=== PATIENT | female | born 1950 | race Caucasian/White ===

== ENCOUNTER → 2022-05-30 11:00 | Inpatient (IN) | payer SELFPAY ==
[2021-08-02] MEDS: BUSPIRONE 10 MG TABLET 5 MG PO ×3 (07:27→21:12)
[2021-08-02] MEDS: ALPRAZolam 0.5 MG TABLET PO ×2 (07:27→15:03)
[2021-08-02] MEDS: TRAMADOL HCL 50 MG TABLET PO ×2 (07:27→21:10)
[2021-08-02] MEDS: ACETAMINOPHEN 500 MG TABLET 1000 MG PO ×3 (07:27→21:12)
[2021-08-02] MEDS: LEVOTHYROXINE SODIUM 150 MCG TABLET PO (07:27)
[2021-08-02] MEDS: SERTRALINE 100 MG TABLET 200 MG PO (07:28)
[2021-08-02] MEDS: VENLAFAXINE HCL 150 MG CAP.ER.24H PO (07:28)
--- NOTE | 2021-08-02 11:12 | PC.SPIRITC ---
Salesperson Yard Goods provided visit for support and connection.
[2021-08-02] MEDS: ACETAMINOPHEN 325 MG TABLET 650 MG PO (15:05)
[2021-08-02 22:31] VITALS: TEMP 36.6; O2SAT 96
[2021-08-03] MEDS: ALPRAZolam 0.5 MG TABLET PO ×2 (07:26→16:24)
[2021-08-03] MEDS: TRAMADOL HCL 50 MG TABLET PO (07:26)
[2021-08-03] MEDS: LEVOTHYROXINE SODIUM 150 MCG TABLET PO (07:26)
[2021-08-03] MEDS: BUSPIRONE 10 MG TABLET 5 MG PO ×3 (07:26→20:28)
[2021-08-03] MEDS: VENLAFAXINE HCL 150 MG CAP.ER.24H PO (07:27)
[2021-08-03] MEDS: SERTRALINE 100 MG TABLET 200 MG PO (07:27)
[2021-08-03] MEDS: ACETAMINOPHEN 500 MG TABLET 1000 MG PO ×3 (08:30→20:28)
[2021-08-03 21:27] VITALS: TEMP 36.1; O2SAT 97
[2021-08-04] MEDS: ALPRAZolam 0.5 MG TABLET PO ×3 (04:27→15:04)
[2021-08-04 04:30] VITALS: TEMP 36.4; O2SAT 94
[2021-08-04] MEDS: BUSPIRONE 10 MG TABLET 5 MG PO ×3 (07:21→19:05)
[2021-08-04] MEDS: TRAMADOL HCL 50 MG TABLET PO (07:21)
[2021-08-04] MEDS: ACETAMINOPHEN 500 MG TABLET 1000 MG PO ×3 (07:21→20:44)
[2021-08-04] MEDS: LEVOTHYROXINE SODIUM 150 MCG TABLET PO (07:21)
[2021-08-04] MEDS: SERTRALINE 100 MG TABLET 200 MG PO (07:22)
[2021-08-04] MEDS: VENLAFAXINE HCL 150 MG CAP.ER.24H PO (07:22)
[2021-08-04 11:10] VITALS: BP 159/77; RESP 18; TEMP 37.2; O2SAT 96
--- NOTE | 2021-08-04 13:08 | PC.PHA ---
Pharmacy Review ~ Patient takes tramadol prn and schedule (qdaily) for pain, use is down by half in July compared to June. Acetaminophen 1000 mg tid and q4h prn started end of July. Alprazolam scheduled bid and bid prn. Use for prn alprazolam was decreased by half in July compared to June. Low dose valproic acid was stopped.
[2021-08-04] MEDS: ACETAMINOPHEN 325 MG TABLET 650 MG PO (14:39)
[2021-08-04 21:01] VITALS: TEMP 36.6; O2SAT 97
[2021-08-05 00:31] VITALS: TEMP 36.6; O2SAT 94
[2021-08-05] MEDS: LEVOTHYROXINE SODIUM 150 MCG TABLET PO (07:54)
[2021-08-05] MEDS: VENLAFAXINE HCL 150 MG CAP.ER.24H PO (08:40)
[2021-08-05] MEDS: SERTRALINE 100 MG TABLET 200 MG PO (08:40)
[2021-08-05] MEDS: BUSPIRONE 10 MG TABLET 5 MG PO ×3 (08:40→20:17)
[2021-08-05] MEDS: TRAMADOL HCL 50 MG TABLET PO ×2 (08:40→20:15)
[2021-08-05] MEDS: ALPRAZolam 0.5 MG TABLET PO ×2 (08:40→15:35)
[2021-08-05] MEDS: ACETAMINOPHEN 500 MG TABLET 1000 MG PO ×3 (08:40→20:17)
[2021-08-05 17:09] VITALS: TEMP 36.9; O2SAT 96
[2021-08-06 00:44] VITALS: TEMP 35.5; O2SAT 95
[2021-08-06] MEDS: LEVOTHYROXINE SODIUM 150 MCG TABLET PO (07:59)
[2021-08-06] MEDS: ACETAMINOPHEN 500 MG TABLET 1000 MG PO ×3 (08:00→20:02)
[2021-08-06] MEDS: ALPRAZolam 0.5 MG TABLET PO ×2 (08:00→16:13)
[2021-08-06] MEDS: VENLAFAXINE HCL 150 MG CAP.ER.24H PO (08:01)
[2021-08-06] MEDS: TRAMADOL HCL 50 MG TABLET PO ×2 (08:01→20:04)
[2021-08-06] MEDS: BUSPIRONE 10 MG TABLET 5 MG PO ×3 (08:01→20:02)
[2021-08-06] MEDS: SERTRALINE 100 MG TABLET 200 MG PO (08:01)
[2021-08-06 21:50] VITALS: TEMP 36.8; O2SAT 100
[2021-08-07] MEDS: SERTRALINE 100 MG TABLET 200 MG PO (07:42)
[2021-08-07] MEDS: ACETAMINOPHEN 500 MG TABLET 1000 MG PO ×3 (07:42→19:57)
[2021-08-07] MEDS: ALPRAZolam 0.5 MG TABLET PO ×2 (07:42→15:47)
[2021-08-07] MEDS: TRAMADOL HCL 50 MG TABLET PO (07:42)
[2021-08-07] MEDS: VENLAFAXINE HCL 150 MG CAP.ER.24H PO (07:42)
[2021-08-07] MEDS: LEVOTHYROXINE SODIUM 150 MCG TABLET PO (07:42)
[2021-08-07] MEDS: BUSPIRONE 10 MG TABLET 5 MG PO ×3 (07:42→19:57)
[2021-08-07 17:02] VITALS: TEMP 36.6; O2SAT 96
[2021-08-08] MEDS: ACETAMINOPHEN 500 MG TABLET 1000 MG PO ×3 (07:11→20:11)
[2021-08-08] MEDS: LEVOTHYROXINE SODIUM 150 MCG TABLET PO (07:11)
[2021-08-08] MEDS: VENLAFAXINE HCL 150 MG CAP.ER.24H PO (07:12)
[2021-08-08] MEDS: TRAMADOL HCL 50 MG TABLET PO ×2 (07:12→14:28)
[2021-08-08] MEDS: BUSPIRONE 10 MG TABLET 5 MG PO ×3 (07:12→20:11)
[2021-08-08] MEDS: SERTRALINE 100 MG TABLET 200 MG PO (07:12)
[2021-08-08] MEDS: ALPRAZolam 0.5 MG TABLET PO ×2 (07:12→15:16)
[2021-08-08 16:48] VITALS: TEMP 36.8; O2SAT 97
[2021-08-09] MEDS: BUSPIRONE 10 MG TABLET 5 MG PO ×3 (07:16→20:26)
[2021-08-09] MEDS: ACETAMINOPHEN 500 MG TABLET 1000 MG PO ×3 (07:16→20:26)
[2021-08-09] MEDS: VENLAFAXINE HCL 150 MG CAP.ER.24H PO (07:16)
[2021-08-09] MEDS: LEVOTHYROXINE SODIUM 150 MCG TABLET PO (07:16)
[2021-08-09] MEDS: TRAMADOL HCL 50 MG TABLET PO ×3 (07:17→18:19)
[2021-08-09] MEDS: SERTRALINE 100 MG TABLET 200 MG PO (07:18)
[2021-08-09] MEDS: ALPRAZolam 0.5 MG TABLET PO ×3 (07:18→16:44)
[2021-08-09 21:28] VITALS: TEMP 37.2; O2SAT 96
[2021-08-10] MEDS: ACETAMINOPHEN 500 MG TABLET 1000 MG PO ×3 (07:14→19:48)
[2021-08-10] MEDS: BUSPIRONE 10 MG TABLET 5 MG PO ×3 (07:14→19:49)
[2021-08-10] MEDS: LEVOTHYROXINE SODIUM 150 MCG TABLET PO (07:14)
[2021-08-10] MEDS: ALPRAZolam 0.5 MG TABLET PO ×2 (07:14→15:17)
[2021-08-10] MEDS: VENLAFAXINE HCL 150 MG CAP.ER.24H PO (07:15)
[2021-08-10] MEDS: SERTRALINE 100 MG TABLET 200 MG PO (07:15)
[2021-08-10] MEDS: TRAMADOL HCL 50 MG TABLET PO ×2 (07:16→15:18)
[2021-08-10 16:00] VITALS: TEMP 36.5; O2SAT 98
--- NOTE | 2021-08-11 02:57 | PC.NURSE ---
Week #1, Care Plan problems -19 and temporary care plan reviewed, no changes made, no additions. Vital signs were reviewed no changes made, nothing new added. Resident receives scheduled Tylenol 1000mg TID. receives Aspercreme with Lidocaine 4% to knees BID. Often has c/c's of pain, back pain, knee pain. Receives prn dose of Ultram 50mg often at HS. Is helpful in relieving pain.
[2021-08-11] MEDS: BUSPIRONE 10 MG TABLET 5 MG PO ×3 (07:23→20:17)
[2021-08-11] MEDS: ALPRAZolam 0.5 MG TABLET PO ×2 (07:23→16:34)
[2021-08-11] MEDS: VENLAFAXINE HCL 150 MG CAP.ER.24H PO (07:23)
[2021-08-11] MEDS: ACETAMINOPHEN 500 MG TABLET 1000 MG PO ×3 (07:23→20:17)
[2021-08-11] MEDS: LEVOTHYROXINE SODIUM 150 MCG TABLET PO (07:23)
[2021-08-11] MEDS: SERTRALINE 100 MG TABLET 200 MG PO (07:24)
--- NOTE | 2021-08-11 14:59 | PC.NURSE ---
Week 1: Care plan problems 1-19 reviewed. Temporary care plan reviewed. No changes made. Resident is encouraged to participate in hygiene, toileting, grooming and dressing. Has required more staff assistance lately. Staff assist as needed and ensure resident has appropriate care. Staff set up for oral cares. Continues on regular diet. No changes in eating habits. Pain summary: Resident has chronic back and knee pain. Continues on Tylenol 1,000mg TID and Ultram 50mg Q6H PRN.
[2021-08-11 21:40] VITALS: BP 154/92; PULSE 89; RESP 18; TEMP 36.3; O2SAT 96
[2021-08-11] MEDS: TRAMADOL HCL 50 MG TABLET PO (23:50)
[2021-08-12] MEDS: LEVOTHYROXINE SODIUM 150 MCG TABLET PO (07:46)
[2021-08-12] MEDS: TRAMADOL HCL 50 MG TABLET PO (08:09)
[2021-08-12] MEDS: ALPRAZolam 0.5 MG TABLET PO ×2 (08:09→16:06)
[2021-08-12] MEDS: ACETAMINOPHEN 500 MG TABLET 1000 MG PO ×3 (08:13→20:14)
[2021-08-12] MEDS: BUSPIRONE 10 MG TABLET 5 MG PO ×3 (08:13→20:14)
[2021-08-12] MEDS: SERTRALINE 100 MG TABLET 200 MG PO (08:13)
[2021-08-12] MEDS: VENLAFAXINE HCL 150 MG CAP.ER.24H PO (08:13)
--- NOTE | 2021-08-12 10:22 | PC.NURSE ---
Podiatry: Resident was seen by In house Remedial Masseur on 08/11/21.
--- NOTE | 2021-08-12 10:29 | PC.NURSE ---
Podiatry: Resident seen by In House Embedded Processor on 08/11/21.
[2021-08-12 21:11] VITALS: TEMP 36.6; O2SAT 96
[2021-08-13] MEDS: LEVOTHYROXINE SODIUM 150 MCG TABLET PO (06:47)
[2021-08-13] MEDS: VENLAFAXINE HCL 150 MG CAP.ER.24H PO (07:20)
[2021-08-13] MEDS: BUSPIRONE 10 MG TABLET 5 MG PO ×3 (07:20→19:29)
[2021-08-13] MEDS: ACETAMINOPHEN 500 MG TABLET 1000 MG PO ×2 (07:20→12:09)
[2021-08-13] MEDS: SERTRALINE 100 MG TABLET 200 MG PO (07:20)
[2021-08-13] MEDS: ALPRAZolam 0.5 MG TABLET PO ×2 (07:20→15:03)
[2021-08-13] MEDS: ACETAMINOPHEN 325 MG TABLET 650 MG PO (15:03)
[2021-08-13 15:35] VITALS: TEMP 36.8
[2021-08-13 16:00] VITALS: TEMP 36.8; O2SAT 96
[2021-08-14] MEDS: LEVOTHYROXINE SODIUM 150 MCG TABLET PO (07:49)
[2021-08-14] MEDS: ALPRAZolam 0.5 MG TABLET PO ×2 (07:56→16:11)
[2021-08-14] MEDS: SERTRALINE 100 MG TABLET 200 MG PO (07:58)
[2021-08-14] MEDS: BUSPIRONE 10 MG TABLET 5 MG PO ×3 (07:58→19:36)
[2021-08-14] MEDS: VENLAFAXINE HCL 150 MG CAP.ER.24H PO (07:58)
[2021-08-14] MEDS: ACETAMINOPHEN 500 MG TABLET 1000 MG PO ×3 (07:58→19:36)
--- NOTE | 2021-08-14 14:17 | NUTR.NU ---
Diarrhea: Resident had one loose stools after breakfast, nothing more reported as at now (end of this shift). Fluids encouraged and offered to prevent dehydration.
[2021-08-14 17:22] VITALS: TEMP 37.1; O2SAT 95
[2021-08-15] MEDS: LEVOTHYROXINE SODIUM 150 MCG TABLET PO (06:56)
[2021-08-15] MEDS: VENLAFAXINE HCL 150 MG CAP.ER.24H PO (07:01)
[2021-08-15] MEDS: BUSPIRONE 10 MG TABLET 5 MG PO ×3 (07:01→19:42)
[2021-08-15] MEDS: ALPRAZolam 0.5 MG TABLET PO ×2 (07:01→15:51)
[2021-08-15] MEDS: ACETAMINOPHEN 500 MG TABLET 1000 MG PO ×3 (07:01→19:42)
[2021-08-15] MEDS: SERTRALINE 100 MG TABLET 200 MG PO (07:02)
[2021-08-15 16:00] VITALS: TEMP 36.8; O2SAT 97
[2021-08-15] MEDS: TRAMADOL HCL 50 MG TABLET PO (19:42)
[2021-08-16] MEDS: BUSPIRONE 10 MG TABLET 5 MG PO ×3 (07:57→20:06)
[2021-08-16] MEDS: LEVOTHYROXINE SODIUM 150 MCG TABLET PO (07:57)
[2021-08-16] MEDS: ACETAMINOPHEN 500 MG TABLET 1000 MG PO ×3 (07:57→20:06)
[2021-08-16] MEDS: VENLAFAXINE HCL 150 MG CAP.ER.24H PO (07:58)
[2021-08-16] MEDS: SERTRALINE 100 MG TABLET 200 MG PO (07:58)
[2021-08-16] MEDS: ALPRAZolam 0.5 MG TABLET PO ×2 (07:59→15:22)
[2021-08-16 11:16] VITALS: TEMP 36.8; O2SAT 94
[2021-08-16 21:06] VITALS: TEMP 36.7; O2SAT 96
[2021-08-16 23:00] VITALS: TEMP 36; O2SAT 93
[2021-08-17] MEDS: ACETAMINOPHEN 500 MG TABLET 1000 MG PO ×3 (07:13→19:41)
[2021-08-17] MEDS: LEVOTHYROXINE SODIUM 150 MCG TABLET PO (07:13)
[2021-08-17] MEDS: SERTRALINE 100 MG TABLET 200 MG PO (07:15)
[2021-08-17] MEDS: VENLAFAXINE HCL 150 MG CAP.ER.24H PO (07:15)
[2021-08-17] MEDS: BUSPIRONE 10 MG TABLET 5 MG PO ×3 (07:15→19:41)
[2021-08-17] MEDS: ALPRAZolam 0.5 MG TABLET PO ×4 (07:15→16:14)
[2021-08-17 10:32] VITALS: TEMP 36.8; O2SAT 97
--- NOTE | 2021-08-17 16:09 | PC.SPIRITC ---
Rerecording Mixer provided visit for support and connection.
[2021-08-17 21:27] VITALS: TEMP 36.4; O2SAT 96
[2021-08-17 23:00] VITALS: TEMP 36.4; O2SAT 94
--- NOTE | 2021-08-18 02:25 | PC.NURSE ---
Week #2---care plan problems #20-29 reviewed. No changes made. Nothing added to temporary care plan. Continues to be independent with bed mobility, transfers, and ambulation. Uses top siderails and a walker for assist. Falls---no falls this past month. Remains a high fall risk according to assessment done on 05/30/21.
[2021-08-18 07:00] VITALS: TEMP 36.5; O2SAT 97
--- NOTE | 2021-08-18 07:23 | PC.NURSE ---
Week #2: Care plan problems - and temporary care plan reviewed. No changes made. Nothing added to temporary care plan. Resident is independent with transfers, ambulation, bed mobility and repositioning. Ambulates with a 4 wheeled walker. Fall: No falls this past month. Remains a high fall risk according to assessment done on 05/30/21.
[2021-08-18] MEDS: ACETAMINOPHEN 500 MG TABLET 1000 MG PO ×3 (07:36→19:32)
[2021-08-18] MEDS: ALPRAZolam 0.5 MG TABLET PO ×2 (07:36→15:20)
[2021-08-18] MEDS: VENLAFAXINE HCL 150 MG CAP.ER.24H PO (07:36)
[2021-08-18] MEDS: SERTRALINE 100 MG TABLET 200 MG PO (07:36)
[2021-08-18] MEDS: BUSPIRONE 10 MG TABLET 5 MG PO ×3 (07:36→19:32)
[2021-08-18] MEDS: LEVOTHYROXINE SODIUM 150 MCG TABLET PO (07:36)
[2021-08-18 16:44] VITALS: TEMP 36.6; O2SAT 98
[2021-08-18 21:23] VITALS: BP 148/94; PULSE 92; RESP 18; TEMP 36.6; O2SAT 98
[2021-08-18 22:22] LABS: SARS PCR* Negative SARS-CoV-2 (Negative)
[2021-08-18 23:00] VITALS: TEMP 36.6; O2SAT 93
[2021-08-19] MEDS: ALPRAZolam 0.5 MG TABLET PO ×3 (07:38→16:56)
[2021-08-19] MEDS: LEVOTHYROXINE SODIUM 150 MCG TABLET PO (07:39)
[2021-08-19] MEDS: VENLAFAXINE HCL 150 MG CAP.ER.24H PO (07:40)
[2021-08-19] MEDS: BUSPIRONE 10 MG TABLET 5 MG PO ×3 (07:40→20:00)
[2021-08-19] MEDS: ACETAMINOPHEN 500 MG TABLET 1000 MG PO ×3 (07:40→20:00)
[2021-08-19] MEDS: SERTRALINE 100 MG TABLET 200 MG PO (07:40)
[2021-08-19 10:27] VITALS: BMI 33.2
[2021-08-19 17:16] VITALS: TEMP 36.8; O2SAT 98
[2021-08-19 23:00] VITALS: TEMP 36.1; O2SAT 93
[2021-08-20] MEDS: LEVOTHYROXINE SODIUM 150 MCG TABLET PO (06:58)
[2021-08-20 07:00] VITALS: TEMP 36.7; O2SAT 96
[2021-08-20] MEDS: ALPRAZolam 0.5 MG TABLET PO ×2 (07:57→15:43)
[2021-08-20] MEDS: BUSPIRONE 10 MG TABLET 5 MG PO ×3 (07:58→19:25)
[2021-08-20] MEDS: SERTRALINE 100 MG TABLET 200 MG PO (07:59)
[2021-08-20] MEDS: ACETAMINOPHEN 500 MG TABLET 1000 MG PO ×3 (07:59→15:44)
[2021-08-20] MEDS: VENLAFAXINE HCL 150 MG CAP.ER.24H PO (07:59)
[2021-08-20] MEDS: TRAMADOL HCL 50 MG TABLET PO ×2 (11:22→19:23)
--- NOTE | 2021-08-20 11:30 | PC.NURSE ---
Resident in room # 242 was observed lying on the floor of her bedroom next to her bed approximately 11:00 AM. According to her, her right knee was hurting so she lowered her self to the floor for fear of her leg giving up. Incident was unwitnessed. Resident was wearing appropriate foot wear, bed was locked, and floor was dry. Primary contact, Noé Driscoll (triage), and ALARM SECURITY OR SURVEILLANCE MONITOR notified and updated. Resident assessed - no injuries, signs of fractures, bruises, noted. Resident denies hitting her head. Vital signs obtained, they are within resident's normal ranges. Resident tolerated ROM - no concerns at this time. Neuro completed - no concerns. Frequent checks is the intervention noted in care plan. will continue to monitor.
--- NOTE | 2021-08-20 12:32 | LTC.FALL ---
[facility] Fall Note: o Fall Date:08/06 o Fall Time:11:00 AM o What happened? Resident was on the floor. Unknown what happened. o Who found the resident and who responded? JOHN found her, and floor nurse responded. o What was the resident doing? Unknown. o How the resident was found (knees, left side, arm under them), any hazards (cords, objects, nonskid slippers) brakes on? Proper equipment? Was lying on her right side on the floor next to bed. No concerns at this time. o Did you assess for head trauma, spinal injuries, skeletal injuries, neurological changes and status, and head and neck pain? What did you find? Normal. o Did you assess ROM in shoulders, elbows, hips, knees, any other affected areas, unless there is suspected spinal injury. Yes. o Did you Assess for pain or discomfort? Yes. o What are the injuries and how are they being treated? o How was the resident transferred from the floor? With Jarrell and 3 assist. o Did you call the MD or put a note in the INSIDE SALES ASSOCIATE book? Yes. o Enter vital signs. o Did you notify family? Yes. o What was the root cause of the fall? Why did it happen? According to resident, her right knee was hurting, so she decided to lower herself to the floor so that her leg does not give up. o Create an IMMEDIATE INTERVENTION to ensure that this won't immediately happen again. (Put in temporary care plan too) o Complete Safety report and huddle (now one form) o If resident is seen in ED or fractured something, note that you started a [facility] Report process. Instructions are at the East nurse's desk in a red binder labeled [facility] report. N/A
[2021-08-20 12:44] VITALS: BP 160/80; PULSE 77; RESP 20; TEMP 36.6; O2SAT 98
--- NOTE | 2021-08-20 12:50 | PC.NURSE ---
Resident in room # 242 was observed lying on the floor of her bedroom next to her bed approximately 11:00 AM. According to her, her right knee was hurting so she lowered her self to the floor for fear of her leg giving up. Incident was unwitnessed. Resident was wearing appropriate foot wear, bed was locked, and floor was dry. Primary contact, Noé Driscoll (triage), and VETERINARY PHARMACOLOGIST notified and updated. Resident assessed - no injuries, signs of fractures, bruises, noted. Resident denies hitting her head. Vital signs obtained, they are within resident's normal ranges. Resident tolerated ROM - no concerns at this time. Neuro completed - no concerns. Frequent checks is the intervention noted in care plan. will continue to monitor.
[2021-08-20 13:46] VITALS: BP 149/87; PULSE 78; RESP 18; TEMP 36.6; O2SAT 98
--- NOTE | 2021-08-20 13:50 | PC.NURSE ---
Fall Follow-up: Neuro assessment completed and vital signs obtained - no new concerns at this time.
[2021-08-20 17:14] VITALS: BP 169/94; PULSE 76; RESP 18; TEMP 36.4; O2SAT 97
--- NOTE | 2021-08-20 17:15 | PC.NURSE ---
Fall F/U: Resident sitting up in recliner. Was worried about power outage, as hospital power went out for 10 seconds. VSS and neuro WNL, although resident reported a new headache. Resident denies hitting head during fall. Scheduled Tylenol given early with relief. Denies pain in R knee at this time.
--- NOTE | 2021-08-20 18:06 | PC.NURSE ---
Behavior: Resident was walking with staff down hallway to dining room. Stated she felt like she was going to fall then proceeded to bend knees and stand up several times. Resident appeared stable, but staff assisted resident into wheelchair and propelled to table.
[2021-08-20 21:01] VITALS: BP 169/80; PULSE 75; RESP 16; TEMP 36.3; O2SAT 96
--- NOTE | 2021-08-20 21:02 | PC.NURSE ---
Fall F/U: Resident resting in bed, watching TV. VSS, neuro WNL. Resident ambulated to bathroom with standby assist, gaitbelt and walker. Gait was steady. C/o pain in R knee, PRN Ultram given with moderate relief. Warm blanket applied with relief.
[2021-08-21] VITALS (10 sets, daily range): BP systolic 142–163; BP diastolic 73–96; PULSE 75–80; RESP 16–18; TEMP 36.1–36.9; O2SAT 94–98
--- NOTE | 2021-08-21 01:15 | PC.NURSE ---
Fall F/U: Resident up to BR with walker, gait belt and standby assist. Used call light for staff assist. Denies pain at this time. VSS and neuro at baseline. Resident repeatedly asked can I walk by myself tomorrow. RN stated resident is OK to walk independently, but encouraged to call for help when R knee is having pain or feels weak. Resident verbalized understanding.
--- NOTE | 2021-08-21 05:00 | PC.NURSE ---
Fall Follow-up: Neuro assessment completed and vital signs obtained - finding are within baseline values. Denies pain at this time.
[2021-08-21] MEDS: ALPRAZolam 0.5 MG TABLET PO ×2 (07:31→15:14)
[2021-08-21] MEDS: BUSPIRONE 10 MG TABLET 5 MG PO ×3 (07:33→19:55)
[2021-08-21] MEDS: ACETAMINOPHEN 500 MG TABLET 1000 MG PO ×3 (07:33→19:55)
[2021-08-21] MEDS: VENLAFAXINE HCL 150 MG CAP.ER.24H PO (07:33)
[2021-08-21] MEDS: SERTRALINE 100 MG TABLET 200 MG PO (07:33)
[2021-08-21] MEDS: LEVOTHYROXINE SODIUM 150 MCG TABLET PO (07:33)
--- NOTE | 2021-08-21 09:00 | PC.NURSE ---
Fall Follow-up: Neuro assessment completed and vital signs obtained - no new concerns at this time. Resident was able to ambulate in her bedroom, and also brought herself to the dinning room for breakfast without complains of pain. In a pleasant mood at this time.
--- NOTE | 2021-08-21 13:35 | PC.NURSE ---
Fall Follow-up: Neuro assessment completed and vital signs obtained. Findings are within baseline values. C/O 04/14 headache - rest encouraged and scheduled Acetaminophen given. Intervention were effective.
--- NOTE | 2021-08-21 17:23 | PC.NURSE ---
Fall F/U: Resident ambulated to evening meal without incident. Gait steady. VSS, Neuro WNL, SANGEETHA. Resident inquiring how many Xanax she can have a day, I'm having a hard day and think I need more. Gave scheduled xanax, which was effective.
--- NOTE | 2021-08-21 21:09 | PC.NURSE ---
Fall F/U: Gait steady this shift, VSS, Neuros WNL, SANGEETHA
--- NOTE | 2021-08-22 00:34 | PC.NURSE ---
Fall f/u for 0---Awakens easily for VS and neuro checks. No c/o's pain at this time. Hand grasps equal. SANGEETHA.
[2021-08-22 03:00] VITALS: BP 166/91; PULSE 85; RESP 18; TEMP 36.8; O2SAT 96
--- NOTE | 2021-08-22 03:32 | PC.NURSE ---
Fall f/u for 299---Awakens easily. VS and neuro checks done and remain stable. Up to the BR. Had her usual c/o's about her right knee. No episodes of knee buckling. Also expressed it was so scary in regards to her fall. Was incont. of urine and voided on the toilet. Pullup and fem pad changed.
[2021-08-22] MEDS: LEVOTHYROXINE SODIUM 150 MCG TABLET PO (07:15)
[2021-08-22] MEDS: ACETAMINOPHEN 500 MG TABLET 1000 MG PO ×3 (07:17→19:43)
[2021-08-22] MEDS: BUSPIRONE 10 MG TABLET 5 MG PO ×3 (07:18→19:43)
[2021-08-22] MEDS: VENLAFAXINE HCL 150 MG CAP.ER.24H PO (07:18)
[2021-08-22] MEDS: SERTRALINE 100 MG TABLET 200 MG PO (07:19)
[2021-08-22] MEDS: ALPRAZolam 0.5 MG TABLET PO ×2 (07:20→15:55)
[2021-08-22 12:10] VITALS: TEMP 36.9; O2SAT 96
[2021-08-22 14:00] VITALS: BP 151/80; PULSE 82; RESP 12; TEMP 36.9; O2SAT 96
--- NOTE | 2021-08-22 14:01 | PC.NURSE ---
Neuro check - PERRLA, A&Ox4, No visual field cuts observed. Strength equal bilaterally.
--- NOTE | 2021-08-22 14:01 | PC.NURSE ---
Skin - redness noticed beneath R breast and L breast. Requested order for Nystatin from INTERNATIONAL TRADE SPECIALIST
[2021-08-22 15:00] VITALS: TEMP 36.9; O2SAT 96
[2021-08-22 16:35] LABS: SARS PCR* Negative SARS-CoV-2 (Negative)
[2021-08-22 18:00] VITALS: BP 150/80; PULSE 80; RESP 16; TEMP 36.9; O2SAT 96
--- NOTE | 2021-08-22 21:43 | PC.NURSE ---
Fall Follow-up: Neuro assessment completed and vital signs obtained. Findings are within baseline values. No new concerns at this time.
[2021-08-22 23:00] VITALS: TEMP 36.6; O2SAT 95
[2021-08-23] MEDS: LEVOTHYROXINE SODIUM 150 MCG TABLET PO (07:44)
[2021-08-23] MEDS: VENLAFAXINE HCL 150 MG CAP.ER.24H PO (07:44)
[2021-08-23] MEDS: ACETAMINOPHEN 500 MG TABLET 1000 MG PO ×3 (07:44→20:10)
[2021-08-23] MEDS: BUSPIRONE 10 MG TABLET 5 MG PO ×3 (07:44→20:11)
[2021-08-23] MEDS: SERTRALINE 100 MG TABLET 200 MG PO (07:45)
[2021-08-23] MEDS: ALPRAZolam 0.5 MG TABLET PO ×2 (07:46→15:48)
--- NOTE | 2021-08-23 10:01 | REH.OT ---
Hot Liquid Assessment: Due to cognitive deficits, resident may drink hot liquids only at a table.
--- NOTE | 2021-08-23 11:22 | PC.NURSE ---
Skin/Order: Redness under both breasts noted by HOME SUPERVISORUrban. Order: Nystatin powder BID, apply small amount to affected area.
[2021-08-23 13:30] VITALS: TEMP 36.4; O2SAT 98
[2021-08-23] MEDS: NYSTATIN POWDER 1 APPLIC TOPICAL (15:48)
[2021-08-23 17:15] VITALS: TEMP 36.4; O2SAT 98
[2021-08-23 23:00] VITALS: TEMP 36.1; O2SAT 93
[2021-08-24] MEDS: VENLAFAXINE HCL 150 MG CAP.ER.24H PO (07:27)
[2021-08-24] MEDS: BUSPIRONE 10 MG TABLET 5 MG PO ×3 (07:27→19:34)
[2021-08-24] MEDS: LEVOTHYROXINE SODIUM 150 MCG TABLET PO (07:27)
[2021-08-24] MEDS: NYSTATIN POWDER 1 APPLIC TOPICAL ×2 (07:27→19:41)
[2021-08-24] MEDS: ACETAMINOPHEN 500 MG TABLET 1000 MG PO ×3 (07:27→19:34)
[2021-08-24] MEDS: ALPRAZolam 0.5 MG TABLET PO ×2 (07:27→15:52)
[2021-08-24] MEDS: SERTRALINE 100 MG TABLET 200 MG PO (07:27)
[2021-08-24 10:42] VITALS: TEMP 37.2; O2SAT 94
--- NOTE | 2021-08-24 13:57 | PC.PHA ---
Pharmacy Note ~ Patient continues on same med. regimen, with scheduled acetaminophen 1000 mg tid and prn tramadol and acetaminophen. As needed tramadol needed 13 times since 08/02/21 and 2 doses of acetaminophen since 08/02/2021. Alprazolam scheduled and prn continues, with 5 prn doses since 08/04/21. Venlafaxine 150 mg daily is fairly low dose but patient maintaining, therefore no recommended med. adjustments this review.
[2021-08-24] MEDS: TRAMADOL HCL 50 MG TABLET PO (15:53)
[2021-08-24 21:35] VITALS: TEMP 36.4; O2SAT 95
[2021-08-24 23:00] VITALS: TEMP 36; O2SAT 95
--- NOTE | 2021-08-25 04:09 | PC.NURSE ---
Weekly #3 temporary care Plan reviewed. Addition to plan of care, increased redness under breasts, new order to apply nystatin powder BID. Plan of Care reviewed problems 30-39. no additions or changes made. resident has frequent incontinence due to urgency wears incontinent brief and staff assist. Vital signs reviewed and within normal range.
[2021-08-25 07:00] VITALS: TEMP 36.8; O2SAT 97
[2021-08-25] MEDS: LEVOTHYROXINE SODIUM 150 MCG TABLET PO (07:39)
--- NOTE | 2021-08-25 07:42 | PC.NURSE ---
Week #3: Care plan problems 30-39 and temporary care plan reviewed. No changes made. Nothing added to temporary care plan. Is typically incontinent of urine, occasional bowel incontinence. She is independent with toileting. Transfers and ambulates with a walker. Pads, rashad cares, clothing managed by self. Will ask for assist as needed. Skin: No issues at this time. Skin is checked routinely with baths & prn.
[2021-08-25] MEDS: ACETAMINOPHEN 500 MG TABLET 1000 MG PO ×3 (08:03→20:34)
[2021-08-25] MEDS: BUSPIRONE 10 MG TABLET 5 MG PO ×3 (08:04→20:35)
[2021-08-25] MEDS: ALPRAZolam 0.5 MG TABLET PO ×2 (08:04→16:35)
[2021-08-25] MEDS: NYSTATIN POWDER 1 APPLIC TOPICAL ×2 (08:04→20:35)
[2021-08-25] MEDS: VENLAFAXINE HCL 150 MG CAP.ER.24H PO (08:04)
[2021-08-25] MEDS: SERTRALINE 100 MG TABLET 200 MG PO (08:05)
[2021-08-25] MEDS: TRAMADOL HCL 50 MG TABLET PO (11:54)
[2021-08-25 21:25] VITALS: BP 148/90; PULSE 86; RESP 18; TEMP 36.3; O2SAT 94
[2021-08-25 23:00] VITALS: TEMP 35.5; O2SAT 93
--- NOTE | 2021-08-25 23:45 | PC.NURSE ---
FALL RISK: Assessment complete. Is a high fall risk.
[2021-08-26 07:00] VITALS: TEMP 36.7; O2SAT 97
[2021-08-26] MEDS: ALPRAZolam 0.5 MG TABLET PO ×2 (07:50→16:33)
[2021-08-26] MEDS: ACETAMINOPHEN 500 MG TABLET 1000 MG PO ×3 (07:50→19:44)
[2021-08-26] MEDS: NYSTATIN POWDER 1 APPLIC TOPICAL ×2 (07:50→19:44)
[2021-08-26] MEDS: BUSPIRONE 10 MG TABLET 5 MG PO ×3 (07:50→19:44)
[2021-08-26] MEDS: LEVOTHYROXINE SODIUM 150 MCG TABLET PO (07:50)
[2021-08-26] MEDS: SERTRALINE 100 MG TABLET 200 MG PO (07:51)
[2021-08-26] MEDS: VENLAFAXINE HCL 150 MG CAP.ER.24H PO (07:51)
--- NOTE | 2021-08-26 17:13 | PC.SOCIAL ---
Care conference: Care conference held on 08/23/21 with all members of the care team and resident present in person, cousin participated by phone. Resident is pleased with care at this facility and plans to remain form tamping machine operator. Resident's questions about knee pain were answered by nursing. Resident has very supportive cousin who keeps in frequent contact with her. Cousin expressed pleasure that resident was participating and engaged in care conference discussion. Residents' mood as assessed by PHQ-9 remains stable. Resident is aware of option to request additional medication for anxiety when needed. quality worker to continue to monitor mood and behavior.
[2021-08-26 18:37] VITALS: TEMP 36.8; O2SAT 96
[2021-08-26 23:00] VITALS: TEMP 36.2; O2SAT 95
[2021-08-27 07:00] VITALS: TEMP 36.8; O2SAT 97
[2021-08-27] MEDS: ALPRAZolam 0.5 MG TABLET PO ×3 (07:53→18:54)
[2021-08-27] MEDS: LEVOTHYROXINE SODIUM 150 MCG TABLET PO (07:53)
[2021-08-27] MEDS: VENLAFAXINE HCL 150 MG CAP.ER.24H PO (07:55)
[2021-08-27] MEDS: BUSPIRONE 10 MG TABLET 5 MG PO ×3 (07:55→18:54)
[2021-08-27] MEDS: SERTRALINE 100 MG TABLET 200 MG PO (07:55)
[2021-08-27] MEDS: ACETAMINOPHEN 500 MG TABLET 1000 MG PO ×3 (07:55→18:53)
[2021-08-27] MEDS: NYSTATIN POWDER 1 APPLIC TOPICAL ×2 (07:55→18:54)
[2021-08-27 16:43] VITALS: TEMP 36.7; O2SAT 96
[2021-08-27] MEDS: TRAMADOL HCL 50 MG TABLET PO (20:27)
[2021-08-27 23:00] VITALS: TEMP 36.3; O2SAT 94
[2021-08-28 07:00] VITALS: TEMP 36.8; O2SAT 97
[2021-08-28] MEDS: LEVOTHYROXINE SODIUM 150 MCG TABLET PO (07:13)
[2021-08-28] MEDS: ALPRAZolam 0.5 MG TABLET PO ×2 (07:13→15:59)
[2021-08-28] MEDS: ACETAMINOPHEN 500 MG TABLET 1000 MG PO ×3 (07:15→19:58)
[2021-08-28] MEDS: SERTRALINE 100 MG TABLET 200 MG PO (07:15)
[2021-08-28] MEDS: BUSPIRONE 10 MG TABLET 5 MG PO ×3 (07:15→19:58)
[2021-08-28] MEDS: VENLAFAXINE HCL 150 MG CAP.ER.24H PO (07:15)
[2021-08-28] MEDS: NYSTATIN POWDER 1 APPLIC TOPICAL (07:15)
[2021-08-28] MEDS: TRAMADOL HCL 50 MG TABLET PO (20:37)
[2021-08-28 21:41] VITALS: TEMP 36.8; O2SAT 97
[2021-08-29 05:26] VITALS: TEMP 36.4; O2SAT 94
[2021-08-29] MEDS: LEVOTHYROXINE SODIUM 150 MCG TABLET PO (08:00)
[2021-08-29] MEDS: BUSPIRONE 10 MG TABLET 5 MG PO ×3 (08:00→19:47)
[2021-08-29] MEDS: ACETAMINOPHEN 500 MG TABLET 1000 MG PO ×3 (08:00→19:47)
[2021-08-29] MEDS: VENLAFAXINE HCL 150 MG CAP.ER.24H PO (08:01)
[2021-08-29] MEDS: SERTRALINE 100 MG TABLET 200 MG PO (08:01)
[2021-08-29] MEDS: NYSTATIN POWDER 1 APPLIC TOPICAL ×2 (08:01→19:47)
[2021-08-29] MEDS: ALPRAZolam 0.5 MG TABLET PO ×2 (08:02→15:48)
[2021-08-29 10:43] VITALS: TEMP 37; O2SAT 97
[2021-08-29 15:00] VITALS: TEMP 36.6; O2SAT 96
[2021-08-29 19:33] LABS: SARS PCR* Negative SARS-CoV-2 (Negative)
[2021-08-29 23:00] VITALS: TEMP 37; O2SAT 94
[2021-08-30] MEDS: VENLAFAXINE HCL 150 MG CAP.ER.24H PO (07:09)
[2021-08-30] MEDS: SERTRALINE 100 MG TABLET 200 MG PO (07:09)
[2021-08-30] MEDS: BUSPIRONE 10 MG TABLET 5 MG PO ×3 (07:09→19:54)
[2021-08-30] MEDS: ACETAMINOPHEN 500 MG TABLET 1000 MG PO ×3 (07:09→19:54)
[2021-08-30] MEDS: ALPRAZolam 0.5 MG TABLET PO ×3 (07:09→21:36)
[2021-08-30] MEDS: NYSTATIN POWDER 1 APPLIC TOPICAL ×2 (07:09→19:55)
[2021-08-30] MEDS: LEVOTHYROXINE SODIUM 150 MCG TABLET PO (07:09)
[2021-08-30 10:29] VITALS: TEMP 37.1; O2SAT 95
[2021-08-30 15:00] VITALS: TEMP 36.8; O2SAT 97
[2021-08-30] MEDS: TRAMADOL HCL 50 MG TABLET PO (18:48)
[2021-08-30 23:00] VITALS: TEMP 36.7; O2SAT 94
[2021-08-31] MEDS: BUSPIRONE 10 MG TABLET 5 MG PO ×3 (07:56→19:00)
[2021-08-31] MEDS: LEVOTHYROXINE SODIUM 150 MCG TABLET PO (07:56)
[2021-08-31] MEDS: ACETAMINOPHEN 500 MG TABLET 1000 MG PO ×3 (07:56→19:00)
[2021-08-31] MEDS: NYSTATIN POWDER 1 APPLIC TOPICAL ×2 (07:56→20:13)
[2021-08-31] MEDS: VENLAFAXINE HCL 150 MG CAP.ER.24H PO (07:57)
[2021-08-31] MEDS: SERTRALINE 100 MG TABLET 200 MG PO (07:57)
[2021-08-31] MEDS: ALPRAZolam 0.5 MG TABLET PO ×2 (07:58→16:22)
[2021-08-31 11:23] VITALS: TEMP 36.9; O2SAT 93
[2021-08-31] MEDS: TRAMADOL HCL 50 MG TABLET PO ×2 (11:30→19:00)
--- NOTE | 2021-08-31 12:32 | PC.NURSE ---
Pain - Pt complained of intense pain in lower back. Says I want a shot in my back. Left a note for the ACQUISITION MARKETING MANAGER.
--- NOTE | 2021-08-31 21:37 | PC.NURSE ---
Pain: Resident complained of back pain of 8. Was given warm towels and Ultram at 1900.
[2021-09-01] MEDS: TRAMADOL HCL 50 MG TABLET PO ×3 (03:30→21:21)
--- NOTE | 2021-09-01 03:59 | PC.NURSE ---
Week #4---care plan problems #40+ reviewed. No changes made. Nothing added to temporary care plan. Uses call light for needs. No changes noted in hearing, vision, or orientation. No behavior problems at [facility]. Sleeps well. Continues on the following psychotropic meds: Alprazolam 0.5 mg bid and bid prn, Buspar 5 mg tid, Venlafaxine 150 mg qd, and Zoloft 200 mg qd. No adverse effects noted.
[2021-09-01] MEDS: ALPRAZolam 0.5 MG TABLET PO ×3 (07:41→20:02)
[2021-09-01] MEDS: LEVOTHYROXINE SODIUM 150 MCG TABLET PO (07:41)
[2021-09-01] MEDS: BUSPIRONE 10 MG TABLET 5 MG PO ×3 (07:45→20:01)
[2021-09-01] MEDS: NYSTATIN POWDER 1 APPLIC TOPICAL ×2 (07:45→20:36)
[2021-09-01] MEDS: SERTRALINE 100 MG TABLET 200 MG PO (07:45)
[2021-09-01] MEDS: ACETAMINOPHEN 500 MG TABLET 1000 MG PO ×3 (07:45→20:01)
[2021-09-01] MEDS: VENLAFAXINE HCL 150 MG CAP.ER.24H PO (07:45)
--- NOTE | 2021-09-01 10:49 | PC.NURSE ---
Week #4: Care plan problems 40-119 and temporary care plan reviewed. No changes made. Nothing added to temporary care plan. No changes noted in communication, hearing, vision, & orientation. She does communicate needs and use the call light. Hearing & vision are fine. 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 Continues to complain of on/off knee & back pain. Does not self administer medications. Behavior/Mood: Has episodes of acting as if she is going to fall especially if there's a new staff for attention. Continues on Alprazolam 0.5mg BID & BID PRN, Buspar 5mg TID, Effexor 150mg daily, & Zoloft 200mg daily with no adverse effects noted. Has no change in medications.
--- NOTE | 2021-09-01 12:06 | PC.NURSE ---
Recert Visit: Resident seen by FRAME GATE MORTISER OPERATORUrban. Orders reviewed and renewed of 75 days with no changes.
[2021-09-01 21:38] VITALS: BP 146/90; PULSE 80; RESP 16; TEMP 36.7; O2SAT 95
--- NOTE | 2021-09-01 21:59 | PC.NURSE ---
Status: Resident c/o feeling unwell this shift. Was witnessed pacing the halls starting at 1430 until 151. Had urinary incontinence episode during afternoon activity and was exhibiting anxious behaviors after this. Resident was noted as absent for evening meal, staff was able to awaken her and she came down 30 min late at 1800 and stayed in dining room until 1914, exhibiting confusion about why someone took her tray, saying, I wasnt done! . Snack offered and resident returned to bedroom. Sleep through evening activity and expressed confusion and displeasure at missing activity. Xanax requested and given with no effect at 2001, tramadol given for headache at 2120. Resident remained at desk stating I'm not doing well, I'm not doing well repeatedly for 5 min until returning to her room.
[2021-09-02] MEDS: LEVOTHYROXINE SODIUM 150 MCG TABLET PO (07:59)
[2021-09-02] MEDS: ALPRAZolam 0.5 MG TABLET PO ×2 (08:56→16:12)
[2021-09-02] MEDS: ACETAMINOPHEN 500 MG TABLET 1000 MG PO ×3 (08:56→20:16)
[2021-09-02] MEDS: SERTRALINE 100 MG TABLET 200 MG PO (08:57)
[2021-09-02] MEDS: VENLAFAXINE HCL 150 MG CAP.ER.24H PO (08:57)
[2021-09-02] MEDS: BUSPIRONE 10 MG TABLET 5 MG PO ×3 (08:57→20:16)
[2021-09-02] MEDS: NYSTATIN POWDER 1 APPLIC TOPICAL ×2 (08:57→20:16)
[2021-09-02 21:58] VITALS: TEMP 36.7; O2SAT 99
[2021-09-03] MEDS: LEVOTHYROXINE SODIUM 150 MCG TABLET PO (07:52)
[2021-09-03] MEDS: NYSTATIN POWDER 1 APPLIC TOPICAL ×2 (07:52→20:15)
[2021-09-03] MEDS: BUSPIRONE 10 MG TABLET 5 MG PO ×3 (07:52→20:15)
[2021-09-03] MEDS: ACETAMINOPHEN 500 MG TABLET 1000 MG PO ×3 (07:52→20:15)
[2021-09-03] MEDS: VENLAFAXINE HCL 150 MG CAP.ER.24H PO (07:52)
[2021-09-03] MEDS: SERTRALINE 100 MG TABLET 200 MG PO (07:53)
[2021-09-03] MEDS: ALPRAZolam 0.5 MG TABLET PO ×4 (07:54→21:28)
[2021-09-03 21:32] VITALS: TEMP 36.6; O2SAT 95
[2021-09-04] MEDS: ALPRAZolam 0.5 MG TABLET PO ×4 (02:24→20:17)
[2021-09-04] MEDS: LEVOTHYROXINE SODIUM 150 MCG TABLET PO (06:47)
[2021-09-04] MEDS: BUSPIRONE 10 MG TABLET 5 MG PO ×3 (08:27→19:41)
[2021-09-04] MEDS: ACETAMINOPHEN 500 MG TABLET 1000 MG PO ×3 (08:27→17:03)
[2021-09-04] MEDS: VENLAFAXINE HCL 150 MG CAP.ER.24H PO (08:27)
[2021-09-04] MEDS: SERTRALINE 100 MG TABLET 200 MG PO (08:27)
[2021-09-04] MEDS: NYSTATIN POWDER 1 APPLIC TOPICAL ×2 (08:30→19:51)
[2021-09-04 18:34] VITALS: TEMP 36.6; O2SAT 95
[2021-09-04] MEDS: TRAMADOL HCL 50 MG TABLET PO (18:41)
--- NOTE | 2021-09-04 21:47 | PC.NURSE ---
Behavior: Resident exhibited attention seeking behavior throughout shift. Resident asked to walk outside, RN insisted staff accompany resident on walk, d/t increased c/o of pain and weakness in R knee. When staff assisted resident outside, she became weak and sat down in walker. Staff assisted resident back to dining room, where resident stood to transfer into chair. Then resident refused staff assistance and ambulated back to room. Later resident ambulated by self with walker to nurses station, then proceeded to sit down on walker and stated she couldn't stand up. Staff attempted to assist resident up with gaitbelt, but resident would not support own weight. EZ stand was used to assist resident up into wheelchair, and was propelled by staff to dining room. Walker was placed in residents room. Resident then began asking about walker and insisted she was fine to walk by herself. Refused to eat dinner and propelled self in WC across dinning room stating she was going to get her walker by herself. RN stated she would assist resident after dinner and assess if she was safe to use walker. RN placed gaitbelt on resident and staff followed with WC. Resident was able to stand unassisted and walk with walker. Resident was encouraged to call for help before ambulating, since she was reporting increased weakness and she agreed. Resident continued to ambulate by self, staff monitored for safety with hourly checks and provided standby assistance when resident was ambulating.
[2021-09-05] MEDS: TRAMADOL HCL 50 MG TABLET PO ×2 (02:55→11:58)
[2021-09-05] MEDS: ACETAMINOPHEN 500 MG TABLET 1000 MG PO ×3 (08:54→19:05)
[2021-09-05] MEDS: LEVOTHYROXINE SODIUM 150 MCG TABLET PO (08:54)
[2021-09-05] MEDS: VENLAFAXINE HCL 150 MG CAP.ER.24H PO (08:55)
[2021-09-05] MEDS: BUSPIRONE 10 MG TABLET 5 MG PO ×3 (08:55→19:05)
[2021-09-05] MEDS: SERTRALINE 100 MG TABLET 200 MG PO (08:55)
[2021-09-05] MEDS: NYSTATIN POWDER 1 APPLIC TOPICAL ×2 (08:55→19:05)
[2021-09-05] MEDS: ALPRAZolam 0.5 MG TABLET PO ×4 (08:59→20:15)
[2021-09-05 10:01] VITALS: BP 170/111; PULSE 100; RESP 18; TEMP 36.9; O2SAT 94
--- NOTE | 2021-09-05 10:06 | LTC.FALL ---
[facility] [place] Fall Note: o Fall Date:09-05-21 o Fall Time:0650 o What happened?resident reaching for her clothes in closet. o Who found the resident and who responded?JOHN and keno writer. o What was the resident doing? as above o How the resident was found (knees, left side, arm under them), any hazards (cords, objects, nonskid slippers) brakes on? Proper equipment? sitting on her bottom next to her bed. o Did you assess for head trauma, spinal injuries, skeletal injuries, neurological changes and status, and head and neck pain? What did you find? yes none noted o Did you assess ROM in shoulders, elbows, hips, knees, any other affected areas, unless there is suspected spinal injury. yes. Normal ROM o Did you Assess for pain or discomfort?yes no complaints o What are the injuries and how are they being treated?no injuries o How was the resident transferred from the floor?Remove by staff using gait belt o Did you call the MD or put a note in the AIRCRAFT REFUELER book?will put in AIRCRAFT REFUELER book/ o Enter vital signs. yes. T-98.5, P-100, R-18, B/P-170/100 )2 sat 94% RA o Did you notify family? yes o What was the root cause of the fall? Why did it happen?residents poor balance o Create an IMMEDIATE INTERVENTION to ensure that this won't immediately happen again. (Put in temporary care plan too)Continue hourly check and remind resident to call for help. o Complete Safety report and huddle (now one form) o If resident is seen in ED or fractured something, note that you started a [facility] Report process. Instructions are at the East nurse's desk in a red binder labeled [facility] report.
--- NOTE | 2021-09-05 10:23 | PC.NURSE ---
UPDATE: Spoke to residents cousin, Mini. Discussed that Kelli has been increasingly anxious over the past couple of weeks. Discussed potential for change in medication-MANAGER OFFICE will be here tomorrow. She notes that Kelli mentioned the last they spoke over the weekend that she wants to move to the East hallway because the residents get more care and attention. I clarified that I had spoke to Kelli about this when she came to my office door regarding this on Sunday, and that this is not the case and that all residents are cared for equally, dependent on their level of care needs--Mini understands. She also noted that Kelli wants a best friend but hasn't been able to find one here. We discussed that has meaningful social interaction at meals and activities. I also informed Mini that Kelli was found sitting on the floor in front of her closet this morning but that she is OK and does not have any injuries. She hopes she can come visit her soon.
[2021-09-05 12:24] VITALS: BP 139/86; PULSE 86; RESP 18; TEMP 36.4; O2SAT 92
[2021-09-05 16:00] VITALS: TEMP 36.8; O2SAT 98
--- NOTE | 2021-09-05 16:00 | PC.NURSE ---
Fall Follow-up: Neuro assessment completed and vital signs obtained. Findings are within resident's baseline. No new concerns at this time.
--- NOTE | 2021-09-05 16:00 | PC.NURSE ---
Fall Follow-up: Neuro assessment completed and vital signs obtained. Findings are within resident's baseline. No new concerns at this time.
[2021-09-05 16:14] VITALS: BP 140/81; PULSE 77; RESP 18; TEMP 36.8; O2SAT 98
--- NOTE | 2021-09-05 16:20 | PC.NURSE ---
Resident had increased anxiety and paranoia today. Was continually seeking out DIRECTOR OF ANCILLARY SERVICES and staff to talk to her about using a gait belt when walking in hallway, wanting an increase in medications, wanting an injection in her back, wanting and then not wanting to go to the dining room for meals. Resident begins to lower self to floor or cry when staff is talking with her. Have updated OUTBOUND SALES PROFESSIONAL on board to review medications and interventions that can be placed for residents progressive decline in mobility and cognition.
[2021-09-05 20:14] VITALS: BP 139/81; PULSE 77; RESP 18; TEMP 36.8; O2SAT 98
--- NOTE | 2021-09-05 21:55 | PC.NURSE ---
Fall Follow-up: Neuro assessment completed and vital signs obtained. Findings are within baseline. No new concerns at this time.
[2021-09-05 22:50] VITALS: BP 151/82; PULSE 81; RESP 16; TEMP 36.4; O2SAT 94
[2021-09-06] VITALS (8 sets, daily range): BP systolic 145–179; BP diastolic 71–98; PULSE 66–88; RESP 16–18; TEMP 36.3–37.2; O2SAT 93–100
--- NOTE | 2021-09-06 03:43 | PC.NURSE ---
Fall f/u for 2249---Res. lying in bed asleep. Awakens easily but seems very fatigued. Hands grasps weak but equal. SANGEETHA. Denied need to use the BR now. Reminded her to use the call light for toileting.
--- NOTE | 2021-09-06 03:45 | PC.NURSE ---
Fall f/u for 249---Res. was found in the BR trying to change her wet pants. The bed was also very wet with urine. Had ambulated to the BR per self. Assisted to get her pajamas changed. Ambulated back to bed with TB, walker, and assist of 1 without difficulty. VS and neuro checks remain stable. No c/o's pain.
[2021-09-06] MEDS: LEVOTHYROXINE SODIUM 150 MCG TABLET PO (06:54)
[2021-09-06] MEDS: ACETAMINOPHEN 500 MG TABLET 1000 MG PO ×3 (08:13→19:59)
[2021-09-06] MEDS: NYSTATIN POWDER 1 APPLIC TOPICAL ×2 (08:13→19:59)
[2021-09-06] MEDS: VENLAFAXINE HCL 150 MG CAP.ER.24H PO (08:13)
[2021-09-06] MEDS: SERTRALINE 100 MG TABLET 200 MG PO (08:13)
[2021-09-06] MEDS: BUSPIRONE 10 MG TABLET 5 MG PO ×3 (08:13→19:59)
[2021-09-06] MEDS: ALPRAZolam 0.5 MG TABLET PO ×3 (08:15→23:32)
[2021-09-06 10:36] LABS: Basophils Absolute Auto 0.04 K/uL (0.00-0.30); Basophils Percent Auto 0.6 % (0.0-3.0); Eosinophils Absolute Auto 0.43 K/uL (0.00-0.50); Eosinophils Percent Auto 6.9 % (0.0-7.0); Hematocrit 42.4 % (33.0-51.0); Hemoglobin* 13.4 gm/dL (12.0-16.0); Lymphocytes Percent Auto 18.9 % (20-44); Mean Corpuscular HGB Conc 32 gm/dL (32-36); Mean Corpuscular Hemoglobin 30 pg (26-34); Mean Corpuscular Volume 96 fL (80-100); Neutrophils Absolute Auto 4.28 K/uL (1.7-7.0); Neutrophils Percent Auto 68.6 % (42.0-72.0); Platelet Count* 207 K/uL (140-440); RDW Coefficient of Variation % 13.4 % (11.5-15.5); Red Blood Count 4.41 m/uL (4.00-5.20); White Blood Count* 6.24 K/uL (4.50-11.00)
[2021-09-06 10:43] LABS: Slide Review Reflex No
[2021-09-06 10:47] LABS: Chloride* 108 mmol/L (96-114)
[2021-09-06 10:48] LABS: Potassium* 3.6 mmol/L (3.6-5.1); Sodium* 141 mmol/L (135-149)
[2021-09-06 10:50] LABS: Creatinine* 0.7 mg/dL (0.5-1.5); Est. Creatinine Clearance* 40.81; Estimated Glomerular Filt Rate 92 ml/min
[2021-09-06 10:51] LABS: Blood Urea Nitrogen* 12 mg/dL (7-30); Calcium* 8.6 mg/dL (8.4-10.6); Carbon Dioxide* 25 mmol/L (20-32); Glucose* 124 mg/dL (60-115)
[2021-09-06] MEDS: TRAMADOL HCL 50 MG TABLET PO ×2 (11:34→19:00)
[2021-09-06 12:07] LABS: Thyroid Stimulating Hormone* 0.684 uIU/mL (0.270-4.20)
--- NOTE | 2021-09-06 13:37 | PC.NURSE ---
Lab: TSH, CBC, BMP results reviewed by Urban SURESH. No new order.
--- NOTE | 2021-09-06 15:30 | PC.NURSE ---
Fall F/U: Resident up in recliner. Did not recall fall yesterday. BP elevated 179/98. Neuro at baseline. States her back is sore. Offered heated blanket, PRN Ultram was given on previous shift at 1130 with some relief. Resident ambulated hallway at beginning of shift without incident.
--- NOTE | 2021-09-06 20:00 | PC.NURSE ---
Addendum entered by China Jorge RN 09/06/21 21:45: Fall F/U: Resident ambulating in room. States she was looking for a DVD and couldn't find it. Neuro at baseline. BP continues to be elevated: 164/95. Continues to have c/o pain in back, PRN Ultram given at 1900. Warm blankets offered as well. Original Note: Fall F/U: Resident
--- NOTE | 2021-09-07 00:14 | PC.NURSE ---
Fall f/u for 2249---Res. was sitting up on the edge of the bed. Stated, I had an accident. Assisted to the BR with TB and walker. Walked very slowly. Repeatedly commenting about how nervous she was because of the firefly in her room earlier. Stated, I'm so nervous. I have to leave my door open tonight. I need a Xanax. Voided on the toilet. Pullup and fem pad changed. Ambulated back to bed--very slowly. Once back to bed was given a warm blanket for her back and she started eating a bag of potato chips. Continued to request a Xanax. Xanax 0.5 mg given at 2331. Then stated, it's back. Referring to the firefly. Pointing towards the door. Wondering if she is referring to the sensor light on the soap dispenser. Both dispensers covered with a towel. Res. wanted to keep the light on over the sink and is watching TV and eating her chips.
[2021-09-07 02:50] VITALS: BP 135/80; PULSE 80; RESP 16; TEMP 36.6; O2SAT 93
--- NOTE | 2021-09-07 02:58 | PC.NURSE ---
Fall f/u for 249---VS and neuro's stable. Has been sleeping. No further c/o's fireflies in room.
[2021-09-07] MEDS: NYSTATIN POWDER 1 APPLIC TOPICAL (07:55)
[2021-09-07] MEDS: LEVOTHYROXINE SODIUM 150 MCG TABLET PO (07:55)
[2021-09-07] MEDS: SERTRALINE 100 MG TABLET 200 MG PO (07:55)
[2021-09-07] MEDS: VENLAFAXINE HCL 150 MG CAP.ER.24H PO (07:55)
[2021-09-07] MEDS: ACETAMINOPHEN 500 MG TABLET 1000 MG PO ×3 (07:55→20:04)
[2021-09-07] MEDS: BUSPIRONE 10 MG TABLET 5 MG PO ×3 (07:55→20:03)
[2021-09-07] MEDS: ALPRAZolam 0.5 MG TABLET PO ×2 (07:57→15:10)
[2021-09-07] MEDS: TRAMADOL HCL 50 MG TABLET PO (09:24)
[2021-09-07 10:38] VITALS: BP 168/115; PULSE 72; RESP 24; TEMP 37; O2SAT 95
[2021-09-07 10:39] VITALS: TEMP 37; O2SAT 95
--- NOTE | 2021-09-07 14:03 | PC.SPIRITC ---
Embroidery Specialist provided visit for support, connection, comfort, and redirection.
[2021-09-07 21:22] VITALS: TEMP 36.6; O2SAT 93
[2021-09-08] MEDS: TRAMADOL HCL 50 MG TABLET PO (01:45)
--- NOTE | 2021-09-08 02:58 | PC.NURSE ---
Weekly #1 Care plan reviewed problems 1-19, no changes made no additions. Temporary Care Plan reviewed, no changes made, no additions.VS reviewed and are stable and within normal limits. Pain, res has had increase request for pain meds in past week. C/O's of backpain. Staff treat with PRN Ultram 50 mg which is somewhat effective. Has had increase in anxiety and occasionally requests Xanax. staff respond to frequent requests for help and try to reassure , redirect and offer diversional activity to reduce anxiety. Resident rcieves Aspercreme w/ Lidocaine to knees BID. Also receives scheduled Tylenol 1000mg TID. Resident will occasionally require assist with dressing on noc shift, staff assist with clear simple one step directions. Does not eat on noc shift.
[2021-09-08] MEDS: ALPRAZolam 0.5 MG TABLET PO ×4 (04:11→23:38)
--- NOTE | 2021-09-08 04:19 | PC.NURSE ---
Status Resident has had increased restlessness this noc shift. C/o'd of back pain, Ultram given per prn order with some relief. Resident has been up to bathroom x3. At 0400 resident on toilet scratching right lower leg excessively. Small amount of blood from a small area she opened. Small pinpoint areas from scratching. Lotion applied and a band aid was applied. Encouraged her to stop scratching. Zanax prn given at 0411. Res is quiet at this time.
[2021-09-08] MEDS: SERTRALINE 100 MG TABLET 200 MG PO (07:21)
[2021-09-08] MEDS: VENLAFAXINE HCL 150 MG CAP.ER.24H PO (07:21)
[2021-09-08] MEDS: NYSTATIN POWDER 1 APPLIC TOPICAL (07:21)
[2021-09-08] MEDS: ACETAMINOPHEN 500 MG TABLET 1000 MG PO ×3 (07:21→20:18)
[2021-09-08] MEDS: BUSPIRONE 10 MG TABLET 5 MG PO ×3 (07:21→20:17)
[2021-09-08] MEDS: LEVOTHYROXINE SODIUM 150 MCG TABLET PO (07:21)
--- NOTE | 2021-09-08 08:57 | PC.SPIRITC ---
provided visit for support.
[2021-09-08 10:12] VITALS: BP 158/89; PULSE 77; RESP 18; TEMP 36.9; O2SAT 97
--- NOTE | 2021-09-08 14:08 | PC.NURSE ---
Status/Order: Urban SURESH here, updated of changes in mood/behavior. Order:UA/UC.
[2021-09-08 15:55] VITALS: BP 159/75; PULSE 79; RESP 16; TEMP 36.6; O2SAT 96
[2021-09-08 16:27] LABS: Appearance Urine Clear (Clear); Bilirubin Urine Negative (Negative); Blood Urine Negative (Negative); Color Urine Yellow (Yellow); Glucose Urine Negative (Negative); Ketones Urine Negative (Negative); Leukocyte Esterase Urine Negative (Negative); Nitrite Urine Negative (Negative); Protein Urine Negative (Negative); Specific Gravity Urine 1.025 (1.000-1.030); Urobilinogen Urine 0.2 (0.2-1.0); pH Urine 5.5 (5.0-8.5)
[2021-09-08 16:54] LABS: RBC Urine 0-2 (0-2); Squamous Epithelial Cell Urine Few (None-Few); WBC Urine 0-2 (0-5)
[2021-09-08 21:34] VITALS: TEMP 36.6; O2SAT 96
[2021-09-09] MEDS: TRAMADOL HCL 50 MG TABLET PO ×2 (01:15→10:44)
--- NOTE | 2021-09-09 05:24 | PC.NURSE ---
Status---Was very anxious at the beginning of this shift. Was up to the BR. Had been incont. in her pullup. Was upset because someone came in and turned her TV off. Was upset because she saw a big, black bug in her room. Assisted to get changed and restarted her movie for her. Xanax given at 2338 per her request. Continued to call several times throughout the noc. Did receive Ultram at 0115 for c/o back pain and a headache. Continues to move very slowly when ambulating. Slept for brief periods only.
[2021-09-09] MEDS: LEVOTHYROXINE SODIUM 150 MCG TABLET PO (07:42)
[2021-09-09] MEDS: VENLAFAXINE HCL 150 MG CAP.ER.24H PO (08:08)
[2021-09-09] MEDS: ALPRAZolam 0.5 MG TABLET PO ×2 (08:08→15:36)
[2021-09-09] MEDS: ACETAMINOPHEN 500 MG TABLET 1000 MG PO ×3 (08:08→19:47)
[2021-09-09] MEDS: BUSPIRONE 10 MG TABLET 5 MG PO ×3 (08:08→19:47)
[2021-09-09] MEDS: NYSTATIN POWDER 1 APPLIC TOPICAL ×2 (08:08→19:47)
[2021-09-09] MEDS: SERTRALINE 100 MG TABLET 200 MG PO (08:08)
[2021-09-09 21:23] VITALS: TEMP 36.7; O2SAT 96
--- NOTE | 2021-09-09 21:49 | PC.NURSE ---
Behaviors: Resident exhibited behaviors entire shift; seeking out specific staff, frequent requests for pain and anxiety medication, ruminating, wandering, attempting to lower self to floor. JOHN staff report increased difficulty following directions and increased need for assistance with cares.
[2021-09-10] MEDS: ALPRAZolam 0.5 MG TABLET PO ×4 (02:13→15:36)
[2021-09-10] MEDS: LEVOTHYROXINE SODIUM 150 MCG TABLET PO (07:49)
[2021-09-10] MEDS: ACETAMINOPHEN 500 MG TABLET 1000 MG PO ×3 (08:13→19:44)
[2021-09-10] MEDS: BUSPIRONE 10 MG TABLET 5 MG PO ×3 (08:13→19:44)
[2021-09-10] MEDS: NYSTATIN POWDER 1 APPLIC TOPICAL ×2 (08:13→19:44)
[2021-09-10] MEDS: VENLAFAXINE HCL 150 MG CAP.ER.24H PO (08:13)
[2021-09-10] MEDS: SERTRALINE 100 MG TABLET 200 MG PO (08:13)
[2021-09-10 17:02] VITALS: TEMP 36.6; O2SAT 96
[2021-09-10] MEDS: TRAMADOL HCL 50 MG TABLET PO (18:30)
[2021-09-10 18:51] VITALS: BP 149/81; PULSE 86; RESP 16; TEMP 36.6; O2SAT 94
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
[2021-09-10 21:22] VITALS: BP 142/79; PULSE 92; RESP 16; TEMP 36.7; O2SAT 95
--- NOTE | 2021-09-10 21:35 | PC.NURSE ---
Fall F/U: VSS, SANGEETHA, ROM WNL. Continue to c/o pain to b/l knees, lowback, QUEEN; all existing pre-fall.
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
[2021-09-11] VITALS (7 sets, daily range): BP systolic 148–190; BP diastolic 32–92; PULSE 74–86; RESP 16–18; TEMP 36.2–37; O2SAT 93–100
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
--- NOTE | 2021-09-11 05:28 | PC.NURSE ---
Fall f/u for 514---Awakens easily for VS and neuro checks. Both remain stable. BP was a little high at 190/92 but she had to be awakened. No c/o's pain during the noc. Does still state that she hates the w/c and hopes she can use her walker tomorrow.
[2021-09-11] MEDS: LEVOTHYROXINE SODIUM 150 MCG TABLET PO (07:55)
[2021-09-11] MEDS: NYSTATIN POWDER 1 APPLIC TOPICAL ×2 (08:10→19:13)
[2021-09-11] MEDS: ACETAMINOPHEN 500 MG TABLET 1000 MG PO ×3 (08:10→19:13)
[2021-09-11] MEDS: BUSPIRONE 10 MG TABLET 5 MG PO ×3 (08:10→19:13)
[2021-09-11] MEDS: VENLAFAXINE HCL 150 MG CAP.ER.24H PO (08:10)
[2021-09-11] MEDS: SERTRALINE 100 MG TABLET 200 MG PO (08:10)
[2021-09-11] MEDS: ALPRAZolam 0.5 MG TABLET PO ×2 (08:10→15:05)
--- NOTE | 2021-09-11 08:45 | PC.NURSE ---
Fall Follow-up: Neuro assessment completed and vital signs obtained. PERRLA intact, able to move legs and arms. Denies blurry vision. Peripheral mar full bilaterally. No new concerns as related to fall incident noted at this time.
[2021-09-11] MEDS: TRAMADOL HCL 50 MG TABLET PO (16:23)
--- NOTE | 2021-09-11 17:19 | PC.NURSE ---
Fall F/U: VSS and Neuros WNL. ROM intact, SANGEETHA, denies pain r/t fall. Walker was given back to resident this AM shift, remains in the temporary care plan as removed. TOY MAKER aware. Disc with resident, that per TOY MAKER, if there is a subsequent fall the walker will be removed again r/t safety concerns.
--- NOTE | 2021-09-11 21:08 | PC.NURSE ---
Behaviors: Resident spent this shift relying heavily on her call light, avg Q5Min. Questions were repetitive, resident would ask staff a question and as soon as they would leave the room she would use her call light to ask the same question. Questions were r/t to her fall yesterday, walker, general health concerns, anxiety, medication. Temporary care plan was updated to reflect non use of walker prior to 09/12 but walker was used during AM shift. Per ADULT DAYCARE COORDINATOR, okay to use PM shift as long as safety was not in question and up to nurse discretion. Resident ambulated to evening meal without incident. At evening meal, asked documentation writer if she could stand on a chair in her room to get something from the top of her closet. Firm boundaries set and informed resident if she needed something out of reach, staff would obtain for her. She flagged down documentation writer two more times to ask same question before stating, I'm going to stand on my chair, I wanted to let you know. JOHN staff informed, Q5min checks implemented post meal and chairs removed from resident room and into the hallway for safety. Chairs returned to room once resident was in bed and documentation writer situation explained to her. Oh, I think I might still do that tomorrow. followed by I will never stand on the chair, I don't want to fall. Unable to redirect to a place of confident understanding. Resident safely in bed at time of note, w/c in hallway, walker by bed; ok per ADULT DAYCARE COORDINATOR.
--- NOTE | 2021-09-11 21:17 | PC.NURSE ---
Fall F/U: Denies pain r/t fall, existing chronic pain excluded. VSS, ROM WNL, SANGEETHA.
[2021-09-12] VITALS (8 sets, daily range): BP systolic 94–154; BP diastolic 60–86; PULSE 77–89; RESP 16–22; TEMP 36.5–37; O2SAT 93–96
[2021-09-12] MEDS: TRAMADOL HCL 50 MG TABLET PO ×2 (00:03→13:58)
[2021-09-12] MEDS: LEVOTHYROXINE SODIUM 150 MCG TABLET PO (08:00)
[2021-09-12] MEDS: ACETAMINOPHEN 500 MG TABLET 1000 MG PO ×3 (08:11→19:12)
[2021-09-12] MEDS: BUSPIRONE 10 MG TABLET 5 MG PO ×3 (08:12→19:12)
[2021-09-12] MEDS: SERTRALINE 100 MG TABLET 200 MG PO (08:12)
[2021-09-12] MEDS: NYSTATIN POWDER 1 APPLIC TOPICAL ×2 (08:12→19:12)
[2021-09-12] MEDS: VENLAFAXINE HCL 150 MG CAP.ER.24H PO (08:12)
[2021-09-12] MEDS: ALPRAZolam 0.5 MG TABLET PO ×2 (08:13→16:00)
--- NOTE | 2021-09-12 10:23 | PC.NURSE ---
Addendum entered by Jazmyne Brown RN 09/12/21 10:27: Edema +2 noted on L ankle and top of L foot. No edema noted in R ankle/foot. Original Note: Neuro check 10:00 - Pupils PERRLA. Hand molecular biology professor strength equal bilaterally. Ox4. Behavior at baseline.
--- NOTE | 2021-09-12 10:25 | PC.NURSE ---
Skin check - Skin is intact, dry, normal for color. No areas of redness. Coccyx is free of redness. Under breasts bilaterally is free of redness. No cuts/scrapes noted.
--- NOTE | 2021-09-12 13:44 | PC.NURSE ---
Neuro Assessment - Pupils PERRLA. Ox4. Hand security strategist strength equal bilaterally. ROM at baseline.
--- NOTE | 2021-09-12 14:48 | PC.NURSE ---
UPDATE: The IDT has discussed current situation with resident regarding multiple falls and behaviors. The IDT does not feel that resident would benefit from a PT evaluation at this time as her falls have been related to her behaviors/attention seeking. Will re-evaluate in the future if necessary.
[2021-09-13] MEDS: TRAMADOL HCL 50 MG TABLET PO ×2 (00:20→21:51)
--- NOTE | 2021-09-13 05:15 | PC.NURSE ---
Status---has been up to the BR with walker and assist during the noc. Continues to be incont. but also void on the toilet. Did c/o back pain x 1. Relief with Ultram 50 mg at 0020. Did c/o the light on the bed alarm bothering her. The box was tucked under the mattress. No further c/o's.
[2021-09-13] MEDS: ACETAMINOPHEN 500 MG TABLET 1000 MG PO ×3 (07:28→19:55)
[2021-09-13] MEDS: BUSPIRONE 10 MG TABLET 5 MG PO ×3 (07:28→17:20)
[2021-09-13] MEDS: ALPRAZolam 0.5 MG TABLET PO ×3 (07:28→17:20)
[2021-09-13] MEDS: LEVOTHYROXINE SODIUM 150 MCG TABLET PO (07:28)
[2021-09-13] MEDS: SERTRALINE 100 MG TABLET 200 MG PO (07:29)
[2021-09-13] MEDS: VENLAFAXINE HCL 150 MG CAP.ER.24H PO (07:29)
[2021-09-13 10:44] VITALS: TEMP 37.2; O2SAT 95
--- NOTE | 2021-09-13 11:07 | PC.NURSE ---
Order: Urban SURESH here. Nystatin Powder changed to BID PRN, Buspar 10mg daily @ 08 & 5mg @ 12 & 18, Xanax 0.5mg TID @ 08,12,18OO.
[2021-09-13 21:59] VITALS: TEMP 36.8; O2SAT 98
[2021-09-13 23:00] VITALS: TEMP 36.5; O2SAT 92
[2021-09-14] MEDS: ACETAMINOPHEN 500 MG TABLET 1000 MG PO ×3 (07:52→18:32)
[2021-09-14] MEDS: LEVOTHYROXINE SODIUM 150 MCG TABLET PO (07:52)
[2021-09-14] MEDS: SERTRALINE 100 MG TABLET 200 MG PO (07:53)
[2021-09-14] MEDS: BUSPIRONE 10 MG TABLET PO (07:53)
[2021-09-14] MEDS: VENLAFAXINE HCL 150 MG CAP.ER.24H PO (07:53)
[2021-09-14] MEDS: ALPRAZolam 0.5 MG TABLET PO ×4 (07:54→19:56)
[2021-09-14 09:59] VITALS: TEMP 36.4; O2SAT 98
[2021-09-14 10:52] LABS: Chloride* 106 mmol/L (96-114); Sodium* 142 mmol/L (135-149)
[2021-09-14 10:55] LABS: Blood Urea Nitrogen* 15 mg/dL (7-30); Carbon Dioxide* 24 mmol/L (20-32); Creatinine* 0.7 mg/dL (0.5-1.5); Est. Creatinine Clearance* 40.81; Estimated Glomerular Filt Rate 92 ml/min
[2021-09-14 10:56] LABS: Calcium* 8.6 mg/dL (8.4-10.6); Glucose* 141 mg/dL (60-115)
[2021-09-14] MEDS: BUSPIRONE 10 MG TABLET 5 MG PO ×2 (11:17→17:15)
[2021-09-14 12:06] LABS: SARS PCR* Negative SARS-CoV-2 (Negative)
[2021-09-14] MEDS: TRAMADOL HCL 50 MG TABLET PO ×2 (15:36→23:32)
[2021-09-14 21:24] VITALS: TEMP 36.1; O2SAT 96
--- NOTE | 2021-09-14 21:47 | PC.NURSE ---
Status: Resident having behaviors asking various staff if she could have a male counselor and, was on the call light for the majority of the shift. Resident also continuously asked for medications for back pain got an Ultram at 1536 for anxiety got Xanax at 1956 and for a headache gave scheduled Tylenol early.
[2021-09-14 23:00] VITALS: TEMP 37.6; O2SAT 95
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
--- NOTE | 2021-09-15 03:52 | PC.NURSE ---
Status/temp---When Covid VS checked at 2300 temp was 99.7. Was having no other symptoms. When up to the BR at 0330 temp was rechecked and was 98.8.
[2021-09-15] MEDS: LEVOTHYROXINE SODIUM 150 MCG TABLET PO (07:15)
[2021-09-15] MEDS: ACETAMINOPHEN 500 MG TABLET 1000 MG PO ×3 (07:15→20:10)
[2021-09-15] MEDS: SERTRALINE 100 MG TABLET 200 MG PO (07:16)
[2021-09-15] MEDS: BUSPIRONE 10 MG TABLET PO (07:16)
[2021-09-15] MEDS: VENLAFAXINE HCL 150 MG CAP.ER.24H PO (07:16)
[2021-09-15] MEDS: ALPRAZolam 0.5 MG TABLET PO ×5 (09:05→21:18)
[2021-09-15 11:00] VITALS: BP 130/70; PULSE 79; RESP 18; TEMP 37.2; O2SAT 93
[2021-09-15] MEDS: BUSPIRONE 10 MG TABLET 5 MG PO ×2 (11:59→17:08)
--- NOTE | 2021-09-15 14:35 | PC.NURSE ---
Status: Has increase repetitive verbalizations: I want a male counsellor then will come and tell no I don't want, I just want to talk to the personnel counselor.
[2021-09-15 17:21] VITALS: TEMP 37.4; O2SAT 96
[2021-09-15 18:28] LABS: PCR FLU A Negative PCR FLU A (Negative); PCR FLU B Negative PCR FLU B (Negative)
[2021-09-15 18:37] LABS: SARS PCR* Negative SARS-CoV-2 (Negative)
[2021-09-15 23:00] VITALS: TEMP 36.6; O2SAT 93
[2021-09-16] MEDS: TRAMADOL HCL 50 MG TABLET PO ×2 (03:08→19:27)
[2021-09-16] MEDS: BUSPIRONE 10 MG TABLET PO (07:17)
[2021-09-16] MEDS: ALPRAZolam 0.5 MG TABLET PO ×3 (07:17→17:07)
[2021-09-16] MEDS: LEVOTHYROXINE SODIUM 150 MCG TABLET PO (07:17)
[2021-09-16] MEDS: ACETAMINOPHEN 500 MG TABLET 1000 MG PO ×3 (07:17→19:26)
[2021-09-16] MEDS: SERTRALINE 100 MG TABLET 200 MG PO (07:18)
[2021-09-16] MEDS: VENLAFAXINE HCL 150 MG CAP.ER.24H PO (07:18)
[2021-09-16 10:29] VITALS: TEMP 37.2; O2SAT 95
[2021-09-16] MEDS: BUSPIRONE 10 MG TABLET 5 MG PO ×2 (11:40→17:08)
[2021-09-16 21:38] VITALS: TEMP 36.8; O2SAT 94
--- NOTE | 2021-09-16 21:49 | PC.NURSE ---
Behavior: Resident used call light frequently, Asked repetitive questions: knee/back injection, asking for medication she took minutes ago, wanting/not wanting to speak with counselor. Staff provided reassurance and tried to redirect residents attention. TV/Speaking with cousin on phone seemed to help temporarily.
[2021-09-17 00:54] VITALS: TEMP 36.9; O2SAT 95
[2021-09-17] MEDS: TRAMADOL HCL 50 MG TABLET PO (04:30)
[2021-09-17] MEDS: BUSPIRONE 10 MG TABLET PO (07:44)
[2021-09-17] MEDS: LEVOTHYROXINE SODIUM 150 MCG TABLET PO (07:44)
[2021-09-17] MEDS: ACETAMINOPHEN 500 MG TABLET 1000 MG PO ×3 (07:44→19:40)
[2021-09-17] MEDS: SERTRALINE 100 MG TABLET 200 MG PO (07:44)
[2021-09-17] MEDS: VENLAFAXINE HCL 150 MG CAP.ER.24H PO (07:44)
[2021-09-17] MEDS: ALPRAZolam 0.5 MG TABLET PO ×4 (07:46→19:41)
[2021-09-17 10:50] VITALS: TEMP 36.6; O2SAT 97
[2021-09-17] MEDS: BUSPIRONE 10 MG TABLET 5 MG PO ×2 (12:03→17:17)
[2021-09-17 18:38] VITALS: TEMP 36.6; O2SAT 94
--- NOTE | 2021-09-17 21:03 | PC.NURSE ---
Behavior: Resident had repetitive verbalizations. Asked frequently for medication, about wanting a counselor etc. Was about to redirect in most instances with snacks, TV, warm blankets. PRN xanax given per residents request at 1948 with some relief.
[2021-09-17 23:00] VITALS: TEMP 36.6; O2SAT 94
[2021-09-18] MEDS: ACETAMINOPHEN 500 MG TABLET 1000 MG PO ×3 (08:02→19:37)
[2021-09-18] MEDS: LEVOTHYROXINE SODIUM 150 MCG TABLET PO (08:02)
[2021-09-18] MEDS: BUSPIRONE 10 MG TABLET PO (08:03)
[2021-09-18] MEDS: VENLAFAXINE HCL 150 MG CAP.ER.24H PO (08:03)
[2021-09-18] MEDS: SERTRALINE 100 MG TABLET 200 MG PO (08:03)
[2021-09-18] MEDS: ALPRAZolam 0.5 MG TABLET PO ×4 (08:05→23:56)
[2021-09-18 09:56] VITALS: TEMP 36.6; O2SAT 95
[2021-09-18] MEDS: BUSPIRONE 10 MG TABLET 5 MG PO ×2 (12:20→17:14)
[2021-09-18 21:30] VITALS: TEMP 37.1; O2SAT 95
[2021-09-18] MEDS: TRAMADOL HCL 50 MG TABLET PO (22:28)
[2021-09-18 23:00] VITALS: TEMP 37; O2SAT 93
[2021-09-19] MEDS: LEVOTHYROXINE SODIUM 150 MCG TABLET PO (07:18)
[2021-09-19] MEDS: ACETAMINOPHEN 500 MG TABLET 1000 MG PO ×3 (07:19→19:08)
[2021-09-19] MEDS: ALPRAZolam 0.5 MG TABLET PO ×4 (07:19→22:33)
[2021-09-19] MEDS: BUSPIRONE 10 MG TABLET PO (07:19)
[2021-09-19] MEDS: SERTRALINE 100 MG TABLET 200 MG PO (07:19)
[2021-09-19] MEDS: VENLAFAXINE HCL 150 MG CAP.ER.24H PO (07:19)
[2021-09-19 10:31] VITALS: TEMP 37.2; O2SAT 92; BMI 30.9
--- NOTE | 2021-09-19 10:58 | PC.NURSE ---
COVID TESTING: Resident provided verbal consent for outbreak COVID testing. Resident is currently asymptomatic. Resident/family will be notified only if resident is positive.
[2021-09-19] MEDS: BUSPIRONE 10 MG TABLET 5 MG PO ×2 (11:28→16:30)
[2021-09-19 13:09] LABS: SARS PCR* Negative SARS-CoV-2 (Negative)
[2021-09-19] MEDS: TRAMADOL HCL 50 MG TABLET PO (21:18)
[2021-09-19 21:30] VITALS: TEMP 36.8; O2SAT 92
[2021-09-19 23:00] VITALS: TEMP 36.9; O2SAT 92
[2021-09-20] MEDS: ACETAMINOPHEN 500 MG TABLET 1000 MG PO ×3 (07:19→19:33)
[2021-09-20] MEDS: LEVOTHYROXINE SODIUM 150 MCG TABLET PO (07:19)
[2021-09-20] MEDS: ALPRAZolam 0.5 MG TABLET PO ×3 (07:20→17:29)
[2021-09-20] MEDS: VENLAFAXINE HCL 150 MG CAP.ER.24H PO (07:20)
[2021-09-20] MEDS: SERTRALINE 100 MG TABLET 200 MG PO (07:20)
[2021-09-20] MEDS: BUSPIRONE 10 MG TABLET PO (07:20)
[2021-09-20 11:17] VITALS: TEMP 36.8; O2SAT 96
[2021-09-20] MEDS: BUSPIRONE 10 MG TABLET 5 MG PO ×2 (11:30→17:31)
[2021-09-20] MEDS: TRAMADOL HCL 50 MG TABLET PO (19:32)
[2021-09-20 21:24] VITALS: TEMP 36.1; O2SAT 98
--- NOTE | 2021-09-20 21:38 | PC.NURSE ---
Behavior: Resident requested frequent help from staff. Used call light every 10-15minutes. Had frequent incontinent episodes, and required staff assistance to manage pad and change clothing. Also asked frequently for medication that was taken within the hour. Staff tried to redirect residents attention, offered warm blankets, and put on favorite movie. Multiple episodes of attention seeking behavior: would bend knees and state that she is falling when in dining room, refused use of wheelchair. Also walked out of room with pants soaked in urine.
--- NOTE | 2021-09-20 22:22 | PC.NURSE ---
OK to discontinue bed alarm use HS per CONCRETE STONE FINISHING SUPERVISOR. Resident has been using call light appropriately for help.
[2021-09-20 23:00] VITALS: TEMP 36.6; O2SAT 92
[2021-09-21] MEDS: TRAMADOL HCL 50 MG TABLET PO (01:48)
[2021-09-21] MEDS: ALPRAZolam 0.5 MG TABLET PO ×5 (03:54→23:34)
[2021-09-21] MEDS: LEVOTHYROXINE SODIUM 150 MCG TABLET PO (07:09)
[2021-09-21] MEDS: VENLAFAXINE HCL 150 MG CAP.ER.24H PO (07:10)
[2021-09-21] MEDS: ACETAMINOPHEN 500 MG TABLET 1000 MG PO ×3 (07:10→19:31)
[2021-09-21] MEDS: SERTRALINE 100 MG TABLET 200 MG PO (07:10)
[2021-09-21] MEDS: BUSPIRONE 10 MG TABLET PO (07:10)
[2021-09-21 10:49] VITALS: TEMP 36.6; O2SAT 94
--- NOTE | 2021-09-21 10:49 | PC.NURSE ---
Behavior: Resident approached different staff with same repetitive comments ' when i am going to see the male counselor, I am scared I see faces in my room and feet walking under the sink, and people talking. She has been reassured and ghost writer spent 1:1
[2021-09-21] MEDS: BUSPIRONE 10 MG TABLET 5 MG PO ×2 (12:04→17:13)
[2021-09-21 21:43] VITALS: TEMP 37.1; O2SAT 94
[2021-09-21 23:00] VITALS: TEMP 36.4; O2SAT 95
[2021-09-22] MEDS: VENLAFAXINE HCL 150 MG CAP.ER.24H PO (07:49)
[2021-09-22] MEDS: BUSPIRONE 10 MG TABLET PO (07:49)
[2021-09-22] MEDS: LEVOTHYROXINE SODIUM 150 MCG TABLET PO (07:49)
[2021-09-22] MEDS: SERTRALINE 100 MG TABLET 200 MG PO (07:49)
[2021-09-22] MEDS: ALPRAZolam 0.5 MG TABLET PO ×3 (07:49→17:01)
[2021-09-22] MEDS: ACETAMINOPHEN 500 MG TABLET 1000 MG PO ×3 (07:49→17:25)
[2021-09-22 10:05] VITALS: TEMP 37.2; O2SAT 96
[2021-09-22] MEDS: BUSPIRONE 10 MG TABLET 5 MG PO ×2 (11:38→17:03)
--- NOTE | 2021-09-22 14:09 | PC.NURSE ---
Status: Resident has been pulling her call light, wants the bed alarm back (wants to listen to it).
--- NOTE | 2021-09-22 14:40 | PC.NURSE ---
Week #: Care plan problems 30-39 reviewed. No changes to care plan. Temporary care plan updated regarding recurrent falls. Hourly checks and bed alarm initiated. Resident is mostly incontinent of bladder. Continent of bowels. Staff assist with toileting, pericares and pad management as needed. Resident has required more help recently. Skin: Resident had redness under R breast. PRN Nystatin applied until resolved.
[2021-09-22 17:20] VITALS: BP 135/83; PULSE 67; RESP 16; TEMP 36.7; O2SAT 95; O2SAT 98
[2021-09-22] MEDS: TRAMADOL HCL 50 MG TABLET PO (19:07)
--- NOTE | 2021-09-22 21:42 | PC.NURSE ---
Behavior: Resident requested frequent help from staff. Had repetitive verbalizations asking for counselor and frequent incontinent episodes, requiring staff assistance to manage pad and change clothing. Staff tried to redirect residents attention, offered warm blankets, and TV/movie. Multiple episodes of attention seeking behavior: would bend knees and state that she is falling when in dining room, when given wheelchair resident insisted she was fine to use walker and asked repetitively for it.
[2021-09-22 23:00] VITALS: TEMP 36.9; O2SAT 92
[2021-09-23] MEDS: ALPRAZolam 0.5 MG TABLET PO ×4 (00:34→17:00)
[2021-09-23] MEDS: TRAMADOL HCL 50 MG TABLET PO ×2 (03:55→21:13)
[2021-09-23] MEDS: BUSPIRONE 10 MG TABLET PO (07:20)
[2021-09-23] MEDS: VENLAFAXINE HCL 150 MG CAP.ER.24H PO (07:20)
[2021-09-23] MEDS: SERTRALINE 100 MG TABLET 200 MG PO (07:20)
[2021-09-23] MEDS: ACETAMINOPHEN 500 MG TABLET 1000 MG PO ×3 (07:20→19:21)
[2021-09-23] MEDS: LEVOTHYROXINE SODIUM 150 MCG TABLET PO (07:20)
[2021-09-23 10:26] VITALS: TEMP 36.9; O2SAT 95
[2021-09-23] MEDS: BUSPIRONE 10 MG TABLET 5 MG PO ×2 (11:13→17:00)
[2021-09-23 21:42] VITALS: TEMP 37.2; O2SAT 95
--- NOTE | 2021-09-23 21:46 | PC.NURSE ---
Behavior: Resident was at nurses desk from [id number] pacing, bending at the knees saying she was going to fall and when redirected walked with no issue. Seeking out specific staff and reporting 10+ times to science writer that she no longer wants to see a counselor. Resident used call light appropriately but with increasing frequency through shift with repetitive requests and statements.
[2021-09-23 23:00] VITALS: TEMP 36.7; O2SAT 91
[2021-09-24 07:00] VITALS: TEMP 36.7; O2SAT 96
[2021-09-24] MEDS: LEVOTHYROXINE SODIUM 150 MCG TABLET PO (07:33)
[2021-09-24] MEDS: BUSPIRONE 10 MG TABLET PO (08:19)
[2021-09-24] MEDS: VENLAFAXINE HCL 150 MG CAP.ER.24H PO (08:19)
[2021-09-24] MEDS: SERTRALINE 100 MG TABLET 200 MG PO (08:19)
[2021-09-24] MEDS: ALPRAZolam 0.5 MG TABLET PO ×3 (08:19→17:33)
[2021-09-24] MEDS: ACETAMINOPHEN 500 MG TABLET 1000 MG PO ×3 (08:19→18:57)
[2021-09-24] MEDS: BUSPIRONE 10 MG TABLET 5 MG PO ×2 (11:49→17:33)
[2021-09-24 21:37] VITALS: TEMP 36.9; O2SAT 96
[2021-09-24 23:00] VITALS: TEMP 36.6; O2SAT 94
[2021-09-24] MEDS: TRAMADOL HCL 50 MG TABLET PO (23:47)
[2021-09-25] MEDS: TRAMADOL HCL 50 MG TABLET PO (05:54)
[2021-09-25] MEDS: ACETAMINOPHEN 500 MG TABLET 1000 MG PO ×3 (07:39→19:54)
[2021-09-25] MEDS: BUSPIRONE 10 MG TABLET PO (07:39)
[2021-09-25] MEDS: LEVOTHYROXINE SODIUM 150 MCG TABLET PO (07:39)
[2021-09-25] MEDS: SERTRALINE 100 MG TABLET 200 MG PO (07:39)
[2021-09-25] MEDS: ALPRAZolam 0.5 MG TABLET PO ×3 (07:39→17:08)
[2021-09-25] MEDS: VENLAFAXINE HCL 150 MG CAP.ER.24H PO (07:39)
[2021-09-25 11:05] VITALS: TEMP 36.8; O2SAT 95
[2021-09-25] MEDS: BUSPIRONE 10 MG TABLET 5 MG PO ×2 (11:32→17:08)
[2021-09-25 17:10] VITALS: TEMP 36.6; O2SAT 95
[2021-09-25 23:00] VITALS: TEMP 36.1; O2SAT 95
[2021-09-26] MEDS: ALPRAZolam 0.5 MG TABLET PO ×4 (03:35→17:22)
[2021-09-26] MEDS: ACETAMINOPHEN 500 MG TABLET 1000 MG PO ×3 (07:49→19:59)
[2021-09-26] MEDS: LEVOTHYROXINE SODIUM 150 MCG TABLET PO (07:49)
[2021-09-26] MEDS: SERTRALINE 100 MG TABLET 200 MG PO (07:50)
[2021-09-26] MEDS: BUSPIRONE 10 MG TABLET PO (07:50)
[2021-09-26] MEDS: VENLAFAXINE HCL 150 MG CAP.ER.24H PO (07:50)
[2021-09-26] MEDS: BUSPIRONE 10 MG TABLET 5 MG PO ×2 (11:09→17:22)
[2021-09-26 12:47] VITALS: TEMP 36.4; O2SAT 96; BMI 33.3
[2021-09-26 13:14] LABS: SARS PCR* Negative SARS-CoV-2 (Negative)
[2021-09-26 15:00] VITALS: TEMP 37; O2SAT 96
[2021-09-26 23:00] VITALS: TEMP 36.8; O2SAT 94
[2021-09-26] MEDS: TRAMADOL HCL 50 MG TABLET PO (23:40)
[2021-09-27 07:00] VITALS: TEMP 36.7; O2SAT 91
[2021-09-27] MEDS: SERTRALINE 100 MG TABLET 200 MG PO (07:54)
[2021-09-27] MEDS: BUSPIRONE 10 MG TABLET PO (07:54)
[2021-09-27] MEDS: VENLAFAXINE HCL 150 MG CAP.ER.24H PO (07:54)
[2021-09-27] MEDS: LEVOTHYROXINE SODIUM 150 MCG TABLET PO (07:54)
[2021-09-27] MEDS: ACETAMINOPHEN 500 MG TABLET 1000 MG PO ×3 (07:54→19:18)
[2021-09-27] MEDS: ALPRAZolam 0.5 MG TABLET PO ×3 (07:56→16:25)
[2021-09-27] MEDS: BUSPIRONE 10 MG TABLET 5 MG PO ×2 (11:40→16:26)
[2021-09-27 17:28] VITALS: TEMP 36.4; O2SAT 94
[2021-09-27] MEDS: TRAMADOL HCL 50 MG TABLET PO (18:47)
--- NOTE | 2021-09-27 21:30 | PC.NURSE ---
Behavior: Resident had repetitive verbalizations and frequent requests of staff. Repetitively asked about counselor and reported new health concerns. Reported feeling unwell, when RN assessed resident stated she felt feverish. Temp: 97.5 Pulse Ox: 94%. Room temperature turned down and encouraged resident to drink water. Later resident did not recall stating she felt ill and instead stated she was anxious, scheduled Xanax and favorite movie was turned on. Asked staff shortly after to go to ED, staff reassured resident and reminded to give medication time to work. Walked up to Nurses station and c/o R knee pain. Encouraged resident to sit in recliner and elevate legs. Warm blanket offered and PRN Ultram given. Asked 3x after Ultram administration for pain medication. Resident reminded she recently took pain med and it takes time to work. Called immediately after staff left room and reported a new Headache. Again resident was reminded she just took scheduled Tylenol. Encouraged her to drink water vs coke.
[2021-09-27 23:00] VITALS: TEMP 36.2; O2SAT 91
[2021-09-28] MEDS: ALPRAZolam 0.5 MG TABLET PO ×4 (07:34→22:21)
[2021-09-28] MEDS: VENLAFAXINE HCL 150 MG CAP.ER.24H PO (07:34)
[2021-09-28] MEDS: LEVOTHYROXINE SODIUM 150 MCG TABLET PO (07:34)
[2021-09-28] MEDS: ACETAMINOPHEN 500 MG TABLET 1000 MG PO ×3 (07:34→19:40)
[2021-09-28] MEDS: BUSPIRONE 10 MG TABLET PO (07:34)
[2021-09-28] MEDS: SERTRALINE 100 MG TABLET 200 MG PO (07:35)
[2021-09-28 10:56] VITALS: TEMP 36.6; O2SAT 96
[2021-09-28] MEDS: BUSPIRONE 10 MG TABLET 5 MG PO ×2 (12:26→17:07)
--- NOTE | 2021-09-28 15:41 | PC.SOCIAL ---
Supportive visit with resident today. Resident has been requesting to see a counselor for her tearfulness and sadness. Staff have noticed increase attention seeking for minor ailments or things, and some hallucinations. Met with resident today to let her know the therapist would be here on Sunday to see resident. Resident expressed relief and started talking about someone touching her back when she was sleeping, moving her walker and seeing bugs in her room(not there). Reassurance given.
--- NOTE | 2021-09-28 16:28 | PC.SPIRITC ---
Sugar Cane Planting Equipment Operator provided visit for support and connection.
--- NOTE | 2021-09-28 16:29 | PC.SPIRITC ---
Hand Leather Trimmer provided visit for support and connection.
[2021-09-28] MEDS: TRAMADOL HCL 50 MG TABLET PO (16:56)
[2021-09-28 21:10] VITALS: TEMP 36.6; O2SAT 95
[2021-09-28 23:00] VITALS: TEMP 36.3; O2SAT 94
--- NOTE | 2021-09-29 04:03 | PC.NURSE ---
Week #4---care plan problems #40+ reviewed. No changes made. Nothing added to temporary care plan. Uses call light for needs. No changes noted in hearing, vision, or orientation. Has had an escalation of behaviors at [facility] including seeing bugs, asking continually about seeing a male counselor, asking when she can get a shot for her back, asking for whatever meds she can have. Will lie in bed and call to staff to tell us she's wet the bed. Staff assist her to the BR and change her pants. Has received prn Xanax and prn Ultram several times at [facility] this past month. Continues to receive Xanax 0.5 mg tid, Buspar 10 mg qd and 5 mg bid, Venlafaxine 150 mg qd, and Zoloft 200 mg qd. Also has order for Xanax 0.5 mg bid prn. No adverse effects noted from psychotropic meds.
[2021-09-29] MEDS: VENLAFAXINE HCL 150 MG CAP.ER.24H PO (07:26)
[2021-09-29] MEDS: ALPRAZolam 0.5 MG TABLET PO ×4 (07:26→18:27)
[2021-09-29] MEDS: SERTRALINE 100 MG TABLET 200 MG PO (07:26)
[2021-09-29] MEDS: LEVOTHYROXINE SODIUM 150 MCG TABLET PO (07:26)
[2021-09-29] MEDS: BUSPIRONE 10 MG TABLET PO (07:26)
[2021-09-29] MEDS: ACETAMINOPHEN 500 MG TABLET 1000 MG PO ×3 (07:26→19:03)
[2021-09-29 10:10] VITALS: TEMP 36.6; O2SAT 95
[2021-09-29 10:11] VITALS: PULSE 76; RESP 18; TEMP 36.6; O2SAT 95
[2021-09-29] MEDS: BUSPIRONE 10 MG TABLET 5 MG PO ×2 (11:19→17:15)
[2021-09-29 21:48] VITALS: TEMP 36.6; O2SAT 95
[2021-09-29 23:00] VITALS: TEMP 36.4; O2SAT 95
[2021-09-30] MEDS: TRAMADOL HCL 50 MG TABLET PO ×2 (01:26→21:23)
[2021-09-30 07:00] VITALS: TEMP 36.8; O2SAT 96
[2021-09-30] MEDS: LEVOTHYROXINE SODIUM 150 MCG TABLET PO (07:53)
[2021-09-30] MEDS: VENLAFAXINE HCL 150 MG CAP.ER.24H PO (08:07)
[2021-09-30] MEDS: ALPRAZolam 0.5 MG TABLET PO ×4 (08:07→22:55)
[2021-09-30] MEDS: BUSPIRONE 10 MG TABLET PO (08:07)
[2021-09-30] MEDS: ACETAMINOPHEN 500 MG TABLET 1000 MG PO ×3 (08:07→19:35)
[2021-09-30] MEDS: SERTRALINE 100 MG TABLET 200 MG PO (08:07)
[2021-09-30] MEDS: BUSPIRONE 10 MG TABLET 5 MG PO ×2 (12:05→17:05)
[2021-09-30 20:54] VITALS: TEMP 36.8; O2SAT 97
[2021-09-30 23:00] VITALS: TEMP 36.7; O2SAT 95
[2021-10-01 07:00] VITALS: TEMP 36.5; O2SAT 95
[2021-10-01] MEDS: LEVOTHYROXINE SODIUM 150 MCG TABLET PO (07:51)
[2021-10-01] MEDS: SERTRALINE 100 MG TABLET 200 MG PO (07:52)
[2021-10-01] MEDS: BUSPIRONE 10 MG TABLET PO (07:52)
[2021-10-01] MEDS: VENLAFAXINE HCL 150 MG CAP.ER.24H PO (07:52)
[2021-10-01] MEDS: ACETAMINOPHEN 500 MG TABLET 1000 MG PO ×3 (07:52→19:35)
[2021-10-01] MEDS: ALPRAZolam 0.5 MG TABLET PO ×3 (07:54→17:06)
[2021-10-01] MEDS: BUSPIRONE 10 MG TABLET 5 MG PO ×2 (11:59→17:06)
[2021-10-01] MEDS: TRAMADOL HCL 50 MG TABLET PO (16:44)
[2021-10-01 17:03] VITALS: TEMP 36.6; O2SAT 96
[2021-10-02 00:21] VITALS: TEMP 36.4; O2SAT 93
[2021-10-02] MEDS: TRAMADOL HCL 50 MG TABLET PO ×2 (02:03→19:46)
[2021-10-02] MEDS: ALPRAZolam 0.5 MG TABLET PO ×4 (05:05→17:13)
[2021-10-02 07:00] VITALS: TEMP 36.6; O2SAT 94
[2021-10-02] MEDS: LEVOTHYROXINE SODIUM 150 MCG TABLET PO (08:13)
[2021-10-02] MEDS: ACETAMINOPHEN 500 MG TABLET 1000 MG PO ×3 (08:13→19:45)
[2021-10-02] MEDS: SERTRALINE 100 MG TABLET 200 MG PO (08:14)
[2021-10-02] MEDS: BUSPIRONE 10 MG TABLET PO (08:14)
[2021-10-02] MEDS: VENLAFAXINE HCL 150 MG CAP.ER.24H PO (08:14)
[2021-10-02] MEDS: BUSPIRONE 10 MG TABLET 5 MG PO ×2 (11:39→17:13)
[2021-10-02 17:19] VITALS: TEMP 36.5; O2SAT 95
[2021-10-02 23:00] VITALS: TEMP 36.3; O2SAT 91
[2021-10-03 07:00] VITALS: TEMP 36.4; O2SAT 98; BMI 37.8
[2021-10-03] MEDS: LEVOTHYROXINE SODIUM 150 MCG TABLET PO (07:06)
[2021-10-03] MEDS: SERTRALINE 100 MG TABLET 200 MG PO (07:07)
[2021-10-03] MEDS: VENLAFAXINE HCL 150 MG CAP.ER.24H PO (07:07)
[2021-10-03] MEDS: ACETAMINOPHEN 500 MG TABLET 1000 MG PO ×3 (07:07→19:52)
[2021-10-03] MEDS: BUSPIRONE 10 MG TABLET PO (07:07)
[2021-10-03] MEDS: ALPRAZolam 0.5 MG TABLET PO ×3 (07:10→17:28)
--- NOTE | 2021-10-03 11:25 | PC.NURSE ---
COVID OUTBREAK TESTING: Resident provided verbal consent for outbreak COVID testing. Resident is currently asymptomatic. Resident/family will be notified only if resident is positive.
[2021-10-03] MEDS: BUSPIRONE 10 MG TABLET 5 MG PO ×2 (11:42→17:28)
[2021-10-03 12:16] LABS: SARS PCR* Negative SARS-CoV-2 (Negative)
[2021-10-03 15:00] VITALS: TEMP 36.4; O2SAT 98
[2021-10-03] MEDS: TRAMADOL HCL 50 MG TABLET PO (19:51)
[2021-10-03 23:00] VITALS: TEMP 36.4; O2SAT 95
[2021-10-04] MEDS: TRAMADOL HCL 50 MG TABLET PO ×2 (02:37→16:22)
[2021-10-04] MEDS: SERTRALINE 100 MG TABLET 200 MG PO (07:26)
[2021-10-04] MEDS: ACETAMINOPHEN 500 MG TABLET 1000 MG PO ×3 (07:26→20:02)
[2021-10-04] MEDS: VENLAFAXINE HCL 150 MG CAP.ER.24H PO (07:26)
[2021-10-04] MEDS: BUSPIRONE 10 MG TABLET PO (07:26)
[2021-10-04] MEDS: LEVOTHYROXINE SODIUM 150 MCG TABLET PO (07:26)
[2021-10-04] MEDS: ALPRAZolam 0.5 MG TABLET PO ×4 (07:26→21:28)
[2021-10-04 10:21] VITALS: TEMP 36.6; O2SAT 94
[2021-10-04] MEDS: BUSPIRONE 10 MG TABLET 5 MG PO ×2 (11:58→18:28)
[2021-10-04 21:24] VITALS: TEMP 37.2; O2SAT 93
--- NOTE | 2021-10-04 22:01 | PC.NURSE ---
Behavior: Resident had repetitive verbalizations, asking for PRN medication and worried about an infection since she had an incontinent episode. Staff tried to redirect residents attention, offered warm blankets, and TV/movie. Effective for short periods of time but resident would again put construction trades teacher light with same questions/requests for medication. PRN ultram and Xanax given with minimal effect.
[2021-10-04 23:00] VITALS: TEMP 36; O2SAT 93
[2021-10-05] MEDS: LEVOTHYROXINE SODIUM 150 MCG TABLET PO (07:35)
[2021-10-05] MEDS: ACETAMINOPHEN 500 MG TABLET 1000 MG PO ×3 (07:36→14:41)
[2021-10-05] MEDS: BUSPIRONE 10 MG TABLET PO (07:36)
[2021-10-05] MEDS: SERTRALINE 100 MG TABLET 200 MG PO (07:36)
[2021-10-05] MEDS: VENLAFAXINE HCL 150 MG CAP.ER.24H PO (07:36)
[2021-10-05] MEDS: ALPRAZolam 0.5 MG TABLET PO ×3 (07:37→17:22)
[2021-10-05 09:19] VITALS: TEMP 36.6; O2SAT 98
[2021-10-05] MEDS: BUSPIRONE 10 MG TABLET 5 MG PO ×2 (11:42→17:22)
[2021-10-05] MEDS: TRAMADOL HCL 50 MG TABLET PO (19:51)
[2021-10-05 21:40] VITALS: TEMP 36.3; O2SAT 95
[2021-10-05 23:00] VITALS: TEMP 36.6; O2SAT 95
[2021-10-06] MEDS: TRAMADOL HCL 50 MG TABLET PO (03:31)
[2021-10-06] MEDS: ALPRAZolam 0.5 MG TABLET PO ×4 (07:40→19:55)
[2021-10-06] MEDS: LEVOTHYROXINE SODIUM 150 MCG TABLET PO (07:40)
[2021-10-06] MEDS: SERTRALINE 100 MG TABLET 200 MG PO (07:40)
[2021-10-06] MEDS: BUSPIRONE 10 MG TABLET PO (07:40)
[2021-10-06] MEDS: ACETAMINOPHEN 500 MG TABLET 1000 MG PO ×3 (07:40→19:33)
[2021-10-06] MEDS: VENLAFAXINE HCL 150 MG CAP.ER.24H PO (07:40)
[2021-10-06 11:03] VITALS: TEMP 36.6; O2SAT 96
[2021-10-06] MEDS: BUSPIRONE 10 MG TABLET 5 MG PO ×2 (11:32→17:14)
--- NOTE | 2021-10-06 13:53 | PC.NURSE ---
Behavior: Following this marketing writer repeatedly making a statement 'I don't want the counsellor, spiders in my room (room checked no spider seen), I don't want the belt at night. Assured resident these are all noted.
[2021-10-06 22:07] VITALS: BP 170/84; PULSE 76; RESP 76; TEMP 36.6; O2SAT 97
[2021-10-06 23:00] VITALS: TEMP 36.8; O2SAT 100
[2021-10-07 07:00] VITALS: TEMP 36.8; O2SAT 97
[2021-10-07] MEDS: ALPRAZolam 0.5 MG TABLET PO ×3 (07:44→17:13)
[2021-10-07] MEDS: SERTRALINE 100 MG TABLET 200 MG PO (07:46)
[2021-10-07] MEDS: BUSPIRONE 10 MG TABLET PO (07:46)
[2021-10-07] MEDS: VENLAFAXINE HCL 150 MG CAP.ER.24H PO (07:46)
[2021-10-07] MEDS: LEVOTHYROXINE SODIUM 150 MCG TABLET PO (07:46)
[2021-10-07] MEDS: ACETAMINOPHEN 500 MG TABLET 1000 MG PO ×3 (07:46→19:17)
[2021-10-07] MEDS: BUSPIRONE 10 MG TABLET 5 MG PO ×2 (12:25→17:14)
[2021-10-07] MEDS: TRAMADOL HCL 50 MG TABLET PO ×2 (17:14→23:21)
[2021-10-07 18:40] VITALS: TEMP 36.8; O2SAT 97
--- NOTE | 2021-10-07 21:55 | PC.NURSE ---
Behaviors: resident called and asked for specific staff, repeatedly asking for pain medication immediately after admin and constant approach of staff for cortisone shot and wanting to speak to provider. Resident attempted to fall when bid writer was aiding her to bed. Motor Polarizer firmly redirected. Resident then called staff repeatedly to ask if bid writer was mad at her. Staff unable to redirect, behaviors did not improve.
[2021-10-08] MEDS: ALPRAZolam 0.5 MG TABLET PO ×4 (05:12→17:12)
[2021-10-08] MEDS: BUSPIRONE 10 MG TABLET PO (07:19)
[2021-10-08] MEDS: LEVOTHYROXINE SODIUM 150 MCG TABLET PO (07:19)
[2021-10-08] MEDS: VENLAFAXINE HCL 150 MG CAP.ER.24H PO (07:19)
[2021-10-08] MEDS: SERTRALINE 100 MG TABLET 200 MG PO (07:19)
[2021-10-08] MEDS: ACETAMINOPHEN 500 MG TABLET 1000 MG PO ×3 (07:19→19:06)
[2021-10-08 10:45] LABS: SARS PCR* Negative SARS-CoV-2 (Negative)
[2021-10-08] MEDS: BUSPIRONE 10 MG TABLET 5 MG PO ×2 (11:46→17:12)
--- NOTE | 2021-10-08 12:30 | NUTR.NU ---
Health Status: Resident C/O headache, sore throat, cough, nausea, and body-warmth this morning. Vital signs obtained were WNR. Oral swab specimen was sent to lab for COVID-19 PCR test. Test result came back negative. Resident reported feeling better during follow-up assessment. Will continue to monitor.
--- NOTE | 2021-10-08 12:51 | PC.NURSE ---
Health Status: Earlier this morning, resident C/O headaches, sore throat, coughing, nausea, and body warmth. Vital signs obtained were WNR. Oral swab specimen was sent to lab for COVID-19 PCR test. Result came back negative. Upon a health follow-up assessment, resident revealed feeling better. Will continue to monitor.
[2021-10-08] MEDS: TRAMADOL HCL 50 MG TABLET PO (18:38)
[2021-10-08 20:43] VITALS: TEMP 36.9; O2SAT 97
--- NOTE | 2021-10-08 20:49 | PC.NURSE ---
Behaviors: Resident had excessive behaviors this shift. Call light ~20+ times this shift. Almost all interactions with staff were asking for a pain pill or xanax r/t LB back px and anxiety. Internal Audit Director continually intervened and redirected, reminding her she had just received appropriate meds, resident repeatedly reported, oh, I forgot. Within seconds of staff leaving room, she would call again for same request. Often, press writer would enter room to assess for need for Rx intervention, only to find resident fast asleep in recliner. Resident concerned she is making staff mad as staff is firm with redirection. Resident scratched open pinpoint spot on inner right wrist stating, she was going to scratch until she wasn't anxious anymore, SATISH. Asked when she can get cortisone shot in back, if Xanax and tramadol Rx can be increased.
[2021-10-09] MEDS: TRAMADOL HCL 50 MG TABLET PO ×3 (04:22→23:47)
[2021-10-09] MEDS: BUSPIRONE 10 MG TABLET PO (07:12)
[2021-10-09] MEDS: ACETAMINOPHEN 500 MG TABLET 1000 MG PO ×3 (07:12→19:00)
[2021-10-09] MEDS: LEVOTHYROXINE SODIUM 150 MCG TABLET PO (07:12)
[2021-10-09] MEDS: ALPRAZolam 0.5 MG TABLET PO ×3 (07:12→17:20)
[2021-10-09] MEDS: VENLAFAXINE HCL 150 MG CAP.ER.24H PO (07:13)
[2021-10-09] MEDS: SERTRALINE 100 MG TABLET 200 MG PO (07:13)
[2021-10-09] MEDS: BUSPIRONE 10 MG TABLET 5 MG PO ×2 (11:49→17:21)
[2021-10-09 20:43] VITALS: TEMP 36.6; O2SAT 97
[2021-10-10] MEDS: LEVOTHYROXINE SODIUM 150 MCG TABLET PO (06:47)
[2021-10-10] MEDS: ALPRAZolam 0.5 MG TABLET PO ×3 (07:53→17:00)
[2021-10-10] MEDS: SERTRALINE 100 MG TABLET 200 MG PO (07:53)
[2021-10-10] MEDS: BUSPIRONE 10 MG TABLET PO (07:53)
[2021-10-10] MEDS: VENLAFAXINE HCL 150 MG CAP.ER.24H PO (07:53)
[2021-10-10] MEDS: ACETAMINOPHEN 500 MG TABLET 1000 MG PO ×3 (07:53→19:51)
[2021-10-10] MEDS: BUSPIRONE 10 MG TABLET 5 MG PO ×2 (11:41→17:00)
[2021-10-10 13:37] VITALS: BMI 37.6
[2021-10-10 17:13] VITALS: TEMP 36.7; O2SAT 94
[2021-10-10] MEDS: TRAMADOL HCL 50 MG TABLET PO (23:14)
[2021-10-11] MEDS: BUSPIRONE 10 MG TABLET PO (07:35)
[2021-10-11] MEDS: LEVOTHYROXINE SODIUM 150 MCG TABLET PO (07:35)
[2021-10-11] MEDS: VENLAFAXINE HCL 150 MG CAP.ER.24H PO (07:35)
[2021-10-11] MEDS: ACETAMINOPHEN 500 MG TABLET 1000 MG PO ×3 (07:35→19:30)
[2021-10-11] MEDS: SERTRALINE 100 MG TABLET 200 MG PO (07:35)
[2021-10-11] MEDS: ALPRAZolam 0.5 MG TABLET PO ×3 (07:38→18:31)
[2021-10-11] MEDS: BUSPIRONE 10 MG TABLET 5 MG PO ×2 (11:03→18:31)
[2021-10-11 16:00] VITALS: TEMP 36.9; O2SAT 97
[2021-10-11] MEDS: TRAMADOL HCL 50 MG TABLET PO (23:38)
[2021-10-12] MEDS: TRAMADOL HCL 50 MG TABLET PO ×2 (05:44→21:33)
[2021-10-12] MEDS: LEVOTHYROXINE SODIUM 150 MCG TABLET PO (07:48)
[2021-10-12] MEDS: BUSPIRONE 10 MG TABLET PO (07:49)
[2021-10-12] MEDS: VENLAFAXINE HCL 150 MG CAP.ER.24H PO (07:49)
[2021-10-12] MEDS: SERTRALINE 100 MG TABLET 200 MG PO (07:49)
[2021-10-12] MEDS: ACETAMINOPHEN 500 MG TABLET 1000 MG PO ×3 (07:49→19:52)
[2021-10-12] MEDS: ALPRAZolam 0.5 MG TABLET PO ×3 (07:50→17:15)
[2021-10-12] MEDS: BUSPIRONE 10 MG TABLET 5 MG PO ×2 (11:27→17:15)
--- NOTE | 2021-10-12 14:57 | PC.SOCIAL ---
Met with resident in resident's room. Resident is in need of new bras. Called resident's cousin, Mini, and left a voicemail to call this worker back.
[2021-10-12 16:00] VITALS: TEMP 36.7; O2SAT 96
--- NOTE | 2021-10-12 16:08 | PC.SOCIAL ---
Received a phone call from Resident's cousin, Mini ([phone]). Mini will order about 5 new bras and bring them in for resident. Informed Mini that there were no sizes on the bras but her shirt size is XL. Mini will see what she can find that is easier for resident to get on and off.
--- NOTE | 2021-10-13 03:14 | PC.NURSE ---
Week #1---care plan problems #1-19 reviewed. No changes made. Nothing added to temporary care plan. Will request Sprite, Coke, and/or potato chips occ. at [facility]. Water offered but she says she doesn't like it. Pain---c/o's pain at [facility] this past month: 1 right knee, 13 back, 1 chronic, and 1 headache. Relief with warm towels and prn Ultram. Continues to receive Tylenol 1000 mg tid and Aspercreme to her knees BID. Ultram 50 mg available q6h prn.
--- NOTE | 2021-10-13 07:07 | PC.NURSE ---
Week #1: Care plan problems 1-19 and temporary care plan reviewed. No changes made. Nothing added to temporary care plan. She is usually independent with dressing, grooming, feeding. Staff to check & assist as needed. Set up for oral cares. One assist with bathing. Is on regular diet, small portions per her request. No problems with chewing or swallowing reported. Pain: Has chronic pain.This past month has received Ultram occasionally for back and knees with relief along with warm towels. Pain is managed with Tylenol 1000mg TID, Aspercreme to Knees BID. Also has an order for Ultram 50mg Q6H PRN. She is able to make her needs for pain known.
[2021-10-13] MEDS: ALPRAZolam 0.5 MG TABLET PO ×3 (07:49→16:48)
[2021-10-13] MEDS: ACETAMINOPHEN 500 MG TABLET 1000 MG PO ×3 (07:49→19:27)
[2021-10-13] MEDS: BUSPIRONE 10 MG TABLET PO (07:49)
[2021-10-13] MEDS: LEVOTHYROXINE SODIUM 150 MCG TABLET PO (07:49)
[2021-10-13] MEDS: SERTRALINE 100 MG TABLET 200 MG PO (07:49)
[2021-10-13] MEDS: VENLAFAXINE HCL 150 MG CAP.ER.24H PO (07:49)
--- NOTE | 2021-10-13 09:59 | PC.SPIRITC ---
Culinary Instructor provided visit for support and connection.
[2021-10-13] MEDS: BUSPIRONE 10 MG TABLET 5 MG PO ×2 (12:11→16:48)
[2021-10-13 17:02] VITALS: TEMP 36.4; O2SAT 96
[2021-10-13] MEDS: TRAMADOL HCL 50 MG TABLET PO (17:46)
[2021-10-14] MEDS: LEVOTHYROXINE SODIUM 150 MCG TABLET PO (07:42)
[2021-10-14] MEDS: BUSPIRONE 10 MG TABLET PO (07:42)
[2021-10-14] MEDS: ALPRAZolam 0.5 MG TABLET PO ×3 (07:42→19:17)
[2021-10-14] MEDS: VENLAFAXINE HCL 150 MG CAP.ER.24H PO (07:42)
[2021-10-14] MEDS: ACETAMINOPHEN 500 MG TABLET 1000 MG PO ×3 (07:42→19:18)
[2021-10-14] MEDS: SERTRALINE 100 MG TABLET 200 MG PO (07:42)
[2021-10-14] MEDS: BUSPIRONE 10 MG TABLET 5 MG PO ×2 (11:53→19:17)
[2021-10-14] MEDS: TRAMADOL HCL 50 MG TABLET PO (19:17)
[2021-10-14 21:12] VITALS: TEMP 36.8; O2SAT 97
[2021-10-15] MEDS: TRAMADOL HCL 50 MG TABLET PO (02:18)
[2021-10-15] MEDS: LEVOTHYROXINE SODIUM 150 MCG TABLET PO (07:41)
[2021-10-15] MEDS: ALPRAZolam 0.5 MG TABLET PO ×3 (07:41→17:01)
[2021-10-15] MEDS: BUSPIRONE 10 MG TABLET PO (07:41)
[2021-10-15] MEDS: VENLAFAXINE HCL 150 MG CAP.ER.24H PO (07:41)
[2021-10-15] MEDS: ACETAMINOPHEN 500 MG TABLET 1000 MG PO ×3 (07:41→19:50)
[2021-10-15] MEDS: SERTRALINE 100 MG TABLET 200 MG PO (07:41)
[2021-10-15] MEDS: BUSPIRONE 10 MG TABLET 5 MG PO ×2 (11:17→17:02)
[2021-10-15 21:17] VITALS: TEMP 36.9; O2SAT 96
[2021-10-16] MEDS: LEVOTHYROXINE SODIUM 150 MCG TABLET PO (06:50)
[2021-10-16] MEDS: BUSPIRONE 10 MG TABLET PO (08:02)
[2021-10-16] MEDS: SERTRALINE 100 MG TABLET 200 MG PO (08:02)
[2021-10-16] MEDS: ACETAMINOPHEN 500 MG TABLET 1000 MG PO ×3 (08:02→19:49)
[2021-10-16] MEDS: ALPRAZolam 0.5 MG TABLET PO ×3 (08:02→17:05)
[2021-10-16] MEDS: VENLAFAXINE HCL 150 MG CAP.ER.24H PO (08:02)
[2021-10-16] MEDS: BUSPIRONE 10 MG TABLET 5 MG PO ×2 (11:04→17:05)
[2021-10-16 20:50] VITALS: TEMP 36.3; O2SAT 97
[2021-10-16] MEDS: TRAMADOL HCL 50 MG TABLET PO (23:36)
[2021-10-17] MEDS: VENLAFAXINE HCL 150 MG CAP.ER.24H PO (07:45)
[2021-10-17] MEDS: ACETAMINOPHEN 500 MG TABLET 1000 MG PO ×3 (07:45→19:03)
[2021-10-17] MEDS: SERTRALINE 100 MG TABLET 200 MG PO (07:45)
[2021-10-17] MEDS: BUSPIRONE 10 MG TABLET PO (07:45)
[2021-10-17] MEDS: LEVOTHYROXINE SODIUM 150 MCG TABLET PO (07:45)
[2021-10-17] MEDS: ALPRAZolam 0.5 MG TABLET PO ×3 (07:47→17:57)
--- NOTE | 2021-10-17 10:53 | PC.NURSE ---
Skin Check - No areas of redness noted. No scratches or inflammation. Edema BLE feet and ankles +1. Pt reminded to keep legs elevated when seated.
[2021-10-17] MEDS: BUSPIRONE 10 MG TABLET 5 MG PO ×2 (12:09→17:57)
[2021-10-17 16:00] VITALS: TEMP 36.8; O2SAT 95
[2021-10-18] MEDS: TRAMADOL HCL 50 MG TABLET PO (01:04)
[2021-10-18] MEDS: LEVOTHYROXINE SODIUM 150 MCG TABLET PO (07:43)
[2021-10-18] MEDS: ALPRAZolam 0.5 MG TABLET PO ×4 (07:43→22:22)
[2021-10-18] MEDS: ACETAMINOPHEN 500 MG TABLET 1000 MG PO ×3 (07:43→19:10)
[2021-10-18] MEDS: BUSPIRONE 10 MG TABLET PO (07:44)
[2021-10-18] MEDS: SERTRALINE 100 MG TABLET 200 MG PO (07:44)
[2021-10-18] MEDS: VENLAFAXINE HCL 150 MG CAP.ER.24H PO (07:44)
--- NOTE | 2021-10-18 10:49 | PC.SPIRITC ---
Vehicle Painter provided visit for support and connection.
[2021-10-18] MEDS: BUSPIRONE 10 MG TABLET 5 MG PO ×2 (12:03→17:19)
[2021-10-18 21:34] VITALS: TEMP 36.5; O2SAT 96
[2021-10-19] MEDS: TRAMADOL HCL 50 MG TABLET PO (05:19)
--- NOTE | 2021-10-19 05:31 | PC.NURSE ---
Status/right great toe---At 2230 res. was on the toilet. Was c/o her right great toe. The nail was split down the middle approx .5 cm. The middle portion of the nail was sticking straight up. The middle portion of the nail was trimmed flush and a Bandaid was applied over her toe. Gripper socks put on.
[2021-10-19] MEDS: VENLAFAXINE HCL 150 MG CAP.ER.24H PO (07:53)
[2021-10-19] MEDS: BUSPIRONE 10 MG TABLET PO (07:53)
[2021-10-19] MEDS: LEVOTHYROXINE SODIUM 150 MCG TABLET PO (07:53)
[2021-10-19] MEDS: ACETAMINOPHEN 500 MG TABLET 1000 MG PO ×3 (07:53→19:21)
[2021-10-19] MEDS: SERTRALINE 100 MG TABLET 200 MG PO (07:53)
[2021-10-19] MEDS: ALPRAZolam 0.5 MG TABLET PO ×3 (07:54→17:35)
[2021-10-19] MEDS: BUSPIRONE 10 MG TABLET 5 MG PO ×2 (12:10→17:35)
[2021-10-19 16:00] VITALS: TEMP 36.8; O2SAT 96
--- NOTE | 2021-10-19 16:25 | PC.SOCIAL ---
Supportive visit to resident due to increased anxiety. Resident stated she has difficulty sleeping at night and requests her anxiety medication to be increased. Resident will discuss with her nurse today about medication being increased. Discussed options with resident on ways to relax before bedtime. Also passed information along to Lakia URENA. Resident continues to look for her Wizard of Oz DVD that she has been missing. Resident informed that she no longer wants to see her therapist, Kika.
[2021-10-20] MEDS: TRAMADOL HCL 50 MG TABLET PO (03:39)
[2021-10-20] MEDS: LEVOTHYROXINE SODIUM 150 MCG TABLET PO (07:28)
[2021-10-20] MEDS: SERTRALINE 100 MG TABLET 200 MG PO (07:28)
[2021-10-20] MEDS: ACETAMINOPHEN 500 MG TABLET 1000 MG PO ×3 (07:28→20:12)
[2021-10-20] MEDS: ALPRAZolam 0.5 MG TABLET PO ×3 (07:28→17:26)
[2021-10-20] MEDS: BUSPIRONE 10 MG TABLET PO (07:28)
[2021-10-20] MEDS: VENLAFAXINE HCL 150 MG CAP.ER.24H PO (07:28)
--- NOTE | 2021-10-20 09:57 | PC.NURSE ---
Week #2: Care plan problems - and temporary care plan reviewed. No changes made. Nothing added to temporary care plan. Resident is independent with transfers, ambulation,& bed repositioning. Ambulates with a walker. Top side rail up to aid for positioning. No alarms. Fall: No falls this past month. Is a high fall risk according to assessment done on 05/30/21.
[2021-10-20 11:17] VITALS: BP 145/91; PULSE 82; RESP 16; TEMP 36.5; O2SAT 95
[2021-10-20 11:19] VITALS: TEMP 36.5; O2SAT 95
[2021-10-20] MEDS: BUSPIRONE 10 MG TABLET 5 MG PO ×2 (11:50→17:33)
[2021-10-20 18:35] VITALS: TEMP 36.8; O2SAT 93
[2021-10-21] MEDS: LEVOTHYROXINE SODIUM 150 MCG TABLET PO (07:29)
[2021-10-21] MEDS: ACETAMINOPHEN 500 MG TABLET 1000 MG PO ×3 (08:06→20:00)
[2021-10-21] MEDS: ALPRAZolam 0.5 MG TABLET PO ×3 (08:06→17:19)
[2021-10-21] MEDS: VENLAFAXINE HCL 150 MG CAP.ER.24H PO (08:09)
[2021-10-21] MEDS: BUSPIRONE 10 MG TABLET PO (08:09)
[2021-10-21] MEDS: SERTRALINE 100 MG TABLET 200 MG PO (08:09)
[2021-10-21] MEDS: BUSPIRONE 10 MG TABLET 5 MG PO ×2 (11:36→17:27)
--- NOTE | 2021-10-21 16:35 | PC.SOCIAL ---
Phone call to resident's counsin, Mini Alexander. Discussed concerns of resident having open food in her cupboards and other items that may need to be cleaned. Informed Mini that Resident has not been receptive to staff trying to help her go through her room and clean. Mini will come in on Tuesday October 26, 2021 at 10:00 am and try to help Mini clean her room. Discussed with Mini that resident was missing a movie, Wizard of Oz. Miin states that resident has told her about this and she was hoping to help her find the movie next week. Mini will look when she comes to clean and if she does not find the movie she will buy a new movie.
--- NOTE | 2021-10-21 17:28 | PC.NURSE ---
Bilingual Speech Language Pathologist discovered that 5mg of Buspar had been administered for AM dose in place of scheduled AM dose of 10mg. Cards were mislabeled with time stickers. Bilingual Speech Language Pathologist informed AYANNA FREDERICK who instructed commercial loan underwriter to administer missed AM dose of 10mg instead of scheduled 5mg. MAR would not allow for 10mg to be clicked out as it exceeded the scheduled dose. Note made to indicate that 10mg Buspar administered at 1727 instead of scheduled 5mg to make up for missed dose this AM. Ok per AYANNA FREDERICK.
[2021-10-21 21:46] VITALS: TEMP 36.7; O2SAT 95
[2021-10-21] MEDS: TRAMADOL HCL 50 MG TABLET PO (23:09)
[2021-10-22] MEDS: LEVOTHYROXINE SODIUM 150 MCG TABLET PO (07:30)
[2021-10-22] MEDS: ALPRAZolam 0.5 MG TABLET PO ×3 (08:11→17:13)
[2021-10-22] MEDS: BUSPIRONE 10 MG TABLET PO (08:13)
[2021-10-22] MEDS: ACETAMINOPHEN 500 MG TABLET 1000 MG PO ×3 (08:13→19:13)
[2021-10-22] MEDS: SERTRALINE 100 MG TABLET 200 MG PO (08:14)
[2021-10-22] MEDS: VENLAFAXINE HCL 150 MG CAP.ER.24H PO (08:14)
[2021-10-22] MEDS: BUSPIRONE 10 MG TABLET 5 MG PO ×2 (11:50→17:13)
[2021-10-22] MEDS: TRAMADOL HCL 50 MG TABLET PO ×2 (14:58→22:30)
[2021-10-22 20:23] VITALS: TEMP 36.1; O2SAT 95
[2021-10-23] MEDS: ALPRAZolam 0.5 MG TABLET PO ×4 (02:54→17:23)
[2021-10-23] MEDS: SERTRALINE 100 MG TABLET 200 MG PO (07:47)
[2021-10-23] MEDS: ACETAMINOPHEN 500 MG TABLET 1000 MG PO ×3 (07:47→19:26)
[2021-10-23] MEDS: BUSPIRONE 10 MG TABLET PO (07:47)
[2021-10-23] MEDS: VENLAFAXINE HCL 150 MG CAP.ER.24H PO (07:47)
[2021-10-23] MEDS: LEVOTHYROXINE SODIUM 150 MCG TABLET PO (07:47)
[2021-10-23] MEDS: BUSPIRONE 10 MG TABLET 5 MG PO ×2 (11:48→17:23)
[2021-10-23 20:53] VITALS: TEMP 36.6; O2SAT 96
[2021-10-23] MEDS: TRAMADOL HCL 50 MG TABLET PO (21:53)
[2021-10-24 07:00] VITALS: BMI 33.5
[2021-10-24] MEDS: LEVOTHYROXINE SODIUM 150 MCG TABLET PO (07:03)
[2021-10-24] MEDS: VENLAFAXINE HCL 150 MG CAP.ER.24H PO (07:04)
[2021-10-24] MEDS: SERTRALINE 100 MG TABLET 200 MG PO (07:04)
[2021-10-24] MEDS: ACETAMINOPHEN 500 MG TABLET 1000 MG PO ×3 (07:04→20:02)
[2021-10-24] MEDS: BUSPIRONE 10 MG TABLET PO (07:04)
[2021-10-24] MEDS: ALPRAZolam 0.5 MG TABLET PO ×3 (07:05→17:36)
--- NOTE | 2021-10-24 11:11 | PC.NURSE ---
Bath Assessment - Skin clean, dry, intact, warm, appropriate color. No areas of redness. Slight edema BLE feet/ankles - baseline. No evidence of pt scratching.
[2021-10-24] MEDS: BUSPIRONE 10 MG TABLET 5 MG PO ×2 (11:57→17:36)
[2021-10-24 16:00] VITALS: TEMP 36.9; O2SAT 95
[2021-10-24] MEDS: TRAMADOL HCL 50 MG TABLET PO (23:31)
[2021-10-25] MEDS: LEVOTHYROXINE SODIUM 150 MCG TABLET PO (07:55)
[2021-10-25] MEDS: ACETAMINOPHEN 500 MG TABLET 1000 MG PO ×3 (07:55→20:10)
[2021-10-25] MEDS: VENLAFAXINE HCL 150 MG CAP.ER.24H PO (07:55)
[2021-10-25] MEDS: SERTRALINE 100 MG TABLET 200 MG PO (07:55)
[2021-10-25] MEDS: BUSPIRONE 10 MG TABLET PO (07:55)
[2021-10-25] MEDS: ALPRAZolam 0.5 MG TABLET PO ×3 (07:56→17:06)
[2021-10-25] MEDS: BUSPIRONE 10 MG TABLET 5 MG PO ×2 (11:29→17:07)
[2021-10-25 17:29] VITALS: TEMP 36.6; O2SAT 96
[2021-10-26 01:46] VITALS: TEMP 36.6; O2SAT 94
[2021-10-26 07:00] VITALS: TEMP 36.8; O2SAT 97
[2021-10-26] MEDS: VENLAFAXINE HCL 150 MG CAP.ER.24H PO (07:53)
[2021-10-26] MEDS: SERTRALINE 100 MG TABLET 200 MG PO (07:53)
[2021-10-26] MEDS: BUSPIRONE 10 MG TABLET PO (07:53)
[2021-10-26] MEDS: ACETAMINOPHEN 500 MG TABLET 1000 MG PO ×3 (07:53→19:21)
[2021-10-26] MEDS: LEVOTHYROXINE SODIUM 150 MCG TABLET PO (07:53)
[2021-10-26] MEDS: ALPRAZolam 0.5 MG TABLET PO ×4 (07:53→17:12)
--- NOTE | 2021-10-26 11:15 | PC.PHA ---
Pharmacy Review ~ Patient had TSH lab in September and was within normal limits thus levothyroxine dose continuation appropriate. Alprazolam scheduled and prn order continue for chronic anxiety. As need alprazolam order has been needed majority of days in September and thus far in October slightly less need. Buspirone tid started in September for anxious behaviors. No concerns with continuation of patient's current medication regimen this reveiw.
[2021-10-26] MEDS: BUSPIRONE 10 MG TABLET 5 MG PO ×2 (11:42→17:12)
[2021-10-26 15:00] VITALS: TEMP 36.8; O2SAT 96
[2021-10-26] MEDS: TRAMADOL HCL 50 MG TABLET PO (19:21)
[2021-10-26] MEDS: MAG HYDROX/ALUMINUM HYD/SIMETH 30 ML ORAL.SUSP PO (19:31)
--- NOTE | 2021-10-26 22:33 | PC.NURSE ---
Health status: Resident C/O pain to mid-chest area. Vitals signs normal, no SOB, perspiration, or dizziness. Antacid Liquid 15 mL given and rest encouraged. Intervention was very effective. Will continue to monitor.
[2021-10-27 03:22] VITALS: TEMP 36.6; O2SAT 94
--- NOTE | 2021-10-27 03:37 | PC.NURSE ---
Week #3: Skin summary: Has no new skin concerns at this time. Temporary care plan reviewed, no change. Care plan 30-39 reviewed, no change. Bathroom: Resident has a Lagunas catheter and is typically continent of BM. Will use call light to go to the bathroom. Is one assist with wheel chair, to and from bathroom.
--- NOTE | 2021-10-27 03:43 | PC.NURSE ---
Week #3: Skin summary: Resident has some scratching episodes that cause tears, currently has one on her right calf. Temporary care plan reviewed, no change. Care plan 30-39 reviewed, no change. Bathroom: Resident has incontinence of bowel and bladder, can use the bathroom independently, will call for assistance if needed.
--- NOTE | 2021-10-27 06:52 | PC.NURSE ---
Week #3: Care plan problems 30-39 and temporary care plan reviewed. No changes made. Nothing added to temporary care plan. Has frequent bladder incontinence, and occasional bowel incontinence. Is independent with transfers to the toilet & toileting. Does manage own pads, rashad cares, and clothing adjustment. Will call for assist as needed. Skin: Scratches on (R) calf, lotion applied. Skin is routinely checked on bath day.
[2021-10-27] MEDS: ACETAMINOPHEN 500 MG TABLET 1000 MG PO ×3 (07:57→20:10)
[2021-10-27] MEDS: LEVOTHYROXINE SODIUM 150 MCG TABLET PO (07:57)
[2021-10-27] MEDS: VENLAFAXINE HCL 150 MG CAP.ER.24H PO (07:58)
[2021-10-27] MEDS: SERTRALINE 100 MG TABLET 200 MG PO (07:58)
[2021-10-27] MEDS: ALPRAZolam 0.5 MG TABLET PO ×4 (07:58→21:46)
[2021-10-27] MEDS: BUSPIRONE 10 MG TABLET PO (07:58)
--- NOTE | 2021-10-27 10:15 | PC.SPIRITC ---
Kelli requested visit. I provided time for support and connection.
[2021-10-27 10:36] VITALS: TEMP 36.8; O2SAT 95
[2021-10-27 10:38] VITALS: BP 131/80; PULSE 94; RESP 20; TEMP 36.8; O2SAT 95
[2021-10-27] MEDS: BUSPIRONE 10 MG TABLET 5 MG PO ×2 (11:11→17:43)
[2021-10-27 12:14] LABS: SARS PCR* Negative SARS-CoV-2 (Negative)
[2021-10-27] MEDS: TRAMADOL HCL 50 MG TABLET PO (13:42)
[2021-10-27 21:09] VITALS: TEMP 37.2; O2SAT 94
[2021-10-28] MEDS: TRAMADOL HCL 50 MG TABLET PO ×2 (00:42→19:32)
[2021-10-28 03:58] VITALS: TEMP 36.6; O2SAT 92
[2021-10-28 07:00] VITALS: TEMP 36.8; O2SAT 96
[2021-10-28] MEDS: LEVOTHYROXINE SODIUM 150 MCG TABLET PO (07:41)
[2021-10-28] MEDS: ACETAMINOPHEN 500 MG TABLET 1000 MG PO ×3 (08:09→19:34)
[2021-10-28] MEDS: SERTRALINE 100 MG TABLET 200 MG PO (08:09)
[2021-10-28] MEDS: BUSPIRONE 10 MG TABLET PO (08:09)
[2021-10-28] MEDS: ALPRAZolam 0.5 MG TABLET PO ×3 (08:09→17:01)
[2021-10-28] MEDS: VENLAFAXINE HCL 150 MG CAP.ER.24H PO (08:09)
--- NOTE | 2021-10-28 09:36 | PC.NURSE ---
Addendum entered by Lakia Muhammad RN 10/28/21 09:37: Testing completed 10/27/21. Original Note: COVID OUTBREAK TESTING: Resident provided verbal consent for outbreak COVID testing. Resident is currently asymptomatic. Resident/family will be notified only if resident is positive.
[2021-10-28] MEDS: BUSPIRONE 10 MG TABLET 5 MG PO ×2 (12:17→17:01)
[2021-10-28 22:19] VITALS: TEMP 36.9; O2SAT 95
[2021-10-29 01:31] VITALS: TEMP 36.6; O2SAT 95
[2021-10-29 07:00] VITALS: TEMP 36.8; O2SAT 90
[2021-10-29] MEDS: BUSPIRONE 10 MG TABLET PO (07:55)
[2021-10-29] MEDS: LEVOTHYROXINE SODIUM 150 MCG TABLET PO (07:55)
[2021-10-29] MEDS: ACETAMINOPHEN 500 MG TABLET 1000 MG PO ×3 (07:55→20:18)
[2021-10-29] MEDS: SERTRALINE 100 MG TABLET 200 MG PO (07:56)
[2021-10-29] MEDS: VENLAFAXINE HCL 150 MG CAP.ER.24H PO (07:56)
[2021-10-29] MEDS: ALPRAZolam 0.5 MG TABLET PO ×3 (07:57→17:04)
[2021-10-29] MEDS: BUSPIRONE 10 MG TABLET 5 MG PO ×2 (11:35→17:05)
[2021-10-29 16:47] VITALS: TEMP 37.2; O2SAT 97
[2021-10-29] MEDS: TRAMADOL HCL 50 MG TABLET PO (18:15)
[2021-10-30] MEDS: TRAMADOL HCL 50 MG TABLET PO ×2 (00:21→19:51)
[2021-10-30 02:22] VITALS: TEMP 36.6; O2SAT 93
[2021-10-30 07:00] VITALS: TEMP 36.8; O2SAT 91
[2021-10-30] MEDS: LEVOTHYROXINE SODIUM 150 MCG TABLET PO (07:50)
[2021-10-30] MEDS: SERTRALINE 100 MG TABLET 200 MG PO (07:51)
[2021-10-30] MEDS: VENLAFAXINE HCL 150 MG CAP.ER.24H PO (07:51)
[2021-10-30] MEDS: ACETAMINOPHEN 500 MG TABLET 1000 MG PO ×3 (07:51→19:52)
[2021-10-30] MEDS: BUSPIRONE 10 MG TABLET PO (07:51)
[2021-10-30] MEDS: ALPRAZolam 0.5 MG TABLET PO ×4 (07:52→17:10)
[2021-10-30] MEDS: BUSPIRONE 10 MG TABLET 5 MG PO ×2 (11:22→17:11)
[2021-10-30 18:40] VITALS: TEMP 36.6; O2SAT 95
[2021-10-30 23:00] VITALS: TEMP 36.7; O2SAT 95
[2021-10-31 07:00] VITALS: TEMP 36.4; O2SAT 92; BMI 32.3
[2021-10-31] MEDS: ACETAMINOPHEN 500 MG TABLET 1000 MG PO ×3 (07:55→19:55)
[2021-10-31] MEDS: LEVOTHYROXINE SODIUM 150 MCG TABLET PO (07:55)
[2021-10-31] MEDS: BUSPIRONE 10 MG TABLET PO (07:55)
[2021-10-31] MEDS: VENLAFAXINE HCL 150 MG CAP.ER.24H PO (07:55)
[2021-10-31] MEDS: SERTRALINE 100 MG TABLET 200 MG PO (07:55)
[2021-10-31] MEDS: ALPRAZolam 0.5 MG TABLET PO ×3 (07:56→17:46)
--- NOTE | 2021-10-31 10:14 | PC.NURSE ---
Skin check - R great toe split and cracked d/t pt picking it off yesterday. Toe looks better, no longer bleeding, no signs of infection or swelling. Pt has yellowed bruise on anterior L shoulder. [id number]. Does not limit pt ROM. Pt does not complain of pain at the site. Red caterina on underside of R breast. Difficult to identify. Caterina is bright red, [id number]. Does not appear to be rash or scratches. Not placed in BLENDER MACHINE OPERATOR book for BLENDER MACHINE OPERATOR to assess.
--- NOTE | 2021-10-31 10:27 | PC.NURSE ---
COVID OUTBREAK TESTING: Resident provided verbal consent for outbreak COVID testing. Resident is currently asymptomatic. Resident/family will be notified only if resident is positive.
[2021-10-31] MEDS: BUSPIRONE 10 MG TABLET 5 MG PO ×2 (11:48→17:46)
[2021-10-31 12:35] LABS: SARS PCR* Negative SARS-CoV-2 (Negative)
[2021-10-31 15:00] VITALS: TEMP 36.8; O2SAT 96
[2021-10-31] MEDS: TRAMADOL HCL 50 MG TABLET PO (22:39)
[2021-11-01 03:57] VITALS: TEMP 36.2; O2SAT 92
[2021-11-01] MEDS: LEVOTHYROXINE SODIUM 150 MCG TABLET PO (06:58)
[2021-11-01 07:00] VITALS: TEMP 36.9; O2SAT 98
[2021-11-01] MEDS: ALPRAZolam 0.5 MG TABLET PO ×3 (08:23→17:09)
[2021-11-01] MEDS: VENLAFAXINE HCL 150 MG CAP.ER.24H PO (08:23)
[2021-11-01] MEDS: ACETAMINOPHEN 500 MG TABLET 1000 MG PO ×3 (08:23→19:57)
[2021-11-01] MEDS: BUSPIRONE 10 MG TABLET PO (08:23)
[2021-11-01] MEDS: SERTRALINE 100 MG TABLET 200 MG PO (08:23)
[2021-11-01] MEDS: BUSPIRONE 10 MG TABLET 5 MG PO ×2 (11:49→17:09)
[2021-11-01] MEDS: TRAMADOL HCL 50 MG TABLET PO ×2 (16:26→22:31)
[2021-11-01 17:07] VITALS: TEMP 36.7; O2SAT 97
[2021-11-02 03:35] VITALS: TEMP 36.8; O2SAT 92
[2021-11-02] MEDS: LEVOTHYROXINE SODIUM 150 MCG TABLET PO (06:55)
[2021-11-02 07:00] VITALS: TEMP 37.2; O2SAT 98
[2021-11-02] MEDS: ALPRAZolam 0.5 MG TABLET PO ×3 (07:00→17:32)
[2021-11-02] MEDS: VENLAFAXINE HCL 150 MG CAP.ER.24H PO (08:21)
[2021-11-02] MEDS: BUSPIRONE 10 MG TABLET PO (08:21)
[2021-11-02] MEDS: ACETAMINOPHEN 500 MG TABLET 1000 MG PO ×3 (08:21→20:00)
[2021-11-02] MEDS: SERTRALINE 100 MG TABLET 200 MG PO (08:21)
[2021-11-02] MEDS: BUSPIRONE 10 MG TABLET 5 MG PO ×2 (11:37→17:32)
[2021-11-02 15:00] VITALS: TEMP 36.9; O2SAT 98
--- NOTE | 2021-11-02 16:25 | PC.SPIRITC ---
provided devotional material to Kelli to support her aicha practices.
--- NOTE | 2021-11-03 02:34 | PC.NURSE ---
Week #4: Resident continues to be staff seeking and, putting call light on to ask the same questions again and again. Is on Alprazolam 0.5mg PO TID and BID PRN. BuSpar 10mg PO Daily, 5mg PO BID. Zoloft 200mg PO Daily. and, Venlafaxine 150mg PO Daily. Temporary care plan reviewed, no change. Care plan 40-119 reviewed, no change. Resident has been having increased incontinent episodes on NOC. Will call staff to state that she has wet the bed.
[2021-11-03 03:34] VITALS: TEMP 36.4; O2SAT 94
[2021-11-03] MEDS: LEVOTHYROXINE SODIUM 150 MCG TABLET PO (07:18)
[2021-11-03] MEDS: BUSPIRONE 10 MG TABLET PO ×2 (07:18→17:03)
[2021-11-03] MEDS: ACETAMINOPHEN 500 MG TABLET 1000 MG PO ×3 (07:18→20:13)
[2021-11-03] MEDS: ALPRAZolam 0.5 MG TABLET PO ×4 (07:18→17:03)
[2021-11-03] MEDS: VENLAFAXINE HCL 150 MG CAP.ER.24H PO (07:18)
[2021-11-03] MEDS: SERTRALINE 100 MG TABLET 200 MG PO (07:19)
[2021-11-03] MEDS: TRAMADOL HCL 50 MG TABLET PO ×2 (09:35→21:19)
--- NOTE | 2021-11-03 09:35 | PC.NURSE ---
Anxiety: Resident requesting xanax and tramadol for anxiety and headache. Resident asked Can i go to the ER? Asked resident what we would go there for. Resident stated I am just nervous. Vital signs checked and reassured resident that there is not reason to go to the ER for these symptoms. Offered warm towel, blanket, to play bingo, sprite. Also gave Xanax and Tramdol. Will continue to monitor resident and do hourly visual checks.
--- NOTE | 2021-11-03 10:00 | PC.NURSE ---
Toenail: Resident requesting to have bandaid off of toenail. This was removed and toenail is intact. No bleeding. Left Open to air.
--- NOTE | 2021-11-03 10:34 | PC.SPIRITC ---
Staff Internist Office Based Only provided visit for support and connection.
[2021-11-03 10:58] VITALS: BP 167/89; PULSE 91; RESP 16; TEMP 36.6; TEMP 37.1; O2SAT 97
[2021-11-03] MEDS: BUSPIRONE 10 MG TABLET 5 MG PO (11:37)
--- NOTE | 2021-11-03 13:38 | PC.NURSE ---
Week #4: Vital signs reviewed. Blood pressure slightly elevated today due to anxiety. Resident has been very emotional today and for the past couple of weeks. ORACLE BPM CONSULTANT notified and increased Buspar for the evening dose. Will continue to monitor if this is effective. Resident has scheduled xanax and PRN BID xanax for which she uses regularly. Reviewed temporary care plan and care problems 40-119 and no changes made to these. No cahanges in communication/hearing/vision.
[2021-11-03 21:31] VITALS: TEMP 37.7; O2SAT 96
[2021-11-03 23:00] VITALS: TEMP 36.9; O2SAT 96
[2021-11-04] MEDS: ALPRAZolam 0.5 MG TABLET PO ×5 (03:03→19:49)
[2021-11-04 07:00] VITALS: TEMP 37; O2SAT 96
[2021-11-04] MEDS: VENLAFAXINE HCL 150 MG CAP.ER.24H PO (07:38)
[2021-11-04] MEDS: LEVOTHYROXINE SODIUM 150 MCG TABLET PO (07:38)
[2021-11-04] MEDS: ACETAMINOPHEN 500 MG TABLET 1000 MG PO ×3 (07:38→19:12)
[2021-11-04] MEDS: BUSPIRONE 10 MG TABLET PO ×2 (07:38→17:57)
[2021-11-04] MEDS: SERTRALINE 100 MG TABLET 200 MG PO (07:38)
[2021-11-04] MEDS: BUSPIRONE 10 MG TABLET 5 MG PO (11:43)
--- NOTE | 2021-11-04 13:36 | PC.NURSE ---
Regulatory visit done by Dr. Wilson. Follow up on chronic conditions. No new orders.
[2021-11-04 15:20] VITALS: BP 198/100; PULSE 100; RESP 18; TEMP 37; O2SAT 96
--- NOTE | 2021-11-04 15:26 | LTC.FALL ---
[facility] Fall Note: o Fall Date:11-04-21 o Fall Time:1500 o What happened?Resident reported her righy knee gave out and she fell. o Who found the resident and who responded?JOHN walked by her room and saw her lying on her right side on the floor. o What was the resident doing?she couldnt recall. o How the resident was found (knees, left side, arm under them), any hazards (cords, objects, nonskid slippers) brakes on? Proper equipment?lying on floor on right side. o Did you assess for head trauma, spinal injuries, skeletal injuries, neurological changes and status, and head and neck pain? What did you find?yes, non found. o Did you assess ROM in shoulders, elbows, hips, knees, any other affected areas, unless there is suspected spinal injury.Did ROM. she C/O right knee pain of which she chronically does. o Did you Assess for pain or discomfort?yes o What are the injuries and how are they being treated?no injuries o How was the resident transferred from the floor?Staff put gate belt on her and with assist of 3 staff lifted her to her feet and placed her on a chair. o Did you call the MD or put a note in the DIETETIC TECHNICIAN REGISTERED book?yes. DIETETIC TECHNICIAN REGISTERED book o Enter vital signs.yes o Did you notify family?yes o What was the root cause of the fall? Why did it happen?weakness and knee gave out. o Create an IMMEDIATE INTERVENTION to ensure that this won't immediately happen again. (Put in temporary care plan too) o Complete Safety report and huddle (now one form) o If resident is seen in ED or fractured something, note that you started a [facility] Report process. Instructions are at the East nurse's desk in a red binder labeled [facility] report.
[2021-11-04 20:22] VITALS: BP 147/84; PULSE 85; RESP 18; TEMP 36.7; O2SAT 96
--- NOTE | 2021-11-04 20:26 | PC.NURSE ---
Behaviors: Resident has been on the call light continuously since returning to her room after supper. She was taken to dinner in the wheelchair. she was told that if she fell again the walker would be taken away. Her walker is in the nurses station. Called the RD MECHANICAL ENGINEER to ask her how to handle the situation. She said to give the walker back tomorrow and once again tell her that if she falls the walker will not be used. she was toileted and put to bed and then was given a prn Xanax per her request for anxiousness. She made a comment to one of the JOHN's that if she doesn't get her walker back I will starve myself. She is now on the phone with her cousin Mini.
--- NOTE | 2021-11-04 23:00 | PC.NURSE ---
Fall f/u: Resident in bed with wheelchair at bed side vs and Neuro checks are okay. Resident complains of pain in the lower back, is given an ultram at 2302. Resident expresses to staff that she would like waker back. Is told that we are going to use the wheel chair for the night. Resident is upset but complies.
[2021-11-04] MEDS: TRAMADOL HCL 50 MG TABLET PO (23:02)
[2021-11-04 23:20] VITALS: BP 150/82; PULSE 87; RESP 18; TEMP 36.5; O2SAT 92
[2021-11-05] VITALS (10 sets, daily range): BP systolic 148–179; BP diastolic 80–90; PULSE 74–94; RESP 16–20; TEMP 36.5–36.8; O2SAT 92–97
--- NOTE | 2021-11-05 03:00 | PC.NURSE ---
Fall f/u: Resident in bed sleeping, woke for vitals and neuro check. Got up to the bathroom, resident was very slow while transferring and talking about how she does not like the wheel chair and would like the walker back.
--- NOTE | 2021-11-05 07:38 | PC.NURSE ---
Neuro check - Alert and oriented X3; PERRLA is intact; BLUE strength/ROM at baseline, bilateral strength/ROM at baseline.
[2021-11-05] MEDS: LEVOTHYROXINE SODIUM 150 MCG TABLET PO (07:47)
[2021-11-05] MEDS: VENLAFAXINE HCL 150 MG CAP.ER.24H PO (08:25)
[2021-11-05] MEDS: ALPRAZolam 0.5 MG TABLET PO ×3 (08:25→17:50)
[2021-11-05] MEDS: BUSPIRONE 10 MG TABLET PO ×2 (08:25→17:50)
[2021-11-05] MEDS: ACETAMINOPHEN 500 MG TABLET 1000 MG PO ×3 (08:25→19:28)
[2021-11-05] MEDS: SERTRALINE 100 MG TABLET 200 MG PO (08:25)
--- NOTE | 2021-11-05 11:43 | PC.NURSE ---
Fall Follow-up: Neuro assessment completed: PERRLA intact, Peripheral mar full. Able to move extremities without C/O pain. Denies blurriness. No episode of vomit, and denies pain.
[2021-11-05] MEDS: BUSPIRONE 10 MG TABLET 5 MG PO (11:54)
--- NOTE | 2021-11-05 15:48 | PC.NURSE ---
Fall Follow-up: Neuro assessment completed: PERRLA intact, Peripheral mar full. Able to move extremities without C/O pain. Denies blurriness. No episode of vomit, and denies pain.
--- NOTE | 2021-11-05 21:52 | PC.NURSE ---
Neuro check - Alert and oriented X3; PERRLA is intact; BLUE strength/ROM at baseline, bilateral strength/ROM at baseline.
[2021-11-05] MEDS: TRAMADOL HCL 50 MG TABLET PO (23:42)
[2021-11-06 03:20] VITALS: BP 132/80; PULSE 78; RESP 20; TEMP 36.6; O2SAT 98
--- NOTE | 2021-11-06 03:22 | PC.NURSE ---
F/U Fall: Pt alert, able to communicate needs, PERRLA, hand grasp/leg strength WNL for resident. Continues to c/o chronic bilateral knee pain although denies any worsening from fall. No noted bruising or injury to knees.
[2021-11-06] MEDS: LEVOTHYROXINE SODIUM 150 MCG TABLET PO (06:45)
[2021-11-06] MEDS: ACETAMINOPHEN 500 MG TABLET 1000 MG PO ×3 (07:03→21:04)
[2021-11-06] MEDS: ALPRAZolam 0.5 MG TABLET PO ×4 (07:04→21:05)
[2021-11-06] MEDS: SERTRALINE 100 MG TABLET 200 MG PO (07:04)
[2021-11-06] MEDS: BUSPIRONE 10 MG TABLET PO ×2 (07:04→17:29)
[2021-11-06] MEDS: VENLAFAXINE HCL 150 MG CAP.ER.24H PO (07:04)
[2021-11-06 10:40] VITALS: TEMP 36.9; O2SAT 95
[2021-11-06] MEDS: BUSPIRONE 10 MG TABLET 5 MG PO (11:26)
--- NOTE | 2021-11-06 12:35 | PC.NURSE ---
Neuro Check. Vital sign and neuro check WNL. Resident is alert. No c/o pain. Ambulating using walker. Taken diet well.No vomiting.
[2021-11-06 13:53] VITALS: BP 138/84; PULSE 79; RESP 20; TEMP 36.9; O2SAT 95
[2021-11-06 21:07] VITALS: BP 138/82; PULSE 78; RESP 20; TEMP 36.8; O2SAT 95
[2021-11-06 21:11] VITALS: TEMP 36.8; O2SAT 95
[2021-11-07 02:38] VITALS: TEMP 36.5; O2SAT 93
[2021-11-07 07:00] VITALS: BP 169/76; PULSE 71; RESP 22; TEMP 36.5; O2SAT 96; BMI 33.3
[2021-11-07] MEDS: LEVOTHYROXINE SODIUM 150 MCG TABLET PO (07:59)
[2021-11-07] MEDS: ACETAMINOPHEN 500 MG TABLET 1000 MG PO ×3 (08:00→19:27)
[2021-11-07] MEDS: SERTRALINE 100 MG TABLET 200 MG PO (08:00)
[2021-11-07] MEDS: VENLAFAXINE HCL 150 MG CAP.ER.24H PO (08:00)
[2021-11-07] MEDS: BUSPIRONE 10 MG TABLET PO ×2 (08:00→17:09)
[2021-11-07] MEDS: ALPRAZolam 0.5 MG TABLET PO ×4 (08:01→23:47)
--- NOTE | 2021-11-07 10:09 | PC.NURSE ---
Skin check - no areas of concern noted. R great toe split healing, scab present, no redness, swelling, or heat.
[2021-11-07] MEDS: BUSPIRONE 10 MG TABLET 5 MG PO (11:25)
[2021-11-07 12:48] LABS: SARS PCR* Negative SARS-CoV-2 (Negative)
[2021-11-07 15:00] VITALS: TEMP 36.5; O2SAT 96
[2021-11-08 04:49] VITALS: TEMP 36.4; O2SAT 95
[2021-11-08 07:00] VITALS: TEMP 36.8; O2SAT 92
[2021-11-08] MEDS: LEVOTHYROXINE SODIUM 150 MCG TABLET PO (07:52)
[2021-11-08] MEDS: SERTRALINE 100 MG TABLET 200 MG PO (07:57)
[2021-11-08] MEDS: VENLAFAXINE HCL 150 MG CAP.ER.24H PO (07:57)
[2021-11-08] MEDS: BUSPIRONE 10 MG TABLET PO ×2 (07:57→17:18)
[2021-11-08] MEDS: ALPRAZolam 0.5 MG TABLET PO ×4 (07:57→17:17)
[2021-11-08] MEDS: ACETAMINOPHEN 500 MG TABLET 1000 MG PO ×3 (07:57→19:26)
[2021-11-08] MEDS: BUSPIRONE 10 MG TABLET 5 MG PO (11:23)
[2021-11-08] MEDS: MAG HYDROX/ALUMINUM HYD/SIMETH 30 ML ORAL.SUSP 15 ML PO (13:40)
[2021-11-08 14:04] VITALS: BMI 33.3
[2021-11-08] MEDS: TRAMADOL HCL 50 MG TABLET PO (19:24)
[2021-11-08 21:14] VITALS: TEMP 36.9; O2SAT 96
[2021-11-09 02:09] VITALS: TEMP 36.6; O2SAT 95
[2021-11-09] MEDS: BUSPIRONE 10 MG TABLET PO ×2 (07:47→17:25)
[2021-11-09] MEDS: ACETAMINOPHEN 500 MG TABLET 1000 MG PO ×3 (07:47→19:19)
[2021-11-09] MEDS: VENLAFAXINE HCL 150 MG CAP.ER.24H PO (07:47)
[2021-11-09] MEDS: SERTRALINE 100 MG TABLET 200 MG PO (07:47)
[2021-11-09] MEDS: LEVOTHYROXINE SODIUM 150 MCG TABLET PO (07:47)
[2021-11-09] MEDS: ALPRAZolam 0.5 MG TABLET PO ×3 (07:48→17:25)
[2021-11-09 11:19] VITALS: TEMP 37.1; O2SAT 96
[2021-11-09] MEDS: BUSPIRONE 10 MG TABLET 5 MG PO (12:06)
--- NOTE | 2021-11-09 13:12 | PC.NURSE ---
Larger clothes: left message for residents cousinmonica requesting larger clothes.
[2021-11-09] MEDS: TRAMADOL HCL 50 MG TABLET PO ×2 (13:13→22:35)
--- NOTE | 2021-11-09 14:30 | PC.SOCIAL ---
Supportive visit with resident due to increased anxiety. Resident was upset because she thought a staff member took some puzzles pieces out of her room. Discussed with staff and they stated a straw was picked up off the floor and thrown away. Nursing staff will continue to assist resident in locating missing puzzle pieces. Informed resident that resident will have a care conference next week on Sunday afternoon. Resident left the room to join an activity that was starting soon.
[2021-11-09 15:00] VITALS: TEMP 36.8; O2SAT 95
--- NOTE | 2021-11-10 02:10 | PC.NURSE ---
Week #1: Resident has complained of pain 16x on NOC in the past month, typically in the lower back and knees. Is on Ultram 50mg PO Q6H PRN, Acetaminophen 1000mg PO TID and, Aspercreme with lidocaine 4% topical BID. Temporary care plan reviewed, no change. Care plan 1-19 reviewed, no change. Resident is one assist when needed, will call when needing assistance. Will also request snacks on NOC and eat in room.
[2021-11-10 02:34] VITALS: TEMP 36.5; O2SAT 92
[2021-11-10] MEDS: LEVOTHYROXINE SODIUM 150 MCG TABLET PO (07:00)
[2021-11-10] MEDS: VENLAFAXINE HCL 150 MG CAP.ER.24H PO (07:40)
[2021-11-10] MEDS: ACETAMINOPHEN 500 MG TABLET 1000 MG PO ×3 (07:40→19:00)
[2021-11-10] MEDS: ALPRAZolam 0.5 MG TABLET PO ×4 (07:40→22:30)
[2021-11-10] MEDS: BUSPIRONE 10 MG TABLET PO ×2 (07:40→17:05)
[2021-11-10] MEDS: SERTRALINE 100 MG TABLET 200 MG PO (07:40)
[2021-11-10 11:07] VITALS: TEMP 37.1; O2SAT 94
[2021-11-10] MEDS: BUSPIRONE 10 MG TABLET 5 MG PO (12:08)
--- NOTE | 2021-11-10 14:31 | PC.NURSE ---
Week #1:Care plan 1-19 reviewed, no change. Temporary care plan reviewed, no change. Resident is on Asst X 1 for her ADLs and will use call light for any assistance. She is on Acetaminophen 1000mg PO TID, Ultram 50mg PO Q6H PRN, and, Aspercreme with lidocaine 4% topical BID for her pain management. She has high level of anxiety and this causes poor management of pain control. Her appetite is good and she also loves snacking in her room especially at night and causing her to gain a lot of weight.
[2021-11-10 18:44] VITALS: TEMP 36.7; O2SAT 85
[2021-11-10] MEDS: TRAMADOL HCL 50 MG TABLET PO (18:56)
--- NOTE | 2021-11-10 21:05 | REH.OT ---
Hot Beverage Assessment: Due to cognitive deficits, patient is to drink hot beverages at table.
[2021-11-11 02:21] VITALS: TEMP 36.7; O2SAT 92
[2021-11-11] MEDS: LEVOTHYROXINE SODIUM 150 MCG TABLET PO (06:31)
[2021-11-11] MEDS: ALPRAZolam 0.5 MG TABLET PO ×4 (07:33→19:38)
[2021-11-11] MEDS: ACETAMINOPHEN 500 MG TABLET 1000 MG PO ×3 (07:33→19:37)
[2021-11-11] MEDS: BUSPIRONE 10 MG TABLET PO ×2 (07:33→17:02)
[2021-11-11] MEDS: VENLAFAXINE HCL 150 MG CAP.ER.24H PO (07:34)
[2021-11-11] MEDS: SERTRALINE 100 MG TABLET 200 MG PO (07:34)
[2021-11-11] MEDS: TRAMADOL HCL 50 MG TABLET PO ×2 (09:55→17:03)
[2021-11-11 11:10] VITALS: TEMP 36.4; O2SAT 96
[2021-11-11] MEDS: BUSPIRONE 10 MG TABLET 5 MG PO (11:29)
[2021-11-11 21:48] VITALS: TEMP 36.6; O2SAT 97
[2021-11-12 01:37] VITALS: TEMP 36.6; O2SAT 95
[2021-11-12] MEDS: BUSPIRONE 10 MG TABLET PO ×2 (07:33→17:09)
[2021-11-12] MEDS: ACETAMINOPHEN 500 MG TABLET 1000 MG PO ×3 (07:33→20:08)
[2021-11-12] MEDS: LEVOTHYROXINE SODIUM 150 MCG TABLET PO (07:33)
[2021-11-12] MEDS: ALPRAZolam 0.5 MG TABLET PO ×3 (07:33→17:09)
[2021-11-12] MEDS: SERTRALINE 100 MG TABLET 200 MG PO (07:34)
[2021-11-12] MEDS: VENLAFAXINE HCL 150 MG CAP.ER.24H PO (07:34)
[2021-11-12 10:52] VITALS: TEMP 36.8; O2SAT 95
[2021-11-12] MEDS: BUSPIRONE 10 MG TABLET 5 MG PO (11:36)
[2021-11-12 21:12] VITALS: TEMP 36.9; O2SAT 96
[2021-11-12 23:00] VITALS: TEMP 36.4; O2SAT 93
[2021-11-13] MEDS: TRAMADOL HCL 50 MG TABLET PO ×4 (00:33→10:36)
[2021-11-13] MEDS: LEVOTHYROXINE SODIUM 150 MCG TABLET PO (07:57)
[2021-11-13] MEDS: SERTRALINE 100 MG TABLET 200 MG PO (07:58)
[2021-11-13] MEDS: ACETAMINOPHEN 500 MG TABLET 1000 MG PO ×3 (07:58→20:22)
[2021-11-13] MEDS: BUSPIRONE 10 MG TABLET PO ×2 (07:58→17:02)
[2021-11-13] MEDS: VENLAFAXINE HCL 150 MG CAP.ER.24H PO (07:58)
[2021-11-13] MEDS: ALPRAZolam 0.5 MG TABLET PO ×4 (08:01→22:50)
[2021-11-13 10:57] VITALS: TEMP 37.3; O2SAT 92
[2021-11-13] MEDS: BUSPIRONE 10 MG TABLET 5 MG PO (11:57)
[2021-11-13 16:57] VITALS: TEMP 36.8; O2SAT 93
[2021-11-13 23:00] VITALS: TEMP 36.6; O2SAT 96
[2021-11-14] MEDS: BUSPIRONE 10 MG TABLET PO ×2 (07:41→17:32)
[2021-11-14] MEDS: LEVOTHYROXINE SODIUM 150 MCG TABLET PO (07:41)
[2021-11-14] MEDS: ACETAMINOPHEN 500 MG TABLET 1000 MG PO ×3 (07:41→22:25)
[2021-11-14] MEDS: SERTRALINE 100 MG TABLET 200 MG PO (07:42)
[2021-11-14] MEDS: ALPRAZolam 0.5 MG TABLET PO ×3 (07:44→17:32)
[2021-11-14] MEDS: VENLAFAXINE HCL 150 MG CAP.ER.24H PO (09:15)
[2021-11-14 11:03] VITALS: TEMP 37.1; O2SAT 94; BMI 33.6
[2021-11-14] MEDS: BUSPIRONE 10 MG TABLET 5 MG PO (11:35)
[2021-11-14 12:51] LABS: SARS PCR* Negative SARS-CoV-2 (Negative)
[2021-11-14 13:45] VITALS: BP 133/75; PULSE 91; RESP 18; TEMP 37.1; O2SAT 94
--- NOTE | 2021-11-14 13:55 | PC.SOCIAL ---
Phone call to resident's cousin, Mini Grossman. Discussed the requests for clothing and pajamas that recently came to Mini's attention. Mini stated that nursing staff called her and informed her that clothing and pajamas were needed because resident gained weight. This worker clarified that the bottoms on some of her clothes and pajama tops were broken and it was exposing her and this is why she needed new clothing. Mini states that she orders clothes online and will bring them in when she gets them. Mini is concerned about resident's weight and asks questions about resident going to the kitchen area and getting her own snacks. Mini wonders if resident goes too frequently and if this is why she is storing food in her drawers in the room. This worker will discuss with nursing staff at IDT meeting and call Mini back. Phone call to resident's cousin, Mini Grossman. Provided information that this worker relayed her concerns to nursing staff. Nursing staff is going to put signs in the kitchen to have resident's check with nursing staff when getting snacks from the kitchen area. Mini asked questions about keeping track of resident's weight. This worker informed that there is a care conference tomorrow at 1:30 pm and nutrition is a part of this conference. Nutrition keeps track of resident's weight and can update her more. Mini states she didn't see the notice in her e-mail. This worker provided the call in phone number and meeting ID number for tomorrow's care conference. Mini will attend by phone.
[2021-11-14 15:00] VITALS: TEMP 36.6; O2SAT 95
--- NOTE | 2021-11-14 16:00 | PC.NURSE ---
COVID OUTBREAK TESTING: Resident provided verbal consent for outbreak COVID testing. Resident is currently asymptomatic. Resident/family will be notified only if resident is positive.
[2021-11-14] MEDS: TRAMADOL HCL 50 MG TABLET PO (23:41)
[2021-11-15 02:29] VITALS: TEMP 36.7; O2SAT 91
[2021-11-15] MEDS: ACETAMINOPHEN 500 MG TABLET 1000 MG PO ×3 (07:31→20:00)
[2021-11-15] MEDS: LEVOTHYROXINE SODIUM 150 MCG TABLET PO (07:31)
[2021-11-15] MEDS: ALPRAZolam 0.5 MG TABLET PO ×3 (07:31→17:14)
[2021-11-15] MEDS: VENLAFAXINE HCL 150 MG CAP.ER.24H PO (07:31)
[2021-11-15] MEDS: BUSPIRONE 10 MG TABLET PO ×2 (07:31→17:14)
[2021-11-15] MEDS: SERTRALINE 100 MG TABLET 200 MG PO (07:31)
[2021-11-15 10:40] VITALS: TEMP 37.1; O2SAT 94
[2021-11-15] MEDS: BUSPIRONE 10 MG TABLET 5 MG PO (11:25)
--- NOTE | 2021-11-15 13:30 | PC.NURSE ---
CARE CONFERENCE: meeting held with all members of care team present. Cousin unable to attend due to schedule conflict. Nursing reviewed that resident continues to need limited assist with ADLs. Needing more assistance with rashad cares and has been having increased episodes of urinary incontinence. UA was completed this quarter and was WNL. Is ambulatory in hallway with FWW. Has had multiple falls this past quarter with increased behaviors, noted in her chart. Psych medications were adjusted by COMMUNICATIONS TECHNICIAN. Care plan reviewed and updated. No changes to her medications. Advanced directive in chart is DNR/DNI. Uses no restraints. Does use 2 quarter side rails up to assist with positioning. Is not able to self administer own medications. Medications are set up and administered by nurse. Vulnerability- is at risk for being harmed. Residents weight stable and comes out daily for all meals. Resident asked about eating fish. When she was 18 yrs old she ate fish, she had a reaction, and she would like to eat fish again. Advised against this as she has an allergy to fish. Resident c/o pain to right knee and back--this is chronic. Is relieved by PRN pain medication and warm towels. There are no discharge plans. Goal: halfway care.
--- NOTE | 2021-11-15 14:06 | PC.SOCIAL ---
Resident care conference was held today at 1:30 pm. Care conference was held in resident room. Resident's cousin, Mini, was unable to attend due to having a medical appointment. Present was resident, This worker, Lakia BOSCH), and La Wang from Nutrition. Updates for nursing and nutrition were provided. Social Work updated on weekly supportive visits. Visits will continue as resident states they are helpful. Resident's mood is stable and there are no further concerns at this time.
[2021-11-15 21:04] VITALS: TEMP 36.4; O2SAT 95
[2021-11-16 02:22] VITALS: TEMP 36.9; O2SAT 93
[2021-11-16] MEDS: ACETAMINOPHEN 500 MG TABLET 1000 MG PO ×3 (07:31→19:34)
[2021-11-16] MEDS: LEVOTHYROXINE SODIUM 150 MCG TABLET PO (07:31)
[2021-11-16] MEDS: BUSPIRONE 10 MG TABLET PO ×2 (07:31→17:31)
[2021-11-16] MEDS: ALPRAZolam 0.5 MG TABLET PO ×3 (07:32→17:31)
[2021-11-16] MEDS: VENLAFAXINE HCL 150 MG CAP.ER.24H PO (07:32)
[2021-11-16] MEDS: SERTRALINE 100 MG TABLET 200 MG PO (07:33)
[2021-11-16] MEDS: BUSPIRONE 10 MG TABLET 5 MG PO (11:15)
[2021-11-16] MEDS: TRAMADOL HCL 50 MG TABLET PO (13:50)
[2021-11-16 15:00] VITALS: TEMP 36.8; O2SAT 96
--- NOTE | 2021-11-17 02:21 | PC.NURSE ---
Week #2: Resident is a fall risk, has had one fall in the last month on 11/04/21. Is on hourly visual safety checks and has non-skid shoes/socks at HS. Temporary care plan reviewed, no change. Care plan reviewed, no change. Resident is one assist with transfers and bed mobility as needed. Will call if needing assistance.
[2021-11-17 02:35] VITALS: TEMP 36.3; O2SAT 90
[2021-11-17] MEDS: ACETAMINOPHEN 500 MG TABLET 1000 MG PO ×3 (07:11→20:38)
[2021-11-17] MEDS: LEVOTHYROXINE SODIUM 150 MCG TABLET PO (07:11)
[2021-11-17] MEDS: BUSPIRONE 10 MG TABLET PO ×2 (07:12→17:06)
[2021-11-17] MEDS: VENLAFAXINE HCL 150 MG CAP.ER.24H PO (07:12)
[2021-11-17] MEDS: SERTRALINE 100 MG TABLET 200 MG PO (07:12)
[2021-11-17] MEDS: ALPRAZolam 0.5 MG TABLET PO ×3 (07:12→17:06)
[2021-11-17 10:11] VITALS: TEMP 37.1; O2SAT 96
--- NOTE | 2021-11-17 10:13 | PC.NURSE ---
Ripped (R) great toe nail intact, no s/s of infection. Intervention completed.
[2021-11-17] MEDS: BUSPIRONE 10 MG TABLET 5 MG PO (11:41)
--- NOTE | 2021-11-17 14:49 | PC.NURSE ---
Week #2: Care plan problems - and temporary care plan reviewed. No changes made. Nothing added to temporary care plan. Resident is independent with transfers, ambulation & bed repositioning. Ambulates with a walker. Top side rail up to aid for positioning. No alarms. Fall on 11/04/21. Is a high fall risk according to assessment.
--- NOTE | 2021-11-17 15:30 | PC.NURSE ---
MDS clarification: Reviewed MDS ADL charting for JANENE 11/10, noted to have inconsistent charting. Interviewed NARs and determined that errors were made. Resident needs supervision with most adls for safety. Changes reviewed and coded as such in MDS.
[2021-11-17 18:42] VITALS: TEMP 36.4; O2SAT 95
[2021-11-17 23:00] VITALS: TEMP 36.7; O2SAT 95
[2021-11-18] MEDS: ALPRAZolam 0.5 MG TABLET PO ×5 (04:49→23:55)
[2021-11-18] MEDS: LEVOTHYROXINE SODIUM 150 MCG TABLET PO (07:22)
[2021-11-18] MEDS: ACETAMINOPHEN 500 MG TABLET 1000 MG PO ×3 (07:22→19:10)
[2021-11-18] MEDS: SERTRALINE 100 MG TABLET 200 MG PO (07:23)
[2021-11-18] MEDS: VENLAFAXINE HCL 150 MG CAP.ER.24H PO (07:23)
[2021-11-18] MEDS: BUSPIRONE 10 MG TABLET PO ×2 (07:23→17:09)
[2021-11-18 10:50] VITALS: TEMP 37.1; O2SAT 96
[2021-11-18] MEDS: BUSPIRONE 10 MG TABLET 5 MG PO (11:29)
[2021-11-18 21:27] VITALS: TEMP 36.6; O2SAT 94
[2021-11-19 01:25] VITALS: TEMP 36.7; O2SAT 95
[2021-11-19] MEDS: LEVOTHYROXINE SODIUM 150 MCG TABLET PO (06:36)
[2021-11-19] MEDS: SERTRALINE 100 MG TABLET 200 MG PO (08:06)
[2021-11-19] MEDS: ALPRAZolam 0.5 MG TABLET PO ×4 (08:06→22:58)
[2021-11-19] MEDS: ACETAMINOPHEN 500 MG TABLET 1000 MG PO ×3 (08:06→19:54)
[2021-11-19] MEDS: VENLAFAXINE HCL 150 MG CAP.ER.24H PO (08:06)
[2021-11-19] MEDS: BUSPIRONE 10 MG TABLET PO ×2 (08:06→19:53)
[2021-11-19 10:39] VITALS: TEMP 36.4; O2SAT 95
[2021-11-19] MEDS: BUSPIRONE 10 MG TABLET 5 MG PO (11:20)
[2021-11-19 21:49] VITALS: TEMP 36.9; O2SAT 96
[2021-11-19] MEDS: TRAMADOL HCL 50 MG TABLET PO (22:11)
[2021-11-20 01:21] VITALS: TEMP 36.6; O2SAT 90
[2021-11-20] MEDS: LEVOTHYROXINE SODIUM 150 MCG TABLET PO (06:40)
[2021-11-20] MEDS: ACETAMINOPHEN 500 MG TABLET 1000 MG PO ×3 (07:44→19:07)
[2021-11-20] MEDS: VENLAFAXINE HCL 150 MG CAP.ER.24H PO (07:44)
[2021-11-20] MEDS: SERTRALINE 100 MG TABLET 200 MG PO (07:44)
[2021-11-20] MEDS: ALPRAZolam 0.5 MG TABLET PO ×3 (07:44→17:01)
[2021-11-20] MEDS: BUSPIRONE 10 MG TABLET PO ×2 (07:44→17:01)
[2021-11-20] MEDS: BUSPIRONE 10 MG TABLET 5 MG PO (11:04)
[2021-11-20 13:35] VITALS: TEMP 36.3
[2021-11-20] MEDS: TRAMADOL HCL 50 MG TABLET PO (14:50)
[2021-11-20 21:30] VITALS: TEMP 36.9; O2SAT 94
[2021-11-20 23:22] VITALS: TEMP 36.2; O2SAT 96
[2021-11-21] MEDS: ALPRAZolam 0.5 MG TABLET PO ×3 (07:40→17:56)
[2021-11-21] MEDS: LEVOTHYROXINE SODIUM 150 MCG TABLET PO (07:40)
[2021-11-21] MEDS: BUSPIRONE 10 MG TABLET PO ×2 (07:40→17:56)
[2021-11-21] MEDS: VENLAFAXINE HCL 150 MG CAP.ER.24H PO (07:40)
[2021-11-21] MEDS: SERTRALINE 100 MG TABLET 200 MG PO (07:40)
[2021-11-21] MEDS: ACETAMINOPHEN 500 MG TABLET 1000 MG PO ×3 (07:40→19:25)
[2021-11-21 10:46] VITALS: TEMP 36.9; O2SAT 96; BMI 33.5
[2021-11-21 10:47] VITALS: BP 158/82; PULSE 88; RESP 18; TEMP 36.9; O2SAT 96
[2021-11-21] MEDS: BUSPIRONE 10 MG TABLET 5 MG PO (11:18)
--- NOTE | 2021-11-21 13:48 | PC.NURSE ---
COVID OUTBREAK TESTING: Resident provided verbal consent for outbreak COVID testing. Resident is currently asymptomatic. Resident/family will be notified only if resident is positive.
[2021-11-21 15:00] VITALS: TEMP 36.8; O2SAT 96
[2021-11-21 16:44] LABS: SARS PCR* Negative SARS-CoV-2 (Negative)
[2021-11-21 23:58] VITALS: TEMP 36.8; O2SAT 95
[2021-11-22] MEDS: LEVOTHYROXINE SODIUM 150 MCG TABLET PO (07:46)
[2021-11-22] MEDS: ACETAMINOPHEN 500 MG TABLET 1000 MG PO ×3 (07:46→20:15)
[2021-11-22] MEDS: ALPRAZolam 0.5 MG TABLET PO ×3 (07:47→17:03)
[2021-11-22] MEDS: BUSPIRONE 10 MG TABLET PO ×2 (07:47→17:03)
[2021-11-22] MEDS: VENLAFAXINE HCL 150 MG CAP.ER.24H PO (07:47)
[2021-11-22] MEDS: SERTRALINE 100 MG TABLET 200 MG PO (07:48)
--- NOTE | 2021-11-22 10:41 | NUTR.NU ---
Nutrition Update: Resident is currently on a Regular, Easy to Chew (IDDSI Lvl 7) diet. No concerns with shewing or swallowing noted. RDN informed patient has been choosing to eat popcorn and other foods that are not appropriate for current diet order. RDN recommends changing diet order to Regular with regular food texture. RDN wrote diet change request in COFFERDAM CONSTRUCTION SUPERVISOR book.
[2021-11-22 10:53] VITALS: TEMP 36.8; O2SAT 97
[2021-11-22] MEDS: BUSPIRONE 10 MG TABLET 5 MG PO (11:57)
[2021-11-22] MEDS: TRAMADOL HCL 50 MG TABLET PO ×2 (13:38→22:44)
[2021-11-22 21:27] VITALS: TEMP 36.6; O2SAT 96
[2021-11-23 01:30] VITALS: TEMP 36.4; O2SAT 95
[2021-11-23] MEDS: BUSPIRONE 10 MG TABLET PO ×2 (07:40→17:50)
[2021-11-23] MEDS: ACETAMINOPHEN 500 MG TABLET 1000 MG PO ×3 (07:40→19:36)
[2021-11-23] MEDS: VENLAFAXINE HCL 150 MG CAP.ER.24H PO (07:40)
[2021-11-23] MEDS: LEVOTHYROXINE SODIUM 150 MCG TABLET PO (07:40)
[2021-11-23] MEDS: SERTRALINE 100 MG TABLET 200 MG PO (07:41)
[2021-11-23] MEDS: ALPRAZolam 0.5 MG TABLET PO ×3 (07:42→17:50)
[2021-11-23] MEDS: BUSPIRONE 10 MG TABLET 5 MG PO (11:42)
--- NOTE | 2021-11-23 13:44 | PC.SOCIAL ---
Attempted phone call x2 to Lita Gomez at [phone]. There was no answer and no voicemail set up. This worker will continue to try to reach Lita.
[2021-11-23 13:53] VITALS: TEMP 37.1; O2SAT 99
--- NOTE | 2021-11-24 02:44 | PC.NURSE ---
Week #3: Resident has no new skin issues at this time. Temporary care plan reviewed, no change. Care plan 30-39 reviewed, no change. Resident is incontinent of bowel and bladder. Will call to report incontinents and, when needing assistance.
[2021-11-24] MEDS: LEVOTHYROXINE SODIUM 150 MCG TABLET PO (06:35)
--- NOTE | 2021-11-24 06:59 | PC.NURSE ---
Week #3: Care plan problems 30-39 and temporary care plan reviewed. No changes made. Nothing added to temporary care plan. Has frequent ?bladder incontinence, and occasional bowel incontinence. Prompt/encourage her to use the bathroom before meals & activities. Is independent with transfers to the toilet & toileting. Does manage own pads, rashad cares, and clothing adjustment. Will call for assist & staff assist as needed. Skin: Scratches on (R) anterior thigh, assist resident with lotion application. Skin is routinely checked on bath day.
[2021-11-24] MEDS: VENLAFAXINE HCL 150 MG CAP.ER.24H PO (07:26)
[2021-11-24] MEDS: ACETAMINOPHEN 500 MG TABLET 1000 MG PO ×3 (07:26→19:55)
[2021-11-24] MEDS: SERTRALINE 100 MG TABLET 200 MG PO (07:26)
[2021-11-24] MEDS: BUSPIRONE 10 MG TABLET PO ×2 (07:26→19:54)
[2021-11-24] MEDS: ALPRAZolam 0.5 MG TABLET PO ×3 (07:26→19:55)
--- NOTE | 2021-11-24 09:00 | PC.SPIRITC ---
Certified Family Mediator provided visit for support and connection.
[2021-11-24] MEDS: BUSPIRONE 10 MG TABLET 5 MG PO (11:42)
--- NOTE | 2021-11-24 11:48 | PC.NURSE ---
Status: CARD PROCESSING CLERK, Urban here. Made adjustment to Xanax time administration to 0800, 1300, & 2000.
[2021-11-25] MEDS: TRAMADOL HCL 50 MG TABLET PO (03:51)
[2021-11-25] MEDS: LEVOTHYROXINE SODIUM 150 MCG TABLET PO (06:46)
[2021-11-25] MEDS: ALPRAZolam 0.5 MG TABLET PO ×3 (08:03→20:06)
[2021-11-25] MEDS: VENLAFAXINE HCL 150 MG CAP.ER.24H PO (08:03)
[2021-11-25] MEDS: SERTRALINE 100 MG TABLET 200 MG PO (08:03)
[2021-11-25] MEDS: BUSPIRONE 10 MG TABLET PO ×2 (08:03→17:18)
[2021-11-25] MEDS: ACETAMINOPHEN 500 MG TABLET 1000 MG PO ×3 (08:03→20:07)
[2021-11-25] MEDS: BUSPIRONE 10 MG TABLET 5 MG PO (11:49)
[2021-11-26] MEDS: LEVOTHYROXINE SODIUM 150 MCG TABLET PO (06:49)
[2021-11-26] MEDS: ACETAMINOPHEN 500 MG TABLET 1000 MG PO ×3 (08:39→19:04)
[2021-11-26] MEDS: ALPRAZolam 0.5 MG TABLET PO ×3 (08:39→19:04)
[2021-11-26] MEDS: SERTRALINE 100 MG TABLET 200 MG PO (08:39)
[2021-11-26] MEDS: BUSPIRONE 10 MG TABLET PO ×2 (08:39→18:55)
[2021-11-26] MEDS: VENLAFAXINE HCL 150 MG CAP.ER.24H PO (08:39)
[2021-11-26] MEDS: BUSPIRONE 10 MG TABLET 5 MG PO (11:24)
[2021-11-26 17:09] VITALS: BP 150/60; PULSE 76; RESP 16; TEMP 36.6; O2SAT 96
--- NOTE | 2021-11-26 21:52 | PC.NURSE ---
Behavior: Resident expressed multiple health concerns this evening. Reported chest pain at 1500, VSS, resident stated she was upset that another resident had . 1:1 attention provided, also recommended resident elevate legs and watch a good movie. When resident was reassessed she stated she was feeling much better. Also asked multiple times about back injection and c/o pain in back. Pain relieved with aqua kpad application and redirection.
[2021-11-26] MEDS: TRAMADOL HCL 50 MG TABLET PO (22:32)
[2021-11-27] MEDS: LEVOTHYROXINE SODIUM 150 MCG TABLET PO (06:47)
[2021-11-27] MEDS: ACETAMINOPHEN 500 MG TABLET 1000 MG PO ×3 (07:22→19:00)
[2021-11-27] MEDS: BUSPIRONE 10 MG TABLET PO ×2 (07:22→18:26)
[2021-11-27] MEDS: ALPRAZolam 0.5 MG TABLET PO ×3 (07:22→19:00)
[2021-11-27] MEDS: VENLAFAXINE HCL 150 MG CAP.ER.24H PO (07:23)
[2021-11-27] MEDS: SERTRALINE 100 MG TABLET 200 MG PO (07:23)
[2021-11-27] MEDS: BUSPIRONE 10 MG TABLET 5 MG PO (12:15)
[2021-11-27] MEDS: TRAMADOL HCL 50 MG TABLET PO ×2 (16:06→23:51)
[2021-11-28 07:00] VITALS: BP 138/78; PULSE 97; RESP 16; TEMP 36.6; O2SAT 97; BMI 33.3
[2021-11-28] MEDS: LEVOTHYROXINE SODIUM 150 MCG TABLET PO (07:30)
[2021-11-28] MEDS: ACETAMINOPHEN 500 MG TABLET 1000 MG PO ×3 (07:30→19:53)
[2021-11-28] MEDS: SERTRALINE 100 MG TABLET 200 MG PO (07:31)
[2021-11-28] MEDS: BUSPIRONE 10 MG TABLET PO ×2 (07:31→17:20)
[2021-11-28] MEDS: VENLAFAXINE HCL 150 MG CAP.ER.24H PO (07:31)
[2021-11-28] MEDS: ALPRAZolam 0.5 MG TABLET PO ×3 (07:32→19:53)
--- NOTE | 2021-11-28 10:02 | PC.NURSE ---
Skin Check - Redness noted under bilateral breasts. Nystatin added to MAR. Nystatin added to worklist.
--- NOTE | 2021-11-28 10:08 | PC.NURSE ---
Skin check - Redness noted under bilateral breasts. Nystatin application added to worklist.
[2021-11-28] MEDS: BUSPIRONE 10 MG TABLET 5 MG PO (11:10)
[2021-11-29] MEDS: TRAMADOL HCL 50 MG TABLET PO (03:25)
[2021-11-29] MEDS: NYSTATIN POWDER 1 APPLIC TOPICAL (07:27)
[2021-11-29] MEDS: LEVOTHYROXINE SODIUM 150 MCG TABLET PO (07:52)
[2021-11-29] MEDS: BUSPIRONE 10 MG TABLET PO ×3 (07:53→18:58)
[2021-11-29] MEDS: ACETAMINOPHEN 500 MG TABLET 1000 MG PO ×3 (07:53→20:15)
[2021-11-29] MEDS: VENLAFAXINE HCL 150 MG CAP.ER.24H PO (07:53)
[2021-11-29] MEDS: SERTRALINE 100 MG TABLET 200 MG PO (07:53)
[2021-11-29] MEDS: ALPRAZolam 0.5 MG TABLET PO ×4 (07:54→23:45)
--- NOTE | 2021-11-29 10:23 | PC.NURSE ---
Status/Order: TRAVEL REGISTERED NURSE ONCOLOGY, Urban here. Updated regarding mood/behavior is worsening and often requested to be seen in ED. Order: Increase Buspar 10mg BID to TID.
[2021-11-30] MEDS: ALPRAZolam 0.5 MG TABLET PO ×3 (08:17→19:04)
[2021-11-30] MEDS: VENLAFAXINE HCL 150 MG CAP.ER.24H PO (08:17)
[2021-11-30] MEDS: SERTRALINE 100 MG TABLET 200 MG PO (08:17)
[2021-11-30] MEDS: ACETAMINOPHEN 500 MG TABLET 1000 MG PO ×3 (08:17→19:04)
[2021-11-30] MEDS: LEVOTHYROXINE SODIUM 150 MCG TABLET PO (08:17)
[2021-11-30] MEDS: BUSPIRONE 10 MG TABLET PO ×3 (08:17→17:34)
--- NOTE | 2021-11-30 13:10 | PC.SOCIAL ---
Phone call to resident's family member, Lita at [phone]. There was no voicemail set up. Phone call to resident's cousin, Mini Grossman at [phone]. Followed up with Mini on when resident's clothing that was requested would arrive. Mini states that she knows she is running behind and she is working on ordering the items today. Mini was informed that resident is in need of bras, pajamas, and smaller pants. Mini states that she is also ordering resident a new yellow bedspread that resident requested. This worker asked Mini when to anticipate the items arriving at [facility]. Mini states she is ordering from [employer] (online) and hopes to have them to [facility] in a week. Made a follow up phone call to Mini to confirm that resident does need smaller pants and also ask for updated contact information on resident's family member Lita.
[2021-11-30] MEDS: TRAMADOL HCL 50 MG TABLET PO (23:07)
--- NOTE | 2021-12-01 02:37 | PC.NURSE ---
Week #4: Has exhibited increased anxiety lately a/e/b frequent call light use to ask repetitive questions. Buspirone dosing increased to 10mg TID on 11/29. Also receives alprazolam 0.5mg TID and BID PRN, sertraline 200mg daily, and venlafaxine 150mg daily. No adverse effects noted. Temporary care plan and care plan problems 40-119 reviewed with no changes made. Communication, hearing, vision, and orientation are unchanged. No change in chronic health conditions. All medications are administered by nursing staff.
[2021-12-01] MEDS: BUSPIRONE 10 MG TABLET PO ×3 (07:43→17:10)
[2021-12-01] MEDS: SERTRALINE 100 MG TABLET 200 MG PO (07:43)
[2021-12-01] MEDS: ACETAMINOPHEN 500 MG TABLET 1000 MG PO ×3 (07:43→20:23)
[2021-12-01] MEDS: LEVOTHYROXINE SODIUM 150 MCG TABLET PO (07:43)
[2021-12-01] MEDS: VENLAFAXINE HCL 150 MG CAP.ER.24H PO (07:43)
[2021-12-01] MEDS: ALPRAZolam 0.5 MG TABLET PO ×4 (07:45→22:57)
--- NOTE | 2021-12-01 11:16 | PC.NURSE ---
Week #4: Care plan problems 40-119 and temporary care plan reviewed. No changes made. Nothing added to temporary care plan. No changes in communication, hearing, vision, or orientation. She does communicate needs. Vision & hearing adequate. Has moderate cognitive impairment possibly related to congenital dysfunction. Chronic health condition stable. Does not self administer medications. Mood/Behavior: Has increased anxiety: talking frequently about going to ED d/t not feeling well (chest pains), talking about bad experiences of the past. Issues noted by FLOW COORDINATOR. 11/29/21 Increase Buspar to 10mg TID. Continues on Xanax 0.5mg TID & BID PRN, Effexor 150mg daily & Zoloft 200mg daily with no adverse effects noted.
--- NOTE | 2021-12-01 14:48 | PC.PHA ---
Pharmacy Review ~ Patient continues to request additional anti-anxiety medications but this has been long standing request. She has a tid scheduled and bid prn alprazolam ordered and Buspar was started late October and is still being adjusted. I would not recommend an increase in alprazolam. Buspar regimen needs more time. Unfortunately, more meds will not improve her anxiety but will increase her fall risk. Non-pharmacological interventions like meditation, essential oil packets (in-patient nursing has supply) may provide some calm to patient as she has done well with frequent,one-to-one interaction in the past. Renal Dosing for Oseltamivir: Treatment:30 mg po Bid for 5 days Prophylaxis:30 mg daily for 14 days of longer (see policy).
[2021-12-02] MEDS: LEVOTHYROXINE SODIUM 150 MCG TABLET PO (06:50)
[2021-12-02] MEDS: ALPRAZolam 0.5 MG TABLET PO ×3 (07:45→18:55)
[2021-12-02] MEDS: ACETAMINOPHEN 500 MG TABLET 1000 MG PO ×3 (07:45→18:54)
[2021-12-02] MEDS: SERTRALINE 100 MG TABLET 200 MG PO (07:45)
[2021-12-02] MEDS: VENLAFAXINE HCL 150 MG CAP.ER.24H PO (07:45)
[2021-12-02] MEDS: BUSPIRONE 10 MG TABLET PO ×3 (07:45→17:27)
[2021-12-02] MEDS: HYDROCORTISONE 2.5% CREAM 1 APPLIC TOPICAL (17:14)
[2021-12-02] MEDS: TRAMADOL HCL 50 MG TABLET PO (18:55)
--- NOTE | 2021-12-02 20:53 | PC.NURSE ---
Status: Resident having behaviors due presence of new staff. Buckling knees, saying that she is going to fall, complaining of a headache, chest pain and, anxiety. Wanting to go to the emergency room. Was given PRN Ultram 50mg at 1855 and scheduled Xanax. Resident also scratched open left inner thigh, Hydrocortisone PRN at 1714.
[2021-12-03] MEDS: LEVOTHYROXINE SODIUM 150 MCG TABLET PO (06:31)
[2021-12-03] MEDS: BUSPIRONE 10 MG TABLET PO ×3 (07:51→16:43)
[2021-12-03] MEDS: ACETAMINOPHEN 500 MG TABLET 1000 MG PO ×3 (07:51→19:37)
[2021-12-03] MEDS: ALPRAZolam 0.5 MG TABLET PO ×4 (07:51→19:37)
[2021-12-03] MEDS: SERTRALINE 100 MG TABLET 200 MG PO (07:51)
[2021-12-03] MEDS: VENLAFAXINE HCL 150 MG CAP.ER.24H PO (07:51)
--- NOTE | 2021-12-03 21:19 | PC.NURSE ---
Behaviors: Resident has increased behaviors, reported chest pain, anxiety, buckling knees like she is going to fall and, stating that she is going to pick at her lips. Xanax PRN was given at 1656 and, was only somewhat effective.
[2021-12-04] MEDS: LEVOTHYROXINE SODIUM 150 MCG TABLET PO (06:48)
[2021-12-04] MEDS: SERTRALINE 100 MG TABLET 200 MG PO (07:45)
[2021-12-04] MEDS: ALPRAZolam 0.5 MG TABLET PO ×4 (07:45→19:51)
[2021-12-04] MEDS: BUSPIRONE 10 MG TABLET PO ×3 (07:45→17:01)
[2021-12-04] MEDS: ACETAMINOPHEN 500 MG TABLET 1000 MG PO ×3 (07:45→19:42)
[2021-12-04] MEDS: VENLAFAXINE HCL 150 MG CAP.ER.24H PO (07:45)
[2021-12-04] MEDS: TRAMADOL HCL 50 MG TABLET PO (17:39)
--- NOTE | 2021-12-04 20:40 | PC.NURSE ---
Behaviors: Resident in dining room bending and buckling knees stating that she is going to fall and that she can't do this anymore. Xanax PRN given at 1602. Resident then complains of a headache/chest pain and, would like a pain pill, pain resolves moments after PRN Ultram 50mg was given at 1739. Resident is later taken to toilet by commercial loan underwriter where she begins to scratch her right buttock. Resident requested more medications but when commercial loan underwriter was not able to give anymore resident asked if there was anything stronger that she could be getting.
--- NOTE | 2021-12-05 07:47 | PC.NURSE ---
Skin check - No noted areas of concern - redness under bilateral breasts has resolved.
[2021-12-05] MEDS: LEVOTHYROXINE SODIUM 150 MCG TABLET PO (08:15)
[2021-12-05] MEDS: BUSPIRONE 10 MG TABLET PO ×3 (08:16→17:03)
[2021-12-05] MEDS: ACETAMINOPHEN 500 MG TABLET 1000 MG PO ×3 (08:16→19:37)
[2021-12-05] MEDS: SERTRALINE 100 MG TABLET 200 MG PO (08:17)
[2021-12-05] MEDS: VENLAFAXINE HCL 150 MG CAP.ER.24H PO (08:17)
[2021-12-05] MEDS: ALPRAZolam 0.5 MG TABLET PO ×4 (08:21→23:27)
[2021-12-05 09:56] VITALS: BP 154/82; PULSE 98; RESP 20; TEMP 36.8; O2SAT 96
[2021-12-05 09:58] VITALS: BMI 33.6
[2021-12-05 12:18] VITALS: BP 154/82; PULSE 98; RESP 20; TEMP 36.8; O2SAT 96
[2021-12-06] MEDS: LEVOTHYROXINE SODIUM 150 MCG TABLET PO (07:50)
[2021-12-06] MEDS: ACETAMINOPHEN 500 MG TABLET 1000 MG PO ×3 (07:50→19:55)
[2021-12-06] MEDS: VENLAFAXINE HCL 150 MG CAP.ER.24H PO (07:51)
[2021-12-06] MEDS: SERTRALINE 100 MG TABLET 200 MG PO (07:51)
[2021-12-06] MEDS: BUSPIRONE 10 MG TABLET PO ×3 (07:51→17:09)
[2021-12-06] MEDS: ALPRAZolam 0.5 MG TABLET PO ×3 (07:52→19:54)
[2021-12-06 21:14] VITALS: BP 169/82; PULSE 75; RESP 16; TEMP 36.2; O2SAT 95
[2021-12-07] MEDS: VENLAFAXINE HCL 150 MG CAP.ER.24H PO (07:06)
[2021-12-07] MEDS: ACETAMINOPHEN 500 MG TABLET 1000 MG PO ×3 (07:06→19:37)
[2021-12-07] MEDS: LEVOTHYROXINE SODIUM 150 MCG TABLET PO (07:06)
[2021-12-07] MEDS: SERTRALINE 100 MG TABLET 200 MG PO (07:06)
[2021-12-07] MEDS: BUSPIRONE 10 MG TABLET PO ×3 (07:06→17:21)
[2021-12-07] MEDS: ALPRAZolam 0.5 MG TABLET PO ×3 (07:08→19:39)
--- NOTE | 2021-12-07 13:08 | PC.SOCIAL ---
Connected with resident's cousin's daughter Lita @ [phone]. She will order clothes for resident and likely they will be from [facility]. If they do not fit she will return them. Lita will be the primary contact now for resident. Face sheet was updated and this information was passed on to nursing.
--- NOTE | 2021-12-07 16:25 | PC.SPIRITC ---
provided visit per Kelli's request.
--- NOTE | 2021-12-08 02:53 | PC.NURSE ---
Week #1: Hx of chronic lower back and bilateral knee pain r/t OA. Current pain management regimen: Acetaminophen 1000mg TID, Aspercreme with lidocaine 4% to knees BID, Tramadol 50 mg Q6 hours PRN. Application of Aqua K pad PRN. Has utilized PRN tramadol x13 in last month. Current regimen is effective. Pain may contribute to anxiety a/e/b dx of NASREEN. Currently on psychotropic medication for anxiety management. Temporary care plan and care plan problems 1-19 reviewed with no change. Requires varying levels of assist with ADLs d/t cognitive impairment, anxiety, and pain. Staff encourage participation and provide praise. Eats independently. Often eats snacks in room during the night.
[2021-12-08] MEDS: LEVOTHYROXINE SODIUM 150 MCG TABLET PO (06:44)
[2021-12-08] MEDS: BUSPIRONE 10 MG TABLET PO ×3 (07:25→17:13)
[2021-12-08] MEDS: ACETAMINOPHEN 500 MG TABLET 1000 MG PO ×3 (07:25→19:17)
[2021-12-08] MEDS: ALPRAZolam 0.5 MG TABLET PO ×4 (07:25→19:17)
[2021-12-08] MEDS: SERTRALINE 100 MG TABLET 200 MG PO (07:26)
[2021-12-08] MEDS: VENLAFAXINE HCL 150 MG CAP.ER.24H PO (07:26)
--- NOTE | 2021-12-08 07:29 | PC.NURSE ---
Week #1: Care plan problems 1-19 and temporary care plan reviewed. No changes made. Nothing added to temporary care plan. She can be independent with dressing, grooming, oral cares and feeding. Staff to check and assist as needed. Staff to put on antonio stockings. Is on regular diet, easy to chew texture. No problems reported with chewing or swallowing. Pain: Has chronic back and knee pain managed with Tylenol 1000mg TID, Aspercream w/Lidocaine BID to knees, Aqua K-pad PRN, & Ultram 50mg Q6H PRN which she has used occasionally with relief along with warm packs. She is able to tell when in pain.
--- NOTE | 2021-12-08 10:10 | PC.SPIRITC ---
Battery Stacker provided visit to patient for support and calm.
--- NOTE | 2021-12-08 21:01 | PC.NURSE ---
Skin: open area on left side of inner thigh healed.
[2021-12-09] MEDS: ALPRAZolam 0.5 MG TABLET PO ×3 (07:36→19:12)
[2021-12-09] MEDS: LEVOTHYROXINE SODIUM 150 MCG TABLET PO (07:36)
[2021-12-09] MEDS: VENLAFAXINE HCL 150 MG CAP.ER.24H PO (07:38)
[2021-12-09] MEDS: SERTRALINE 100 MG TABLET 200 MG PO (07:38)
[2021-12-09] MEDS: BUSPIRONE 10 MG TABLET PO ×3 (07:38→17:13)
[2021-12-09] MEDS: ACETAMINOPHEN 500 MG TABLET 1000 MG PO ×3 (07:38→19:12)
--- NOTE | 2021-12-09 13:46 | PC.SOCIAL ---
Supportive visit to resident due to increased anxiety. Met with resident in her room. Resident was laying in bed due to having some back discomfort. Resident discussed that she didn't have much of an appetite today for lunch due to having popcorn right before lunch. Resident did not have any other concerns at this time. Informed resident that this worker would check in with her next week.
[2021-12-09] MEDS: TRAMADOL HCL 50 MG TABLET PO (22:43)
--- NOTE | 2021-12-10 03:40 | PC.NURSE ---
Pain. Resident c/o headache at 2229 and PRN Tramadol was given at 2242 with good results.
[2021-12-10] MEDS: LEVOTHYROXINE SODIUM 150 MCG TABLET PO (08:03)
[2021-12-10] MEDS: SERTRALINE 100 MG TABLET 200 MG PO (08:05)
[2021-12-10] MEDS: BUSPIRONE 10 MG TABLET PO ×3 (08:05→17:09)
[2021-12-10] MEDS: VENLAFAXINE HCL 150 MG CAP.ER.24H PO (08:05)
[2021-12-10] MEDS: ACETAMINOPHEN 500 MG TABLET 1000 MG PO ×3 (08:05→20:15)
[2021-12-10] MEDS: ALPRAZolam 0.5 MG TABLET PO ×3 (08:06→20:14)
--- NOTE | 2021-12-10 09:37 | PC.NURSE ---
Pt reported difficulty swallowing pills. Mixed pills in applesauce. Pt still had some difficulty swallowing.
[2021-12-10] MEDS: TRAMADOL HCL 50 MG TABLET PO (23:51)
--- NOTE | 2021-12-11 06:34 | PC.NURSE ---
Noted resident`s hand had blood. Check body for scratch caterina and couldn't find any open wound, however noted a bit of blood while wiping her bottom after bathroom visit. Updated morning staff to continue to monitor.
[2021-12-11] MEDS: LEVOTHYROXINE SODIUM 150 MCG TABLET PO (07:45)
[2021-12-11] MEDS: ACETAMINOPHEN 500 MG TABLET 1000 MG PO ×3 (07:45→19:12)
[2021-12-11] MEDS: ALPRAZolam 0.5 MG TABLET PO ×4 (07:46→23:26)
[2021-12-11] MEDS: VENLAFAXINE HCL 150 MG CAP.ER.24H PO (07:46)
[2021-12-11] MEDS: SERTRALINE 100 MG TABLET 200 MG PO (07:46)
[2021-12-11] MEDS: BUSPIRONE 10 MG TABLET PO ×3 (07:46→17:17)
--- NOTE | 2021-12-11 12:36 | PC.NURSE ---
Pt complains of difficulty swallowing large pills.
[2021-12-12 07:00] VITALS: BP 161/86; PULSE 83; RESP 20; TEMP 36.8; O2SAT 95; BMI 31.4
[2021-12-12] MEDS: LEVOTHYROXINE SODIUM 150 MCG TABLET PO (07:25)
[2021-12-12] MEDS: ACETAMINOPHEN 500 MG TABLET 1000 MG PO ×3 (07:25→19:23)
[2021-12-12] MEDS: BUSPIRONE 10 MG TABLET PO ×3 (07:25→18:08)
[2021-12-12] MEDS: VENLAFAXINE HCL 150 MG CAP.ER.24H PO (07:25)
[2021-12-12] MEDS: SERTRALINE 100 MG TABLET 200 MG PO (07:25)
[2021-12-12] MEDS: ALPRAZolam 0.5 MG TABLET PO ×3 (07:27→19:23)
--- NOTE | 2021-12-12 09:34 | PC.NURSE ---
Pt c/o difficulty swallowing pills. Spent 10 minutes trying to swallow tylenol this AM.
[2021-12-13] MEDS: TRAMADOL HCL 50 MG TABLET PO ×2 (01:27→18:44)
[2021-12-13] MEDS: VENLAFAXINE HCL 150 MG CAP.ER.24H PO (07:49)
[2021-12-13] MEDS: BUSPIRONE 10 MG TABLET PO ×3 (07:49→17:00)
[2021-12-13] MEDS: SERTRALINE 100 MG TABLET 200 MG PO (07:49)
[2021-12-13] MEDS: ACETAMINOPHEN 500 MG TABLET 1000 MG PO ×3 (07:49→19:56)
[2021-12-13] MEDS: LEVOTHYROXINE SODIUM 150 MCG TABLET PO (07:49)
[2021-12-13] MEDS: ALPRAZolam 0.5 MG TABLET PO ×4 (07:50→19:54)
--- NOTE | 2021-12-13 17:31 | PC.NURSE ---
Addendum entered by China Jorge RN 12/13/21 21:27: Resident later c/o pain with no relief from PRN or scheduled medication. Heat offered, 1:1 attention and distraction attempted with minimal relief. Had multiple attempts at falling in front of staff. Resident was brought back to room via wheelchair. Staff helped resident with HS cares and resident appears to now be resting comfortably in bed. Original Note: Behavior: Resident frequently used call light, every 5-10 minutes, and asked repetitive questions to staff. Was concerned about missing activity, bladder incontinence, buying a cell phone, and the next time she could get a knee injection. Residents questions answered, and staff attempted to redirect attention. Favorite TV show was put on, feet elevated and warm blankets offered. PRN Xanax given with minimal relief. 1:1 attention provided. Resident agreed to play a card game with staff which successfully redirected residents attention.
[2021-12-14] MEDS: VENLAFAXINE HCL 150 MG CAP.ER.24H PO (07:43)
[2021-12-14] MEDS: LEVOTHYROXINE SODIUM 150 MCG TABLET PO (07:43)
[2021-12-14] MEDS: SERTRALINE 100 MG TABLET 200 MG PO (07:43)
[2021-12-14] MEDS: BUSPIRONE 10 MG TABLET PO ×3 (07:43→17:30)
[2021-12-14] MEDS: ACETAMINOPHEN 500 MG TABLET 1000 MG PO ×3 (07:43→19:08)
[2021-12-14] MEDS: ALPRAZolam 0.5 MG TABLET PO ×3 (07:46→19:08)
--- NOTE | 2021-12-14 07:46 | PC.NURSE ---
K-Pad: Has been refusing. Requested to be removed from room. On CUSTOMER OPERATIONS ASSOCIATE to discontinue.
--- NOTE | 2021-12-15 02:36 | PC.NURSE ---
WEEKLY CHARTING - WEEK 2: Vital signs reviewed. Blood pressures are hypertensive. Temporary and comprehensive care plan reviewed with no changes. Resident is independent with transfers, ambulation with 4WW, and bed mobility. Uses half side rails to aid bed mobility. Resident is at high risk for falls. Current fall interventions: keep area free of clutter, call light in reach, non-skid socks/shoes, falling star on door frame.
[2021-12-15] MEDS: LEVOTHYROXINE SODIUM 150 MCG TABLET PO (06:40)
--- NOTE | 2021-12-15 07:25 | PC.NURSE ---
Week #2 - Mobility: Care plan reviewed, no changes made. Nothing added to temporary care plan. VS reviewed, on OBSERVATION ASSISTANT book to review elevated BP's. Resident is independent with transfers & ambulation with a walker. Needs reminder and assist as needed with bed mobility. Top side rails up to aid for positioning. No alarms. Fall: No falls the past month. Remains a high fall risk according to assessment done on 11/10/21.
[2021-12-15] MEDS: VENLAFAXINE HCL 150 MG CAP.ER.24H PO (07:31)
[2021-12-15] MEDS: ALPRAZolam 0.5 MG TABLET PO ×3 (07:31→19:44)
[2021-12-15] MEDS: BUSPIRONE 10 MG TABLET PO ×3 (07:31→17:00)
[2021-12-15] MEDS: ACETAMINOPHEN 500 MG TABLET 1000 MG PO ×3 (07:31→19:45)
[2021-12-15] MEDS: SERTRALINE 100 MG TABLET 200 MG PO (07:31)
--- NOTE | 2021-12-15 12:43 | PC.NURSE ---
Status/Order: REGIONAL SALES MANAGERUrban here. Asked for any recommendations continues to c/o of chest pain, anxiety related. BP's (elevated) reviewed. Order: Daily BP X 1 week, OT for cognitive screening.
--- NOTE | 2021-12-15 13:54 | PC.NURSE ---
Per SPRAY DRIER OPERATOR, Urban can only crush Tramadol & Tylenol.
[2021-12-15 16:58] VITALS: BP 145/81
[2021-12-16] MEDS: SERTRALINE 100 MG TABLET 200 MG PO (07:05)
[2021-12-16] MEDS: LEVOTHYROXINE SODIUM 150 MCG TABLET PO (07:05)
[2021-12-16] MEDS: BUSPIRONE 10 MG TABLET PO ×3 (07:05→17:08)
[2021-12-16] MEDS: ACETAMINOPHEN 500 MG TABLET 1000 MG PO ×3 (07:05→20:05)
[2021-12-16] MEDS: ALPRAZolam 0.5 MG TABLET PO ×3 (07:05→19:52)
[2021-12-16] MEDS: VENLAFAXINE HCL 150 MG CAP.ER.24H PO (07:12)
[2021-12-16 09:30] VITALS: BP 127/81
[2021-12-16] MEDS: TRAMADOL HCL 50 MG TABLET PO (21:44)
[2021-12-17] MEDS: LEVOTHYROXINE SODIUM 150 MCG TABLET PO (06:36)
[2021-12-17] MEDS: ALPRAZolam 0.5 MG TABLET PO ×3 (07:43→20:06)
[2021-12-17] MEDS: SERTRALINE 100 MG TABLET 200 MG PO (07:43)
[2021-12-17] MEDS: VENLAFAXINE HCL 150 MG CAP.ER.24H PO (07:43)
[2021-12-17] MEDS: ACETAMINOPHEN 500 MG TABLET 1000 MG PO ×3 (07:43→20:05)
[2021-12-17] MEDS: BUSPIRONE 10 MG TABLET PO ×3 (07:43→17:14)
[2021-12-17 10:24] VITALS: BP 150/82
[2021-12-17 14:00] VITALS: BP 181/110; PULSE 87; RESP 20; TEMP 36.9; O2SAT 96
[2021-12-17] MEDS: TRAMADOL HCL 50 MG TABLET PO ×2 (14:26→21:09)
--- NOTE | 2021-12-17 14:26 | PC.NURSE ---
Fall VS at 1200: 158/87 sitting left arm, P 85, R 18, O2 96% on room air.
--- NOTE | 2021-12-17 14:32 | LTC.FALL ---
Addendum entered by Gwendolyn Almendarez 12/17/21 22:02: IMMEDIATE INTERVENTION: Is using a wheel chair for the time being. Original Note: [facility] Fall Note: o Fall Date:12/17/21 o Fall Time:1400 o What happened? Resident found laying next to bed. o Who found the resident and who responded? Love found resident. Dhaval Snow and, Concetta responded. o What was the resident doing? Resident was walking in room when knees gave out. o How the resident was found (knees, left side, arm under them), any hazards (cords, objects, nonskid slippers) brakes on? Proper equipment? Laying flat on back next to bed. o Did you assess for head trauma, spinal injuries, skeletal injuries, neurological changes and status, and head and neck pain? What did you find? No injury noted at this time. o Did you assess ROM in shoulders, elbows, hips, knees, any other affected areas, unless there is suspected spinal injury. No injury at this time. o Did you Assess for pain or discomfort? Yes resident complained of pain, Ultram PRN given o What are the injuries and how are they being treated? No injury o How was the resident transferred from the floor? With three assist and a gait belt o Did you call the MD or put a note in the SHOP MECHANIC book? SHOP MECHANIC book. o Enter vital signs. Temp 98.5, 181/110, Pulse 87, R20. o Did you notify family? Yes left a message with niece. o What was the root cause of the fall? Why did it happen? Resident stated that her knee gave out then later stated that i t was caused by back pain. o Create an IMMEDIATE INTERVENTION to ensure that this won't immediately happen again. (Put in temporary care plan too) o Complete Safety report and huddle (now one form) o If resident is seen in ED or fractured something, note that you started a [facility] Report process. Instructions are at the East nurse's desk in a red binder labeled [facility] report.
[2021-12-17 18:00] VITALS: BP 146/69; PULSE 85; RESP 20; TEMP 36.9; O2SAT 90
--- NOTE | 2021-12-17 18:00 | PC.NURSE ---
Fall f/u: Resident resting in recliner, vital signs and neuro checks are with in normal limits, is asking for another pain pill but, it is to soon to give one. Resident does state that she hit her head when she fell and, asks if there is a lump there. No sign of injury noted.
[2021-12-17 22:00] VITALS: BP 164/89; PULSE 65; RESP 16; TEMP 36.3; O2SAT 91
[2021-12-18] VITALS (7 sets, daily range): BP systolic 139–181; BP diastolic 80–94; PULSE 64–94; RESP 16–22; TEMP 36.4–37.2; O2SAT 92–96
--- NOTE | 2021-12-18 05:49 | PC.NURSE ---
FALL FOLLOW-UP: No latent injuries noted from fall. Vital signs stable. Blood pressure has remained elevated through the night. Neuros intact. PERRLA. Hand grasps equal. Denies any headache, double vision, or nausea. Has continued to utilize w/c for transfers/toileting.
[2021-12-18] MEDS: LEVOTHYROXINE SODIUM 150 MCG TABLET PO (06:41)
[2021-12-18] MEDS: ACETAMINOPHEN 500 MG TABLET 1000 MG PO ×3 (07:28→19:18)
[2021-12-18] MEDS: BUSPIRONE 10 MG TABLET PO ×3 (07:28→17:02)
[2021-12-18] MEDS: SERTRALINE 100 MG TABLET 200 MG PO (07:28)
[2021-12-18] MEDS: ALPRAZolam 0.5 MG TABLET PO ×4 (07:28→23:39)
[2021-12-18] MEDS: VENLAFAXINE HCL 150 MG CAP.ER.24H PO (07:28)
--- NOTE | 2021-12-18 10:39 | PC.NURSE ---
Fall F/U: Resident was alert, no injuries noted . Vitals and neuro are WNL. Blood pressure taken was 149/90. Hand laborer construction or leak gang was equal both side. She refused to used wheel chair and currently using walker to ambulate without any problem.
[2021-12-18] MEDS: TRAMADOL HCL 50 MG TABLET PO ×2 (13:35→23:38)
--- NOTE | 2021-12-18 18:00 | PC.NURSE ---
Fall f/u: Resident in room stated to commercial loan underwriter that she would like to get a cortisone shot in back for back pain, warm towel was given to resident. VS and Neuros with in normal limits.
--- NOTE | 2021-12-18 21:44 | PC.NURSE ---
Fall f/u: Resident in bed watching TV VS and neuro checks are with in normal limits, resident does not mention pain at this time.
[2021-12-19 02:00] VITALS: BP 137/83; PULSE 79; RESP 16; TEMP 36.6; O2SAT 92
--- NOTE | 2021-12-19 02:00 | PC.NURSE ---
Fall Follow-up: Neuro assessment completed: PERRLA intact, Peripheral mar full. Able to move extremities without C/O pain. Denies blurriness. No episode of vomit noted or reported. Resident denies pain at this time.
--- NOTE | 2021-12-19 05:26 | PC.NURSE ---
Fall follow-up/Neuro Check: PERRLA intact, Peripheral mar full. Able to move extremities without C/O pain. Denies blurriness, and pain. No vomiting reported or noted this shift.
[2021-12-19 06:00] VITALS: BP 176/97; PULSE 89; RESP 16; TEMP 36.5; O2SAT 95
[2021-12-19 07:00] VITALS: BMI 33.5
[2021-12-19] MEDS: LEVOTHYROXINE SODIUM 150 MCG TABLET PO (07:04)
[2021-12-19 08:00] VITALS: BP 176/97
[2021-12-19] MEDS: VENLAFAXINE HCL 150 MG CAP.ER.24H PO (08:07)
[2021-12-19] MEDS: ALPRAZolam 0.5 MG TABLET PO ×3 (08:07→20:20)
[2021-12-19] MEDS: ACETAMINOPHEN 500 MG TABLET 1000 MG PO ×3 (08:07→20:20)
[2021-12-19] MEDS: BUSPIRONE 10 MG TABLET PO ×3 (08:07→17:17)
[2021-12-19] MEDS: SERTRALINE 100 MG TABLET 200 MG PO (08:07)
--- NOTE | 2021-12-19 11:15 | PC.NURSE ---
FAll F/U Neuro checks - Pupils equal, round reactive to light, accommodating. BUE strength equal at baseline. BLE strength equal at baseline. A&Ox4
[2021-12-19 12:07] VITALS: BP 176/97; PULSE 89; RESP 18; TEMP 36.5; O2SAT 95
[2021-12-19 13:51] VITALS: BP 147/84; PULSE 82; RESP 14; TEMP 36.4; O2SAT 94
--- NOTE | 2021-12-19 13:52 | PC.NURSE ---
Fall F/U Neuro - Pupils equal, round, reactive to light, accommodating. BUE strength equal at baseline. BLE strength equal at baseline. A&Ox4.
--- NOTE | 2021-12-19 20:01 | PC.NURSE ---
Spoke to resident about the concern she brought forth regarding what she stated was a missing candle. Once talking with the resident it was noted that she was describing a Quynh night light that she uses around the holidays. She believes that her cousin may have taken it home the last time she came and they cleaned out the residents room. She is going to talk with her cousin on the phone tonight and ask her if she knows where the night light might be. Ops Manager will speak with AYANNA in the morning to discuss follow up further with family regarding Quynh night light.
[2021-12-19] MEDS: TRAMADOL HCL 50 MG TABLET PO (23:52)
[2021-12-20] MEDS: ALPRAZolam 0.5 MG TABLET PO ×4 (00:49→19:44)
[2021-12-20] MEDS: LEVOTHYROXINE SODIUM 150 MCG TABLET PO (07:25)
[2021-12-20] MEDS: VENLAFAXINE HCL 150 MG CAP.ER.24H PO (07:25)
[2021-12-20] MEDS: BUSPIRONE 10 MG TABLET PO ×3 (07:25→17:20)
[2021-12-20] MEDS: ACETAMINOPHEN 500 MG TABLET 1000 MG PO ×3 (07:25→18:43)
[2021-12-20] MEDS: SERTRALINE 100 MG TABLET 200 MG PO (07:25)
[2021-12-20 08:00] VITALS: BP 151/78
--- NOTE | 2021-12-20 10:03 | PC.NURSE ---
Skin check - Shallow scratch 2 cm in length on R thigh - no interventions needed.
--- NOTE | 2021-12-20 12:17 | PC.NURSE ---
Recert Visit: Resident seen by APPRENTICESHIP TRAINING REPRESENTATIVEUrban. Orders reviewed and renewed of 75 days without changes.
--- NOTE | 2021-12-20 12:55 | PC.NURSE ---
Status: FORMING MACHINE UPKEEP MECHANIC, Urban here. Fall, no injury on 12/27 noted by her.
[2021-12-20] MEDS: TRAMADOL HCL 50 MG TABLET PO (23:26)
[2021-12-21] MEDS: SERTRALINE 100 MG TABLET 200 MG PO (07:25)
[2021-12-21] MEDS: VENLAFAXINE HCL 150 MG CAP.ER.24H PO (07:25)
[2021-12-21] MEDS: LEVOTHYROXINE SODIUM 150 MCG TABLET PO (07:25)
[2021-12-21] MEDS: ACETAMINOPHEN 500 MG TABLET 1000 MG PO ×3 (07:25→19:19)
[2021-12-21] MEDS: BUSPIRONE 10 MG TABLET PO ×3 (07:25→17:01)
[2021-12-21] MEDS: ALPRAZolam 0.5 MG TABLET PO ×3 (07:26→19:19)
[2021-12-21 08:00] VITALS: BP 163/100
[2021-12-21] MEDS: TRAMADOL HCL 50 MG TABLET PO (22:57)
--- NOTE | 2021-12-22 04:08 | PC.NURSE ---
WEEKLY CHARTING - WEEK 3: Vital signs reviewed. BPs continue elevated. WELDER EXPLOSION reviewed on 12/15/21 with no changes. Temporary and comprehensive care plan reviewed - no change. Frequently incontinent of urine. Occasional bowel incontinence. Resident is able to complete toileting, rashad-cares, and incontinent product management independently. Wears pull-up. Staff assist PRN - primarily at [facility]. Staff monitor bowel pattern. Encourage toilet use before meals and activities. Per weekly skin assessment documentation, currently has scratched area on R thigh. No intervention needed.
[2021-12-22] MEDS: LEVOTHYROXINE SODIUM 150 MCG TABLET PO (07:08)
[2021-12-22] MEDS: ACETAMINOPHEN 500 MG TABLET 1000 MG PO ×3 (07:08→20:43)
[2021-12-22] MEDS: VENLAFAXINE HCL 150 MG CAP.ER.24H PO (07:10)
[2021-12-22] MEDS: ALPRAZolam 0.5 MG TABLET PO ×4 (07:10→20:46)
[2021-12-22] MEDS: SERTRALINE 100 MG TABLET 200 MG PO (07:10)
[2021-12-22] MEDS: BUSPIRONE 10 MG TABLET PO ×3 (07:10→17:11)
[2021-12-22 08:00] VITALS: BP 158/94
--- NOTE | 2021-12-22 16:01 | PC.NURSE ---
Week #3: Temporary care plan reviewed, no change. Comprehensive care plan reviewed, no change. Skin: Resident has an area that we are monitoring from a previous scratch on the right upper thigh. Resident is incontinent of bowel and bladder. Wears pull ups. Resident is independent and occasionally one assist. Will call when needing assistance.
[2021-12-22] MEDS: TRAMADOL HCL 50 MG TABLET PO (23:21)
[2021-12-23] MEDS: LEVOTHYROXINE SODIUM 150 MCG TABLET PO (06:44)
[2021-12-23] MEDS: BUSPIRONE 10 MG TABLET PO ×3 (07:22→17:01)
[2021-12-23] MEDS: ALPRAZolam 0.5 MG TABLET PO ×3 (07:22→19:43)
[2021-12-23] MEDS: ACETAMINOPHEN 500 MG TABLET 1000 MG PO ×3 (07:22→19:44)
[2021-12-23] MEDS: SERTRALINE 100 MG TABLET 200 MG PO (07:23)
[2021-12-23] MEDS: VENLAFAXINE HCL 150 MG CAP.ER.24H PO (07:23)
[2021-12-23 11:04] VITALS: BP 120/74
[2021-12-23] MEDS: TRAMADOL HCL 50 MG TABLET PO (23:05)
[2021-12-24] MEDS: LEVOTHYROXINE SODIUM 150 MCG TABLET PO (06:39)
[2021-12-24] MEDS: BUSPIRONE 10 MG TABLET PO ×3 (07:38→17:14)
[2021-12-24] MEDS: ALPRAZolam 0.5 MG TABLET PO ×3 (07:38→19:37)
[2021-12-24] MEDS: ACETAMINOPHEN 500 MG TABLET 1000 MG PO ×3 (07:38→19:38)
[2021-12-24] MEDS: VENLAFAXINE HCL 150 MG CAP.ER.24H PO (07:39)
[2021-12-24] MEDS: SERTRALINE 100 MG TABLET 200 MG PO (07:39)
[2021-12-24] MEDS: TRAMADOL HCL 50 MG TABLET PO ×2 (09:29→17:13)
[2021-12-24 17:23] VITALS: BP 169/84
--- NOTE | 2021-12-24 17:30 | PC.NURSE ---
[facility] Fall Note: o Fall Date: 12/24/21 o Fall Time: 1715 o What happened? Resident stood from recliner and R knee gave out, lowered herself to ground. o Who found the resident and who responded? Resident was found by Matt (JOHN), who notified China (RN) and Dhaval (JOHN). o What was the resident doing? Resident was attempting to stand up from recliner. o How the resident was found (knees, left side, arm under them), any hazards (cords, objects, nonskid slippers) brakes on? Proper equipment? Resident was found sitting in front of recliner, her back was resting on the recliner and legs were out in front of resident. Resident was wearing nonskid shoes and had call light within reach. o Did you assess for head trauma, spinal injuries, skeletal injuries, neurological changes and status, and head and neck pain? What did you find? Resident denied hitting head, assessed for injury- ROM intact. Neuro at residents baseline. Reported pain in back and R knee where resident has chronic pain. o Did you assess ROM in shoulders, elbows, hips, knees, any other affected areas, unless there is suspected spinal injury. ROM intact. o Did you Assess for pain or discomfort? Reported pain 9/10 in back and R knee. o What are the injuries and how are they being treated? No injuries. o How was the resident transferred from the floor? Resident was able to stand with the assist of two staff and gait belt from floor into wheelchair. o Did you call the MD or put a note in the STATE TROOPER book? Note made in STATE TROOPER book o Enter vital signs. See Vitals assessment. o Did you notify family? Mini contacted, phone went straight to voicemail, mailbox was full. Unable to leave a message. o What was the root cause of the fall? Why did it happen? Residents knee gave out. o Create an IMMEDIATE INTERVENTION to ensure that this won't immediately happen again. Bed and chair alarm initiated, resident is to call for assistance transferring. o Complete Safety report and huddle (now one form) o If resident is seen in ED or fractured something, note that you started a [facility] Report process. Instructions are at the East nurse's desk in a red binder labeled [facility] report.
[2021-12-24 21:27] VITALS: BP 139/73; PULSE 74; RESP 18; TEMP 36.4; O2SAT 95
--- NOTE | 2021-12-24 21:56 | PC.NURSE ---
Fall F/U: Resident resting in bed. Bed alarm in place and functioning. Resident has been using call light prior to transferring. VSS and neuro WNL. States pain improved to 7/10 after PRN Ultram, resident has been inconsistent with rating/reporting of pain. Appears to be resting comfortably. Warm blankets also provided with relief. Resident continues to exhibit usual anxious behaviors: using call light frequently, asking repetitive questions, health related concerns. Staff provided reassurance and attempted to redirect residents attention with activities or TV/Movie with some short term relief.
[2021-12-25 01:00] VITALS: BP 137/70; PULSE 70; RESP 18; TEMP 36.6; O2SAT 96
--- NOTE | 2021-12-25 01:29 | PC.NURSE ---
FALL FOLLOW-UP: Vital signs WNL. ROM at baseline. No new c/o pain. Has chronic pain in back and knees. Has been sleeping soundly.
[2021-12-25 05:00] VITALS: BP 133/67; PULSE 74; RESP 20; TEMP 36.7; O2SAT 97
--- NOTE | 2021-12-25 07:00 | PC.NURSE ---
Pt angry and saying she will not use the wheelchair. Multiple staff have explained to pt multiple times that she needs to use the wheelchair since she fell last night. Pt continually pressing call button to ask for her walker back. Staff attempted to redirect pt with activities - no improvement. [ End ]
[2021-12-25] MEDS: BUSPIRONE 10 MG TABLET PO ×3 (07:28→17:11)
[2021-12-25] MEDS: ACETAMINOPHEN 500 MG TABLET 1000 MG PO ×3 (07:28→19:07)
[2021-12-25] MEDS: LEVOTHYROXINE SODIUM 150 MCG TABLET PO (07:28)
[2021-12-25] MEDS: SERTRALINE 100 MG TABLET 200 MG PO (07:29)
[2021-12-25] MEDS: VENLAFAXINE HCL 150 MG CAP.ER.24H PO (07:29)
[2021-12-25] MEDS: ALPRAZolam 0.5 MG TABLET PO ×3 (07:30→19:06)
[2021-12-25 09:00] VITALS: BP 179/83; PULSE 82; RESP 20; TEMP 36.8; O2SAT 94
--- NOTE | 2021-12-25 12:40 | PC.NURSE ---
Pt called nurse to request walker. Nurse explained to pt that she needs to use the wheelchair because she fell last night as well as last week. Pt said I did that on purpose. When nurse questioned what she meant pt said I fell down on purpose. Nurse said she still needed to use wheelchair since she fell last week. Pt replied I fell down on purpose then too. Nurse asked You fell down on purpose both times? Pt replied Yes. When asked why she is purposefully falling down pt said I did it because I miss my . Pt then asked if she could have her walker back. Nurse explained that she cannot have her walker back because the rule is that if you fall you need to use the wheelchair. Pt said I won't fall down again. Nurse said she would discuss it with PRODUCTION TROUBLESHOOTER tomorrow. Pt upset she did not get wheelchair back after conversation. [ End ]
[2021-12-25 13:00] VITALS: BP 135/84; PULSE 88; RESP 16; TEMP 36.8; O2SAT 94
--- NOTE | 2021-12-25 14:10 | PC.NURSE ---
Pt peed in her wheelchair then said I cannot use this wheelchair because I peed in it. Nurse cleaned and changed pt. Nurse cleaned wheelchair. Pt said she could not use wheelchair since there was pee in it. Nurse Showed pt that she cleaned the wheelchair and then told pt she had to continue to use it. Pt upset she still has to use wheelchair. [ End ]
[2021-12-25 17:00] VITALS: BP 163/84; PULSE 88; RESP 16; TEMP 36.2; O2SAT 96
--- NOTE | 2021-12-25 17:30 | PC.NURSE ---
Fall F/U: Resident up in recliner. Vitals WNL. No complaints of pain at this time. ROM intact. Using wheelchair for transfers d/t resident reports of weakness in R knee at times. Bed and Chair alarms in place to remind resident to call for help before ambulating.
--- NOTE | 2021-12-25 21:52 | PC.NURSE ---
Spoke with residents david Morse this evening and updated about fall12/24/21. Mini reported to RN that resident had told her she fell on purpose and was concerned about this behavior. Mini plans to contact AYANNA on Sunday to speak about residents behavior.
[2021-12-26 07:00] VITALS: BP 148/77; PULSE 89; RESP 16; TEMP 37.1; O2SAT 96; BMI 33.5
--- NOTE | 2021-12-26 07:10 | PC.NURSE ---
Pt crying because she did not want to use wheelchair to get to bathtub room and breakfast this morning. We assured her we would discuss things with the OPTICAL STORE MANAGER to figure out a plan for her transfers. Pt repeatedly said she would not use wheelchair. Staff assured her the OPTICAL STORE MANAGER was coming in today to develop a plan. Pt stated I'm not going to breakfast. At 0800 staff was able to get pt to dining room using wheelchair. [ End ]
[2021-12-26] MEDS: VENLAFAXINE HCL 150 MG CAP.ER.24H PO (07:12)
[2021-12-26] MEDS: LEVOTHYROXINE SODIUM 150 MCG TABLET PO (07:12)
[2021-12-26] MEDS: ACETAMINOPHEN 500 MG TABLET 1000 MG PO ×3 (07:12→19:01)
[2021-12-26] MEDS: SERTRALINE 100 MG TABLET 200 MG PO (07:12)
[2021-12-26] MEDS: BUSPIRONE 10 MG TABLET PO ×3 (07:12→17:22)
[2021-12-26] MEDS: ALPRAZolam 0.5 MG TABLET PO ×3 (07:14→19:01)
--- NOTE | 2021-12-26 09:02 | PC.NURSE ---
Order: PT consult r/t falls from knee giving out by SAFE TECHNICIANUrban.
--- NOTE | 2021-12-26 09:22 | PC.NURSE ---
Skin check - Areas of redness noted on sternum, and under both breasts. Nystatin powder applied. Intervention added to worklist.
--- NOTE | 2021-12-26 10:10 | PC.NURSE ---
Fall follow up: spoke with resident about her recent fall. Resident stated she had fallen on purpose over the weekend. Updated resident that a therapy evaluation will be ordered to assess if resident is still safe to use walker because she is frequently saying that her knees are giving out and had many falls recently. When asked why she may fall on purpose she stated I don't remember. Resident states she is scared because she doesn't know why she falls on purpose but that she misses using her walker in the hallway. Advised that she can use walker in her room and staff will assess her to meals until therapy has assessed her strength. Message left for her niece with update.
--- NOTE | 2021-12-26 10:35 | PC.NURSE ---
Pneumonia vaccine update: message left for jannette in regards to ordering pneumonia vaccine for resident to have administered to be considered up to date. Will await call back.
[2021-12-26] MEDS: NYSTATIN POWDER 1 APPLIC TOPICAL (20:34)
[2021-12-26] MEDS: TRAMADOL HCL 50 MG TABLET PO (22:34)
--- NOTE | 2021-12-27 01:04 | PC.NURSE ---
PAIN: Requested/received PRN tramadol at 2234 for c/o back pain rated 8/10. Resident states pain is a lot better and thanks senior medical writer for administering, but continues to rate pain 8/10. Has hx of inconsistently rating pain.
[2021-12-27] MEDS: LEVOTHYROXINE SODIUM 150 MCG TABLET PO (07:19)
[2021-12-27] MEDS: ACETAMINOPHEN 500 MG TABLET 1000 MG PO ×3 (07:20→19:24)
[2021-12-27] MEDS: VENLAFAXINE HCL 150 MG CAP.ER.24H PO (07:20)
[2021-12-27] MEDS: SERTRALINE 100 MG TABLET 200 MG PO (07:20)
[2021-12-27] MEDS: BUSPIRONE 10 MG TABLET PO ×3 (07:20→17:06)
[2021-12-27] MEDS: ALPRAZolam 0.5 MG TABLET PO ×3 (07:22→19:23)
--- NOTE | 2021-12-27 11:17 | PC.NURSE ---
Order: Pneumoc 15-Charito Conj - Dip Crm/Pf 0.5 ml IM Once by TELEVISION SCRIPT WRITER, Urban.
--- NOTE | 2021-12-27 11:53 | PC.NURSE ---
PT EVAL: Per PT evaluation, resident is safe to return to being independent on the unit with her 4ww. They feel it is more of a cognitive/behavioral issue at this time vs. mobility. Alarms can also be discontinued. Charge nurse updated.
--- NOTE | 2021-12-27 13:24 | PC.NURSE ---
Status: Per PT resident is okay to ambulate independently with a walker.
--- NOTE | 2021-12-27 18:28 | PC.NURSE ---
Pneumonia vaccine: Kaylee agreed with administration order for pneumonia vaccine. MOUNTER SOUSAPHONES updated and order given.
[2021-12-28] MEDS: LEVOTHYROXINE SODIUM 150 MCG TABLET PO (06:55)
[2021-12-28] MEDS: NYSTATIN POWDER 1 APPLIC TOPICAL (07:20)
[2021-12-28] MEDS: ACETAMINOPHEN 500 MG TABLET 1000 MG PO ×3 (08:01→19:20)
[2021-12-28] MEDS: BUSPIRONE 10 MG TABLET PO ×3 (08:01→18:13)
[2021-12-28] MEDS: ALPRAZolam 0.5 MG TABLET PO ×3 (08:01→19:20)
[2021-12-28] MEDS: VENLAFAXINE HCL 150 MG CAP.ER.24H PO (08:01)
[2021-12-28] MEDS: SERTRALINE 100 MG TABLET 200 MG PO (08:01)
--- NOTE | 2021-12-28 13:42 | PC.NURSE ---
PNEUMOVACC: Verbal consent obtained for pneumonia vaccine by TRACEY Gomez. Vaccine to be delivered tonight.
--- NOTE | 2021-12-28 15:27 | PC.PHA ---
Medication Review~ Medication monitoring:Alprazolam, sertraline, venlafaxine, buspirone Comments or Irregularity: Patient has long history of anxiety and it continues to increase with age related cognitive changes. Buspirone was most recently added to her regimen. Suggested Course: Given patient's high anxiety a GDR for alprazolam is clinically contraindicated. Current alprazolam prn order needs to be evaluated by provided and consider change to scheduled alprazolam 0.5 mg tid (14 day prn rule). Sertraline dose of 200 mg is maxed out and therefore recommend GDR at this time. Venlafaxine and buspirone may continue for now. No other concerns with patients other medications at this time.
--- NOTE | 2021-12-28 20:54 | PC.NURSE ---
Vaccine status: Vaxneuvance 0.5 ml was given IM at the R-deltoid, 2105.
--- NOTE | 2021-12-29 02:56 | PC.NURSE ---
WEEKLY CHARTING - WEEK 4: Vital signs reviewed. BPs continue elevated. Was reviewed by ENVIRONMENTAL TEST TECHNICIAN on 12/14 with no changes. Temporary and comprehensive care plan reviewed - no change. Resident has had 48 documented behaviors in the last month. Current psychotropic medications: sertraline 200mg daily, venlafaxine 150mg daily, buspirone 10mg daily, and alprazolam 0.5mg TID and BID PRN. Has utilized PRN alprazolam x11 in last month. No noted adverse effects. No apparent visual impairment. Has moderate cognitive deficit. Needs reminders, cues and supervision. No noted medication changes in last month. No change in health condition.
[2021-12-29] MEDS: VENLAFAXINE HCL 150 MG CAP.ER.24H PO (07:29)
[2021-12-29] MEDS: LEVOTHYROXINE SODIUM 150 MCG TABLET PO (07:29)
[2021-12-29] MEDS: BUSPIRONE 10 MG TABLET PO ×3 (07:29→17:11)
[2021-12-29] MEDS: ACETAMINOPHEN 500 MG TABLET 1000 MG PO ×3 (07:29→19:35)
[2021-12-29] MEDS: SERTRALINE 100 MG TABLET 200 MG PO (07:29)
[2021-12-29] MEDS: NYSTATIN POWDER 1 APPLIC TOPICAL (07:30)
[2021-12-29] MEDS: ALPRAZolam 0.5 MG TABLET PO ×4 (07:30→19:35)
[2021-12-30] MEDS: LEVOTHYROXINE SODIUM 150 MCG TABLET PO (06:33)
[2021-12-30] MEDS: BUSPIRONE 10 MG TABLET PO ×3 (07:04→17:07)
[2021-12-30] MEDS: VENLAFAXINE HCL 150 MG CAP.ER.24H PO (07:04)
[2021-12-30] MEDS: SERTRALINE 100 MG TABLET 200 MG PO (07:04)
[2021-12-30] MEDS: ALPRAZolam 0.5 MG TABLET PO ×4 (07:04→21:09)
[2021-12-30] MEDS: ACETAMINOPHEN 500 MG TABLET 1000 MG PO ×3 (07:04→19:25)
[2021-12-30] MEDS: NYSTATIN POWDER 1 APPLIC TOPICAL (08:15)
[2021-12-30] MEDS: TRAMADOL HCL 50 MG TABLET PO (16:01)
[2021-12-30 17:20] VITALS: BP 185/113; PULSE 86; RESP 22; TEMP 37; O2SAT 96
--- NOTE | 2021-12-30 18:27 | LTC.FALL ---
[facility] Fall Note: o Fall Date:12/30/21 o Fall Time:1720 o What happened? Resident found lying next to bed. o Who found the resident and who responded? Yuko Rudolph found resident, Joyce and Gwendolyn also responded. o What was the resident doing? Walking in room when her back gave out. o How the resident was found (knees, left side, arm under them), any hazards (cords, objects, nonskid slippers) brakes on? Proper equipment? Resident was laying next to bed. No hazards found. o Did you assess for head trauma, spinal injuries, skeletal injuries, neurological changes and status, and head and neck pain? What did you find? No injury found o Did you assess ROM in shoulders, elbows, hips, knees, any other affected areas, unless there is suspected spinal injury. No injury found o Did you Assess for pain or discomfort? Resident complained of pain in the lower back but, PRN Ultram 50mg was given at 1601. o What are the injuries and how are they being treated? No injury o How was the resident transferred from the floor? Three assist and a gait belt. o Did you call the MD or put a note in the APPLICATION MANAGER book? Note put in APPLICATION MANAGER book o Enter vital signs. Temp 98.6, BP 185/113, Pulse 86, 96%, R 22 o Did you notify family? Yes o What was the root cause of the fall? Why did it happen? Residents lower back pain causing her to fall. o Create an IMMEDIATE INTERVENTION to ensure that this won't immediately happen again. (Put in temporary care plan too) Resident is to use Wheel chair. o Complete Safety report and huddle (now one form) o If resident is seen in ED or fractured something, note that you started a [facility] Report process. Instructions are at the East nurse's desk in a red binder labeled [facility] report.
[2021-12-30 21:20] VITALS: BP 126/73; PULSE 80; RESP 20; TEMP 36.9; O2SAT 93
--- NOTE | 2021-12-30 21:20 | PC.NURSE ---
Fall f/u: Resident in bed watching TV, did complain of Anxiety and was given a Xanax at 2108 and, pain in the lower back was given a warm towel. VS and Neuro checks are within normal limits.
--- NOTE | 2021-12-30 21:30 | PC.NURSE ---
Skin: Skin has healed under the breasts and, the scratch on the upper right thigh has also healed, interventions completed.
[2021-12-31 01:00] VITALS: BP 156/87; PULSE 80; RESP 18; TEMP 36.4; O2SAT 94
--- NOTE | 2021-12-31 01:27 | PC.NURSE ---
Fall follow-up at 0100: VS 156/87,P 80, R18, T97.5 O2 sat's 94 on RA.? Neuro assessment completed ( LÓPEZ). Resident able to move all extremities per her baseline. Denies pain, headache or nausea. No nonverbal indication of pain/discomfort noted or reported.? Resident is asleep comfortably in bed at this time. will continues to monitor.
[2021-12-31 05:00] VITALS: BP 161/89; PULSE 80; RESP 20; TEMP 36.9; O2SAT 94
--- NOTE | 2021-12-31 05:05 | PC.NURSE ---
Fall follow-up at 0500 VS 161/89,P 80, R20, T97.7, O2 sat's 94% on RA. Neuro?intact, Pupil equal and reactive to light. Resident able to move all 4 extremities per baseline. No complaints of pain, denied headache , blurriness or nausea.? Resident appears to be per usual self. No nonverbal indication of pain noted or reported. She is resting in bed at time. Will continues to monitor.
[2021-12-31] MEDS: LEVOTHYROXINE SODIUM 150 MCG TABLET PO (06:50)
[2021-12-31] MEDS: BUSPIRONE 10 MG TABLET PO ×3 (07:42→17:05)
[2021-12-31] MEDS: ACETAMINOPHEN 500 MG TABLET 1000 MG PO ×3 (07:42→19:25)
[2021-12-31] MEDS: ALPRAZolam 0.5 MG TABLET PO ×3 (07:42→19:41)
[2021-12-31] MEDS: VENLAFAXINE HCL 150 MG CAP.ER.24H PO (07:42)
[2021-12-31] MEDS: SERTRALINE 100 MG TABLET 200 MG PO (07:42)
[2021-12-31 10:00] VITALS: BP 141/91; PULSE 91; RESP 22; TEMP 36.4; O2SAT 96
--- NOTE | 2021-12-31 10:02 | PC.NURSE ---
Fall F/U : Resident is alert, both hand network professional is strong., pupils are equal and reactive. Vitals and neuro are WNL. No sign of any injury and able to do her routine ADLs. Resident refused to used the wheel chair and insists using her walker. She cant recall that she had a fall yesterday evening.
[2021-12-31 13:38] VITALS: BP 150/85; PULSE 86; RESP 20; TEMP 36.8; O2SAT 96
[2021-12-31 17:00] VITALS: BP 139/82; PULSE 88; RESP 20; TEMP 36.6; O2SAT 95
--- NOTE | 2021-12-31 17:20 | PC.NURSE ---
Fall f/u: Resident in room resting after dinner watching TV. No complaints of pain at this time. VS and neuro checks are with in normal limits.
[2021-12-31 21:00] VITALS: BP 147/82; PULSE 82; RESP 20; TEMP 36.5; O2SAT 91
--- NOTE | 2021-12-31 21:49 | PC.NURSE ---
Fall f/u: Resident in bed watching TV No complaints of pain at this time. VS and Neuro checks are within normal limits.
[2022-01-01 01:00] VITALS: BP 137/75; PULSE 78; RESP 18; TEMP 36.6; O2SAT 94
--- NOTE | 2022-01-01 01:38 | PC.NURSE ---
Fall follow-up : VSS . Neuro?intact, Pupil equal and reactive to light. Resident able to move all 4 extremities per baseline. No complaints of pain, headache , blurriness or nausea.. No nonverbal indication of pain/discomfort noted or reported. Resident asleep comfortably at this time.
[2022-01-01 05:00] VITALS: BP 150/84; PULSE 80; RESP 20; TEMP 36.8; O2SAT 94
--- NOTE | 2022-01-01 06:24 | PC.NURSE ---
Fall follow-up : VSS . Neuro?intact, Pupil equal and reactive to light. Resident able to move all 4 extremities per baseline. No nonverbal indication of pain/discomfort noted or reported. Resident per usual self.
[2022-01-01] MEDS: ACETAMINOPHEN 500 MG TABLET 1000 MG PO ×3 (07:08→20:04)
[2022-01-01] MEDS: BUSPIRONE 10 MG TABLET PO ×3 (07:08→17:19)
[2022-01-01] MEDS: SERTRALINE 100 MG TABLET 200 MG PO (07:08)
[2022-01-01] MEDS: ALPRAZolam 0.5 MG TABLET PO ×3 (07:08→20:07)
[2022-01-01] MEDS: LEVOTHYROXINE SODIUM 150 MCG TABLET PO (07:08)
[2022-01-01] MEDS: VENLAFAXINE HCL 150 MG CAP.ER.24H PO (07:08)
[2022-01-01 09:54] VITALS: BP 124/64; PULSE 98; RESP 22; TEMP 36.4; O2SAT 98
[2022-01-01 13:26] VITALS: BP 140/83; PULSE 88; RESP 20; TEMP 36.4; O2SAT 96
[2022-01-01 17:00] VITALS: BP 151/92; PULSE 89; RESP 20; TEMP 36.6; O2SAT 93
--- NOTE | 2022-01-01 17:20 | PC.NURSE ---
Fall f/u: Resident in room getting ready to come down to dinner. States that she does not have any pain at this time. Vital signs and Neuro checks with in normal limits. Has been using wheel chair this weekend on the PM shift.
[2022-01-02 07:00] VITALS: BP 142/79; RESP 20; TEMP 36.3; O2SAT 97
[2022-01-02] MEDS: BUSPIRONE 10 MG TABLET PO ×3 (07:26→17:10)
[2022-01-02] MEDS: SERTRALINE 100 MG TABLET 200 MG PO (07:26)
[2022-01-02] MEDS: ACETAMINOPHEN 500 MG TABLET 1000 MG PO ×3 (07:26→19:54)
[2022-01-02] MEDS: VENLAFAXINE HCL 150 MG CAP.ER.24H PO (07:26)
[2022-01-02] MEDS: ALPRAZolam 0.5 MG TABLET PO ×3 (07:26→19:53)
[2022-01-02] MEDS: LEVOTHYROXINE SODIUM 150 MCG TABLET PO (07:26)
--- NOTE | 2022-01-02 11:15 | PC.NURSE ---
Fall F/U: 154/77 sitting left arm, 16,P 86, T 97.5 95% on room air
--- NOTE | 2022-01-02 11:25 | PC.NURSE ---
FALL ?Fall Date: 01/02 o Fall Time: 11:25 o What happened? Chair alarm sounded. JOHN went into room. Pt sitting on floor in front of chair. o Who found the resident and who responded? JOHN found resident. plumber cub responded. o What was the resident doing? Pt reported she was reaching for a book. Could not identify what book she was reaching for. Pt could not offer an explanation of events. 15 minutes later pt stated she fell on purpose. o How the resident was found (knees, left side, arm under them), any hazards (cords, objects, nonskid slippers) brakes on? Proper equipment? Resident found sitting on bottom, back leaned against recliner, legs straight out in front of her. JOHN had left room 3 minutes before alarm sounded - at that time pt had nonslip shoes on. When RN assessed pt after fall, RN noted that shoes were set on floor a few feet in front of pt. o Did you assess for head trauma, spinal injuries, skeletal injuries, neurological changes and status, and head and neck pain? What did you find? Assessed - no evidence of any trauma or injuries to SCORER HELPER, spine, etc. o Did you assess ROM in shoulders, elbows, hips, knees, any other affected areas, unless there is suspected spinal injury. Assessed - No evidence of trauma or injuries to joints, bones, etc. o Did you Assess for pain or discomfort? Assessed - pt reported pain on anterior L skull. No evidence of trauma (redness, swelling, discoloration, abrasion). Pt reported she did not hit her head. o What are the injuries and how are they being treated? No injuries noted. o How was the resident transferred from the floor? JOHN and RN lifted pt back to recliner. o Did you call the MD or put a note in the SENIOR NETWORK ADMINISTRATOR book? No - MACHINING MANAGER and DON notified. o Enter vital signs. BP:142/79, HR:97, RR:16, O:95, T:97.3 o Did you notify family? No o What was the root cause of the fall? Why did it happen? Root cause unknown. First pt reported she fell while reaching for a book. 15 minutes later pt reported she fell on purpose. o Create an IMMEDIATE INTERVENTION to ensure that this won't immediately happen again. (Put in temporary care plan too) - Pt to continue use of bed alarm, chair alarms. Pt to use wheelchair for all ambulation. o Complete Safety report and huddle (now one form) o If resident is seen in ED or fractured something, note that you started a [facility] Report process. Instructions are at the East nurse's desk in a red binder labeled VA report.
--- NOTE | 2022-01-02 12:04 | LTC.FALL ---
[facility] Fall Note: o Fall Date: 01/02 o Fall Time: 11:25 o What happened? Chair alarm sounded. JOHN went into room. Pt sitting on floor in front of chair. o Who found the resident and who responded? JOHN found resident. senior market research analyst responded. o What was the resident doing? Pt reported she was reaching for a book. Could not identify what book she was reaching for. Pt could not offer an explanation of events. 15 minutes later pt stated she fell on purpose. o How the resident was found (knees, left side, arm under them), any hazards (cords, objects, nonskid slippers) brakes on? Proper equipment? Resident found sitting on bottom, back leaned against recliner, legs straight out in front of her. JOHN had left room 3 minutes before alarm sounded - at that time pt had nonslip shoes on. When RN assessed pt after fall, RN noted that shoes were set on floor a few feet in front of pt. o Did you assess for head trauma, spinal injuries, skeletal injuries, neurological changes and status, and head and neck pain? What did you find? Assessed - no evidence of any trauma or injuries to CHEF DE FROID, spine, etc. o Did you assess ROM in shoulders, elbows, hips, knees, any other affected areas, unless there is suspected spinal injury. Assessed - No evidence of trauma or injuries to joints, bones, etc. o Did you Assess for pain or discomfort? Assessed - pt reported pain on anterior L skull. No evidence of trauma (redness, swelling, discoloration, abrasion). Pt reported she did not hit her head. o What are the injuries and how are they being treated? No injuries noted. o How was the resident transferred from the floor? JOHN and RN lifted pt back to recliner. o Did you call the MD or put a note in the ORTHOPEDIC RADIOLOGIC TECHNOLOGIST book? No - EMPLOYMENT ADVISOR and DON notified. o Enter vital signs. BP:142/79, HR:97, RR:16, O:95, T:97.3 o Did you notify family? No o What was the root cause of the fall? Why did it happen? Root cause unknown. First pt reported she fell while reaching for a book. 15 minutes later pt reported she fell on purpose. o Create an IMMEDIATE INTERVENTION to ensure that this won't immediately happen again. (Put in temporary care plan too) - Pt to continue use of bed alarm, chair alarms. Pt to use wheelchair for all ambulation. o Complete Safety report and huddle (now one form) o If resident is seen in ED or fractured something, note that you started a [facility] Report process. Instructions are at the East nurse's desk in a red binder labeled VA report.
--- NOTE | 2022-01-02 14:18 | PC.NURSE ---
Fall follow-up: 157/70, HR 86, RR 16, Temp 97.6, and O2 sat 95% on room air. Neuro?intact, Pupil equal and reactive to light. Resident able to move all 4 extremities per baseline. No nonverbal indication of pain/discomfort noted or reported. Resident per usual self. Will continues to monitor.
[2022-01-02 15:00] VITALS: BP 150/83; PULSE 87; RESP 16; TEMP 36.8; O2SAT 96
--- NOTE | 2022-01-02 15:40 | PC.NURSE ---
Fall F/U: Resident up in recliner watching TV. VS and neuro at residents baseline. Resident reported hitting head during fall and having a headache as a result, but is inconsistent with recall of the event. Also reported falling on purpose. Resident has been using call light frequently, requesting return of walker. Staff have explained repeatedly that d/t repeated falls resident is to use the wheelchair for her safety. 1:1 attention provided, and resident redirected with minimal relief.
[2022-01-02 19:00] VITALS: BP 170/92; PULSE 77; RESP 14; TEMP 37
--- NOTE | 2022-01-02 21:14 | PC.NURSE ---
Fall F/U: Resident resting in bed. VS and neuro at residents baseline. Has been using call light frequently asking staff repeatedly if she can have her walker back. Admitted multiple times she fell on purpose and wasn't sure why she did that. Staff reenforced that our main goal was to keep her safe, resident agreed that is what she wanted as well.
[2022-01-02 23:57] VITALS: BP 137/75; PULSE 79; RESP 18; TEMP 35.7; O2SAT 96
[2022-01-03 03:48] VITALS: BP 173/98; PULSE 82; RESP 18; TEMP 36.4; O2SAT 97
[2022-01-03 06:32] VITALS: BP 177/115; PULSE 84; RESP 24; TEMP 36.8; O2SAT 94
[2022-01-03] MEDS: VENLAFAXINE HCL 150 MG CAP.ER.24H PO (07:24)
[2022-01-03] MEDS: BUSPIRONE 10 MG TABLET PO ×2 (07:24→17:26)
[2022-01-03] MEDS: SERTRALINE 100 MG TABLET 200 MG PO (07:24)
[2022-01-03] MEDS: ACETAMINOPHEN 500 MG TABLET 1000 MG PO ×3 (07:24→20:29)
[2022-01-03] MEDS: LEVOTHYROXINE SODIUM 150 MCG TABLET PO (07:24)
[2022-01-03] MEDS: ALPRAZolam 0.5 MG TABLET PO ×3 (07:25→20:29)
--- NOTE | 2022-01-03 08:05 | PC.NURSE ---
Resident has had two recent incident's of finding on the floor. Resident states she did it on purpose and proceeds to share her sadness over her not being here and his around the holiday. Will have TELEPHONE APPOINTMENT CLERK assess today. Pharmacist to review her meds. Wrapper Operator will see her for 1:1 support and visits. Will check with SS about ACP again.Will have her use the w/c with alarms at this time until meds reviewed for possible side effects. Staff will walk with her. PT assessed last week and agreed she could be independent with her walker. Discussed status at IDT yesterday and will again today.
--- NOTE | 2022-01-03 09:28 | PC.NURSE ---
FALL F/A - Neuro Check PERRLA, bue strength equal at baseline, ble strength equal at baseline, A&Ox3 at baseline, speech at baseline.
[2022-01-03 10:32] VITALS: BP 164/86; PULSE 95; RESP 24; TEMP 36.8; O2SAT 95
--- NOTE | 2022-01-03 11:37 | PC.NURSE ---
FALL F/A - Neuro check PERRLA, BLE strength equal at baseline, BUE strength equal at baseline, A&Ox3 at baseline, speech at baseline.
--- NOTE | 2022-01-03 11:51 | PC.SPIRITC ---
Kelli expressed missing her spouse and family who are . Swiss Type Screw Machine Operator provided grief ministry, support, and connection.
--- NOTE | 2022-01-03 11:54 | PC.NURSE ---
Status/Order: Urban SURESH here 01/02 fall noted. Meds reviewed. Order: Decrease noon Buspar 10 mg to 5 mg, & Xanax 0.5 mg BID PRN to daily PRN.
[2022-01-03] MEDS: BUSPIRONE 10 MG TABLET 5 MG PO (12:10)
[2022-01-03 18:32] VITALS: BP 151/78; PULSE 95; RESP 19; TEMP 36.8; O2SAT 98
--- NOTE | 2022-01-03 22:10 | PC.NURSE ---
Fall follow-up: PERRLA intact, Peripheral mar full. Able to move extremities without C/O pain. Denies blurriness. No vomiting reported or noted this shift. Vitals obtained and entered W/L. No new concerns related to current fall incident noted at this time.
[2022-01-03 22:32] VITALS: BP 148/73; PULSE 80; RESP 20; TEMP 36.8; O2SAT 97
--- NOTE | 2022-01-04 00:45 | PC.NURSE ---
FALL FOLLOW-UP: Vital signs at baseline. Neuros intact. PERRLA. Review Appraiser strength equal bilaterally. Denies any headache, nausea, or blurred vision.
[2022-01-04 02:32] VITALS: BP 150/85; PULSE 78; RESP 18; TEMP 36.8; O2SAT 97
--- NOTE | 2022-01-04 03:03 | PC.NURSE ---
FALL FOLLOW-UP: Vital signs at baseline. Neuros intact. Hand grasps equal. Speech is clear. ROM per baseline. Denies blurred vision, headache, or nausea.
[2022-01-04 06:32] VITALS: BP 133/85; PULSE 94; RESP 20; TEMP 37.1; O2SAT 95
[2022-01-04] MEDS: ACETAMINOPHEN 500 MG TABLET 1000 MG PO ×3 (07:05→19:05)
[2022-01-04] MEDS: BUSPIRONE 10 MG TABLET PO ×2 (07:05→18:28)
[2022-01-04] MEDS: SERTRALINE 100 MG TABLET 200 MG PO (07:05)
[2022-01-04] MEDS: VENLAFAXINE HCL 150 MG CAP.ER.24H PO (07:05)
[2022-01-04] MEDS: LEVOTHYROXINE SODIUM 150 MCG TABLET PO (07:05)
[2022-01-04] MEDS: ALPRAZolam 0.5 MG TABLET PO ×3 (07:06→19:05)
[2022-01-04 10:32] VITALS: BP 143/86; PULSE 86; RESP 20; TEMP 36.7; O2SAT 92
--- NOTE | 2022-01-04 10:32 | PC.NURSE ---
FALL F/A - Neuro PERRLA, BLE strength equal at baseline, BUE strength equal at baseline, A&Ox3 (baseline), speech at baseline
[2022-01-04] MEDS: BUSPIRONE 10 MG TABLET 5 MG PO (11:58)
--- NOTE | 2022-01-04 13:23 | PC.NURSE ---
FALL F/U - Neuro PERRLA, BLE strength equal at baseline, BUE strength equal at baseline, A&Ox3 at baseline, speech at baseline
--- NOTE | 2022-01-04 15:00 | PC.NURSE ---
Fall follow-up: Resident was ambulated with one assist to/from the dinning and activity locations in order to prevent inability to walking again. Neuro assessment findings is within baseline. Denies blurriness. No vomiting reported or noted this shift. Vitals obtained and entered?under W/L. No new concerns related to current fall incident noted at this time.
--- NOTE | 2022-01-04 16:24 | PC.SPIRITC ---
I provided visit per Kelli's request for support and connection.
[2022-01-04 18:32] VITALS: BP 141/79; PULSE 86; RESP 20; TEMP 37; O2SAT 92
--- NOTE | 2022-01-04 21:21 | PC.NURSE ---
Fall follow-up: No change from baseline with neuro assessment finding. Able to move extremities without with C/O pain to lower back - pain relieved with warm blankets, scheduled Aspercream and Acetaminophen. Denies blurriness. No vomiting reported or noted this shift. Vitals obtained and entered? under W/L. No new concerns related to current fall incident noted at this time.
--- NOTE | 2022-01-05 05:35 | PC.NURSE ---
WEEKLY CHARTING - WEEK 1: Vital signs reviewed with elevated BPs noted. BPs were reviewed by BACKEND DEVELOPER on 12/14. Temporary care plan reviewed - no changes. Comprehensive care plan reviewed. Updated to assist of 1 with ADLs r/t multiple recent falls. Currently receives acetaminophen 1000mg TID and tramadol 50mg Q 6 hours PRN. PRN tramadol has been used x18 in the last month for chronic back and knee pain. Able to eat independently. No reported problems with chewing/swallowing.
[2022-01-05] MEDS: LEVOTHYROXINE SODIUM 150 MCG TABLET PO (06:45)
[2022-01-05] MEDS: VENLAFAXINE HCL 150 MG CAP.ER.24H PO (07:14)
[2022-01-05] MEDS: ALPRAZolam 0.5 MG TABLET PO ×3 (07:14→19:54)
[2022-01-05] MEDS: ACETAMINOPHEN 500 MG TABLET 1000 MG PO ×3 (07:14→19:50)
[2022-01-05] MEDS: BUSPIRONE 10 MG TABLET PO ×2 (07:14→17:04)
[2022-01-05] MEDS: SERTRALINE 100 MG TABLET 200 MG PO (07:14)
[2022-01-05] MEDS: NYSTATIN POWDER 1 APPLIC TOPICAL (07:15)
[2022-01-05] MEDS: BUSPIRONE 10 MG TABLET 5 MG PO (11:41)
[2022-01-05 21:41] VITALS: BP 135/83; PULSE 88; RESP 20; TEMP 36.8; O2SAT 96
--- NOTE | 2022-01-05 21:41 | PC.NURSE ---
Status: Resident complains to headline writer that she is having symptoms of a cold such as coughing and a fever. VS and lung sounds were checked VS within normal limits and lung sounds are clear. Tea was given to resident, no further complaints of cold symptoms after that.
--- NOTE | 2022-01-06 05:33 | PC.NURSE ---
No c/o illness through the night. No noted symptoms of illness. Resident is afebrile at 98.1.
[2022-01-06] MEDS: ACETAMINOPHEN 500 MG TABLET 1000 MG PO ×3 (07:04→20:03)
[2022-01-06] MEDS: LEVOTHYROXINE SODIUM 150 MCG TABLET PO (07:04)
[2022-01-06] MEDS: SERTRALINE 100 MG TABLET 200 MG PO (07:05)
[2022-01-06] MEDS: VENLAFAXINE HCL 150 MG CAP.ER.24H PO (07:05)
[2022-01-06] MEDS: BUSPIRONE 10 MG TABLET PO ×2 (07:05→17:26)
[2022-01-06] MEDS: ALPRAZolam 0.5 MG TABLET PO ×3 (07:05→20:03)
[2022-01-06] MEDS: BUSPIRONE 10 MG TABLET 5 MG PO (11:24)
[2022-01-07] MEDS: TRAMADOL HCL 50 MG TABLET PO (00:41)
[2022-01-07] MEDS: ALPRAZolam 0.5 MG TABLET PO ×3 (07:22→19:41)
[2022-01-07] MEDS: VENLAFAXINE HCL 150 MG CAP.ER.24H PO (07:22)
[2022-01-07] MEDS: ACETAMINOPHEN 500 MG TABLET 1000 MG PO ×3 (07:22→19:42)
[2022-01-07] MEDS: SERTRALINE 100 MG TABLET 200 MG PO (07:22)
[2022-01-07] MEDS: BUSPIRONE 10 MG TABLET PO ×2 (07:22→17:30)
[2022-01-07] MEDS: LEVOTHYROXINE SODIUM 150 MCG TABLET PO (07:22)
[2022-01-07] MEDS: BUSPIRONE 10 MG TABLET 5 MG PO (11:53)
[2022-01-08] MEDS: BUSPIRONE 10 MG TABLET PO ×2 (07:45→17:01)
[2022-01-08] MEDS: LEVOTHYROXINE SODIUM 150 MCG TABLET PO (07:45)
[2022-01-08] MEDS: SERTRALINE 100 MG TABLET 200 MG PO (07:45)
[2022-01-08] MEDS: VENLAFAXINE HCL 150 MG CAP.ER.24H PO (07:45)
[2022-01-08] MEDS: ACETAMINOPHEN 500 MG TABLET 1000 MG PO ×3 (07:45→19:40)
[2022-01-08] MEDS: ALPRAZolam 0.5 MG TABLET PO ×4 (07:46→21:52)
[2022-01-08] MEDS: BUSPIRONE 10 MG TABLET 5 MG PO (12:47)
[2022-01-09 07:00] VITALS: BP 166/91; PULSE 87; RESP 16; TEMP 36.7; O2SAT 92
[2022-01-09] MEDS: LEVOTHYROXINE SODIUM 150 MCG TABLET PO (07:40)
[2022-01-09] MEDS: BUSPIRONE 10 MG TABLET PO ×2 (07:40→17:22)
[2022-01-09] MEDS: ACETAMINOPHEN 500 MG TABLET 1000 MG PO ×3 (07:40→19:10)
[2022-01-09] MEDS: VENLAFAXINE HCL 150 MG CAP.ER.24H PO (07:40)
[2022-01-09] MEDS: SERTRALINE 100 MG TABLET 200 MG PO (07:41)
[2022-01-09] MEDS: ALPRAZolam 0.5 MG TABLET PO ×3 (07:42→19:10)
--- NOTE | 2022-01-09 09:29 | PC.NURSE ---
Skin Check - No areas of concern. Skin dry, warm, intact, appropriate color. No redness under breasts or abdominal folds.
[2022-01-09] MEDS: BUSPIRONE 10 MG TABLET 5 MG PO (12:07)
[2022-01-10] MEDS: VENLAFAXINE HCL 150 MG CAP.ER.24H PO (07:23)
[2022-01-10] MEDS: SERTRALINE 100 MG TABLET 200 MG PO (07:23)
[2022-01-10] MEDS: BUSPIRONE 10 MG TABLET PO ×2 (07:23→17:15)
[2022-01-10] MEDS: ACETAMINOPHEN 500 MG TABLET 1000 MG PO ×3 (07:23→20:08)
[2022-01-10] MEDS: LEVOTHYROXINE SODIUM 150 MCG TABLET PO (07:23)
[2022-01-10] MEDS: ALPRAZolam 0.5 MG TABLET PO ×3 (07:24→20:06)
[2022-01-10] MEDS: BUSPIRONE 10 MG TABLET 5 MG PO (12:51)
[2022-01-10] MEDS: TRAMADOL HCL 50 MG TABLET PO (22:36)
[2022-01-11] MEDS: VENLAFAXINE HCL 150 MG CAP.ER.24H PO (07:29)
[2022-01-11] MEDS: ACETAMINOPHEN 500 MG TABLET 1000 MG PO ×3 (07:29→19:10)
[2022-01-11] MEDS: BUSPIRONE 10 MG TABLET PO ×2 (07:29→17:20)
[2022-01-11] MEDS: SERTRALINE 100 MG TABLET 200 MG PO (07:29)
[2022-01-11] MEDS: LEVOTHYROXINE SODIUM 150 MCG TABLET PO (07:29)
[2022-01-11] MEDS: ALPRAZolam 0.5 MG TABLET PO ×3 (07:31→19:11)
[2022-01-11] MEDS: BUSPIRONE 10 MG TABLET 5 MG PO (12:10)
[2022-01-12] MEDS: LEVOTHYROXINE SODIUM 150 MCG TABLET PO (06:39)
[2022-01-12] MEDS: VENLAFAXINE HCL 150 MG CAP.ER.24H PO (07:51)
[2022-01-12] MEDS: BUSPIRONE 10 MG TABLET PO ×2 (07:51→17:06)
[2022-01-12] MEDS: SERTRALINE 100 MG TABLET 200 MG PO (07:51)
[2022-01-12] MEDS: ACETAMINOPHEN 500 MG TABLET 1000 MG PO ×3 (07:51→19:52)
[2022-01-12] MEDS: ALPRAZolam 0.5 MG TABLET PO ×3 (07:51→19:51)
[2022-01-12] MEDS: BUSPIRONE 10 MG TABLET 5 MG PO (11:55)
--- NOTE | 2022-01-12 13:43 | PC.NURSE ---
Order: Xanax daily PRN until 01/26 @1130 by Urban SURESH.
--- NOTE | 2022-01-12 14:50 | PC.NURSE ---
WEEKLY CHARTING - WEEK 1: Vital signs reviewed. Resident continues to have elevated BPs,last reviewed by MANAGER RFID on 12/14. Temporary care plan reviewed and Comprehensive care plan reviewed. Updated to assist of 1 with ADLs r/t multiple recent falls. Currently receives acetaminophen 1000mg TID and tramadol 50mg Q6H PRN. PRN tramadol has been used 18 times in the last month for chronic back and knee pain. Also relieved with heat. No changes in eating habits, resident is able to eat independently. Will request help to cut meat occasionally.
[2022-01-13] MEDS: LEVOTHYROXINE SODIUM 150 MCG TABLET PO (06:49)
[2022-01-13] MEDS: ALPRAZolam 0.5 MG TABLET PO ×3 (07:29→20:18)
[2022-01-13] MEDS: VENLAFAXINE HCL 150 MG CAP.ER.24H PO (07:29)
[2022-01-13] MEDS: BUSPIRONE 10 MG TABLET PO ×2 (07:29→17:10)
[2022-01-13] MEDS: ACETAMINOPHEN 500 MG TABLET 1000 MG PO ×3 (07:29→20:09)
[2022-01-13] MEDS: SERTRALINE 100 MG TABLET 200 MG PO (07:29)
[2022-01-13] MEDS: BUSPIRONE 10 MG TABLET 5 MG PO (11:15)
[2022-01-14] MEDS: LEVOTHYROXINE SODIUM 150 MCG TABLET PO (06:42)
[2022-01-14] MEDS: ACETAMINOPHEN 500 MG TABLET 1000 MG PO ×3 (07:10→19:45)
[2022-01-14] MEDS: BUSPIRONE 10 MG TABLET PO ×2 (07:11→17:07)
[2022-01-14] MEDS: SERTRALINE 100 MG TABLET 200 MG PO (07:11)
[2022-01-14] MEDS: VENLAFAXINE HCL 150 MG CAP.ER.24H PO (07:11)
[2022-01-14] MEDS: ALPRAZolam 0.5 MG TABLET PO ×3 (07:11→19:45)
[2022-01-14] MEDS: BUSPIRONE 10 MG TABLET 5 MG PO (11:20)
[2022-01-14] MEDS: TRAMADOL HCL 50 MG TABLET PO (20:27)
--- NOTE | 2022-01-14 21:40 | PC.NURSE ---
Resident in bed this evening placed call light with complaint of left lower back pain. Was given warm towel and Tramadol 50mg PRN at 20:27. Education Specialist reassessed and relief is provided.
[2022-01-15] MEDS: LEVOTHYROXINE SODIUM 150 MCG TABLET PO (07:30)
[2022-01-15] MEDS: ALPRAZolam 0.5 MG TABLET PO ×3 (07:30→20:04)
[2022-01-15] MEDS: ACETAMINOPHEN 500 MG TABLET 1000 MG PO ×3 (07:30→20:04)
[2022-01-15] MEDS: VENLAFAXINE HCL 150 MG CAP.ER.24H PO (07:30)
[2022-01-15] MEDS: BUSPIRONE 10 MG TABLET PO ×2 (07:30→17:14)
[2022-01-15] MEDS: SERTRALINE 100 MG TABLET 200 MG PO (07:30)
[2022-01-15] MEDS: BUSPIRONE 10 MG TABLET 5 MG PO (12:15)
[2022-01-16 07:00] VITALS: BP 110/86; PULSE 94; RESP 18; TEMP 36.8; O2SAT 96
[2022-01-16] MEDS: ACETAMINOPHEN 500 MG TABLET 1000 MG PO ×3 (07:08→19:39)
[2022-01-16] MEDS: BUSPIRONE 10 MG TABLET PO ×2 (07:08→17:32)
[2022-01-16] MEDS: VENLAFAXINE HCL 150 MG CAP.ER.24H PO (07:09)
[2022-01-16] MEDS: SERTRALINE 100 MG TABLET 200 MG PO (07:09)
[2022-01-16] MEDS: LEVOTHYROXINE SODIUM 150 MCG TABLET PO (07:09)
[2022-01-16] MEDS: ALPRAZolam 0.5 MG TABLET PO ×3 (07:11→19:40)
[2022-01-16] MEDS: NYSTATIN POWDER 1 APPLIC TOPICAL (09:15)
[2022-01-16] MEDS: BUSPIRONE 10 MG TABLET 5 MG PO (11:43)
[2022-01-17] MEDS: LEVOTHYROXINE SODIUM 150 MCG TABLET PO (06:47)
[2022-01-17] MEDS: BUSPIRONE 10 MG TABLET PO ×2 (07:40→17:00)
[2022-01-17] MEDS: ALPRAZolam 0.5 MG TABLET PO ×3 (07:40→19:41)
[2022-01-17] MEDS: ACETAMINOPHEN 500 MG TABLET 1000 MG PO ×3 (07:40→19:42)
[2022-01-17] MEDS: VENLAFAXINE HCL 150 MG CAP.ER.24H PO (07:40)
[2022-01-17] MEDS: SERTRALINE 100 MG TABLET 200 MG PO (07:40)
--- NOTE | 2022-01-17 10:27 | PC.NURSE ---
Podiatry: Resident was seen by in-house grove superintendent on 01/16/22. No order.
[2022-01-17] MEDS: BUSPIRONE 10 MG TABLET 5 MG PO (12:00)
[2022-01-17] MEDS: TRAMADOL HCL 50 MG TABLET PO (20:21)
[2022-01-18] MEDS: VENLAFAXINE HCL 150 MG CAP.ER.24H PO (07:02)
[2022-01-18] MEDS: ACETAMINOPHEN 500 MG TABLET 1000 MG PO ×3 (07:02→20:05)
[2022-01-18] MEDS: SERTRALINE 100 MG TABLET 200 MG PO (07:02)
[2022-01-18] MEDS: BUSPIRONE 10 MG TABLET PO ×2 (07:02→17:24)
[2022-01-18] MEDS: LEVOTHYROXINE SODIUM 150 MCG TABLET PO (07:02)
[2022-01-18] MEDS: ALPRAZolam 0.5 MG TABLET PO ×3 (07:04→20:05)
--- NOTE | 2022-01-18 10:09 | PC.PHA ---
MEDICATION REVIEW: MEDICATION MONITORING: Alprazolam 0.5 mg daily prn, order renewed 01/12/22, no need for thus far by patient, next reveiw date, 01/26/22 Alprazolam 0.5 mg po TID, chronic anxiety with worsening s/s with age progression. Buspirone 10 mg bid and Buspirone 5 mg @12, GDR in process. Sertraline 200 mg daily, depression and anxiety Venlafaxine 150 mg daily Acetaminophen 1000 mg TID, with prn Tramadol order that has been needed 4 times thus far in January. IRREGULARITY OR COMMENTS: Patient continues to have clinical indication for current medications ordered, GDR for Buspar in progress. No need for prn alprazolam order thus far in January. Per nursing note review, patients behaviors have been stable, I do notice her today playing in the [facility] [employer] [facility]. For past two chart review days I have noticed that patient's anxiety is more intense mid-afternoons as she has approached me at my work station regarding her anxiety. No antibiotics prescribed since last review. SUGGESTED COURSE OF ACTION: No recommendations for January.
[2022-01-18] MEDS: BUSPIRONE 10 MG TABLET 5 MG PO (12:21)
[2022-01-18] MEDS: TRAMADOL HCL 50 MG TABLET PO (16:31)
--- NOTE | 2022-01-19 03:26 | PC.NURSE ---
WEEKLY CHARTING - WEEK 2: Vital signs reviewed. Some elevated blood pressure values noted. BPs were reviewed by PORTABLE SAWMILL OPERATOR. Temporary and comprehensive care plan reviewed with changes made to level of assist and fall interventions. Requires assist of 1 with transfers and ambulation using 4WW. Assist of 1 with bed mobility. Uses w/c for mobility at times. Able to propel independently. Staff assist PRN. Is at high risk for falls. Current fall interventions: falling star magnet, bed and chair alarms, hourly visual checks, gripper socks, call light in reach. Ambulates to meals with staff.
[2022-01-19] MEDS: TRAMADOL HCL 50 MG TABLET PO (05:15)
[2022-01-19] MEDS: LEVOTHYROXINE SODIUM 150 MCG TABLET PO (06:54)
--- NOTE | 2022-01-19 06:55 | PC.NURSE ---
Week #2 - Mobility: Comprehensive care plan reviewed, no changes made. Nothing added to temporary care plan. Resident needs one assist, transfer belt & walker with transfers and ambulation. No w/c use at this time. Top side rails up to aid for positioning/bed mobility. Is able to reposition self. Has bed exit and chair alarm. Vital signs reviewed, occasional elevated BP. Noted by SCHOOL EXAMINER. Continue VS monitoring weekly. Fall: Had 5 falls in the room last month, no injury. All were intentional falls. Had PT eval, wheelchair use temporarily, bed/chair alarm, one assist with transfers and ambulation, gradual reduction dose of psychotropic meds done. Remains a high fall risk according to assessment done on 11/10/21
[2022-01-19] MEDS: ACETAMINOPHEN 500 MG TABLET 1000 MG PO ×3 (07:33→20:04)
[2022-01-19] MEDS: ALPRAZolam 0.5 MG TABLET PO ×3 (07:33→20:08)
[2022-01-19] MEDS: VENLAFAXINE HCL 150 MG CAP.ER.24H PO (07:33)
[2022-01-19] MEDS: SERTRALINE 100 MG TABLET 200 MG PO (07:33)
[2022-01-19] MEDS: BUSPIRONE 10 MG TABLET PO ×2 (07:33→17:07)
[2022-01-19] MEDS: BUSPIRONE 10 MG TABLET 5 MG PO (11:31)
--- NOTE | 2022-01-19 16:17 | PC.NURSE ---
Completed a side rail utilization assessment and it was determined resident does not need a side rail.
[2022-01-20] MEDS: LEVOTHYROXINE SODIUM 150 MCG TABLET PO (06:55)
[2022-01-20] MEDS: ACETAMINOPHEN 500 MG TABLET 1000 MG PO ×3 (08:14→20:18)
[2022-01-20] MEDS: ALPRAZolam 0.5 MG TABLET PO ×3 (08:17→20:16)
[2022-01-20] MEDS: BUSPIRONE 10 MG TABLET PO ×2 (08:17→17:03)
[2022-01-20] MEDS: VENLAFAXINE HCL 150 MG CAP.ER.24H PO (08:18)
[2022-01-20] MEDS: SERTRALINE 100 MG TABLET 200 MG PO (08:18)
[2022-01-20] MEDS: BUSPIRONE 10 MG TABLET 5 MG PO (11:36)
[2022-01-21] MEDS: BUSPIRONE 10 MG TABLET PO ×2 (07:52→17:04)
[2022-01-21] MEDS: LEVOTHYROXINE SODIUM 150 MCG TABLET PO (07:52)
[2022-01-21] MEDS: ACETAMINOPHEN 500 MG TABLET 1000 MG PO ×3 (07:52→19:34)
[2022-01-21] MEDS: VENLAFAXINE HCL 150 MG CAP.ER.24H PO (07:53)
[2022-01-21] MEDS: SERTRALINE 100 MG TABLET 200 MG PO (07:53)
[2022-01-21] MEDS: ALPRAZolam 0.5 MG TABLET PO ×3 (07:54→19:33)
[2022-01-21] MEDS: BUSPIRONE 10 MG TABLET 5 MG PO (11:55)
[2022-01-22] MEDS: ACETAMINOPHEN 500 MG TABLET 1000 MG PO ×3 (07:21→20:07)
[2022-01-22] MEDS: SERTRALINE 100 MG TABLET 200 MG PO (07:21)
[2022-01-22] MEDS: BUSPIRONE 10 MG TABLET PO ×2 (07:21→17:03)
[2022-01-22] MEDS: VENLAFAXINE HCL 150 MG CAP.ER.24H PO (07:21)
[2022-01-22] MEDS: LEVOTHYROXINE SODIUM 150 MCG TABLET PO (07:21)
[2022-01-22] MEDS: ALPRAZolam 0.5 MG TABLET PO ×3 (07:23→20:06)
[2022-01-22] MEDS: MAGNESIUM HYDROXIDE 30 ML ORAL.SUSP PO (09:25)
[2022-01-22] MEDS: BUSPIRONE 10 MG TABLET 5 MG PO (12:08)
[2022-01-23 07:00] VITALS: BP 132/94; PULSE 99; RESP 20; TEMP 36.8; O2SAT 100
[2022-01-23] MEDS: ACETAMINOPHEN 500 MG TABLET 1000 MG PO ×3 (07:48→19:19)
[2022-01-23] MEDS: LEVOTHYROXINE SODIUM 150 MCG TABLET PO (07:48)
[2022-01-23] MEDS: BUSPIRONE 10 MG TABLET PO ×2 (07:48→17:28)
[2022-01-23] MEDS: VENLAFAXINE HCL 150 MG CAP.ER.24H PO (07:48)
[2022-01-23] MEDS: SERTRALINE 100 MG TABLET 200 MG PO (07:49)
[2022-01-23] MEDS: ALPRAZolam 0.5 MG TABLET PO ×3 (07:50→19:19)
[2022-01-23] MEDS: NYSTATIN POWDER 1 APPLIC TOPICAL (09:18)
--- NOTE | 2022-01-23 10:08 | PC.NURSE ---
Skin check - No open areas. Large red area under R breast, medium red area under left breast. Nystatin powder applied. Skin care intervention added to worklist. No other areas of concern.
[2022-01-23] MEDS: BUSPIRONE 10 MG TABLET 5 MG PO (12:01)
[2022-01-24] MEDS: LEVOTHYROXINE SODIUM 150 MCG TABLET PO (07:07)
[2022-01-24] MEDS: ACETAMINOPHEN 500 MG TABLET 1000 MG PO ×3 (07:07→19:51)
[2022-01-24] MEDS: BUSPIRONE 10 MG TABLET PO ×2 (07:08→17:19)
[2022-01-24] MEDS: SERTRALINE 100 MG TABLET 200 MG PO (07:08)
[2022-01-24] MEDS: VENLAFAXINE HCL 150 MG CAP.ER.24H PO (07:08)
[2022-01-24] MEDS: ALPRAZolam 0.5 MG TABLET PO ×3 (07:09→19:50)
[2022-01-24] MEDS: NYSTATIN POWDER 1 APPLIC TOPICAL (09:22)
[2022-01-24] MEDS: BUSPIRONE 10 MG TABLET 5 MG PO (12:11)
[2022-01-25] MEDS: LEVOTHYROXINE SODIUM 150 MCG TABLET PO (07:54)
[2022-01-25] MEDS: ACETAMINOPHEN 500 MG TABLET 1000 MG PO ×3 (07:54→19:19)
[2022-01-25] MEDS: BUSPIRONE 10 MG TABLET PO ×2 (07:54→17:20)
[2022-01-25] MEDS: VENLAFAXINE HCL 150 MG CAP.ER.24H PO (07:54)
[2022-01-25] MEDS: SERTRALINE 100 MG TABLET 200 MG PO (07:54)
[2022-01-25] MEDS: ALPRAZolam 0.5 MG TABLET PO ×3 (07:55→19:19)
[2022-01-25] MEDS: BUSPIRONE 10 MG TABLET 5 MG PO (12:14)
[2022-01-25 15:34] VITALS: BMI 33.5
--- NOTE | 2022-01-26 02:31 | PC.NURSE ---
WEEKLY CHARTING - WEEK 3: Vital signs reviewed. Some elevated blood pressure values. BPs were reviewed by ADULT HIGH SCHOOL INSTRUCTOR. Temporary and comprehensive care plan reviewed. No changes. Currently has redness under bilateral breasts being treated with nystatin powder. No other documented skin concerns. Requires assist of 1 with toileting including rashad-cares and clothing/brief changes. Wears XL pull-up with insert.
[2022-01-26] MEDS: BUSPIRONE 10 MG TABLET PO ×2 (07:36→17:19)
[2022-01-26] MEDS: SERTRALINE 100 MG TABLET 200 MG PO (07:36)
[2022-01-26] MEDS: VENLAFAXINE HCL 150 MG CAP.ER.24H PO (07:36)
[2022-01-26] MEDS: ALPRAZolam 0.5 MG TABLET PO ×3 (07:36→20:37)
[2022-01-26] MEDS: NYSTATIN POWDER 1 APPLIC TOPICAL (07:36)
[2022-01-26] MEDS: LEVOTHYROXINE SODIUM 150 MCG TABLET PO (07:36)
[2022-01-26] MEDS: ACETAMINOPHEN 500 MG TABLET 1000 MG PO ×3 (07:36→20:38)
[2022-01-26] MEDS: BUSPIRONE 10 MG TABLET 5 MG PO (11:55)
--- NOTE | 2022-01-26 15:14 | PC.NURSE ---
Pain assessment: Resident has had scheduled pain medication, PRN pain medication and non-pharmacological interventions during the JANENE period. During the resident pain assessment today when asked if she has had pain in the past 5 days residents response is no. Assessment done with residents response at that time.
--- NOTE | 2022-01-26 21:57 | PC.NURSE ---
WEEKLY CHARTING - WEEK 3: Vital signs reviewed. Temporary and comprehensive care plan reviewed. Temporary care plan updated r/t buspar and xanax dose changes. Staff to monitor residents mood/behavior. Resident has redness under bilateral breasts being treated with nystatin powder. Requires assist of 1 with toileting including rashad-cares and clothing/brief changes. Is incontinent of bladder. Wears XL pull-up with insert.
[2022-01-27] MEDS: BUSPIRONE 10 MG TABLET PO ×2 (07:23→17:12)
[2022-01-27] MEDS: VENLAFAXINE HCL 150 MG CAP.ER.24H PO (07:23)
[2022-01-27] MEDS: SERTRALINE 100 MG TABLET 200 MG PO (07:23)
[2022-01-27] MEDS: ACETAMINOPHEN 500 MG TABLET 1000 MG PO ×3 (07:23→19:58)
[2022-01-27] MEDS: ALPRAZolam 0.5 MG TABLET PO ×3 (07:23→20:05)
[2022-01-27] MEDS: LEVOTHYROXINE SODIUM 150 MCG TABLET PO (07:23)
[2022-01-27] MEDS: NYSTATIN POWDER 1 APPLIC TOPICAL ×2 (07:42→20:05)
[2022-01-27] MEDS: BUSPIRONE 10 MG TABLET 5 MG PO (12:04)
[2022-01-27] MEDS: TRAMADOL HCL 50 MG TABLET PO (23:20)
[2022-01-28] MEDS: LEVOTHYROXINE SODIUM 150 MCG TABLET PO (07:24)
[2022-01-28] MEDS: SERTRALINE 100 MG TABLET 200 MG PO (07:25)
[2022-01-28] MEDS: ACETAMINOPHEN 500 MG TABLET 1000 MG PO ×3 (07:25→20:17)
[2022-01-28] MEDS: VENLAFAXINE HCL 150 MG CAP.ER.24H PO (07:25)
[2022-01-28] MEDS: BUSPIRONE 10 MG TABLET PO ×2 (07:25→17:07)
[2022-01-28] MEDS: ALPRAZolam 0.5 MG TABLET PO ×3 (07:27→20:17)
[2022-01-28] MEDS: BUSPIRONE 10 MG TABLET 5 MG PO (12:15)
[2022-01-29] MEDS: LEVOTHYROXINE SODIUM 150 MCG TABLET PO (07:57)
[2022-01-29] MEDS: VENLAFAXINE HCL 150 MG CAP.ER.24H PO (07:58)
[2022-01-29] MEDS: ACETAMINOPHEN 500 MG TABLET 1000 MG PO ×3 (07:58→19:04)
[2022-01-29] MEDS: SERTRALINE 100 MG TABLET 200 MG PO (07:58)
[2022-01-29] MEDS: BUSPIRONE 10 MG TABLET PO ×2 (07:58→18:57)
[2022-01-29] MEDS: ALPRAZolam 0.5 MG TABLET PO ×3 (08:00→19:04)
[2022-01-29] MEDS: BUSPIRONE 10 MG TABLET 5 MG PO (11:47)
[2022-01-30] MEDS: ALPRAZolam 0.5 MG TABLET PO ×3 (07:23→20:24)
[2022-01-30] MEDS: BUSPIRONE 10 MG TABLET PO ×2 (07:23→17:02)
[2022-01-30] MEDS: LEVOTHYROXINE SODIUM 150 MCG TABLET PO (07:23)
[2022-01-30] MEDS: ACETAMINOPHEN 500 MG TABLET 1000 MG PO ×3 (07:23→20:17)
[2022-01-30] MEDS: VENLAFAXINE HCL 150 MG CAP.ER.24H PO (07:23)
[2022-01-30] MEDS: SERTRALINE 100 MG TABLET 200 MG PO (07:23)
[2022-01-30 10:45] VITALS: BP 147/84; PULSE 94; RESP 20; TEMP 37.2; O2SAT 94; BMI 33.6
--- NOTE | 2022-01-30 10:50 | PC.NURSE ---
Skin Check: Skin intact. Areas of redness under breasts and sternum resolved.
[2022-01-30] MEDS: BUSPIRONE 10 MG TABLET 5 MG PO (12:13)
[2022-01-31] MEDS: LEVOTHYROXINE SODIUM 150 MCG TABLET PO (07:59)
[2022-01-31] MEDS: VENLAFAXINE HCL 150 MG CAP.ER.24H PO (08:00)
[2022-01-31] MEDS: BUSPIRONE 10 MG TABLET PO ×2 (08:00→17:03)
[2022-01-31] MEDS: SERTRALINE 100 MG TABLET 200 MG PO (08:00)
[2022-01-31] MEDS: ACETAMINOPHEN 500 MG TABLET 1000 MG PO ×3 (08:00→19:50)
[2022-01-31] MEDS: ALPRAZolam 0.5 MG TABLET PO ×3 (08:01→19:49)
--- NOTE | 2022-01-31 11:01 | PC.SOCIAL ---
Sent an e-mail to resident's niece Lita Gomez and resident's cousin, Mini Mack, informing that resident's care conference will have to be rescheduled to next week. Family responding requesting it be rescheduled to next . Scheduled care conference for February 09 at 1:00 pm due to staff being out sick. Sent an e-mail following up providing the new time/date of care conference along with call in information if needed to family. Provided information to Care Conference team and resident. Social Work will follow up as necessary.
--- NOTE | 2022-01-31 11:50 | PC.SPIRITC ---
I provided visit for connection and support.
[2022-01-31] MEDS: BUSPIRONE 10 MG TABLET 5 MG PO (11:53)
[2022-02-01] MEDS: ACETAMINOPHEN 500 MG TABLET 1000 MG PO ×3 (07:19→19:08)
[2022-02-01] MEDS: LEVOTHYROXINE SODIUM 150 MCG TABLET PO (07:19)
[2022-02-01] MEDS: VENLAFAXINE HCL 150 MG CAP.ER.24H PO (07:19)
[2022-02-01] MEDS: BUSPIRONE 10 MG TABLET PO ×2 (07:19→18:05)
[2022-02-01] MEDS: SERTRALINE 100 MG TABLET 200 MG PO (07:20)
[2022-02-01] MEDS: ALPRAZolam 0.5 MG TABLET PO ×3 (07:21→19:08)
[2022-02-01] MEDS: BUSPIRONE 10 MG TABLET 5 MG PO (11:36)
--- NOTE | 2022-02-01 11:48 | PC.NURSE ---
Week #4: Comprehensive care plan reviewed, no changes made. Nothing added to temporary care plan. No changes noted in communication, hearing, vision, or orientation. She does make her needs known. No vision or hearing problems. 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 Needs reminders and cues. Chronic health condition stable. Vital signs reviewed, some elevated BP's noted by PROFESSOR OF BIOSTATISTICS. Continue weekly VS monitoring. Mood/Behavior:Continues on Buspar 10 mg @ ,18, Xanax 0.5mg TID, Effexor 150mg daily, Zoloft 200 mg daily with no adverse effects noted. 01/03/22 noon buspar decreased, 01/26/22 PRN Xanax discontinued.
--- NOTE | 2022-02-02 01:40 | PC.NURSE ---
WEEKLY CHARTING - WEEK 4: Vital signs reviewed. Temporary and comprehensive care plan reviewed - no change. Multiple documented behaviors over the last month. Staff is generally able to redirect. Current psychotropic medications include: sertraline 200mg daily, venlafaxine 150mg daily, alprazolam 0.5mg TID, and buspirone 10mg BID & 5mg daily at noon. No noted or documented adverse effects. Is able to communicate needs verbally. Has moderate cognitive deficit. Staff provide structured routine. No visual impairment. PRN alprazolam has been discontinued. Medications are administered by nursing staff. No change in health condition.
[2022-02-02] MEDS: ACETAMINOPHEN 500 MG TABLET 1000 MG PO ×3 (07:34→19:59)
[2022-02-02] MEDS: LEVOTHYROXINE SODIUM 150 MCG TABLET PO (07:34)
[2022-02-02] MEDS: ALPRAZolam 0.5 MG TABLET PO ×3 (07:35→20:01)
[2022-02-02] MEDS: SERTRALINE 100 MG TABLET 200 MG PO (07:35)
[2022-02-02] MEDS: VENLAFAXINE HCL 150 MG CAP.ER.24H PO (07:35)
[2022-02-02] MEDS: BUSPIRONE 10 MG TABLET PO ×2 (07:35→17:06)
[2022-02-02] MEDS: BUSPIRONE 10 MG TABLET 5 MG PO (12:06)
--- NOTE | 2022-02-02 16:00 | PC.NURSE ---
MDS charting: JANENE: . Noted errors in charting. Review with aides. MDS updated with correct information.
[2022-02-02] MEDS: TRAMADOL HCL 50 MG TABLET PO (16:29)
[2022-02-03] MEDS: BUSPIRONE 10 MG TABLET PO ×2 (07:26→17:04)
[2022-02-03] MEDS: SERTRALINE 100 MG TABLET 200 MG PO (07:26)
[2022-02-03] MEDS: ACETAMINOPHEN 500 MG TABLET 1000 MG PO ×3 (07:26→20:00)
[2022-02-03] MEDS: LEVOTHYROXINE SODIUM 150 MCG TABLET PO (07:26)
[2022-02-03] MEDS: VENLAFAXINE HCL 150 MG CAP.ER.24H PO (07:26)
[2022-02-03] MEDS: ALPRAZolam 0.5 MG TABLET PO ×3 (07:28→19:56)
[2022-02-03] MEDS: BUSPIRONE 10 MG TABLET 5 MG PO (12:51)
[2022-02-04] MEDS: ACETAMINOPHEN 500 MG TABLET 1000 MG PO ×3 (07:52→19:28)
[2022-02-04] MEDS: SERTRALINE 100 MG TABLET 200 MG PO (07:52)
[2022-02-04] MEDS: VENLAFAXINE HCL 150 MG CAP.ER.24H PO (07:52)
[2022-02-04] MEDS: BUSPIRONE 10 MG TABLET PO ×2 (07:52→17:42)
[2022-02-04] MEDS: LEVOTHYROXINE SODIUM 150 MCG TABLET PO (07:52)
[2022-02-04] MEDS: ALPRAZolam 0.5 MG TABLET PO ×3 (07:53→19:28)
[2022-02-04] MEDS: BUSPIRONE 10 MG TABLET 5 MG PO (11:36)
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
[2022-02-05] MEDS: LEVOTHYROXINE SODIUM 150 MCG TABLET PO (07:02)
[2022-02-05] MEDS: BUSPIRONE 10 MG TABLET PO ×2 (07:42→19:58)
[2022-02-05] MEDS: ACETAMINOPHEN 500 MG TABLET 1000 MG PO ×3 (07:42→19:58)
[2022-02-05] MEDS: VENLAFAXINE HCL 150 MG CAP.ER.24H PO (07:42)
[2022-02-05] MEDS: SERTRALINE 100 MG TABLET 200 MG PO (07:43)
[2022-02-05] MEDS: ALPRAZolam 0.5 MG TABLET PO ×3 (07:43→19:58)
[2022-02-05] MEDS: BUSPIRONE 10 MG TABLET 5 MG PO (11:57)
[2022-02-06 07:00] VITALS: BP 157/72; PULSE 71; RESP 20; TEMP 36.8; O2SAT 92; BMI 33.5
[2022-02-06] MEDS: ACETAMINOPHEN 500 MG TABLET 1000 MG PO ×3 (07:09→19:49)
[2022-02-06] MEDS: LEVOTHYROXINE SODIUM 150 MCG TABLET PO (07:09)
[2022-02-06] MEDS: SERTRALINE 100 MG TABLET 200 MG PO (07:10)
[2022-02-06] MEDS: BUSPIRONE 10 MG TABLET PO ×2 (07:10→17:15)
[2022-02-06] MEDS: VENLAFAXINE HCL 150 MG CAP.ER.24H PO (07:10)
[2022-02-06] MEDS: ALPRAZolam 0.5 MG TABLET PO ×3 (07:11→19:49)
[2022-02-06 09:46] VITALS: TEMP 36.8; O2SAT 92
--- NOTE | 2022-02-06 10:25 | PC.NURSE ---
Skin check - Redness under bilateral breasts resolved - no other areas of concern. Skin dry, intact, appropriate color, warm, and elastic.
[2022-02-06] MEDS: BUSPIRONE 10 MG TABLET 5 MG PO (11:56)
--- NOTE | 2022-02-06 13:22 | PC.NURSE ---
COVID OUTBREAK TESTING: Resident provided verbal consent for outbreak COVID testing. Resident is currently asymptomatic. Resident/family will be notified only if resident is positive.
[2022-02-06 16:52] VITALS: TEMP 36.8; O2SAT 95
[2022-02-06 17:19] LABS: SARS PCR* Negative SARS-CoV-2 (Negative)
[2022-02-06 23:00] VITALS: TEMP 36.9; O2SAT 94
[2022-02-07 07:00] VITALS: TEMP 36.6; O2SAT 92
[2022-02-07] MEDS: SERTRALINE 100 MG TABLET 200 MG PO (07:22)
[2022-02-07] MEDS: VENLAFAXINE HCL 150 MG CAP.ER.24H PO (07:22)
[2022-02-07] MEDS: LEVOTHYROXINE SODIUM 150 MCG TABLET PO (07:22)
[2022-02-07] MEDS: BUSPIRONE 10 MG TABLET PO ×2 (07:22→18:43)
[2022-02-07] MEDS: ACETAMINOPHEN 500 MG TABLET 1000 MG PO ×3 (07:22→20:10)
[2022-02-07] MEDS: ALPRAZolam 0.5 MG TABLET PO ×3 (07:24→20:10)
[2022-02-07] MEDS: BUSPIRONE 10 MG TABLET 5 MG PO (12:07)
[2022-02-07 20:44] VITALS: TEMP 36.6; O2SAT 88
[2022-02-07 23:00] VITALS: TEMP 36.5; O2SAT 96
[2022-02-08 07:00] VITALS: TEMP 36.7; O2SAT 94
[2022-02-08] MEDS: BUSPIRONE 10 MG TABLET PO ×2 (07:17→17:28)
[2022-02-08] MEDS: SERTRALINE 100 MG TABLET 200 MG PO (07:17)
[2022-02-08] MEDS: VENLAFAXINE HCL 150 MG CAP.ER.24H PO (07:17)
[2022-02-08] MEDS: ACETAMINOPHEN 500 MG TABLET 1000 MG PO ×3 (07:17→19:44)
[2022-02-08] MEDS: LEVOTHYROXINE SODIUM 150 MCG TABLET PO (07:17)
[2022-02-08] MEDS: ALPRAZolam 0.5 MG TABLET PO ×3 (07:18→19:44)
[2022-02-08] MEDS: BUSPIRONE 10 MG TABLET 5 MG PO (11:58)
--- NOTE | 2022-02-08 13:12 | PC.SPIRITC ---
I provided brief visit for support and connection.
[2022-02-08 15:00] VITALS: TEMP 36.4; O2SAT 95
[2022-02-08 23:00] VITALS: TEMP 36.7; O2SAT 97
--- NOTE | 2022-02-09 02:32 | PC.NURSE ---
WEEKLY CHARTING - WEEK 1: Vital signs reviewed. Temporary and comprehensive care plan reviewed - fall interventions updated. Bed and chair alarms removed from care plan. . Hx of chronic back and knee pain r/t OA. Receives scheduled ES acetaminophen and PRN tramadol for pain management. PRN tramadol utilized x7 in the last month. Staff provide assistance with dressing and grooming on an as needed basis. Staff provide set-up and cues for oral cares. Assist of 1 for rashad-care and bathing. Receives a regular diet. Resident requests small portions. Able to eat independently after set-up.
[2022-02-09 07:00] VITALS: TEMP 36.9; O2SAT 93
[2022-02-09] MEDS: SERTRALINE 100 MG TABLET 200 MG PO (07:36)
[2022-02-09] MEDS: VENLAFAXINE HCL 150 MG CAP.ER.24H PO (07:36)
[2022-02-09] MEDS: LEVOTHYROXINE SODIUM 150 MCG TABLET PO (07:36)
[2022-02-09] MEDS: BUSPIRONE 10 MG TABLET PO ×2 (07:36→17:04)
[2022-02-09] MEDS: ACETAMINOPHEN 500 MG TABLET 1000 MG PO ×3 (07:36→19:53)
[2022-02-09] MEDS: ALPRAZolam 0.5 MG TABLET PO ×3 (07:38→19:53)
[2022-02-09] MEDS: BUSPIRONE 10 MG TABLET 5 MG PO (12:20)
--- NOTE | 2022-02-09 19:15 | PC.NURSE ---
CARE CONFERENCE: meeting held with all members of care team present. Cousin and cousins daughter present via phone. Resident not present due to her becoming more anxious during care conferences. Nursing reviewed that resident continues to need limited assist with ADLs. Resident has continued to have stand by assistance with transfers and ambulation. Care plan reviewed and updated. Reviewed medication list. Will email to family. Advanced directive in chart is DNR/DNI. Will be email list to family. Uses no restraints. Is not able to self administer own medications. Medications are set up and administered by nurse.? Vulnerability- is at risk for being harmed. Residents weight stable and comes out daily for all meals. Resident does snack at times. Resident has less c.o of pain and dizziness over the past 90 days. Discussed family ordering Bras and staff will email it. There are no discharge plans. Goal: terminal makeup operator care. ous
--- NOTE | 2022-02-09 20:13 | PC.SOCIAL ---
Care conference held today for resident in activity room at 1:00 pm. Family members attended by phone, which included Lita Gomez and Mini Grossman. Updates were provided by Sandie Iglesias in Nursing, La Subramanian in Nutrition, Esthela Jurado in Life Enrichment, and this worker from Social Work. Care plan was reviewed for resident. Social Work informed that resident's mood is stable and resident appears to be in a calmer state during assessment period. Discussed resident's bras that were sent to the [facility] by mail. Informed that the bras were too small for resident. lithography contact worker, Karen Burgess, will send link for Soma Bralettes to resident's family. Sandie informed that she will meet with resident individually after care conference to update resident. Sandie informed that resident becomes too anxious when she attends care conferences. Family agreed that it was easier to hold this care conference without resident as they feel that the team doesn't make progress on discussion. Nursing agrees to discuss individually with resident on care conference items and family agrees that is best moving forward.
[2022-02-09 21:40] VITALS: TEMP 36.7; O2SAT 92
[2022-02-09 23:00] VITALS: TEMP 37; O2SAT 97
[2022-02-10] MEDS: LEVOTHYROXINE SODIUM 150 MCG TABLET PO (07:12)
[2022-02-10] MEDS: SERTRALINE 100 MG TABLET 200 MG PO (07:42)
[2022-02-10] MEDS: ALPRAZolam 0.5 MG TABLET PO ×3 (07:42→19:21)
[2022-02-10] MEDS: ACETAMINOPHEN 500 MG TABLET 1000 MG PO ×3 (07:42→19:21)
[2022-02-10] MEDS: BUSPIRONE 10 MG TABLET PO ×2 (07:42→17:14)
[2022-02-10] MEDS: VENLAFAXINE HCL 150 MG CAP.ER.24H PO (07:42)
[2022-02-10 10:39] VITALS: TEMP 36.4; O2SAT 97
[2022-02-10] MEDS: BUSPIRONE 10 MG TABLET 5 MG PO (11:31)
--- NOTE | 2022-02-10 11:39 | PC.NURSE ---
Week #1 - ADL's: Comprehensive care plan and temporary care plan reviewed. No changes made. Nothing added to temporary care plan. She can be independent with dressing, grooming, oral cares and feeding. Staff to check? and assist as needed.? Staff to put on antonio stockings.? Is on? regular diet, easy to chew texture, small portions per her request. No problems reported with chewing or swallowing. Vital signs reviewed, no concerns. Pain: Has chronic back and knee pain managed with? Tylenol 1000mg TID, Aspercream w/Lidocaine BID to knees, & Ultram 50mg Q6H PRN which she has used occasionally with relief along with warm packs. She is able to tell when in pain.
[2022-02-10 21:24] VITALS: TEMP 36.8; O2SAT 92
[2022-02-10 23:00] VITALS: TEMP 36.4; O2SAT 92
[2022-02-11] MEDS: LEVOTHYROXINE SODIUM 150 MCG TABLET PO (06:49)
[2022-02-11] MEDS: VENLAFAXINE HCL 150 MG CAP.ER.24H PO (07:37)
[2022-02-11] MEDS: ACETAMINOPHEN 500 MG TABLET 1000 MG PO ×3 (07:37→19:39)
[2022-02-11] MEDS: ALPRAZolam 0.5 MG TABLET PO ×3 (07:37→19:43)
[2022-02-11] MEDS: SERTRALINE 100 MG TABLET 200 MG PO (07:37)
[2022-02-11] MEDS: BUSPIRONE 10 MG TABLET PO ×2 (07:37→17:04)
[2022-02-11 09:49] VITALS: TEMP 36.6; O2SAT 95
[2022-02-11] MEDS: BUSPIRONE 10 MG TABLET 5 MG PO (11:19)
[2022-02-11 20:58] VITALS: TEMP 36.6; O2SAT 95
[2022-02-11 23:00] VITALS: TEMP 36.5; O2SAT 94
[2022-02-12] MEDS: ACETAMINOPHEN 500 MG TABLET 1000 MG PO ×3 (07:04→19:49)
[2022-02-12] MEDS: VENLAFAXINE HCL 150 MG CAP.ER.24H PO (07:04)
[2022-02-12] MEDS: LEVOTHYROXINE SODIUM 150 MCG TABLET PO (07:04)
[2022-02-12] MEDS: BUSPIRONE 10 MG TABLET PO ×2 (07:04→17:06)
[2022-02-12] MEDS: ALPRAZolam 0.5 MG TABLET PO ×3 (07:04→19:54)
[2022-02-12] MEDS: SERTRALINE 100 MG TABLET 200 MG PO (07:05)
[2022-02-12 09:48] VITALS: TEMP 36.6; O2SAT 95
[2022-02-12] MEDS: BUSPIRONE 10 MG TABLET 5 MG PO (11:37)
[2022-02-12 21:13] VITALS: TEMP 36.3; O2SAT 92
[2022-02-12 23:00] VITALS: TEMP 36.1; O2SAT 93
[2022-02-13] MEDS: LEVOTHYROXINE SODIUM 150 MCG TABLET PO (07:02)
[2022-02-13] MEDS: ACETAMINOPHEN 500 MG TABLET 1000 MG PO ×3 (07:02→19:09)
[2022-02-13] MEDS: VENLAFAXINE HCL 150 MG CAP.ER.24H PO (07:02)
[2022-02-13] MEDS: BUSPIRONE 10 MG TABLET PO ×2 (07:02→18:24)
[2022-02-13] MEDS: SERTRALINE 100 MG TABLET 200 MG PO (07:03)
[2022-02-13] MEDS: ALPRAZolam 0.5 MG TABLET PO ×3 (07:51→19:09)
[2022-02-13] MEDS: BUSPIRONE 10 MG TABLET 5 MG PO (11:37)
[2022-02-13 12:13] LABS: SARS PCR* Negative SARS-CoV-2 (Negative)
[2022-02-13 14:44] VITALS: TEMP 37.2; O2SAT 95
[2022-02-13 14:45] VITALS: BP 117/76; PULSE 103; RESP 18; TEMP 37.2; O2SAT 95
[2022-02-13 14:47] VITALS: BMI 33.5
[2022-02-13 15:00] VITALS: TEMP 36.8; O2SAT 98
--- NOTE | 2022-02-13 16:31 | PC.NURSE ---
Med sign off: Alprazolam 0.5 mg noon dose signed off at this time.
[2022-02-13 23:00] VITALS: TEMP 36.3; O2SAT 92
[2022-02-14 07:00] VITALS: TEMP 36.8; O2SAT 93
[2022-02-14] MEDS: ACETAMINOPHEN 500 MG TABLET 1000 MG PO ×3 (07:17→19:19)
[2022-02-14] MEDS: LEVOTHYROXINE SODIUM 150 MCG TABLET PO (07:17)
[2022-02-14] MEDS: BUSPIRONE 10 MG TABLET PO ×2 (07:19→19:19)
[2022-02-14] MEDS: VENLAFAXINE HCL 150 MG CAP.ER.24H PO (07:19)
[2022-02-14] MEDS: ALPRAZolam 0.5 MG TABLET PO ×3 (07:19→19:19)
[2022-02-14] MEDS: SERTRALINE 100 MG TABLET 200 MG PO (07:19)
[2022-02-14] MEDS: BUSPIRONE 10 MG TABLET 5 MG PO (12:10)
[2022-02-14 21:50] VITALS: TEMP 37; O2SAT 92
[2022-02-14 23:00] VITALS: TEMP 36.6; O2SAT 96
[2022-02-15] MEDS: ACETAMINOPHEN 500 MG TABLET 1000 MG PO ×3 (07:53→19:24)
[2022-02-15] MEDS: LEVOTHYROXINE SODIUM 150 MCG TABLET PO (07:53)
[2022-02-15] MEDS: BUSPIRONE 10 MG TABLET PO ×2 (07:54→17:05)
[2022-02-15] MEDS: ALPRAZolam 0.5 MG TABLET PO ×3 (07:54→19:24)
[2022-02-15] MEDS: SERTRALINE 100 MG TABLET 200 MG PO (07:54)
[2022-02-15] MEDS: VENLAFAXINE HCL 150 MG CAP.ER.24H PO (07:54)
[2022-02-15 10:23] VITALS: TEMP 36.9; O2SAT 94
[2022-02-15] MEDS: BUSPIRONE 10 MG TABLET 5 MG PO (12:09)
[2022-02-15 15:00] VITALS: TEMP 36.6; O2SAT 95
--- NOTE | 2022-02-15 22:27 | PC.NURSE ---
Week #2: Mobility - Vital signs, and Care Plan? reviewed. No changes made and nothing added to temporary care plan. Resident is assist of one with pivot transfer. Often transfers independently, but needs limited assist for mobility and transferring using gait belt and walker.? Bed rails are down. No alarms at this time. Fall: Last fall incident was 01/12/22.
[2022-02-15 23:00] VITALS: TEMP 36.7; O2SAT 96
--- NOTE | 2022-02-16 03:45 | PC.NURSE ---
WEEKLY CHARTING - WEEK 2: Vital signs reviewed. Temporary and comprehensive care plan reviewed - no change. Staff provide SBA with transfers and ambulation. Is independent with bed mobility. W/c rarely used. Pef fall risk assessment, residnet is at high risk for falls. Fall interventions include: gripper socks, bed in low position, walker at bedside, call light in reach, and hourly safety checks.
[2022-02-16] MEDS: LEVOTHYROXINE SODIUM 150 MCG TABLET PO (06:40)
[2022-02-16] MEDS: ALPRAZolam 0.5 MG TABLET PO ×3 (07:27→20:28)
[2022-02-16] MEDS: BUSPIRONE 10 MG TABLET PO ×2 (07:27→17:04)
[2022-02-16] MEDS: ACETAMINOPHEN 500 MG TABLET 1000 MG PO ×3 (07:27→20:28)
[2022-02-16] MEDS: SERTRALINE 100 MG TABLET 200 MG PO (07:28)
[2022-02-16] MEDS: VENLAFAXINE HCL 150 MG CAP.ER.24H PO (07:28)
--- NOTE | 2022-02-16 10:17 | PC.NURSE ---
Week #2 - Mobility: Comprehensive care plan reviewed, no changes made. Nothing added to temporary care plan. Resident needs SBA, & walker with transfers and ambulation. No w/c use at this time. Is able to reposition self.? No alarms.. Vital signs reviewed, occasional elevated BP. Noted by MOP WORKER. Continue VS monitoring weekly. Fall: No falls the past month. Remains a high fall risk according to assessment done on 11/10/21.
[2022-02-16 10:27] VITALS: TEMP 36.3; O2SAT 94
[2022-02-16] MEDS: BUSPIRONE 10 MG TABLET 5 MG PO (11:09)
[2022-02-16] MEDS: NON-FORMULARY MEDICATION 1 EACH TOPICAL (20:28)
[2022-02-16 21:30] VITALS: TEMP 36.7; O2SAT 96
[2022-02-16 23:00] VITALS: TEMP 36.7; O2SAT 96
[2022-02-17] MEDS: LEVOTHYROXINE SODIUM 150 MCG TABLET PO (06:49)
[2022-02-17] MEDS: ACETAMINOPHEN 500 MG TABLET 1000 MG PO ×3 (07:48→19:30)
[2022-02-17] MEDS: ALPRAZolam 0.5 MG TABLET PO ×3 (07:48→19:31)
[2022-02-17] MEDS: BUSPIRONE 10 MG TABLET PO ×2 (07:48→17:21)
[2022-02-17] MEDS: SERTRALINE 100 MG TABLET 200 MG PO (07:49)
[2022-02-17] MEDS: VENLAFAXINE HCL 150 MG CAP.ER.24H PO (07:49)
[2022-02-17] MEDS: NON-FORMULARY MEDICATION 1 EACH TOPICAL ×2 (07:49→19:31)
[2022-02-17 10:36] VITALS: TEMP 36.4; O2SAT 94
--- NOTE | 2022-02-17 11:27 | PC.NURSE ---
Transfers/ambulation: after observation for 72 hrs and staff assessments. Resident is now ok to transfer and ambulate on her own. Care Plan and aide sheets updated.
--- NOTE | 2022-02-17 12:02 | PC.NURSE ---
Recert visit- Resident seen by Dr Wilson. Orders reviewed and renewed for 45days with no changes. Resident is currently independent on ambulation, staff are only to assist if needed.
--- NOTE | 2022-02-17 12:02 | PC.NURSE ---
Recert Visit: Resident seen y Dr. Wilson. Orders reviewed and renewed of 75 days with no changes.
[2022-02-17] MEDS: BUSPIRONE 10 MG TABLET 5 MG PO (12:48)
[2022-02-17 16:57] VITALS: TEMP 35.9; O2SAT 91
[2022-02-17 23:00] VITALS: TEMP 36.3; O2SAT 93
[2022-02-18 07:00] VITALS: TEMP 37; O2SAT 91
[2022-02-18] MEDS: SERTRALINE 100 MG TABLET 200 MG PO (07:19)
[2022-02-18] MEDS: VENLAFAXINE HCL 150 MG CAP.ER.24H PO (07:19)
[2022-02-18] MEDS: ACETAMINOPHEN 500 MG TABLET 1000 MG PO ×3 (07:19→20:05)
[2022-02-18] MEDS: NON-FORMULARY MEDICATION 1 EACH TOPICAL ×2 (07:19→19:43)
[2022-02-18] MEDS: BUSPIRONE 10 MG TABLET PO ×2 (07:19→19:42)
[2022-02-18] MEDS: LEVOTHYROXINE SODIUM 150 MCG TABLET PO (07:19)
[2022-02-18] MEDS: ALPRAZolam 0.5 MG TABLET PO ×3 (07:20→19:43)
[2022-02-18] MEDS: BUSPIRONE 10 MG TABLET 5 MG PO (12:00)
--- NOTE | 2022-02-18 16:17 | PC.SPIRITC ---
Geophysical Prospecting Surveyor provided supportive visit to resident.
[2022-02-18 16:56] VITALS: TEMP 36.7; O2SAT 95
[2022-02-18 23:00] VITALS: TEMP 36.8; O2SAT 94
[2022-02-19 07:00] VITALS: TEMP 37.2; O2SAT 93
[2022-02-19] MEDS: LEVOTHYROXINE SODIUM 150 MCG TABLET PO (08:08)
[2022-02-19] MEDS: NON-FORMULARY MEDICATION 1 EACH TOPICAL ×2 (08:09→19:05)
[2022-02-19] MEDS: SERTRALINE 100 MG TABLET 200 MG PO (08:09)
[2022-02-19] MEDS: BUSPIRONE 10 MG TABLET PO ×2 (08:09→18:53)
[2022-02-19] MEDS: VENLAFAXINE HCL 150 MG CAP.ER.24H PO (08:09)
[2022-02-19] MEDS: ACETAMINOPHEN 500 MG TABLET 1000 MG PO ×3 (08:09→19:05)
[2022-02-19] MEDS: ALPRAZolam 0.5 MG TABLET PO ×3 (08:10→19:05)
[2022-02-19] MEDS: BUSPIRONE 10 MG TABLET 5 MG PO (12:19)
[2022-02-19 17:03] VITALS: TEMP 36.8; O2SAT 94
[2022-02-19 23:00] VITALS: TEMP 36.7; O2SAT 93
[2022-02-20 07:00] VITALS: BP 157/82; PULSE 78; RESP 16; TEMP 37.5; O2SAT 95; BMI 33.8
[2022-02-20] MEDS: LEVOTHYROXINE SODIUM 150 MCG TABLET PO (07:26)
[2022-02-20] MEDS: BUSPIRONE 10 MG TABLET PO ×2 (07:26→17:13)
[2022-02-20] MEDS: ACETAMINOPHEN 500 MG TABLET 1000 MG PO ×3 (07:26→19:01)
[2022-02-20] MEDS: NON-FORMULARY MEDICATION 1 EACH TOPICAL ×2 (07:27→19:01)
[2022-02-20] MEDS: VENLAFAXINE HCL 150 MG CAP.ER.24H PO (07:27)
[2022-02-20] MEDS: SERTRALINE 100 MG TABLET 200 MG PO (07:27)
[2022-02-20] MEDS: ALPRAZolam 0.5 MG TABLET PO ×3 (07:27→19:01)
--- NOTE | 2022-02-20 09:33 | PC.NURSE ---
Skin check - No areas of concern. Skin intact, dry, warm, appropriate color, elastic. No redness under breasts.
--- NOTE | 2022-02-20 11:51 | PC.NURSE ---
COVID OUTBREAK TESTING: Resident provided verbal consent for outbreak COVID testing. Resident is currently asymptomatic. Resident/family will be notified only if resident is positive.
[2022-02-20] MEDS: BUSPIRONE 10 MG TABLET 5 MG PO (11:55)
[2022-02-20 13:04] LABS: SARS PCR* Negative SARS-CoV-2 (Negative)
[2022-02-20 15:00] VITALS: TEMP 36.9; O2SAT 95
[2022-02-20 23:00] VITALS: TEMP 36.7; O2SAT 96
[2022-02-21 07:00] VITALS: TEMP 37.4; O2SAT 91
[2022-02-21] MEDS: ACETAMINOPHEN 500 MG TABLET 1000 MG PO ×3 (07:36→19:30)
[2022-02-21] MEDS: VENLAFAXINE HCL 150 MG CAP.ER.24H PO (07:36)
[2022-02-21] MEDS: LEVOTHYROXINE SODIUM 150 MCG TABLET PO (07:36)
[2022-02-21] MEDS: BUSPIRONE 10 MG TABLET PO ×2 (07:36→19:28)
[2022-02-21] MEDS: NON-FORMULARY MEDICATION 1 EACH TOPICAL ×2 (07:36→19:30)
[2022-02-21] MEDS: SERTRALINE 100 MG TABLET 200 MG PO (07:36)
[2022-02-21] MEDS: ALPRAZolam 0.5 MG TABLET PO ×3 (07:37→19:30)
[2022-02-21] MEDS: BUSPIRONE 10 MG TABLET 5 MG PO (12:14)
[2022-02-21 17:09] VITALS: TEMP 36.6; O2SAT 95
[2022-02-21 23:00] VITALS: TEMP 36.7; O2SAT 95
[2022-02-22] MEDS: TRAMADOL HCL 50 MG TABLET PO (02:25)
[2022-02-22 07:00] VITALS: TEMP 36.9; O2SAT 92
[2022-02-22] MEDS: SERTRALINE 100 MG TABLET 200 MG PO (07:53)
[2022-02-22] MEDS: LEVOTHYROXINE SODIUM 150 MCG TABLET PO (07:53)
[2022-02-22] MEDS: NON-FORMULARY MEDICATION 1 EACH TOPICAL ×2 (07:53→19:18)
[2022-02-22] MEDS: ACETAMINOPHEN 500 MG TABLET 1000 MG PO ×3 (07:53→19:18)
[2022-02-22] MEDS: VENLAFAXINE HCL 150 MG CAP.ER.24H PO (07:53)
[2022-02-22] MEDS: BUSPIRONE 10 MG TABLET PO ×2 (07:53→17:27)
[2022-02-22] MEDS: ALPRAZolam 0.5 MG TABLET PO ×3 (07:54→19:18)
[2022-02-22] MEDS: BUSPIRONE 10 MG TABLET 5 MG PO (11:58)
--- NOTE | 2022-02-22 14:50 | PC.PHA ---
MEDICATION REVIEW MEDICATION MONITORING:Buspar, zoloft, effexor, xanax IRREGULARITY/COMMENTS: GDR in process for Buspar and patient doing ok, she is quite aware of medication decrease despite her dementia diagnosis. No prn Xanax orders currently. I agree with providers note from 02/17/22, for dose further dose reduction attemps in next 2-4 months. Tramadol prn minimally needed, scheduled apap for pain. SUGGESTED COURSE OF ACTION:No medication recommendations for February.
[2022-02-22 15:00] VITALS: TEMP 36.7; O2SAT 95
[2022-02-22 23:00] VITALS: TEMP 36.6; O2SAT 93
--- NOTE | 2022-02-23 02:36 | PC.NURSE ---
WEEKLY CHARTING 3: WEEK 3: Vital signs reviewed with no changes. Temporary care plan reviewed- no changes. Resident incontinent of urine and occasional bowel incontinence. Resident independent with toileting. Staff managed with rashad-cares,pads, dressing. Independent with transfers and ambulates with a walker. She call for assistance when needed. Skin: No concerns at this time. Skin is checked routinely with baths & prn.
[2022-02-23] MEDS: LEVOTHYROXINE SODIUM 150 MCG TABLET PO (06:48)
--- NOTE | 2022-02-23 07:17 | PC.NURSE ---
Week #3-Toileting: Comprehensive care plan reviewed, no changes made. Nothing added to temporary care plan. Resident has frequent urinary incontinence with some control. Is usually continent of BM's, has occasional incontinence. Resident is independent with toileting including pads, rashad cares and clothing management. Wears pull ups with maxi pad per request. Will call for assist as needed. Staff stock room with pads. Transfers/ambulates to the toilet with a walker. Vital signs reviewed, occasional elevated BP's noted by PAPER CONE MAKER. Skin: No issues at this time. Skin is routinely checked on bath day. Resident does report with concerns.
[2022-02-23] MEDS: SERTRALINE 100 MG TABLET 200 MG PO (07:19)
[2022-02-23] MEDS: ACETAMINOPHEN 500 MG TABLET 1000 MG PO ×3 (07:19→19:00)
[2022-02-23] MEDS: VENLAFAXINE HCL 150 MG CAP.ER.24H PO (07:19)
[2022-02-23] MEDS: ALPRAZolam 0.5 MG TABLET PO ×3 (07:19→19:01)
[2022-02-23] MEDS: BUSPIRONE 10 MG TABLET PO ×2 (07:19→17:03)
[2022-02-23] MEDS: NON-FORMULARY MEDICATION 1 EACH TOPICAL ×2 (07:19→19:01)
[2022-02-23 10:18] VITALS: TEMP 37.1; O2SAT 94
[2022-02-23] MEDS: BUSPIRONE 10 MG TABLET 5 MG PO (11:21)
[2022-02-23 16:45] VITALS: TEMP 37.3; O2SAT 93
[2022-02-23 23:00] VITALS: TEMP 36.7; O2SAT 94
[2022-02-24] MEDS: LEVOTHYROXINE SODIUM 150 MCG TABLET PO (06:42)
[2022-02-24] MEDS: BUSPIRONE 10 MG TABLET PO ×2 (07:14→16:18)
[2022-02-24] MEDS: ALPRAZolam 0.5 MG TABLET PO ×3 (07:14→19:24)
[2022-02-24] MEDS: SERTRALINE 100 MG TABLET 200 MG PO (07:14)
[2022-02-24] MEDS: VENLAFAXINE HCL 150 MG CAP.ER.24H PO (07:14)
[2022-02-24] MEDS: NON-FORMULARY MEDICATION 1 EACH TOPICAL ×2 (07:14→19:24)
[2022-02-24] MEDS: ACETAMINOPHEN 500 MG TABLET 1000 MG PO ×3 (07:14→19:24)
[2022-02-24 10:30] VITALS: TEMP 36.7; O2SAT 98
[2022-02-24] MEDS: BUSPIRONE 10 MG TABLET 5 MG PO (11:07)
--- NOTE | 2022-02-24 13:36 | PC.NURSE ---
Loose stool: Resident had 1 episode of loose stool at 1130. Appetite good. Vitals are WNL and no vomiting. To put on isolation if resident has further episodes of diarrhoea.
[2022-02-24 20:57] VITALS: TEMP 36.8; O2SAT 92
--- NOTE | 2022-02-24 21:27 | PC.NURSE ---
Behaviors: Resident is having behaviors on the PM shift. Is crying over missing DVD and hairbrush, claims to be very anxious and not having a good day. Quality Assurance Intern gave resident ice cream and put in a movie. When blog writer checked in on resident said movie was missing. Quality Assurance Intern asked fellow staff about movie and they denied touching it. Quality Assurance Intern searched for movie and could not find.
[2022-02-24 23:00] VITALS: TEMP 36.6; O2SAT 94
[2022-02-25] MEDS: LEVOTHYROXINE SODIUM 150 MCG TABLET PO (06:53)
[2022-02-25] MEDS: ALPRAZolam 0.5 MG TABLET PO ×3 (07:02→19:29)
[2022-02-25] MEDS: BUSPIRONE 10 MG TABLET PO ×2 (07:02→15:52)
[2022-02-25] MEDS: ACETAMINOPHEN 500 MG TABLET 1000 MG PO ×3 (07:02→19:29)
[2022-02-25] MEDS: NON-FORMULARY MEDICATION 1 EACH TOPICAL ×2 (07:02→19:29)
[2022-02-25] MEDS: VENLAFAXINE HCL 150 MG CAP.ER.24H PO (07:02)
[2022-02-25] MEDS: SERTRALINE 100 MG TABLET 200 MG PO (07:02)
[2022-02-25 09:22] VITALS: TEMP 36.6; O2SAT 96
[2022-02-25] MEDS: BUSPIRONE 10 MG TABLET 5 MG PO (11:06)
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
[2022-02-25 21:18] VITALS: TEMP 37.1; O2SAT 96
--- NOTE | 2022-02-25 21:41 | PC.NURSE ---
Behavior: Resident comes out to the dining room and sees other residents watching a movie and she is convinced that they are watching her DVD. She gets very upset and says she is taking the DVD back. Red Cross Executive Director took resident back to her room and shows her that her DVD is in her room. Resident is satisfied and apologizes.
[2022-02-25 23:00] VITALS: TEMP 37.1; O2SAT 95
[2022-02-26] MEDS: LEVOTHYROXINE SODIUM 150 MCG TABLET PO (07:10)
[2022-02-26] MEDS: SERTRALINE 100 MG TABLET 200 MG PO (07:10)
[2022-02-26] MEDS: VENLAFAXINE HCL 150 MG CAP.ER.24H PO (07:10)
[2022-02-26] MEDS: BUSPIRONE 10 MG TABLET PO ×2 (07:10→17:16)
[2022-02-26] MEDS: ACETAMINOPHEN 500 MG TABLET 1000 MG PO ×3 (07:10→19:18)
[2022-02-26] MEDS: NON-FORMULARY MEDICATION 1 EACH TOPICAL ×2 (07:10→19:18)
[2022-02-26] MEDS: ALPRAZolam 0.5 MG TABLET PO ×3 (07:10→19:19)
[2022-02-26 10:35] VITALS: TEMP 37.2; O2SAT 95
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
[2022-02-26] MEDS: BUSPIRONE 10 MG TABLET 5 MG PO (11:35)
[2022-02-26 15:00] VITALS: TEMP 36.9; O2SAT 97
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
[2022-02-26 23:00] VITALS: TEMP 36.4; O2SAT 93
[2022-02-27] MEDS: LEVOTHYROXINE SODIUM 150 MCG TABLET PO (07:02)
[2022-02-27] MEDS: VENLAFAXINE HCL 150 MG CAP.ER.24H PO (07:34)
[2022-02-27] MEDS: SERTRALINE 100 MG TABLET 200 MG PO (07:34)
[2022-02-27] MEDS: ACETAMINOPHEN 500 MG TABLET 1000 MG PO ×3 (07:34→19:06)
[2022-02-27] MEDS: NON-FORMULARY MEDICATION 1 EACH TOPICAL ×2 (07:34→19:06)
[2022-02-27] MEDS: ALPRAZolam 0.5 MG TABLET PO ×3 (07:34→19:06)
[2022-02-27] MEDS: BUSPIRONE 10 MG TABLET PO ×2 (07:34→17:16)
[2022-02-27 10:23] VITALS: BP 148/75; PULSE 92; RESP 20; TEMP 36.6; O2SAT 96; BMI 33.8
[2022-02-27] MEDS: BUSPIRONE 10 MG TABLET 5 MG PO (11:43)
[2022-02-27 13:20] LABS: SARS PCR* Negative SARS-CoV-2 (Negative)
[2022-02-27 15:00] VITALS: TEMP 37.1; O2SAT 96
[2022-02-27 23:00] VITALS: TEMP 36.7; O2SAT 93
[2022-02-28 07:00] VITALS: TEMP 37.2; O2SAT 93
[2022-02-28] MEDS: ACETAMINOPHEN 500 MG TABLET 1000 MG PO ×3 (07:06→20:00)
[2022-02-28] MEDS: LEVOTHYROXINE SODIUM 150 MCG TABLET PO (07:06)
[2022-02-28] MEDS: NON-FORMULARY MEDICATION 1 EACH TOPICAL ×2 (07:07→20:00)
[2022-02-28] MEDS: BUSPIRONE 10 MG TABLET PO ×2 (07:07→17:12)
[2022-02-28] MEDS: ALPRAZolam 0.5 MG TABLET PO ×3 (07:07→20:00)
[2022-02-28] MEDS: VENLAFAXINE HCL 150 MG CAP.ER.24H PO (07:07)
[2022-02-28] MEDS: SERTRALINE 100 MG TABLET 200 MG PO (07:07)
--- NOTE | 2022-02-28 11:29 | PC.SPIRITC ---
I provided visit for connection and support.
[2022-02-28] MEDS: BUSPIRONE 10 MG TABLET 5 MG PO (12:08)
[2022-02-28 21:22] VITALS: TEMP 37.1; O2SAT 92
[2022-02-28 23:00] VITALS: TEMP 36.6; O2SAT 96
[2022-03-01 07:00] VITALS: TEMP 37.3; O2SAT 94
[2022-03-01] MEDS: NON-FORMULARY MEDICATION 1 EACH TOPICAL ×2 (07:04→19:44)
[2022-03-01] MEDS: LEVOTHYROXINE SODIUM 150 MCG TABLET PO (07:04)
[2022-03-01] MEDS: VENLAFAXINE HCL 150 MG CAP.ER.24H PO (07:04)
[2022-03-01] MEDS: ACETAMINOPHEN 500 MG TABLET 1000 MG PO ×3 (07:04→19:44)
[2022-03-01] MEDS: SERTRALINE 100 MG TABLET 200 MG PO (07:04)
[2022-03-01] MEDS: BUSPIRONE 10 MG TABLET PO ×2 (07:04→17:10)
[2022-03-01] MEDS: ALPRAZolam 0.5 MG TABLET PO ×3 (07:05→19:44)
[2022-03-01] MEDS: BUSPIRONE 10 MG TABLET 5 MG PO (11:57)
[2022-03-01 15:00] VITALS: TEMP 37.1; O2SAT 95
--- NOTE | 2022-03-01 16:44 | PC.SPIRITC ---
I provided visit per Kelli's request.
[2022-03-01 23:00] VITALS: TEMP 36.7; O2SAT 94
--- NOTE | 2022-03-02 03:21 | PC.NURSE ---
WEEKLY CHARTING - WEEK 4: Vital signs reviewed. Temporary and comprehensive care plan reviewed - no change. Multiple documented behavioral episodes in the last month. Current psychotropic medications include: sertraline 200mg daily, venlafaxine 150mg daily, alprazolam 0.5mg TID, and buspirone 10mg BID & 5mg daily at noon with no adverse effects. Able to communicate needs. Moderate cognitive deficit. Staff provide structured routine. No visual impairment. Medications are administered by licensed nurse. Health condition stable.
[2022-03-02] MEDS: LEVOTHYROXINE SODIUM 150 MCG TABLET PO (06:53)
[2022-03-02] MEDS: NON-FORMULARY MEDICATION 1 EACH TOPICAL ×2 (07:43→20:19)
[2022-03-02] MEDS: SERTRALINE 100 MG TABLET 200 MG PO (07:43)
[2022-03-02] MEDS: VENLAFAXINE HCL 150 MG CAP.ER.24H PO (07:43)
[2022-03-02] MEDS: BUSPIRONE 10 MG TABLET PO ×2 (07:43→17:24)
[2022-03-02] MEDS: ACETAMINOPHEN 500 MG TABLET 1000 MG PO ×3 (07:43→20:19)
[2022-03-02] MEDS: ALPRAZolam 0.5 MG TABLET PO ×3 (07:43→20:19)
[2022-03-02 10:26] VITALS: TEMP 36.4; O2SAT 95
[2022-03-02] MEDS: BUSPIRONE 10 MG TABLET 5 MG PO (11:38)
--- NOTE | 2022-03-02 14:05 | PC.NURSE ---
Week #4: Vital signs reviewed - they are within resident's normal ranges with the exception of her blood pressure which elevates occasionally due to chronic anxiety. Comprehensive/Temporary care plan reviewed - no changes made to documents at this time. Communication, hearing, and vision status intact per baseline. Resident is able to verbalize needs. 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 Chronic health condition stable. Nurse administers medication. Mood/Behavior: Occasional stable and unstable moods observed. Resident takes Buspar 10 mg @ 08,18, Xanax 0.5mg TID, Effexor 150mg daily, Zoloft 200 mg daily with no adverse effects noted.
[2022-03-02 15:00] VITALS: TEMP 37.1; O2SAT 95
[2022-03-02 23:00] VITALS: TEMP 36.6; O2SAT 93
[2022-03-03] MEDS: LEVOTHYROXINE SODIUM 150 MCG TABLET PO (06:53)
[2022-03-03] MEDS: ALPRAZolam 0.5 MG TABLET PO ×3 (07:15→19:43)
[2022-03-03] MEDS: VENLAFAXINE HCL 150 MG CAP.ER.24H PO (07:15)
[2022-03-03] MEDS: NON-FORMULARY MEDICATION 1 EACH TOPICAL ×2 (07:15→19:43)
[2022-03-03] MEDS: SERTRALINE 100 MG TABLET 200 MG PO (07:15)
[2022-03-03] MEDS: BUSPIRONE 10 MG TABLET PO ×2 (07:15→19:43)
[2022-03-03] MEDS: ACETAMINOPHEN 500 MG TABLET 1000 MG PO ×3 (07:15→19:43)
[2022-03-03 11:11] VITALS: TEMP 36.6; O2SAT 94
[2022-03-03] MEDS: BUSPIRONE 10 MG TABLET 5 MG PO (11:49)
[2022-03-03 22:42] VITALS: TEMP 36.6; O2SAT 91
[2022-03-03 23:00] VITALS: TEMP 36.7; O2SAT 93
[2022-03-04 07:00] VITALS: TEMP 36.8; O2SAT 96
[2022-03-04] MEDS: LEVOTHYROXINE SODIUM 150 MCG TABLET PO (07:38)
[2022-03-04] MEDS: ALPRAZolam 0.5 MG TABLET PO ×3 (07:38→19:17)
[2022-03-04] MEDS: ACETAMINOPHEN 500 MG TABLET 1000 MG PO ×3 (07:38→19:17)
[2022-03-04] MEDS: VENLAFAXINE HCL 150 MG CAP.ER.24H PO (07:38)
[2022-03-04] MEDS: BUSPIRONE 10 MG TABLET PO ×2 (07:38→19:16)
[2022-03-04] MEDS: SERTRALINE 100 MG TABLET 200 MG PO (07:38)
[2022-03-04] MEDS: NON-FORMULARY MEDICATION 1 EACH TOPICAL ×2 (07:38→19:17)
[2022-03-04] MEDS: BUSPIRONE 10 MG TABLET 5 MG PO (11:26)
[2022-03-04 21:37] VITALS: TEMP 36.8; O2SAT 91
[2022-03-04 23:00] VITALS: TEMP 36.6; O2SAT 96
[2022-03-05] MEDS: LEVOTHYROXINE SODIUM 150 MCG TABLET PO (06:53)
[2022-03-05 07:00] VITALS: TEMP 37.1; O2SAT 93
[2022-03-05] MEDS: ALPRAZolam 0.5 MG TABLET PO ×3 (07:35→19:35)
[2022-03-05] MEDS: BUSPIRONE 10 MG TABLET PO ×2 (07:35→19:34)
[2022-03-05] MEDS: ACETAMINOPHEN 500 MG TABLET 1000 MG PO ×3 (07:35→19:35)
[2022-03-05] MEDS: NON-FORMULARY MEDICATION 1 EACH TOPICAL ×2 (07:36→19:35)
[2022-03-05] MEDS: VENLAFAXINE HCL 150 MG CAP.ER.24H PO (07:36)
[2022-03-05] MEDS: SERTRALINE 100 MG TABLET 200 MG PO (07:36)
[2022-03-05] MEDS: BUSPIRONE 10 MG TABLET 5 MG PO (11:57)
[2022-03-05 17:10] VITALS: TEMP 36.8; O2SAT 92
[2022-03-05 23:00] VITALS: TEMP 36.8; O2SAT 94
[2022-03-06] MEDS: NON-FORMULARY MEDICATION 1 EACH TOPICAL ×2 (07:43→19:36)
[2022-03-06] MEDS: LEVOTHYROXINE SODIUM 150 MCG TABLET PO (07:43)
[2022-03-06] MEDS: ACETAMINOPHEN 500 MG TABLET 1000 MG PO ×3 (07:43→19:17)
[2022-03-06] MEDS: ALPRAZolam 0.5 MG TABLET PO ×3 (07:43→19:36)
[2022-03-06] MEDS: VENLAFAXINE HCL 150 MG CAP.ER.24H PO (07:43)
[2022-03-06] MEDS: BUSPIRONE 10 MG TABLET PO ×2 (07:43→18:19)
[2022-03-06] MEDS: SERTRALINE 100 MG TABLET 200 MG PO (07:43)
--- NOTE | 2022-03-06 10:05 | PC.NURSE ---
COVID OUTBREAK TESTING Resident provided verbal consent for outbreak COVID testing. Resident is currently asymptomatic.? Resident/family will be notified only if resident is positive.
[2022-03-06 10:23] VITALS: BP 141/87; PULSE 89; RESP 18; TEMP 36.9; O2SAT 96; BMI 34.2
[2022-03-06] MEDS: BUSPIRONE 10 MG TABLET 5 MG PO (12:28)
[2022-03-06 13:07] LABS: SARS PCR* Negative SARS-CoV-2 (Negative)
[2022-03-06 15:00] VITALS: TEMP 36.4; O2SAT 95
[2022-03-06 23:00] VITALS: TEMP 36.8; O2SAT 95
[2022-03-07] MEDS: TRAMADOL HCL 50 MG TABLET PO (03:44)
[2022-03-07] MEDS: ACETAMINOPHEN 500 MG TABLET 1000 MG PO ×3 (07:38→19:16)
[2022-03-07] MEDS: ALPRAZolam 0.5 MG TABLET PO ×3 (07:38→19:16)
[2022-03-07] MEDS: BUSPIRONE 10 MG TABLET PO ×2 (07:38→16:42)
[2022-03-07] MEDS: SERTRALINE 100 MG TABLET 200 MG PO (07:38)
[2022-03-07] MEDS: VENLAFAXINE HCL 150 MG CAP.ER.24H PO (07:38)
[2022-03-07] MEDS: NON-FORMULARY MEDICATION 1 EACH TOPICAL ×2 (07:38→19:16)
[2022-03-07] MEDS: LEVOTHYROXINE SODIUM 150 MCG TABLET PO (07:38)
[2022-03-07 09:52] VITALS: TEMP 36.9; O2SAT 93
--- NOTE | 2022-03-07 11:20 | PC.SPIRITC ---
I provided visit for connection.
[2022-03-07] MEDS: BUSPIRONE 10 MG TABLET 5 MG PO (12:45)
[2022-03-07 21:14] VITALS: TEMP 36.6; O2SAT 94
[2022-03-07 23:00] VITALS: TEMP 36.8; O2SAT 93
[2022-03-08 07:00] VITALS: TEMP 37.1; O2SAT 94
[2022-03-08] MEDS: LEVOTHYROXINE SODIUM 150 MCG TABLET PO (07:24)
[2022-03-08] MEDS: VENLAFAXINE HCL 150 MG CAP.ER.24H PO (07:25)
[2022-03-08] MEDS: NON-FORMULARY MEDICATION 1 EACH TOPICAL ×2 (07:25→19:32)
[2022-03-08] MEDS: BUSPIRONE 10 MG TABLET PO ×2 (07:25→18:12)
[2022-03-08] MEDS: ALPRAZolam 0.5 MG TABLET PO ×3 (07:25→19:32)
[2022-03-08] MEDS: ACETAMINOPHEN 500 MG TABLET 1000 MG PO ×3 (07:25→19:32)
[2022-03-08] MEDS: SERTRALINE 100 MG TABLET 200 MG PO (07:26)
[2022-03-08] MEDS: BUSPIRONE 10 MG TABLET 5 MG PO (12:01)
[2022-03-08 15:00] VITALS: TEMP 36.6; O2SAT 95
[2022-03-08 23:00] VITALS: TEMP 36.8; O2SAT 92
[2022-03-09 07:00] VITALS: TEMP 36.6; O2SAT 95
[2022-03-09] MEDS: NON-FORMULARY MEDICATION 1 EACH TOPICAL ×2 (07:06→19:20)
[2022-03-09] MEDS: VENLAFAXINE HCL 150 MG CAP.ER.24H PO (07:06)
[2022-03-09] MEDS: LEVOTHYROXINE SODIUM 150 MCG TABLET PO (07:06)
[2022-03-09] MEDS: ACETAMINOPHEN 500 MG TABLET 1000 MG PO ×3 (07:06→19:20)
[2022-03-09] MEDS: SERTRALINE 100 MG TABLET 200 MG PO (07:07)
[2022-03-09] MEDS: BUSPIRONE 10 MG TABLET PO ×2 (07:07→18:20)
[2022-03-09] MEDS: ALPRAZolam 0.5 MG TABLET PO ×3 (07:10→19:20)
[2022-03-09] MEDS: BUSPIRONE 10 MG TABLET 5 MG PO (12:12)
[2022-03-09 15:00] VITALS: TEMP 36.9; O2SAT 95
[2022-03-09 23:00] VITALS: TEMP 36.9; O2SAT 96
[2022-03-10] MEDS: LEVOTHYROXINE SODIUM 150 MCG TABLET PO (06:39)
[2022-03-10] MEDS: ACETAMINOPHEN 500 MG TABLET 1000 MG PO ×3 (07:22→19:53)
[2022-03-10] MEDS: ALPRAZolam 0.5 MG TABLET PO ×3 (07:22→19:53)
[2022-03-10] MEDS: SERTRALINE 100 MG TABLET 200 MG PO (07:23)
[2022-03-10] MEDS: NON-FORMULARY MEDICATION 1 EACH TOPICAL ×2 (07:23→19:53)
[2022-03-10] MEDS: BUSPIRONE 10 MG TABLET PO ×2 (07:23→17:14)
[2022-03-10] MEDS: VENLAFAXINE HCL 150 MG CAP.ER.24H PO (07:23)
[2022-03-10 10:17] VITALS: TEMP 36.5; O2SAT 96
[2022-03-10] MEDS: BUSPIRONE 10 MG TABLET 5 MG PO (11:18)
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
[2022-03-10 21:10] VITALS: TEMP 36.8; O2SAT 93
[2022-03-10 23:00] VITALS: TEMP 36.9; O2SAT 96
[2022-03-11] MEDS: ALPRAZolam 0.5 MG TABLET PO ×3 (07:36→19:21)
[2022-03-11] MEDS: LEVOTHYROXINE SODIUM 150 MCG TABLET PO (07:36)
[2022-03-11] MEDS: VENLAFAXINE HCL 150 MG CAP.ER.24H PO (07:36)
[2022-03-11] MEDS: BUSPIRONE 10 MG TABLET PO ×2 (07:36→17:04)
[2022-03-11] MEDS: NON-FORMULARY MEDICATION 1 EACH TOPICAL ×2 (07:36→19:21)
[2022-03-11] MEDS: SERTRALINE 100 MG TABLET 200 MG PO (07:36)
[2022-03-11] MEDS: ACETAMINOPHEN 500 MG TABLET 1000 MG PO ×3 (07:36→19:21)
[2022-03-11 10:05] VITALS: TEMP 36.6; O2SAT 95
[2022-03-11] MEDS: BUSPIRONE 10 MG TABLET 5 MG PO (11:26)
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
[2022-03-11 21:13] VITALS: TEMP 36.6; O2SAT 94
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
[2022-03-11 23:00] VITALS: TEMP 36.6; O2SAT 94
[2022-03-12] MEDS: LEVOTHYROXINE SODIUM 150 MCG TABLET PO (07:17)
[2022-03-12] MEDS: ALPRAZolam 0.5 MG TABLET PO ×3 (07:17→19:47)
[2022-03-12] MEDS: SERTRALINE 100 MG TABLET 200 MG PO (07:17)
[2022-03-12] MEDS: NON-FORMULARY MEDICATION 1 EACH TOPICAL ×2 (07:17→19:47)
[2022-03-12] MEDS: BUSPIRONE 10 MG TABLET PO ×2 (07:17→17:21)
[2022-03-12] MEDS: VENLAFAXINE HCL 150 MG CAP.ER.24H PO (07:17)
[2022-03-12] MEDS: ACETAMINOPHEN 500 MG TABLET 1000 MG PO ×3 (07:17→19:47)
[2022-03-12] MEDS: BUSPIRONE 10 MG TABLET 5 MG PO (12:25)
[2022-03-12 13:55] VITALS: TEMP 36.9; O2SAT 96
[2022-03-12 21:04] VITALS: TEMP 36.6; O2SAT 93
[2022-03-12] MEDS: TRAMADOL HCL 50 MG TABLET PO (22:16)
[2022-03-12 23:00] VITALS: TEMP 36.4; O2SAT 94
[2022-03-13 07:00] VITALS: BP 143/85; PULSE 92; RESP 18; TEMP 37; TEMP 37.1; O2SAT 94; BMI 33.9
[2022-03-13] MEDS: ACETAMINOPHEN 500 MG TABLET 1000 MG PO ×3 (07:23→19:22)
[2022-03-13] MEDS: LEVOTHYROXINE SODIUM 150 MCG TABLET PO (07:23)
[2022-03-13] MEDS: NON-FORMULARY MEDICATION 1 EACH TOPICAL ×2 (07:24→19:22)
[2022-03-13] MEDS: BUSPIRONE 10 MG TABLET PO ×2 (07:24→18:08)
[2022-03-13] MEDS: ALPRAZolam 0.5 MG TABLET PO ×3 (07:26→19:22)
[2022-03-13] MEDS: VENLAFAXINE HCL 150 MG CAP.ER.24H PO (07:30)
[2022-03-13] MEDS: SERTRALINE 100 MG TABLET 200 MG PO (07:30)
--- NOTE | 2022-03-13 09:42 | PC.NURSE ---
COVID OUTBREAK TESTING Residents family gave verbal consent for outbreak COVID testing. Resident is currently asymptomatic.? Resident/family will be notified only if resident is positive.
[2022-03-13 11:23] LABS: SARS PCR* Negative SARS-CoV-2 (Negative)
[2022-03-13] MEDS: BUSPIRONE 10 MG TABLET 5 MG PO (11:39)
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
[2022-03-13 15:00] VITALS: TEMP 37.1; O2SAT 94
[2022-03-14 03:42] VITALS: TEMP 36.9; O2SAT 95
[2022-03-14 07:00] VITALS: TEMP 36.6; O2SAT 93
[2022-03-14] MEDS: VENLAFAXINE HCL 150 MG CAP.ER.24H PO (07:34)
[2022-03-14] MEDS: SERTRALINE 100 MG TABLET 200 MG PO (07:34)
[2022-03-14] MEDS: LEVOTHYROXINE SODIUM 150 MCG TABLET PO (07:34)
[2022-03-14] MEDS: NON-FORMULARY MEDICATION 1 EACH TOPICAL ×2 (07:34→19:30)
[2022-03-14] MEDS: ALPRAZolam 0.5 MG TABLET PO ×3 (07:34→19:30)
[2022-03-14] MEDS: ACETAMINOPHEN 500 MG TABLET 1000 MG PO ×3 (07:34→19:30)
[2022-03-14] MEDS: BUSPIRONE 10 MG TABLET PO ×2 (07:34→19:30)
[2022-03-14] MEDS: BUSPIRONE 10 MG TABLET 5 MG PO (12:19)
[2022-03-14 21:34] VITALS: TEMP 36; O2SAT 95
[2022-03-15] MEDS: ACETAMINOPHEN 500 MG TABLET 1000 MG PO ×3 (07:17→19:12)
[2022-03-15] MEDS: NON-FORMULARY MEDICATION 1 EACH TOPICAL ×2 (07:17→19:12)
[2022-03-15] MEDS: BUSPIRONE 10 MG TABLET PO ×2 (07:17→17:42)
[2022-03-15] MEDS: LEVOTHYROXINE SODIUM 150 MCG TABLET PO (07:17)
[2022-03-15] MEDS: ALPRAZolam 0.5 MG TABLET PO ×3 (07:17→19:12)
[2022-03-15] MEDS: VENLAFAXINE HCL 150 MG CAP.ER.24H PO (07:17)
[2022-03-15] MEDS: SERTRALINE 100 MG TABLET 200 MG PO (07:17)
[2022-03-15 10:27] VITALS: TEMP 37; O2SAT 95
--- NOTE | 2022-03-15 11:48 | PC.SOCIAL ---
E-mailed resident's family member, Lita Gomez, and sent POLST form to be completed. Social Work will follow up as necessary.
[2022-03-15] MEDS: BUSPIRONE 10 MG TABLET 5 MG PO (12:10)
[2022-03-15 15:00] VITALS: TEMP 37; O2SAT 95
[2022-03-15 21:25] VITALS: TEMP 37; O2SAT 95
--- NOTE | 2022-03-16 00:30 | PC.NURSE ---
WEEKLY CHARTING- Week #1 Pain & ADL's:?Vital signs reviewed, no concerns at this time. Temporary/Comprehensive care plans reviewed - no changes made. Extensive assist with dressing, grooming, and bathing. Resident wears dentures which is managed by staff. Regular diet, easy to chew texture, small portions per her request. No chewing or swallowing difficulties noted or reported at this time. Pain: Has chronic back and knee pain which is managed with? Acetaminophen 1000mg TID, Aspercream w/Lidocaine BID to knees,? & Ultram 50mg Q6H PRN.
[2022-03-16] MEDS: NON-FORMULARY MEDICATION 1 EACH TOPICAL ×2 (07:22→19:46)
[2022-03-16] MEDS: LEVOTHYROXINE SODIUM 150 MCG TABLET PO (07:22)
[2022-03-16] MEDS: ALPRAZolam 0.5 MG TABLET PO ×3 (07:22→19:46)
[2022-03-16] MEDS: BUSPIRONE 10 MG TABLET PO ×2 (07:22→17:23)
[2022-03-16] MEDS: ACETAMINOPHEN 500 MG TABLET 1000 MG PO ×3 (07:22→19:46)
[2022-03-16] MEDS: VENLAFAXINE HCL 150 MG CAP.ER.24H PO (07:23)
[2022-03-16] MEDS: SERTRALINE 100 MG TABLET 200 MG PO (07:23)
[2022-03-16 10:02] VITALS: TEMP 36.7; O2SAT 94
[2022-03-16] MEDS: BUSPIRONE 10 MG TABLET 5 MG PO (12:54)
--- NOTE | 2022-03-16 18:38 | PC.NURSE ---
Week #1: Temporary care plan reviewed, no change. Care plan reviewed, no change. Pain summary: Resident has complained of pain seven times in the last month due to lower back pain or headache. Resident is on Tylenol 1000 mg TID, Aspercreme BID and, Ultram 50mg PO Q6H PRN resident has received Ultram PRN three times in the last month for back pain. Resident is one assist for ADLs due to cognitive deficit. Resident is independent in eating, will occasionally tell staff that she is not eating because she is upset but, will later have snacks before bed.
[2022-03-16 20:53] VITALS: TEMP 37.3; O2SAT 94
[2022-03-16 23:00] VITALS: TEMP 36.7; O2SAT 94
[2022-03-17 07:00] VITALS: TEMP 37.2; O2SAT 94
[2022-03-17] MEDS: LEVOTHYROXINE SODIUM 150 MCG TABLET PO (07:03)
[2022-03-17] MEDS: BUSPIRONE 10 MG TABLET PO ×2 (07:11→17:25)
[2022-03-17] MEDS: NON-FORMULARY MEDICATION 1 EACH TOPICAL ×2 (07:11→19:34)
[2022-03-17] MEDS: ACETAMINOPHEN 500 MG TABLET 1000 MG PO ×3 (07:11→19:34)
[2022-03-17] MEDS: ALPRAZolam 0.5 MG TABLET PO ×3 (07:11→19:34)
[2022-03-17] MEDS: SERTRALINE 100 MG TABLET 200 MG PO (07:12)
[2022-03-17] MEDS: VENLAFAXINE HCL 150 MG CAP.ER.24H PO (07:12)
[2022-03-17] MEDS: BUSPIRONE 10 MG TABLET 5 MG PO (12:18)
[2022-03-17 15:00] VITALS: TEMP 36.9; O2SAT 96
[2022-03-17 21:39] VITALS: TEMP 36.9; O2SAT 96
[2022-03-17 23:00] VITALS: TEMP 36.6; O2SAT 93
[2022-03-18 07:00] VITALS: TEMP 36.6; O2SAT 96
[2022-03-18] MEDS: ACETAMINOPHEN 500 MG TABLET 1000 MG PO ×3 (07:50→19:32)
[2022-03-18] MEDS: LEVOTHYROXINE SODIUM 150 MCG TABLET PO (07:50)
[2022-03-18] MEDS: NON-FORMULARY MEDICATION 1 EACH TOPICAL ×2 (07:51→19:32)
[2022-03-18] MEDS: ALPRAZolam 0.5 MG TABLET PO ×3 (07:51→19:32)
[2022-03-18] MEDS: BUSPIRONE 10 MG TABLET PO ×2 (07:51→17:31)
[2022-03-18] MEDS: SERTRALINE 100 MG TABLET 200 MG PO (07:51)
[2022-03-18] MEDS: VENLAFAXINE HCL 150 MG CAP.ER.24H PO (07:51)
[2022-03-18] MEDS: BUSPIRONE 10 MG TABLET 5 MG PO (11:36)
[2022-03-18 18:52] VITALS: TEMP 36.6; O2SAT 95
[2022-03-18 23:00] VITALS: TEMP 36.6; O2SAT 96
[2022-03-19 07:00] VITALS: TEMP 36.9; O2SAT 92
[2022-03-19] MEDS: LEVOTHYROXINE SODIUM 150 MCG TABLET PO (07:33)
[2022-03-19] MEDS: NON-FORMULARY MEDICATION 1 EACH TOPICAL ×2 (08:21→19:22)
[2022-03-19] MEDS: BUSPIRONE 10 MG TABLET PO ×2 (08:21→19:22)
[2022-03-19] MEDS: VENLAFAXINE HCL 150 MG CAP.ER.24H PO (08:21)
[2022-03-19] MEDS: SERTRALINE 100 MG TABLET 200 MG PO (08:21)
[2022-03-19] MEDS: ALPRAZolam 0.5 MG TABLET PO ×3 (08:21→19:22)
[2022-03-19] MEDS: ACETAMINOPHEN 500 MG TABLET 1000 MG PO ×3 (08:21→19:22)
[2022-03-19] MEDS: BUSPIRONE 10 MG TABLET 5 MG PO (12:39)
[2022-03-19 21:56] VITALS: TEMP 36.6; O2SAT 97
[2022-03-19 23:00] VITALS: TEMP 36.6; O2SAT 94
[2022-03-20] MEDS: ALPRAZolam 0.5 MG TABLET PO ×3 (07:26→19:32)
[2022-03-20] MEDS: ACETAMINOPHEN 500 MG TABLET 1000 MG PO ×3 (07:26→19:32)
[2022-03-20] MEDS: BUSPIRONE 10 MG TABLET PO ×2 (07:26→17:37)
[2022-03-20] MEDS: SERTRALINE 100 MG TABLET 200 MG PO (07:26)
[2022-03-20] MEDS: VENLAFAXINE HCL 150 MG CAP.ER.24H PO (07:26)
[2022-03-20] MEDS: LEVOTHYROXINE SODIUM 150 MCG TABLET PO (07:26)
[2022-03-20] MEDS: NON-FORMULARY MEDICATION 1 EACH TOPICAL ×2 (07:26→19:32)
[2022-03-20 10:13] VITALS: BP 129/85; PULSE 78; RESP 18; TEMP 36.6; O2SAT 93; BMI 33.6
[2022-03-20 11:42] LABS: SARS PCR* Negative SARS-CoV-2 (Negative)
[2022-03-20] MEDS: BUSPIRONE 10 MG TABLET 5 MG PO (12:11)
--- NOTE | 2022-03-20 14:04 | PC.NURSE ---
COVID OUTBREAK TESTING Resident gave verbal consent for outbreak COVID testing. Resident is currently asymptomatic.? Resident/family will be notified only if resident is positive.
[2022-03-20 15:00] VITALS: TEMP 36.5; O2SAT 98
[2022-03-20 23:00] VITALS: TEMP 36.4; O2SAT 94
[2022-03-21] MEDS: LEVOTHYROXINE SODIUM 150 MCG TABLET PO (06:42)
[2022-03-21] MEDS: NON-FORMULARY MEDICATION 1 EACH TOPICAL ×2 (07:41→19:30)
[2022-03-21] MEDS: BUSPIRONE 10 MG TABLET PO ×2 (07:41→17:18)
[2022-03-21] MEDS: ACETAMINOPHEN 500 MG TABLET 1000 MG PO ×3 (07:41→19:30)
[2022-03-21] MEDS: VENLAFAXINE HCL 150 MG CAP.ER.24H PO (07:41)
[2022-03-21] MEDS: SERTRALINE 100 MG TABLET 200 MG PO (07:41)
[2022-03-21] MEDS: ALPRAZolam 0.5 MG TABLET PO ×3 (07:41→19:30)
[2022-03-21 10:03] VITALS: TEMP 37.2; O2SAT 95
[2022-03-21] MEDS: BUSPIRONE 10 MG TABLET 5 MG PO (11:22)
[2022-03-21 16:52] VITALS: TEMP 36.6; O2SAT 94
[2022-03-21 23:00] VITALS: TEMP 36.8; O2SAT 93
[2022-03-22] MEDS: LEVOTHYROXINE SODIUM 150 MCG TABLET PO (06:24)
[2022-03-22] MEDS: VENLAFAXINE HCL 150 MG CAP.ER.24H PO (07:14)
[2022-03-22] MEDS: NON-FORMULARY MEDICATION 1 EACH TOPICAL ×2 (07:14→19:21)
[2022-03-22] MEDS: SERTRALINE 100 MG TABLET 200 MG PO (07:14)
[2022-03-22] MEDS: ALPRAZolam 0.5 MG TABLET PO ×3 (07:14→19:20)
[2022-03-22] MEDS: ACETAMINOPHEN 500 MG TABLET 1000 MG PO ×3 (07:14→19:20)
[2022-03-22] MEDS: BUSPIRONE 10 MG TABLET PO ×2 (07:14→17:33)
[2022-03-22 09:33] VITALS: TEMP 37.1; O2SAT 96
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
[2022-03-22] MEDS: BUSPIRONE 10 MG TABLET 5 MG PO (11:06)
--- NOTE | 2022-03-22 12:04 | PC.PHA1 ---
LITHARGE MILL OPERATOR PHARMACIST'S MEDICATION REVIEW: MEDICATION MONITORING:Sertraline 200 mg daily, Venlafaxine 150 mg daily, Buspirone 25 mg daily total and Alprazolam 0.5 mg tid continue for history of NASREEN IRREGULARITY OR COMMENTS:Per nursing note review patient continues to struggle with anxiety, attention seeking behaviors and perseverating that items are being taken from her room. Staff continue to graciously redirect and help her find missing items. Buspirone GDR continues. GDR of other above listed medications clinically contraindicated at this time due to continued behaviors, it would be interesting and possibly beneficial to involve psychiatry but patient refuses such help. Pain medication regimen continues, patient has needed prn tramadol minimally. SUGGESTED COURSE OF ACTION TAKEN:No medication concerns or recommendations.
[2022-03-22 15:00] VITALS: TEMP 36.8; O2SAT 95
[2022-03-22 23:00] VITALS: TEMP 36.8; O2SAT 94
--- NOTE | 2022-03-23 02:25 | PC.NURSE ---
WEEKLY CHARTING - WEEK 2: Vital signs reviewed - some elevated BP values. Reviewed by FELT TIPPING MACHINE TENDER- continue to monitor weekly per facility policy. Temporary and comprehensive care plan reviewed - no change. Independent with transfers/ambulation using 4WW. Staff assist PRN. Independent with bed mobility. No w.c use at this time. Per fall risk assessment, resident is at high risk for falls. Fall interventions: gripper socks, bed in low position with brakes locked, walker at bedside, call light in reach, falling star magnet, keep area free of clutter, and hourly safety checks.
[2022-03-23] MEDS: LEVOTHYROXINE SODIUM 150 MCG TABLET PO (06:28)
--- NOTE | 2022-03-23 07:02 | PC.NURSE ---
Week #2 - Mobility: Comprehensive care plan reviewed, no changes made. Nothing added to temporary care plan. Resident is independent with transfers/ambulation using a 4ww. No w/c use at this time.? Is able to reposition self in bed/chair.? No alarms.. Vital signs reviewed, occasional elevated BP. Noted by GARMENT WORKER. Continue VS monitoring weekly. Fall: No falls the past month. Remains a high fall risk according to assessment done on 01/26/23. Fall intervention: gripper socks, bed in low position with brakes locked, call light within reach, walker at bedside, keep area free of clutters, hourly safety checks.
[2022-03-23] MEDS: ALPRAZolam 0.5 MG TABLET PO ×3 (07:08→19:08)
[2022-03-23] MEDS: ACETAMINOPHEN 500 MG TABLET 1000 MG PO ×3 (07:08→19:08)
[2022-03-23] MEDS: BUSPIRONE 10 MG TABLET PO ×2 (07:08→19:08)
[2022-03-23] MEDS: NON-FORMULARY MEDICATION 1 EACH TOPICAL ×2 (07:09→19:08)
[2022-03-23] MEDS: SERTRALINE 100 MG TABLET 200 MG PO (07:09)
[2022-03-23] MEDS: VENLAFAXINE HCL 150 MG CAP.ER.24H PO (07:09)
[2022-03-23 09:05] VITALS: TEMP 36.5; O2SAT 98
--- NOTE | 2022-03-23 09:35 | PC.SPIRITC ---
I provided visit for connection.
[2022-03-23] MEDS: BUSPIRONE 10 MG TABLET 5 MG PO (11:00)
[2022-03-23 16:44] VITALS: TEMP 36.6; O2SAT 98
[2022-03-23 23:00] VITALS: TEMP 36.7; O2SAT 96
[2022-03-24] MEDS: LEVOTHYROXINE SODIUM 150 MCG TABLET PO (06:37)
[2022-03-24] MEDS: VENLAFAXINE HCL 150 MG CAP.ER.24H PO (07:38)
[2022-03-24] MEDS: ACETAMINOPHEN 500 MG TABLET 1000 MG PO ×3 (07:38→19:47)
[2022-03-24] MEDS: NON-FORMULARY MEDICATION 1 EACH TOPICAL ×2 (07:38→19:47)
[2022-03-24] MEDS: SERTRALINE 100 MG TABLET 200 MG PO (07:38)
[2022-03-24] MEDS: BUSPIRONE 10 MG TABLET PO ×2 (07:38→17:20)
[2022-03-24] MEDS: ALPRAZolam 0.5 MG TABLET PO ×3 (07:38→19:47)
[2022-03-24 10:13] VITALS: TEMP 36.4; O2SAT 96
[2022-03-24] MEDS: BUSPIRONE 10 MG TABLET 5 MG PO (11:08)
[2022-03-24 20:20] VITALS: TEMP 36.9; O2SAT 93
--- NOTE | 2022-03-24 21:33 | PC.NURSE ---
Behaviors: Resident staff seeking this shift and various requests for xanax, including immediately after it had been administered. C/o a movie and gold calendar missing, even after it was reported to this headline writer that both were found, they now seem to be missing again. Reassurance given that they are likely in her room and we will continue to look for items.
--- NOTE | 2022-03-24 21:35 | PC.NURSE ---
Resident reported to property underwriter and another nurse while in the dining room at evening meal that she had blood while in the bathroom. Co Founder And Ceo attempted to clarify location, how much, description, origin. Resident unable to articulate. Re-approached later to ascertain more details. Inquired if she saw blood in toilet or while wiping, if she thought it was from her rectum, vagina, or scratches. Resident unable to articulate, just kept saying, I'm not sure. I can't remember Attempted to assist resident to bathroom and she refused. Will pass on in report to monitor for further incidences. Resident reminded to call when in bathroom next, especially if she sees more blood.
[2022-03-24 23:00] VITALS: TEMP 36.4; O2SAT 96
[2022-03-25] MEDS: LEVOTHYROXINE SODIUM 150 MCG TABLET PO (06:47)
[2022-03-25] MEDS: BUSPIRONE 10 MG TABLET PO ×2 (07:28→18:35)
[2022-03-25] MEDS: ALPRAZolam 0.5 MG TABLET PO ×3 (07:28→20:09)
[2022-03-25] MEDS: ACETAMINOPHEN 500 MG TABLET 1000 MG PO ×3 (07:28→20:08)
[2022-03-25] MEDS: VENLAFAXINE HCL 150 MG CAP.ER.24H PO (07:29)
[2022-03-25] MEDS: NON-FORMULARY MEDICATION 1 EACH TOPICAL ×2 (07:29→20:09)
[2022-03-25] MEDS: SERTRALINE 100 MG TABLET 200 MG PO (07:29)
[2022-03-25 09:25] VITALS: TEMP 37; O2SAT 96
[2022-03-25] MEDS: BUSPIRONE 10 MG TABLET 5 MG PO (11:42)
[2022-03-25 15:39] VITALS: TEMP 36.9; O2SAT 95
--- NOTE | 2022-03-25 20:46 | PC.NURSE ---
Hallucinations: Resident approached junior copywriter in the hallway to inquire about the red light in her room. Stated it was giving her anxiety and she needed junior copywriter to come assess. Upon entering room, junior copywriter saw no red light anywhere and further inquired about where it was seen. Resident stated it was on the red fire alarm that is directly above her TV. When junior copywriter stated there was currently no red light, resident seemed to calm and expressed her gratitude. Aluminum Welder left the room and resident used call light twice in the next 10 minutes to again report the red light. Aluminum Welder again saw no light, and attempted to ascertain that maybe there was a reflection being seen but was not able to recreate any sort of red light to my eye. Reassurance given, resident seemed hesitant but stated she felt ok enough to go to bed.
[2022-03-25 23:00] VITALS: TEMP 36.7; O2SAT 94
[2022-03-26] MEDS: NON-FORMULARY MEDICATION 1 EACH TOPICAL ×2 (07:18→19:18)
[2022-03-26] MEDS: LEVOTHYROXINE SODIUM 150 MCG TABLET PO (07:18)
[2022-03-26] MEDS: ALPRAZolam 0.5 MG TABLET PO ×3 (07:18→19:18)
[2022-03-26] MEDS: BUSPIRONE 10 MG TABLET PO ×2 (07:18→17:17)
[2022-03-26] MEDS: ACETAMINOPHEN 500 MG TABLET 1000 MG PO ×3 (07:18→19:18)
[2022-03-26] MEDS: VENLAFAXINE HCL 150 MG CAP.ER.24H PO (07:18)
[2022-03-26] MEDS: SERTRALINE 100 MG TABLET 200 MG PO (07:18)
[2022-03-26 09:47] VITALS: TEMP 36.8; O2SAT 96
[2022-03-26] MEDS: BUSPIRONE 10 MG TABLET 5 MG PO (11:13)
[2022-03-26 16:07] VITALS: TEMP 36.7; O2SAT 96
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
[2022-03-26 23:00] VITALS: TEMP 35.9; O2SAT 93
[2022-03-27] MEDS: LEVOTHYROXINE SODIUM 150 MCG TABLET PO (06:32)
[2022-03-27] MEDS: ACETAMINOPHEN 500 MG TABLET 1000 MG PO ×3 (07:06→19:23)
[2022-03-27] MEDS: BUSPIRONE 10 MG TABLET PO ×2 (07:06→17:35)
[2022-03-27] MEDS: ALPRAZolam 0.5 MG TABLET PO ×3 (07:06→19:24)
[2022-03-27] MEDS: SERTRALINE 100 MG TABLET 200 MG PO (07:06)
[2022-03-27] MEDS: VENLAFAXINE HCL 150 MG CAP.ER.24H PO (07:06)
[2022-03-27] MEDS: NON-FORMULARY MEDICATION 1 EACH TOPICAL ×2 (07:06→19:24)
[2022-03-27 09:34] VITALS: BP 142/75; PULSE 78; RESP 20; TEMP 36.3; O2SAT 96; BMI 32.3
--- NOTE | 2022-03-27 11:09 | PC.NURSE ---
COVID OUTBREAK TESTING Resident gave verbal consent for outbreak COVID testing. Resident is currently asymptomatic.? Resident/family will be notified only if resident is positive.
[2022-03-27] MEDS: BUSPIRONE 10 MG TABLET 5 MG PO (11:24)
[2022-03-27 12:11] LABS: SARS PCR* Negative SARS-CoV-2 (Negative)
[2022-03-27 16:57] VITALS: TEMP 36.4; O2SAT 95
[2022-03-27 23:00] VITALS: TEMP 36.4; O2SAT 91
[2022-03-28] MEDS: LEVOTHYROXINE SODIUM 150 MCG TABLET PO (06:52)
[2022-03-28] MEDS: NON-FORMULARY MEDICATION 1 EACH TOPICAL ×2 (07:32→19:49)
[2022-03-28] MEDS: SERTRALINE 100 MG TABLET 200 MG PO (07:32)
[2022-03-28] MEDS: ALPRAZolam 0.5 MG TABLET PO ×3 (07:32→19:49)
[2022-03-28] MEDS: ACETAMINOPHEN 500 MG TABLET 1000 MG PO ×3 (07:32→19:49)
[2022-03-28] MEDS: BUSPIRONE 10 MG TABLET PO ×2 (07:32→19:49)
[2022-03-28] MEDS: VENLAFAXINE HCL 150 MG CAP.ER.24H PO (07:32)
--- NOTE | 2022-03-28 10:04 | PC.SPIRITC ---
I provided visit for support, wish Kelli a happy birthday, and talk about traditions when she was younger.
[2022-03-28] MEDS: BUSPIRONE 10 MG TABLET 5 MG PO (11:38)
[2022-03-28 12:58] VITALS: TEMP 36.6; O2SAT 95
[2022-03-28 21:16] VITALS: TEMP 37.4; O2SAT 95
[2022-03-28 23:00] VITALS: TEMP 36.6; O2SAT 95
[2022-03-29] MEDS: SERTRALINE 100 MG TABLET 200 MG PO (07:00)
[2022-03-29] MEDS: BUSPIRONE 10 MG TABLET PO ×2 (07:00→17:20)
[2022-03-29] MEDS: ALPRAZolam 0.5 MG TABLET PO ×3 (07:00→19:08)
[2022-03-29] MEDS: VENLAFAXINE HCL 150 MG CAP.ER.24H PO (07:00)
[2022-03-29] MEDS: LEVOTHYROXINE SODIUM 150 MCG TABLET PO (07:00)
[2022-03-29] MEDS: ACETAMINOPHEN 500 MG TABLET 1000 MG PO ×3 (07:00→19:08)
[2022-03-29] MEDS: NON-FORMULARY MEDICATION 1 EACH TOPICAL ×2 (07:00→19:08)
[2022-03-29 09:02] VITALS: TEMP 36.8; O2SAT 96
[2022-03-29] MEDS: BUSPIRONE 10 MG TABLET 5 MG PO (11:55)
[2022-03-29 15:00] VITALS: TEMP 36.8; O2SAT 94
[2022-03-29 23:40] VITALS: TEMP 36.6; O2SAT 96
--- NOTE | 2022-03-30 01:34 | PC.NURSE ---
Week #3-Toileting: Comprehensive care plan reviewed, no changes made. Nothing added to temporary care plan. Resident has frequent urinary incontinence with some control. Is usually continent of BM's, has occasional incontinence. Resident is independent with toileting including pads, rashad cares and clothing management. Wears pull ups with maxi? pad per request. Will call for assist as needed. Staff stock room with pads. Transfers/ambulates to the toilet with a walker. Vital signs reviewed, occasional elevated BP's noted by LIVESTOCK BRANDS INSPECTOR. Skin: No issues at this time. Skin is routinely checked on bath day. Resident does report with concerns.
--- NOTE | 2022-03-30 02:06 | PC.NURSE ---
WEEKLY CHARTING Week #3-Toileting: Review vital signs. Comprehensive care plan reviewed, no changes made to the temporary care plan. Resident is incontinence of urine and wets her brief very frequently. She usually wears a pad in between her pullup to prevent wetting her pants.She is continent of bowel movement and able to go to the toilet with staff assist .At night she most of the time wets her bed. Resident is assist with toileting including pads, rashad cares and clothing management. Will call for assist as needed. Staff stock room with pads. Transfers/ambulates to the toilet with a walker. Skin has no issues at this time and is is routinely checked on bath day.
[2022-03-30] MEDS: ALPRAZolam 0.5 MG TABLET PO ×3 (07:07→19:01)
[2022-03-30] MEDS: BUSPIRONE 10 MG TABLET PO ×2 (07:07→17:09)
[2022-03-30] MEDS: VENLAFAXINE HCL 150 MG CAP.ER.24H PO (07:07)
[2022-03-30] MEDS: SERTRALINE 100 MG TABLET 200 MG PO (07:07)
[2022-03-30] MEDS: ACETAMINOPHEN 500 MG TABLET 1000 MG PO ×3 (07:07→19:01)
[2022-03-30] MEDS: LEVOTHYROXINE SODIUM 150 MCG TABLET PO (07:07)
[2022-03-30] MEDS: NON-FORMULARY MEDICATION 1 EACH TOPICAL ×2 (07:07→19:01)
[2022-03-30 10:58] VITALS: TEMP 37.2; O2SAT 97
[2022-03-30] MEDS: BUSPIRONE 10 MG TABLET 5 MG PO (12:25)
[2022-03-30 21:11] VITALS: TEMP 37.2; O2SAT 97
--- NOTE | 2022-03-30 21:43 | PC.NURSE ---
Behaviors: Resident approached information writer and other staff multiple times this shift to again report missing calendar and accusing staff of theft. Reassurance repeatedly given. Resident then threatening to intentionally fall in front of staff r/t not getting adequate attention. Resident redirected.
[2022-03-30 23:00] VITALS: TEMP 36.3; O2SAT 95
[2022-03-31] MEDS: ACETAMINOPHEN 500 MG TABLET 1000 MG PO ×3 (07:17→19:33)
[2022-03-31] MEDS: LEVOTHYROXINE SODIUM 150 MCG TABLET PO (07:17)
[2022-03-31] MEDS: BUSPIRONE 10 MG TABLET PO ×2 (07:18→17:03)
[2022-03-31] MEDS: SERTRALINE 100 MG TABLET 200 MG PO (07:18)
[2022-03-31] MEDS: NON-FORMULARY MEDICATION 1 EACH TOPICAL ×2 (07:18→19:33)
[2022-03-31] MEDS: VENLAFAXINE HCL 150 MG CAP.ER.24H PO (07:18)
[2022-03-31] MEDS: ALPRAZolam 0.5 MG TABLET PO ×3 (07:19→19:33)
[2022-03-31 10:39] VITALS: TEMP 36.9; O2SAT 95
[2022-03-31] MEDS: BUSPIRONE 10 MG TABLET 5 MG PO (12:19)
[2022-03-31 21:57] VITALS: TEMP 36.8; O2SAT 94
[2022-04-01 01:04] VITALS: TEMP 37.2; O2SAT 91
[2022-04-01 07:00] VITALS: TEMP 36.8; O2SAT 95
[2022-04-01] MEDS: ALPRAZolam 0.5 MG TABLET PO ×3 (07:39→19:36)
[2022-04-01] MEDS: ACETAMINOPHEN 500 MG TABLET 1000 MG PO ×3 (07:39→19:36)
[2022-04-01] MEDS: VENLAFAXINE HCL 150 MG CAP.ER.24H PO (07:39)
[2022-04-01] MEDS: BUSPIRONE 10 MG TABLET PO ×2 (07:39→17:11)
[2022-04-01] MEDS: SERTRALINE 100 MG TABLET 200 MG PO (07:39)
[2022-04-01] MEDS: LEVOTHYROXINE SODIUM 150 MCG TABLET PO (07:39)
[2022-04-01] MEDS: NON-FORMULARY MEDICATION 1 EACH TOPICAL ×2 (07:39→19:36)
[2022-04-01] MEDS: BUSPIRONE 10 MG TABLET 5 MG PO (12:01)
[2022-04-01 18:23] VITALS: TEMP 36.4; O2SAT 95
[2022-04-02 00:11] VITALS: TEMP 36.7; O2SAT 91
[2022-04-02 07:00] VITALS: TEMP 36.7; O2SAT 94
[2022-04-02] MEDS: VENLAFAXINE HCL 150 MG CAP.ER.24H PO (07:42)
[2022-04-02] MEDS: NON-FORMULARY MEDICATION 1 EACH TOPICAL ×2 (07:42→19:50)
[2022-04-02] MEDS: ALPRAZolam 0.5 MG TABLET PO ×3 (07:42→19:50)
[2022-04-02] MEDS: ACETAMINOPHEN 500 MG TABLET 1000 MG PO ×3 (07:42→19:49)
[2022-04-02] MEDS: LEVOTHYROXINE SODIUM 150 MCG TABLET PO (07:42)
[2022-04-02] MEDS: SERTRALINE 100 MG TABLET 200 MG PO (07:42)
[2022-04-02] MEDS: BUSPIRONE 10 MG TABLET PO ×2 (07:42→19:49)
[2022-04-02] MEDS: BUSPIRONE 10 MG TABLET 5 MG PO (12:07)
[2022-04-02 21:30] VITALS: TEMP 37.1; O2SAT 95
[2022-04-02 23:00] VITALS: TEMP 36.6; O2SAT 92
[2022-04-03 07:00] VITALS: BMI 34.2
[2022-04-03] MEDS: LEVOTHYROXINE SODIUM 150 MCG TABLET PO (07:33)
[2022-04-03] MEDS: ACETAMINOPHEN 500 MG TABLET 1000 MG PO ×3 (07:34→19:25)
[2022-04-03] MEDS: VENLAFAXINE HCL 150 MG CAP.ER.24H PO (07:35)
[2022-04-03] MEDS: BUSPIRONE 10 MG TABLET PO ×2 (07:35→18:00)
[2022-04-03] MEDS: ALPRAZolam 0.5 MG TABLET PO ×3 (07:35→19:25)
[2022-04-03] MEDS: NON-FORMULARY MEDICATION 1 EACH TOPICAL ×2 (07:35→19:25)
[2022-04-03] MEDS: SERTRALINE 100 MG TABLET 200 MG PO (07:35)
[2022-04-03 10:47] VITALS: TEMP 36.7; O2SAT 94
[2022-04-03 10:48] VITALS: BP 141/85; PULSE 99; RESP 18; TEMP 36.7; O2SAT 94
[2022-04-03] MEDS: BUSPIRONE 10 MG TABLET 5 MG PO (11:43)
--- NOTE | 2022-04-03 11:48 | PC.NURSE ---
COVID OUTBREAK TESTING Resident gave verbal consent for outbreak COVID testing. Resident is currently asymptomatic.? Resident/family will be notified only if resident is positive.
[2022-04-03 13:15] LABS: SARS PCR* Negative SARS-CoV-2 (Negative)
[2022-04-03 13:53] VITALS: BMI 34.2
[2022-04-03 15:00] VITALS: TEMP 37; O2SAT 97
[2022-04-03 23:00] VITALS: TEMP 36.7; O2SAT 94
[2022-04-04] MEDS: ACETAMINOPHEN 500 MG TABLET 1000 MG PO ×3 (07:10→19:57)
[2022-04-04] MEDS: LEVOTHYROXINE SODIUM 150 MCG TABLET PO (07:10)
[2022-04-04] MEDS: NON-FORMULARY MEDICATION 1 EACH TOPICAL ×2 (07:11→19:58)
[2022-04-04] MEDS: ALPRAZolam 0.5 MG TABLET PO ×3 (07:11→19:57)
[2022-04-04] MEDS: VENLAFAXINE HCL 150 MG CAP.ER.24H PO (07:11)
[2022-04-04] MEDS: BUSPIRONE 10 MG TABLET PO ×2 (07:11→19:57)
[2022-04-04] MEDS: SERTRALINE 100 MG TABLET 200 MG PO (07:11)
[2022-04-04 10:17] VITALS: TEMP 36.7; O2SAT 98
--- NOTE | 2022-04-04 11:20 | PC.NURSE ---
Falling Star on Doorway: Resident does not like the falling star placed on the door. It has become a paranoia. She continues to ask staff to take it down. Falling star removed from doorway 04/04/22. Resident does remain a fall risk patient.
[2022-04-04] MEDS: BUSPIRONE 10 MG TABLET 5 MG PO (12:37)
[2022-04-04 21:46] VITALS: TEMP 36.8; O2SAT 95
[2022-04-04 23:00] VITALS: TEMP 36.8; O2SAT 94
[2022-04-05] MEDS: LEVOTHYROXINE SODIUM 150 MCG TABLET PO (07:36)
[2022-04-05] MEDS: ALPRAZolam 0.5 MG TABLET PO ×3 (07:59→19:04)
[2022-04-05] MEDS: ACETAMINOPHEN 500 MG TABLET 1000 MG PO ×3 (07:59→19:03)
[2022-04-05] MEDS: BUSPIRONE 10 MG TABLET PO ×2 (07:59→17:42)
[2022-04-05] MEDS: NON-FORMULARY MEDICATION 1 EACH TOPICAL ×2 (07:59→19:04)
[2022-04-05] MEDS: SERTRALINE 100 MG TABLET 200 MG PO (08:00)
[2022-04-05] MEDS: VENLAFAXINE HCL 150 MG CAP.ER.24H PO (08:00)
[2022-04-05 10:23] VITALS: TEMP 36.8; O2SAT 93
[2022-04-05] MEDS: BUSPIRONE 10 MG TABLET 5 MG PO (11:47)
[2022-04-05 14:56] VITALS: BMI 34.2
[2022-04-05 15:00] VITALS: TEMP 36.6; O2SAT 97
--- NOTE | 2022-04-05 15:00 | PC.NURSE ---
Paranoid thoughts: Resident has begun to believe that another resident has taken what she is stating as binoculars. She is leaving the activity multiple times and coming to the nurses desk stating Annabelle took my binoculars. She was sitting by me and the binoculars are gone. Reassurance given to resident that the other resident was not around her or her belongings. Resident quickly left the nurses station and was mumbling angirly while going back to her room. Nursing to continue to monitor these type of thoughts resident is having. JUNIOR ENGINEER updated on board for recommendations.
[2022-04-05 23:00] VITALS: TEMP 36.9; O2SAT 94
--- NOTE | 2022-04-06 03:13 | PC.NURSE ---
WEEKLY CHARTING - WEEK 4: Vital signs reviewed- no concerns. Temporary and comprehensive care plan reviewed - no change. Three documented behaviors in the last month. Receives sertraline 200mg daily, venlafaxine 150mg daily, alprazolam 0.5mg TID, and buspirone 10mg BID & 5mg daily at noon with no noted adverse effects. Mood, behavior, and sleep pattern unchanged. Able to communicate needs. Moderate cognitive deficit. No hearing or visual impairment. All medications administered by a licensed nurse. Health stable at this time.
[2022-04-06] MEDS: LEVOTHYROXINE SODIUM 150 MCG TABLET PO (07:12)
[2022-04-06] MEDS: ACETAMINOPHEN 500 MG TABLET 1000 MG PO ×3 (07:36→19:23)
[2022-04-06] MEDS: NON-FORMULARY MEDICATION 1 EACH TOPICAL ×2 (07:36→19:45)
[2022-04-06] MEDS: SERTRALINE 100 MG TABLET 200 MG PO (07:36)
[2022-04-06] MEDS: VENLAFAXINE HCL 150 MG CAP.ER.24H PO (07:36)
[2022-04-06] MEDS: BUSPIRONE 10 MG TABLET PO ×2 (07:36→17:19)
[2022-04-06] MEDS: ALPRAZolam 0.5 MG TABLET PO ×3 (07:36→19:23)
[2022-04-06 10:27] VITALS: TEMP 36.7; O2SAT 95
[2022-04-06] MEDS: BUSPIRONE 10 MG TABLET 5 MG PO (11:56)
--- NOTE | 2022-04-06 12:27 | PC.NURSE ---
Week #4: Comprehensive & temporary care plan reviewed, no changes made. Nothing added to temporary care plan. No changes noted in communication, hearing, vision, or orientation. She does make her needs known. No vision or hearing problems. 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 Needs reminders and cues. Chronic health condition stable. Vital signs reviewed,no concerns. Nurse administers all medications. Mood/Behavior:Continues on Buspar 10 mg @ 08,18, Xanax 0.5mg TID, Effexor 150mg daily, Zoloft 200 mg daily with no adverse effects noted. 01/03/22 noon buspar decreased. Resident continues with intermittent paranoid thoughts accusing staff of taking her personal belongings.
[2022-04-06 22:01] VITALS: TEMP 36.6; O2SAT 94
[2022-04-06 23:00] VITALS: TEMP 36.6; O2SAT 93
--- NOTE | 2022-04-07 06:37 | PC.NURSE ---
Behavior: At the beginning of the machinist 2nd shift, resident was repeatedly requesting PRN Xanax. Tilting Saw Operator explained that she does not have a PRN order and that she is in a safe environment and nothing bad is going to happen. Resident would verbalize acceptance and understanding then call again a short time later. At one point resident stated I think I'm gonna have chest pain. I think I'm going to need to go to upstairs. Tilting Saw Operator provided reassurance. Resident then requested a can of Sprite and has slept soundly the remainder of the night.
[2022-04-07 07:00] VITALS: TEMP 36.6; O2SAT 93
[2022-04-07] MEDS: LEVOTHYROXINE SODIUM 150 MCG TABLET PO (07:08)
[2022-04-07] MEDS: ALPRAZolam 0.5 MG TABLET PO ×3 (07:18→19:22)
[2022-04-07] MEDS: ACETAMINOPHEN 500 MG TABLET 1000 MG PO ×3 (07:18→19:22)
[2022-04-07] MEDS: BUSPIRONE 10 MG TABLET PO ×2 (07:18→19:21)
[2022-04-07] MEDS: NON-FORMULARY MEDICATION 1 EACH TOPICAL ×2 (07:19→19:22)
[2022-04-07] MEDS: SERTRALINE 100 MG TABLET 200 MG PO (07:19)
[2022-04-07] MEDS: VENLAFAXINE HCL 150 MG CAP.ER.24H PO (07:19)
[2022-04-07] MEDS: BUSPIRONE 10 MG TABLET 5 MG PO (11:36)
[2022-04-07 21:19] VITALS: TEMP 36.7; O2SAT 94
--- NOTE | 2022-04-07 21:41 | PC.NURSE ---
Behaviors: Resident behaviors exhibited include staff seeking, crying, accusing staff of stealing belongings, frequent call light use. Staff able to redirect which provided small improvement throughout shift.
[2022-04-07 23:00] VITALS: TEMP 36.4; O2SAT 95
[2022-04-08] MEDS: ACETAMINOPHEN 500 MG TABLET 1000 MG PO ×3 (07:25→19:16)
[2022-04-08] MEDS: LEVOTHYROXINE SODIUM 150 MCG TABLET PO (07:25)
[2022-04-08] MEDS: NON-FORMULARY MEDICATION 1 EACH TOPICAL ×2 (07:25→19:16)
[2022-04-08] MEDS: BUSPIRONE 10 MG TABLET PO ×2 (07:25→18:34)
[2022-04-08] MEDS: ALPRAZolam 0.5 MG TABLET PO ×3 (07:25→19:16)
[2022-04-08] MEDS: VENLAFAXINE HCL 150 MG CAP.ER.24H PO (07:27)
[2022-04-08] MEDS: SERTRALINE 100 MG TABLET 200 MG PO (07:27)
[2022-04-08 11:05] VITALS: TEMP 36.7; O2SAT 94
[2022-04-08] MEDS: BUSPIRONE 10 MG TABLET 5 MG PO (11:34)
[2022-04-08 16:39] VITALS: TEMP 36.9; O2SAT 97
--- NOTE | 2022-04-08 21:37 | PC.NURSE ---
Behaviors: Resident accusing staff of stealing her personal items, seeking specific staff attention. pretending to sleep and be unarousable for evening meal followed by speaking to service writer advisor, who attempted to wake her, about specific attempts to wake her, further confirming she was not actually asleep. Frequent requests for PRN xanax. reassurance consistently given. somewhat improved.
[2022-04-08 23:00] VITALS: TEMP 36.6; O2SAT 93
[2022-04-09] MEDS: LEVOTHYROXINE SODIUM 150 MCG TABLET PO (07:23)
[2022-04-09] MEDS: NON-FORMULARY MEDICATION 1 EACH TOPICAL ×2 (07:23→19:18)
[2022-04-09] MEDS: VENLAFAXINE HCL 150 MG CAP.ER.24H PO (07:23)
[2022-04-09] MEDS: ACETAMINOPHEN 500 MG TABLET 1000 MG PO ×3 (07:23→19:18)
[2022-04-09] MEDS: BUSPIRONE 10 MG TABLET PO ×2 (07:23→17:25)
[2022-04-09] MEDS: ALPRAZolam 0.5 MG TABLET PO ×3 (07:23→19:18)
[2022-04-09] MEDS: SERTRALINE 100 MG TABLET 200 MG PO (07:23)
[2022-04-09 09:52] VITALS: TEMP 36.8; O2SAT 94
[2022-04-09] MEDS: BUSPIRONE 10 MG TABLET 5 MG PO (11:29)
--- NOTE | 2022-04-09 13:05 | PC.NURSE ---
Wound Care: Resident has a abrasion measuring 4X3 on her left side outer buttock. Resident inform that she stretch however it does not look like stretch caternia. Lotion was applied.Noted in the LOG DATA TECHNICIAN book for further management.
[2022-04-09 16:25] VITALS: TEMP 36.9; O2SAT 98
--- NOTE | 2022-04-09 17:12 | PC.NURSE ---
Behaviors: Resident seeking staff attention by attempting to fall at nurse's desk. I'm having a bad day. I'm not strong enough. Encouragement given, resident ambulated back to her room without incident.
[2022-04-09 21:40] VITALS: TEMP 36.5; O2SAT 96
[2022-04-10 07:00] VITALS: BP 138/83; PULSE 94; RESP 18; TEMP 37.1; O2SAT 94; BMI 34.1
[2022-04-10] MEDS: BUSPIRONE 10 MG TABLET PO ×2 (07:30→17:44)
[2022-04-10] MEDS: ACETAMINOPHEN 500 MG TABLET 1000 MG PO ×3 (07:30→19:13)
[2022-04-10] MEDS: NON-FORMULARY MEDICATION 1 EACH TOPICAL ×2 (07:30→19:13)
[2022-04-10] MEDS: VENLAFAXINE HCL 150 MG CAP.ER.24H PO (07:30)
[2022-04-10] MEDS: LEVOTHYROXINE SODIUM 150 MCG TABLET PO (07:30)
[2022-04-10] MEDS: SERTRALINE 100 MG TABLET 200 MG PO (07:31)
[2022-04-10] MEDS: ALPRAZolam 0.5 MG TABLET PO ×3 (07:32→19:13)
--- NOTE | 2022-04-10 10:00 | PC.NURSE ---
COVID OUTBREAK TESTING Resident and residents POA gave verbal consent for outbreak COVID testing. Resident is currently asymptomatic.? Resident/family will be notified only if resident is positive.
[2022-04-10 10:45] LABS: SARS PCR* Negative SARS-CoV-2 (Negative)
[2022-04-10] MEDS: BUSPIRONE 10 MG TABLET 5 MG PO (11:46)
[2022-04-10 15:00] VITALS: TEMP 36.6; O2SAT 96
[2022-04-10 23:00] VITALS: TEMP 36.3; O2SAT 94
[2022-04-11] MEDS: LEVOTHYROXINE SODIUM 150 MCG TABLET PO (06:50)
[2022-04-11 07:00] VITALS: TEMP 37.2; O2SAT 93
[2022-04-11] MEDS: ACETAMINOPHEN 500 MG TABLET 1000 MG PO ×3 (07:17→20:05)
[2022-04-11] MEDS: NON-FORMULARY MEDICATION 1 EACH TOPICAL ×2 (07:18→20:05)
[2022-04-11] MEDS: SERTRALINE 100 MG TABLET 200 MG PO (07:18)
[2022-04-11] MEDS: BUSPIRONE 10 MG TABLET PO ×2 (07:18→18:49)
[2022-04-11] MEDS: VENLAFAXINE HCL 150 MG CAP.ER.24H PO (07:18)
[2022-04-11] MEDS: ALPRAZolam 0.5 MG TABLET PO ×3 (07:20→20:05)
[2022-04-11] MEDS: BUSPIRONE 10 MG TABLET 5 MG PO (11:45)
--- NOTE | 2022-04-11 13:59 | PC.SOCIAL ---
Care Conference held today at 1:30 pm. Resident's family member, Lita Gomez, participated by phone. Updates from Lakia Delcid from Nursing, La Subramanian from Nutrition, Esthela Jurado from [facility], and this worker from social work. Discussion on resident's increased paranoid behaviors within the LT. Resident has accused staff and other resident's of stealing her belongings. The accusations are becoming disruptive in the unit. Resident has decreased coming out to activities due to accusing [facility] staff and other resident's that are participating in activities of stealing her belongings. Suggestions were made to seek other placement with memory care units. Family is accepting to moving resident to a memory care unit if one is located. This worker will keep Lita Gomez updated when contacting other facilities for possible placement. Lita informed that Lita's mother recently moved to [facility] in [place] and Lita is aware that they may have a memory care unit in the facility. Lita states that it may be an option, however, Lita is unsure how equipped her mother is to handling having resident in the same facility since Lita's mother has just gone through significant life changes. Lita wants to ensure that the new facility would be a good fit for resident and is equipped to handling resident's needs as she would like to minimize the number of times resident would move. Lita questions whether she owes any payments for resident at [facility]. Lakia will e-mail Joelle in Patient Financial Services to check into this and will provide Lita's e-mail address if anything is needed. When completing resident's mood assessment resident reports trouble sleeping a few days out of a two week reporting time. Mood appears to be stable. Social Work will continue to follow up as necessary.
--- NOTE | 2022-04-11 15:57 | PC.NURSE ---
CARE CONFERENCE: meeting held with all members of care team present. TRACEY London present via phone. Resident not present due to her becoming more anxious during care conferences. Nursing reviewed that resident continues to need limited assist with ADLs. Resident has continued to have stand by assistance with transfers and ambulation. Care plan reviewed and updated. Reviewed medication list. Advanced directive in chart is DNR/DNI. Uses no restraints. Is not able to self administer own medications. Medications are set up and administered by nurse.? Vulnerability- is at risk for being harmed. Residents weight stable and comes out daily for all meals. Resident does snack at times. Resident has less c.o of pain and dizziness over the past 90 days. Falling behaviors have improved. Discussed that resident has been having increased paranoid behaviors, is accusing staff of stealing her things. This has been ongoing and resident is difficult to redirect and continues to accuse staff of stealing. She has become disruptive to other residents by accusing them of stealing her belongings as well. At this time, IDT feels that resident would benefit from moving to a memory care unit where she would have more 1:1 care and increased safety. Lita is in agreement and SW will begin looking for placement. TRACEY suggests the possibility of moving her to [facility] in [place] as that is where her mom is living and Kelli would like to be near to her cousin. Lita will discuss this with her mom and see if this is something they feel would work. This will not be discussed with resident as it would be very distressing to her. Will discuss once a concrete plan is made. Lita mentioned concerns regarding residents bill--will email Joelle who does billing for [facility].
[2022-04-11 21:37] VITALS: TEMP 36.9; O2SAT 96
[2022-04-11 23:55] VITALS: TEMP 36.8; O2SAT 92
--- NOTE | 2022-04-12 05:12 | PC.NURSE ---
Left outer buttock abrasion noted bleeding and open d/t resident scratching hard. cleanse with wound cleanser, apply bacitracin, cover with band aid.
[2022-04-12 07:00] VITALS: TEMP 36.9; O2SAT 93
[2022-04-12] MEDS: LEVOTHYROXINE SODIUM 150 MCG TABLET PO (07:48)
[2022-04-12] MEDS: BUSPIRONE 10 MG TABLET PO ×2 (07:51→17:42)
[2022-04-12] MEDS: SERTRALINE 100 MG TABLET 200 MG PO (07:51)
[2022-04-12] MEDS: ALPRAZolam 0.5 MG TABLET PO ×3 (07:51→19:32)
[2022-04-12] MEDS: NON-FORMULARY MEDICATION 1 EACH TOPICAL ×2 (07:51→19:32)
[2022-04-12] MEDS: VENLAFAXINE HCL 150 MG CAP.ER.24H PO (07:51)
[2022-04-12] MEDS: ACETAMINOPHEN 500 MG TABLET 1000 MG PO ×3 (07:51→19:32)
--- NOTE | 2022-04-12 11:29 | PC.NURSE ---
Behavior: Resident approached this greeting card writer and asked did you get my binocular?' Told her no & I don't think so you have a binocular. And she was told by SENIOR DIRECTOR INSIGHT it's not good to accuse somebody of stealing but then replied I know she knew she has it.
[2022-04-12] MEDS: BUSPIRONE 10 MG TABLET 5 MG PO (11:46)
--- NOTE | 2022-04-12 12:01 | PC.SPIRITC ---
I provided visit for support and connection.
[2022-04-12 15:00] VITALS: TEMP 36.9; O2SAT 5
[2022-04-12 23:00] VITALS: TEMP 36.6; O2SAT 93
--- NOTE | 2022-04-13 01:29 | PC.NURSE ---
WEEKLY CHARTING - WEEK 1: Vital signs reviewed - no concerns. Temporary and comprehensive care plan reviewed - no change. Hx of back and knee pain r/t OA. Receives acetaminophen 1000mg TID and Aspercreme w/ Lidocaine 4% is applied to knees BID for pain management. Has order for PRN tramadol with no use in the last month. Assistance level for ADLs vary. Requires supervision and cues to limited assist with dressing, grooming, and oral cares. Limited assist with bathing. Staff assist with MILANA stockings daily. Receives a regular diet with regular texture and thin liquids. No chewing/swallowing problems. Able to eat independently. Appetite is good. Often has snacks in room.
[2022-04-13] MEDS: LEVOTHYROXINE SODIUM 150 MCG TABLET PO (06:48)
[2022-04-13 06:55] VITALS: TEMP 37; O2SAT 97
[2022-04-13] MEDS: ACETAMINOPHEN 500 MG TABLET 1000 MG PO ×3 (07:04→20:01)
[2022-04-13] MEDS: VENLAFAXINE HCL 150 MG CAP.ER.24H PO (07:04)
[2022-04-13] MEDS: ALPRAZolam 0.5 MG TABLET PO ×3 (07:04→20:01)
[2022-04-13] MEDS: NON-FORMULARY MEDICATION 1 EACH TOPICAL ×2 (07:04→20:01)
[2022-04-13] MEDS: SERTRALINE 100 MG TABLET 200 MG PO (07:04)
[2022-04-13] MEDS: BUSPIRONE 10 MG TABLET PO ×2 (07:04→18:26)
--- NOTE | 2022-04-13 09:19 | PC.NURSE ---
Week #1-ADL's: Comprehensive and temporary care plan reviewed. No changes made, nothing added to temporary care plan. Resident can be independent with dressing, grooming, and oral cares. Staff assist and provide cues as needed. Staff to assist with Deshawn stockings. One assist with bathing. Independent with feeding. Is on regular diet. No problems with chewing or swallowing noted/reported. Vital signs reviewed, no concerns. Pain: Has chronic knee and low back pain managed with Tylenol 1000mg TID, Aspercreme w/lidocaine 4% and Ultram 50mg Q6H PRN, used occasionally with relief. Is able to tell when in pain.
[2022-04-13] MEDS: BUSPIRONE 10 MG TABLET 5 MG PO (11:08)
--- NOTE | 2022-04-13 11:13 | PC.NURSE ---
ADL CORRECTION: BED MOBILITY: During the 7-day lookback period, staff documented limited assist 2x and supervision 1x for bed mobility. Upon interviewing these staff, they did not provide any guided maneuvering or weight bearing assistance or staff supervision, cueing, or reminders. Therefore, resident should have been coded as independent for these occurrences. AMB IN ROOM: During the 7-day lookback, staff documented limited assist x3. Staff interviewed regarding how resident ambulated on these occurrences. Staff reports setting up walker for the resident and overseeing the resident on these occasions, not any guided maneuvering or other non-weight bearing assistance. Therefore, resident should have been coded as supervision for these occurrences. LOC ON AND OFF UNIT: Staff documented ?activity did not occur? however, this was only true on overnight shift as residents does not leave her room during the NOC. Staff indicated that resident was independent with both activities when interviewed on day and evening shift. PERSONAL HYGIENE: Staff documented limited assistance, however, upon staff interview it was determined that resident only required supervision through cueing as well as set up.
[2022-04-13 15:00] VITALS: TEMP 36.9; O2SAT 96
--- NOTE | 2022-04-13 23:08 | PC.NURSE ---
SKIN: Resident noted with new abrasion measuring approximately 2 x 4 cm to left outer buttock from scratching. Area cleaned and band-aid applied. Updated current intervention already in place from previous abrasion obtained on 04/12.
--- NOTE | 2022-04-14 05:10 | PC.NURSE ---
BEHAVIOR: While assisting with toileting needs, resident inquired if another specific nurse would be working in the morning. Business Development Associate confirmed that she would be. Resident stated that she needed to speak with this specific nurse but would not disclose reason. Business Development Associate inquired about assisting with anything but resident declined. Resident then stated, I'm going to call the police tomorrow too. Upon inquiry, resident revealed that she stole my binoculars and when I asked her she said she didn't know anything about it. Business Development Associate attempted to redirect without success. Resident assisted back to bed and left in safe setting.
[2022-04-14] MEDS: BUSPIRONE 10 MG TABLET PO ×2 (07:10→17:04)
[2022-04-14] MEDS: LEVOTHYROXINE SODIUM 150 MCG TABLET PO (07:10)
[2022-04-14] MEDS: ACETAMINOPHEN 500 MG TABLET 1000 MG PO ×3 (07:10→19:07)
[2022-04-14] MEDS: NON-FORMULARY MEDICATION 1 EACH TOPICAL ×2 (07:10→19:07)
[2022-04-14] MEDS: SERTRALINE 100 MG TABLET 200 MG PO (07:11)
[2022-04-14] MEDS: VENLAFAXINE HCL 150 MG CAP.ER.24H PO (07:11)
[2022-04-14] MEDS: ALPRAZolam 0.5 MG TABLET PO ×3 (07:14→19:07)
[2022-04-14] MEDS: BUSPIRONE 10 MG TABLET 5 MG PO (11:30)
[2022-04-14 16:36] VITALS: TEMP 36.9; O2SAT 94
[2022-04-15] MEDS: TRAMADOL HCL 50 MG TABLET PO (03:30)
[2022-04-15] MEDS: BUSPIRONE 10 MG TABLET PO ×2 (07:11→19:46)
[2022-04-15] MEDS: ALPRAZolam 0.5 MG TABLET PO ×3 (07:11→19:46)
[2022-04-15] MEDS: ACETAMINOPHEN 500 MG TABLET 1000 MG PO ×3 (07:11→19:46)
[2022-04-15] MEDS: LEVOTHYROXINE SODIUM 150 MCG TABLET PO (07:11)
[2022-04-15] MEDS: SERTRALINE 100 MG TABLET 200 MG PO (07:12)
[2022-04-15] MEDS: NON-FORMULARY MEDICATION 1 EACH TOPICAL ×2 (07:12→19:48)
[2022-04-15] MEDS: VENLAFAXINE HCL 150 MG CAP.ER.24H PO (07:12)
[2022-04-15] MEDS: BUSPIRONE 10 MG TABLET 5 MG PO (12:22)
[2022-04-15 16:46] VITALS: TEMP 36.6; O2SAT 94
[2022-04-16] MEDS: ACETAMINOPHEN 500 MG TABLET 1000 MG PO ×3 (07:24→19:58)
[2022-04-16] MEDS: VENLAFAXINE HCL 150 MG CAP.ER.24H PO (07:24)
[2022-04-16] MEDS: NON-FORMULARY MEDICATION 1 EACH TOPICAL ×2 (07:24→19:58)
[2022-04-16] MEDS: SERTRALINE 100 MG TABLET 200 MG PO (07:24)
[2022-04-16] MEDS: LEVOTHYROXINE SODIUM 150 MCG TABLET PO (07:24)
[2022-04-16] MEDS: BUSPIRONE 10 MG TABLET PO ×2 (07:24→19:58)
[2022-04-16] MEDS: ALPRAZolam 0.5 MG TABLET PO ×3 (07:26→19:58)
[2022-04-16] MEDS: BUSPIRONE 10 MG TABLET 5 MG PO (11:23)
[2022-04-16 23:07] VITALS: TEMP 36.8; O2SAT 93
[2022-04-17] MEDS: NON-FORMULARY MEDICATION 1 EACH TOPICAL ×2 (07:24→19:13)
[2022-04-17] MEDS: SERTRALINE 100 MG TABLET 200 MG PO (07:24)
[2022-04-17] MEDS: BUSPIRONE 10 MG TABLET PO ×2 (07:24→17:37)
[2022-04-17] MEDS: ACETAMINOPHEN 500 MG TABLET 1000 MG PO ×3 (07:24→19:13)
[2022-04-17] MEDS: LEVOTHYROXINE SODIUM 150 MCG TABLET PO (07:24)
[2022-04-17] MEDS: VENLAFAXINE HCL 150 MG CAP.ER.24H PO (07:24)
[2022-04-17] MEDS: ALPRAZolam 0.5 MG TABLET PO ×3 (07:24→19:13)
[2022-04-17 08:00] VITALS: BMI 34.4
--- NOTE | 2022-04-17 10:00 | PC.NURSE ---
Podiatry: Seen by industrial organizational psychologist. No order.
[2022-04-17 10:17] VITALS: BP 139/84; PULSE 82; RESP 18; TEMP 36.6; O2SAT 95
[2022-04-17] MEDS: BUSPIRONE 10 MG TABLET 5 MG PO (11:27)
[2022-04-17 15:00] VITALS: TEMP 36.7; O2SAT 94
[2022-04-18] MEDS: LEVOTHYROXINE SODIUM 150 MCG TABLET PO (06:37)
[2022-04-18] MEDS: NON-FORMULARY MEDICATION 1 EACH TOPICAL ×2 (07:03→20:33)
[2022-04-18] MEDS: VENLAFAXINE HCL 150 MG CAP.ER.24H PO (07:03)
[2022-04-18] MEDS: SERTRALINE 100 MG TABLET 200 MG PO (07:03)
[2022-04-18] MEDS: BUSPIRONE 10 MG TABLET PO ×2 (07:03→17:46)
[2022-04-18] MEDS: ALPRAZolam 0.5 MG TABLET PO ×3 (07:03→20:33)
[2022-04-18] MEDS: ACETAMINOPHEN 500 MG TABLET 1000 MG PO ×3 (07:03→20:32)
--- NOTE | 2022-04-18 09:03 | PC.NURSE ---
Call placed to Lita, Resident primary contact regarding supply of poly snuff container inspector. She will order thru [facility] today.
[2022-04-18] MEDS: BUSPIRONE 10 MG TABLET 5 MG PO (12:12)
[2022-04-18 15:00] VITALS: TEMP 36.7; O2SAT 96
[2022-04-19] MEDS: ACETAMINOPHEN 500 MG TABLET 1000 MG PO ×3 (07:14→19:55)
[2022-04-19] MEDS: LEVOTHYROXINE SODIUM 150 MCG TABLET PO (07:14)
[2022-04-19] MEDS: BUSPIRONE 10 MG TABLET PO ×2 (07:14→17:07)
[2022-04-19] MEDS: SERTRALINE 100 MG TABLET 200 MG PO (07:15)
[2022-04-19] MEDS: NON-FORMULARY MEDICATION 1 EACH TOPICAL ×2 (07:15→19:55)
[2022-04-19] MEDS: VENLAFAXINE HCL 150 MG CAP.ER.24H PO (07:15)
[2022-04-19] MEDS: ALPRAZolam 0.5 MG TABLET PO ×3 (07:16→19:55)
[2022-04-19] MEDS: BUSPIRONE 10 MG TABLET 5 MG PO (11:18)
--- NOTE | 2022-04-19 12:02 | PC.PHA1 ---
MANAGER FEDERAL PHARMACIST'S MEDICATION REVIEW: MEDICATION MONITORING:Sertraline? 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 She may benefit from psychiatry consult but she declines such service. SUGGESTED COURSE OF ACTION TAKEN: Backing down sertraline dose may or may not help paranoid thoughts.
--- NOTE | 2022-04-19 16:03 | PC.SPIRITC ---
Kelli was fixated on talking about staff taking her belongings. I attempted to redirect multiple times.
[2022-04-19 21:51] VITALS: TEMP 36.6; O2SAT 95
--- NOTE | 2022-04-19 23:54 | PC.NURSE ---
WEEKLY CHARTING - WEEK 2: Vital signs reviewed - no concerns. Temporary and comprehensive care plan reviewed. Fall interventions updated - falling star magnet on doorway discontinued d/t anxiety. Transfers/ambulates independently using 4WW. Staff assist PRN. Independent with bed mobility. No w.c use at this time. Resident is at high risk for falls per last fall risk assessment. Fall interventions: gripper socks, bed in low position with brakes locked, walker at bedside, call light in reach, keep area free of clutter, and hourly safety checks.
[2022-04-20] MEDS: LEVOTHYROXINE SODIUM 150 MCG TABLET PO (06:55)
--- NOTE | 2022-04-20 06:59 | PC.NURSE ---
Week #2 - Mobility: Comprehensive and temporary care plan reviewed. No changes made. Nothing added to temporary care plan. Resident transfers and ambulates independently using the 4ww. Staff assist as needed. No wheelchair use. Independent with bed/chair mobility. Vital signs reviewed, no concerns. Continue weekly monitoring. Fall: No falls the past month. Remains a high fall risk according to assessment done on 04/06/22. Fall interventions: call light within reach, bed in low position locked, encourage to ask for assist as needed, gripper socks, walker at bedside.
[2022-04-20] MEDS: NON-FORMULARY MEDICATION 1 EACH TOPICAL ×2 (07:07→19:49)
[2022-04-20] MEDS: SERTRALINE 100 MG TABLET 200 MG PO (07:07)
[2022-04-20] MEDS: BUSPIRONE 10 MG TABLET PO ×2 (07:07→17:00)
[2022-04-20] MEDS: ACETAMINOPHEN 500 MG TABLET 1000 MG PO ×3 (07:07→19:49)
[2022-04-20] MEDS: VENLAFAXINE HCL 150 MG CAP.ER.24H PO (07:07)
[2022-04-20] MEDS: ALPRAZolam 0.5 MG TABLET PO ×3 (07:07→19:49)
[2022-04-20] MEDS: BUSPIRONE 10 MG TABLET 5 MG PO (11:31)
--- NOTE | 2022-04-20 14:16 | PC.SOCIAL ---
Received an email from resident's family member, Lita Gomez. Lita does not want to pursue placement at [facility] because resident's cousin, Mini Alexander, does not believe she can emotionally handle living in the same facility as resident as she has recently undergone a lot of changes in her life and is working on adjusting to the changes. Lita would like to pursue other options. Informed Lita that [facility] in [place] has openings in memory care and asked if she would like this worker to send a referral. Lita stated that she would like to move forward with [facility]. Phone call to Sofi at [facility] at [phone]. Discussed possible referral. Sofi will assess. Faxed referral to [phone]. Social work will follow up as necessary.
--- NOTE | 2022-04-20 14:35 | PC.NURSE ---
Antipsycotropic Medication review with KERWIN Duggan. No changes at this time. Review in June 2022.
[2022-04-20 21:55] VITALS: TEMP 36.6; O2SAT 92
[2022-04-20 23:45] VITALS: TEMP 36.7; O2SAT 93
[2022-04-21 06:51] VITALS: TEMP 36.8; O2SAT 94
[2022-04-21] MEDS: LEVOTHYROXINE SODIUM 150 MCG TABLET PO (07:05)
[2022-04-21] MEDS: BUSPIRONE 10 MG TABLET PO ×2 (07:05→18:48)
[2022-04-21] MEDS: NON-FORMULARY MEDICATION 1 EACH TOPICAL ×2 (07:05→19:30)
[2022-04-21] MEDS: ACETAMINOPHEN 500 MG TABLET 1000 MG PO ×3 (07:05→19:29)
[2022-04-21] MEDS: VENLAFAXINE HCL 150 MG CAP.ER.24H PO (07:06)
[2022-04-21] MEDS: SERTRALINE 100 MG TABLET 200 MG PO (07:06)
[2022-04-21] MEDS: ALPRAZolam 0.5 MG TABLET PO ×3 (07:07→19:00)
[2022-04-21] MEDS: BUSPIRONE 10 MG TABLET 5 MG PO (11:31)
--- NOTE | 2022-04-21 14:04 | PC.SOCIAL ---
Resident was concerned that another resident stole her gold calendar. This worker reassured resident that the other resident did not have the gold calendar. Went in room with resident and found other calendars for resident to use. Suggested that resident check with family member, Lita, about gold calendar. Met with resident to provide support to resident due to increased anxiety. Social work will follow up as necessary.
[2022-04-21 15:00] VITALS: TEMP 37.1; O2SAT 95
[2022-04-22 00:18] VITALS: TEMP 36.7; O2SAT 95
[2022-04-22] MEDS: VENLAFAXINE HCL 150 MG CAP.ER.24H PO (07:21)
[2022-04-22] MEDS: BUSPIRONE 10 MG TABLET PO ×2 (07:21→17:33)
[2022-04-22] MEDS: SERTRALINE 100 MG TABLET 200 MG PO (07:21)
[2022-04-22] MEDS: LEVOTHYROXINE SODIUM 150 MCG TABLET PO (07:21)
[2022-04-22] MEDS: ACETAMINOPHEN 500 MG TABLET 1000 MG PO ×3 (07:21→19:02)
[2022-04-22] MEDS: NON-FORMULARY MEDICATION 1 EACH TOPICAL ×2 (07:21→19:02)
[2022-04-22] MEDS: ALPRAZolam 0.5 MG TABLET PO ×3 (07:21→19:02)
[2022-04-22 10:21] VITALS: TEMP 36.6; O2SAT 95
[2022-04-22] MEDS: BUSPIRONE 10 MG TABLET 5 MG PO (11:14)
[2022-04-22 15:00] VITALS: TEMP 36.5; O2SAT 98
[2022-04-23 00:01] VITALS: TEMP 36.6; O2SAT 91
[2022-04-23] MEDS: LEVOTHYROXINE SODIUM 150 MCG TABLET PO (06:43)
[2022-04-23] MEDS: VENLAFAXINE HCL 150 MG CAP.ER.24H PO (07:21)
[2022-04-23] MEDS: BUSPIRONE 10 MG TABLET PO ×2 (07:21→17:22)
[2022-04-23] MEDS: ACETAMINOPHEN 500 MG TABLET 1000 MG PO ×3 (07:21→19:15)
[2022-04-23] MEDS: ALPRAZolam 0.5 MG TABLET PO ×3 (07:21→19:15)
[2022-04-23] MEDS: NON-FORMULARY MEDICATION 1 EACH TOPICAL ×2 (07:21→19:15)
[2022-04-23] MEDS: SERTRALINE 100 MG TABLET 200 MG PO (07:21)
[2022-04-23 10:09] VITALS: TEMP 36.8; O2SAT 96
[2022-04-23] MEDS: BUSPIRONE 10 MG TABLET 5 MG PO (11:12)
[2022-04-23 15:00] VITALS: TEMP 36.6; O2SAT 95
[2022-04-23 23:48] VITALS: TEMP 36.6; O2SAT 95
--- NOTE | 2022-04-24 05:08 | PC.NURSE ---
Behavior note: JOHN reported that When helping Res in the bathroom. Res wanted to talk to her cousin because She is claiming that one specific nurse stole something. She also verbalized that She is planning to call the police today. Staff re orient time and re direct behavior. Effective, Res is sleeping at this time.
[2022-04-24 07:00] VITALS: BP 124/73; PULSE 84; RESP 18; TEMP 36.6; O2SAT 92; BMI 34.2
[2022-04-24] MEDS: LEVOTHYROXINE SODIUM 150 MCG TABLET PO (07:45)
[2022-04-24] MEDS: ACETAMINOPHEN 500 MG TABLET 1000 MG PO ×3 (07:45→19:18)
[2022-04-24] MEDS: SERTRALINE 100 MG TABLET 200 MG PO (07:45)
[2022-04-24] MEDS: BUSPIRONE 10 MG TABLET PO ×2 (07:45→17:49)
[2022-04-24] MEDS: NON-FORMULARY MEDICATION 1 EACH TOPICAL ×2 (07:45→19:18)
[2022-04-24] MEDS: ALPRAZolam 0.5 MG TABLET PO ×3 (07:45→19:18)
[2022-04-24] MEDS: VENLAFAXINE HCL 150 MG CAP.ER.24H PO (07:45)
--- NOTE | 2022-04-24 10:00 | PC.NURSE ---
COVID OUTBREAK TESTING Resident gave verbal consent for outbreak COVID testing. Resident is currently asymptomatic.? Resident/family will be notified only if resident is positive.
--- NOTE | 2022-04-24 10:26 | PC.NURSE ---
When senior technical writer approached resident after breakfast to complete weekly skin check she reported a specific nurse stole an item from her much like she had reported to NOC nurse last night. Medical Scribe reoriented resident and redirected resident.
[2022-04-24] MEDS: BUSPIRONE 10 MG TABLET 5 MG PO (11:23)
[2022-04-24 12:31] LABS: SARS PCR* Negative SARS-CoV-2 (Negative)
[2022-04-24 15:00] VITALS: TEMP 36.8; O2SAT 96
[2022-04-24 23:55] VITALS: TEMP 36.7; O2SAT 94
[2022-04-25 07:00] VITALS: TEMP 36.8; O2SAT 93
[2022-04-25] MEDS: LEVOTHYROXINE SODIUM 150 MCG TABLET PO (07:12)
[2022-04-25] MEDS: VENLAFAXINE HCL 150 MG CAP.ER.24H PO (07:12)
[2022-04-25] MEDS: NON-FORMULARY MEDICATION 1 EACH TOPICAL ×2 (07:12→19:21)
[2022-04-25] MEDS: ACETAMINOPHEN 500 MG TABLET 1000 MG PO ×3 (07:12→19:20)
[2022-04-25] MEDS: BUSPIRONE 10 MG TABLET PO ×2 (07:12→19:20)
[2022-04-25] MEDS: ALPRAZolam 0.5 MG TABLET PO ×3 (07:13→19:21)
[2022-04-25] MEDS: SERTRALINE 100 MG TABLET 200 MG PO (07:13)
[2022-04-25] MEDS: BUSPIRONE 10 MG TABLET 5 MG PO (12:14)
--- NOTE | 2022-04-25 16:00 | PC.SOCIAL ---
Addendum entered by JASON Willis 04/26/22 14:07: Received a phone call back from Corrina with [facility]. Corrina informed that the memory care is full and there is a wait list. Original Note: The following memory care facilities were contacted for possible placement of resident. 1. [facility] ([facility])- Phone call to Gene Coulter at [phone]. Inquiring about availability in memory care. Gene informed that there is one opening, but someone is moving into it next week. Gene reports that there is a very long waiting list. If resident would like to be put on the list family can reach out to her directly. 2. [facility] memory care in [place]- There may be an opening. Faxed referral packet to [phone]. Sent e-mail to resident's family member, Lita, informing her to contact Joe at [phone]. 3. [facility] in [place] is still assessing. 4. [facility]- Phone call to [phone]. Left a voicemail for Corrina inquiring on availability in memory care. 5. [facility] in [place]- Phone call to [phone]. The memory care unit is full. 6. [facility] in [place]- Phone call to [phone] to Catrachita. There are openings and they will assess. Faxed referral information to [phone]. 7. [facility] in [place]- Phone call to [phone]. There will be an opening. Faxed referral information to [phone]. 8. [facility]- Phone call to [phone]. Was informed by staff that answered there are openings in memory care. Left voicemail for Guerline, Director of Health Services, to call this worker back on bed availability. Social work will continue to follow up as necessary.
[2022-04-25 22:55] VITALS: TEMP 36.6; O2SAT 97
[2022-04-25 23:00] VITALS: TEMP 36.6; O2SAT 93
[2022-04-26 07:00] VITALS: TEMP 36.7; O2SAT 93
[2022-04-26] MEDS: LEVOTHYROXINE SODIUM 150 MCG TABLET PO (07:11)
[2022-04-26] MEDS: BUSPIRONE 10 MG TABLET PO ×2 (07:11→17:25)
[2022-04-26] MEDS: ACETAMINOPHEN 500 MG TABLET 1000 MG PO ×3 (07:11→19:02)
[2022-04-26] MEDS: NON-FORMULARY MEDICATION 1 EACH TOPICAL ×2 (07:11→19:02)
[2022-04-26] MEDS: VENLAFAXINE HCL 150 MG CAP.ER.24H PO (07:12)
[2022-04-26] MEDS: SERTRALINE 100 MG TABLET 200 MG PO (07:12)
[2022-04-26] MEDS: ALPRAZolam 0.5 MG TABLET PO ×3 (07:13→19:02)
[2022-04-26] MEDS: BUSPIRONE 10 MG TABLET 5 MG PO (11:08)
--- NOTE | 2022-04-26 11:21 | PC.NURSE ---
Behavior note: Paper Mill Superintendent went to administer resident's noon pills. She was ambulating in hallway though stated she would be returning back to her room when asked. Paper Mill Superintendent waited for resident to return to room. Upon entering room, resident accused a specific nurse of stealing an item from her. When advertising writer attempted to reorient resident she stated, Yes she took my binoculars. I saw her take them. Paper Mill Superintendent administered noon pills including Buspirone prescribed and left resident in safe environment of her room with call light within reach.
--- NOTE | 2022-04-26 14:04 | PC.SOCIAL ---
Received information that Allison (vp integration) at [facility] will consider accepting resident for the first week of May pending discussion with family on financial information for private payment. Phone call to Lita Gomez to follow up and see if she can reach out to [facility]. Left a voicemail requesting her to call [facility] and call this worker with an update. Social work will follow up as necessary.
[2022-04-26 15:00] VITALS: TEMP 36.4; O2SAT 92
--- NOTE | 2022-04-26 16:02 | PC.SPIRITC ---
Kelli requested to talk after tenriism and said she was having a bad day. Resident said staff took a calendar, I redirected. Kelli then proceeded to say that she does not want to live here anymore and wishes she would in her sleep. She then apologized and said she wants to live but is frustrated. I provided visit for connection, redirection, and time to talk. Kelli's statements were reported to her social worker health services.
--- NOTE | 2022-04-26 16:32 | PC.SOCIAL ---
Addendum entered by JASON Willis 04/26/22 16:39: Added to previous note. When meeting with resident this worker asked resident if she felt like she was going to hurt herself and resident stated no. Original Note: Met with resident in resident's room for a supportive visit due to increased depression symptoms. Resident reportedly told [facility] heat welder plastics that she did not want to live anymore. Upon checking in with resident she was in her room crying. Talked with resident and offered her support. Resident stated to this worker that she did not want to live. When discussing further resident stated that she missed her and wanted to be in heaven with him. This worker discussed happy memories with resident when she was with her . Provided resident with an ice cream cup and a sprite per resident request. Resident requested a Xanax and to see the MD so she doesn't continue to feel this way. This worker updated the nurse, Tonya, on the south wing. Nurse will continue to monitor resident through the shift. Social work will follow up as necessary.
--- NOTE | 2022-04-26 20:45 | PC.NURSE ---
New Concern about well-being: In addition to making numerous untrue allegations of stealing items from her room by some staff members, this resident repeated concerning statement, this shift, such as, I don't want to live anymore. This author spent quality time with resident listening to concerns as cognition was being assessed. When asked if she intend to harm herself, she emphatically responded, 'no I will never do that. Will continue to monitor.
[2022-04-26 23:00] VITALS: TEMP 36.7; O2SAT 94
--- NOTE | 2022-04-27 00:47 | PC.NURSE ---
WEEKLY CHARTING - WEEK 3: Vital signs reviewed - no concerns. Temporary and comprehensive care plan reviewed with no change. No current skin integrity concerns. Frequent urinary incontinence with some control. Occasional bowel incontinence. Wears pull-up with insert which staff stock in room. Independent with toileting needs including rashad-cares, pad management, and clothing adjustment during waking hours with staff assist of 1 PRN. Calls for staff assist at night.
[2022-04-27] MEDS: BUSPIRONE 10 MG TABLET PO ×2 (07:19→17:18)
[2022-04-27] MEDS: LEVOTHYROXINE SODIUM 150 MCG TABLET PO (07:19)
[2022-04-27] MEDS: ALPRAZolam 0.5 MG TABLET PO ×3 (07:19→19:39)
[2022-04-27] MEDS: NON-FORMULARY MEDICATION 1 EACH TOPICAL ×2 (07:19→19:39)
[2022-04-27] MEDS: ACETAMINOPHEN 500 MG TABLET 1000 MG PO ×3 (07:19→19:39)
[2022-04-27] MEDS: SERTRALINE 100 MG TABLET 200 MG PO (07:19)
[2022-04-27] MEDS: VENLAFAXINE HCL 150 MG CAP.ER.24H PO (07:19)
[2022-04-27 09:54] VITALS: TEMP 36.5; O2SAT 94
--- NOTE | 2022-04-27 10:17 | PC.NURSE ---
Recert Visit: Resident seen by PHARMACOVIGILANCE SAFETY EXPERTUrban. Orders reviewed and renewed of 75 days without changes.
[2022-04-27] MEDS: BUSPIRONE 10 MG TABLET 5 MG PO (11:14)
--- NOTE | 2022-04-27 11:52 | PC.NURSE ---
Week #3 - Toileting: Comprehensive and temporary care plan reviewed. No changes made, nothing added to temporary care plan. Resident is frequently incontinent of urine with some control. Has occasional bowel incontinence. Is independent with toileting including pads, rashad cares, clothing management. Will call for assist as needed, and staff also check. Vital signs reviewed, no concerns. Skin: No issues at this time. Skin is checked during cares and on bath day.
--- NOTE | 2022-04-27 14:46 | PC.NURSE ---
I spoke with Lita Gomez and we discussed a discharge to the [facility]. Lita wants to speak to her mom, Mini but they agree Kelli would benefit from a memory care unit due to progressing neurocognitive disorder. Lita said Kelli calls them daily and they feel Kelli would be accepting of moving to the building just across the street. I informed Lita I will mail her the 30 day notice of discharge and she has the right to an appeal. I will email the notice to the [facility] and give a copy to Kelli. Lita requested that we wait until tomorrow at noon to give the letter to Kelli.
--- NOTE | 2022-04-27 14:56 | PC.SOCIAL ---
Received a phone call from resident's family member, Lita Gomez. Discussed resident's possible move to [facility]. Provided contact information for Joe at [facility] and informed that Lita would need to call to move forward with paperwork for resident to possibly move to [facility]. Lita informs that resident does have the funds to private pay for at least two years, as required. Asked Lita to keep social work department updated on the progress with [facility]. Social work will follow up as necessary.
[2022-04-27 15:12] VITALS: TEMP 36.5; O2SAT 96
--- NOTE | 2022-04-27 15:28 | PC.NURSE ---
Spoke to PEOPLESOFT FUNCTIONAL ANALYST Mariaelena Duggan on residents mood/behavior. At this time no changes to medications. Having decreased falls and PEOPLES[employer] FUNCTIONAL ANALYST feels that behavior is stable on current medication regime. Resident on waiting list to move to secured memory care unit. Resident to be given 1:1 attention and non pharmacological measures when talking about will to live.
[2022-04-27 23:00] VITALS: TEMP 36.5; O2SAT 94
[2022-04-28 07:00] VITALS: TEMP 36.3; O2SAT 96
[2022-04-28] MEDS: LEVOTHYROXINE SODIUM 150 MCG TABLET PO (07:25)
[2022-04-28] MEDS: ACETAMINOPHEN 500 MG TABLET 1000 MG PO ×3 (07:25→20:38)
[2022-04-28] MEDS: VENLAFAXINE HCL 150 MG CAP.ER.24H PO (07:25)
[2022-04-28] MEDS: NON-FORMULARY MEDICATION 1 EACH TOPICAL ×2 (07:25→20:38)
[2022-04-28] MEDS: BUSPIRONE 10 MG TABLET PO ×2 (07:25→17:14)
[2022-04-28] MEDS: ALPRAZolam 0.5 MG TABLET PO ×3 (07:25→20:38)
[2022-04-28] MEDS: SERTRALINE 100 MG TABLET 200 MG PO (07:25)
[2022-04-28] MEDS: BUSPIRONE 10 MG TABLET 5 MG PO (11:39)
--- NOTE | 2022-04-28 13:56 | PC.SOCIAL ---
Received an e-mail from Allison at [facility] requesting more MD progress notes on resident and requesting nursing notes. Sent referral packet to Allison with requested information. Follow up phone call to resident's family member, Lita Gomez. Lita informed that she had a conversation with Joe at [facility] and has received the application to complete. Lita will complete and submit the application back to [facility] today. Requested that Lita keep social work updated on the progress or if she needs any information. Discussed with Lita that Eyal Wilson in [facility] in [place] are also interested in more information about resident for possible placement and asked if Lita would like to pursue or if she would like to [facility]. Lita informed that it is the families' preference for resident to go to [facility] since it is in close proximity to [facility] and it will be easiest for resident. Lita would not like to pursue the other options at this time. This worker provided a follow up message to Eyal Perspective in [facility] in [place] informing that the resident's family is pursuing another option at this time. Provided an update to [facility] nursing. Social work will follow up as necessary.
[2022-04-28 17:11] VITALS: TEMP 36.9; O2SAT 5
[2022-04-28 23:00] VITALS: TEMP 36.4; O2SAT 93
[2022-04-29 07:00] VITALS: TEMP 36.8; O2SAT 95
[2022-04-29] MEDS: LEVOTHYROXINE SODIUM 150 MCG TABLET PO (07:10)
[2022-04-29] MEDS: ACETAMINOPHEN 500 MG TABLET 1000 MG PO ×3 (07:25→20:03)
[2022-04-29] MEDS: VENLAFAXINE HCL 150 MG CAP.ER.24H PO (07:25)
[2022-04-29] MEDS: ALPRAZolam 0.5 MG TABLET PO ×3 (07:25→20:03)
[2022-04-29] MEDS: SERTRALINE 100 MG TABLET 200 MG PO (07:25)
[2022-04-29] MEDS: NON-FORMULARY MEDICATION 1 EACH TOPICAL ×2 (07:25→20:04)
[2022-04-29] MEDS: BUSPIRONE 10 MG TABLET PO ×2 (07:25→17:04)
[2022-04-29] MEDS: BUSPIRONE 10 MG TABLET 5 MG PO (11:36)
[2022-04-29 16:59] VITALS: TEMP 37.1; O2SAT 94
[2022-04-29 23:00] VITALS: TEMP 36.4; O2SAT 92
[2022-04-30 07:00] VITALS: TEMP 36.5; O2SAT 93
[2022-04-30] MEDS: ACETAMINOPHEN 500 MG TABLET 1000 MG PO ×3 (07:01→19:38)
[2022-04-30] MEDS: LEVOTHYROXINE SODIUM 150 MCG TABLET PO (07:01)
[2022-04-30] MEDS: SERTRALINE 100 MG TABLET 200 MG PO (07:02)
[2022-04-30] MEDS: NON-FORMULARY MEDICATION 1 EACH TOPICAL ×2 (07:02→19:38)
[2022-04-30] MEDS: VENLAFAXINE HCL 150 MG CAP.ER.24H PO (07:02)
[2022-04-30] MEDS: BUSPIRONE 10 MG TABLET PO ×2 (07:02→17:26)
[2022-04-30] MEDS: ALPRAZolam 0.5 MG TABLET PO ×3 (07:03→19:38)
[2022-04-30] MEDS: BUSPIRONE 10 MG TABLET 5 MG PO (11:22)
[2022-04-30 16:48] VITALS: TEMP 36.6; O2SAT 95
[2022-04-30 23:00] VITALS: TEMP 36.8; O2SAT 96
[2022-05-01 07:00] VITALS: BP 159/86; PULSE 66; RESP 18; TEMP 37; O2SAT 93; BMI 34.2
[2022-05-01] MEDS: NON-FORMULARY MEDICATION 1 EACH TOPICAL ×2 (07:06→19:09)
[2022-05-01] MEDS: VENLAFAXINE HCL 150 MG CAP.ER.24H PO (07:28)
[2022-05-01] MEDS: ACETAMINOPHEN 500 MG TABLET 1000 MG PO ×3 (07:28→19:08)
[2022-05-01] MEDS: SERTRALINE 100 MG TABLET 200 MG PO (07:28)
[2022-05-01] MEDS: LEVOTHYROXINE SODIUM 150 MCG TABLET PO (07:28)
[2022-05-01] MEDS: BUSPIRONE 10 MG TABLET PO ×2 (07:28→17:26)
[2022-05-01] MEDS: ALPRAZolam 0.5 MG TABLET PO ×3 (07:29→19:09)
[2022-05-01] MEDS: BUSPIRONE 10 MG TABLET 5 MG PO (11:25)
--- NOTE | 2022-05-01 11:57 | PC.NURSE ---
COVID OUTBREAK TESTING Resident gave verbal consent for outbreak COVID testing. Resident is currently asymptomatic.? Resident/family will be notified only if resident is positive.
[2022-05-01 12:51] LABS: SARS PCR* Negative SARS-CoV-2 (Negative)
[2022-05-01 15:00] VITALS: TEMP 36.6; O2SAT 94
[2022-05-01 23:00] VITALS: TEMP 37.1; O2SAT 92
[2022-05-02] MEDS: BUSPIRONE 10 MG TABLET PO ×2 (07:17→19:10)
[2022-05-02] MEDS: VENLAFAXINE HCL 150 MG CAP.ER.24H PO (07:17)
[2022-05-02] MEDS: NON-FORMULARY MEDICATION 1 EACH TOPICAL ×2 (07:17→19:12)
[2022-05-02] MEDS: ACETAMINOPHEN 500 MG TABLET 1000 MG PO ×3 (07:17→19:12)
[2022-05-02] MEDS: SERTRALINE 100 MG TABLET 200 MG PO (07:17)
[2022-05-02] MEDS: LEVOTHYROXINE SODIUM 150 MCG TABLET PO (07:17)
[2022-05-02] MEDS: ALPRAZolam 0.5 MG TABLET PO ×3 (07:17→19:12)
[2022-05-02 10:21] VITALS: TEMP 36.8; O2SAT 93
[2022-05-02] MEDS: BUSPIRONE 10 MG TABLET 5 MG PO (13:25)
[2022-05-02 21:41] VITALS: TEMP 36.4; O2SAT 98
[2022-05-02 23:00] VITALS: TEMP 37; O2SAT 95
[2022-05-03 07:00] VITALS: TEMP 36.5; O2SAT 95
[2022-05-03] MEDS: ALPRAZolam 0.5 MG TABLET PO ×3 (07:34→19:00)
[2022-05-03] MEDS: VENLAFAXINE HCL 150 MG CAP.ER.24H PO (07:34)
[2022-05-03] MEDS: NON-FORMULARY MEDICATION 1 EACH TOPICAL ×2 (07:34→19:08)
[2022-05-03] MEDS: BUSPIRONE 10 MG TABLET PO ×2 (07:34→17:25)
[2022-05-03] MEDS: LEVOTHYROXINE SODIUM 150 MCG TABLET PO (07:34)
[2022-05-03] MEDS: SERTRALINE 100 MG TABLET 200 MG PO (07:34)
[2022-05-03] MEDS: ACETAMINOPHEN 500 MG TABLET 1000 MG PO ×3 (07:34→19:07)
[2022-05-03] MEDS: BUSPIRONE 10 MG TABLET 5 MG PO (11:31)
[2022-05-03 15:00] VITALS: TEMP 36.8; O2SAT 95
[2022-05-03 23:00] VITALS: TEMP 36.9; O2SAT 92
--- NOTE | 2022-05-04 02:39 | PC.NURSE ---
WEEKLY CHARTING - WEEK 4: Vital signs reviewed- no concerns. Temporary and comprehensive care plan reviewed - no change. Numerous documented behaviors in the last month. Receives venlafaxine 150mg daily, sertraline 200mg daily, alprazolam 0.5mg TID, and buspirone 10mg BID at 0800 and 1800 & 5mg daily at noon with no noted adverse effects. No noted medication changes. Able to communicate needs. Hears adequately. No noted visual impairment. Moderate cognitive deficit. All medications administered by a licensed nurse. Health condition stable at this time.
--- NOTE | 2022-05-04 06:46 | PC.NURSE ---
Week #4: Comprehensive & temporary? care plan reviewed, no changes made. Nothing added to temporary care plan. No changes noted in communication, hearing, vision, or orientation. She does make her needs known. No vision or hearing problems. 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 Needs reminders and cues. Chronic health condition stable. Vital signs reviewed,no concerns. Nurse administers all medications. Mood/Behavior: Continues with intermittent paranoid thoughts & hallucinations. Awaiting transfer to secured memory unit next month. Is on Effexor 150mg daily, Zoloft 200mg daily, Xanax 0.5mg TID, Buspar 10mg BID @ 08 & 1800, 5mg at noon with no adverse effects noted.
[2022-05-04 07:00] VITALS: TEMP 36.6; O2SAT 93
[2022-05-04] MEDS: NON-FORMULARY MEDICATION 1 EACH TOPICAL ×2 (07:15→19:50)
[2022-05-04] MEDS: LEVOTHYROXINE SODIUM 150 MCG TABLET PO (07:15)
[2022-05-04] MEDS: ACETAMINOPHEN 500 MG TABLET 1000 MG PO ×3 (07:15→19:50)
[2022-05-04] MEDS: SERTRALINE 100 MG TABLET 200 MG PO (07:15)
[2022-05-04] MEDS: BUSPIRONE 10 MG TABLET PO ×2 (07:15→19:15)
[2022-05-04] MEDS: VENLAFAXINE HCL 150 MG CAP.ER.24H PO (07:15)
[2022-05-04] MEDS: ALPRAZolam 0.5 MG TABLET PO ×3 (07:15→19:50)
[2022-05-04] MEDS: BUSPIRONE 10 MG TABLET 5 MG PO (11:30)
[2022-05-04 16:53] VITALS: TEMP 36.8; O2SAT 96
[2022-05-04] MEDS: TRAMADOL HCL 50 MG TABLET PO (22:52)
[2022-05-04 23:00] VITALS: TEMP 37; O2SAT 95
[2022-05-05] MEDS: LEVOTHYROXINE SODIUM 150 MCG TABLET PO (06:29)
[2022-05-05] MEDS: BUSPIRONE 10 MG TABLET PO ×2 (07:12→17:23)
[2022-05-05] MEDS: ACETAMINOPHEN 500 MG TABLET 1000 MG PO ×3 (07:12→19:15)
[2022-05-05] MEDS: ALPRAZolam 0.5 MG TABLET PO ×3 (07:12→19:00)
[2022-05-05] MEDS: NON-FORMULARY MEDICATION 1 EACH TOPICAL ×2 (07:12→19:15)
[2022-05-05] MEDS: VENLAFAXINE HCL 150 MG CAP.ER.24H PO (07:12)
[2022-05-05] MEDS: SERTRALINE 100 MG TABLET 200 MG PO (07:12)
[2022-05-05 09:43] VITALS: TEMP 36.8; O2SAT 96
[2022-05-05] MEDS: BUSPIRONE 10 MG TABLET 5 MG PO (11:31)
[2022-05-05 15:00] VITALS: TEMP 36.7; O2SAT 95
[2022-05-05 23:41] VITALS: TEMP 36.7; O2SAT 93
[2022-05-06] MEDS: TRAMADOL HCL 50 MG TABLET PO (03:36)
[2022-05-06] MEDS: ACETAMINOPHEN 500 MG TABLET 1000 MG PO ×3 (07:10→19:05)
[2022-05-06] MEDS: LEVOTHYROXINE SODIUM 150 MCG TABLET PO (07:10)
[2022-05-06] MEDS: BUSPIRONE 10 MG TABLET PO ×2 (07:10→17:03)
[2022-05-06] MEDS: ALPRAZolam 0.5 MG TABLET PO ×3 (07:10→19:00)
[2022-05-06] MEDS: VENLAFAXINE HCL 150 MG CAP.ER.24H PO (07:10)
[2022-05-06] MEDS: NON-FORMULARY MEDICATION 1 EACH TOPICAL ×2 (07:10→20:18)
[2022-05-06] MEDS: SERTRALINE 100 MG TABLET 200 MG PO (07:11)
[2022-05-06 10:23] VITALS: TEMP 36.8; O2SAT 93
[2022-05-06] MEDS: BUSPIRONE 10 MG TABLET 5 MG PO (12:27)
[2022-05-06 15:00] VITALS: TEMP 36.9; O2SAT 96
[2022-05-06 23:59] VITALS: TEMP 36.8; O2SAT 93
[2022-05-07] MEDS: LEVOTHYROXINE SODIUM 150 MCG TABLET PO (07:04)
[2022-05-07] MEDS: VENLAFAXINE HCL 150 MG CAP.ER.24H PO (07:05)
[2022-05-07] MEDS: SERTRALINE 100 MG TABLET 200 MG PO (07:05)
[2022-05-07] MEDS: BUSPIRONE 10 MG TABLET PO ×2 (07:05→16:15)
[2022-05-07] MEDS: ACETAMINOPHEN 500 MG TABLET 1000 MG PO ×3 (07:05→20:54)
[2022-05-07] MEDS: ALPRAZolam 0.5 MG TABLET PO ×3 (07:05→20:54)
[2022-05-07] MEDS: NON-FORMULARY MEDICATION 1 EACH TOPICAL ×2 (07:05→21:25)
[2022-05-07 09:55] VITALS: TEMP 37; O2SAT 95
[2022-05-07] MEDS: BUSPIRONE 10 MG TABLET 5 MG PO (11:31)
[2022-05-07 23:41] VITALS: TEMP 36.7; O2SAT 92
[2022-05-08 07:00] VITALS: BP 142/80; PULSE 95; RESP 18; TEMP 37.2; O2SAT 94; BMI 34.7
[2022-05-08] MEDS: BUSPIRONE 10 MG TABLET PO ×2 (07:39→17:40)
[2022-05-08] MEDS: VENLAFAXINE HCL 150 MG CAP.ER.24H PO (07:39)
[2022-05-08] MEDS: NON-FORMULARY MEDICATION 1 EACH TOPICAL ×2 (07:39→20:26)
[2022-05-08] MEDS: SERTRALINE 100 MG TABLET 200 MG PO (07:39)
[2022-05-08] MEDS: LEVOTHYROXINE SODIUM 150 MCG TABLET PO (07:39)
[2022-05-08] MEDS: ACETAMINOPHEN 500 MG TABLET 1000 MG PO ×3 (07:39→20:26)
[2022-05-08] MEDS: ALPRAZolam 0.5 MG TABLET PO ×3 (07:41→20:26)
[2022-05-08 11:06] LABS: SARS PCR* Negative SARS-CoV-2 (Negative)
--- NOTE | 2022-05-08 11:06 | PC.NURSE ---
COVID OUTBREAK TESTING Resident and residents family gave verbal consent for outbreak COVID testing. Resident is currently asymptomatic.? Resident/family will be notified only if resident is positive.
[2022-05-08] MEDS: BUSPIRONE 10 MG TABLET 5 MG PO (11:43)
[2022-05-08 15:00] VITALS: TEMP 36.9; O2SAT 96
[2022-05-09 01:17] VITALS: TEMP 36.7; O2SAT 95
[2022-05-09 07:00] VITALS: TEMP 36.9; O2SAT 94
[2022-05-09] MEDS: LEVOTHYROXINE SODIUM 150 MCG TABLET PO (07:20)
[2022-05-09] MEDS: SERTRALINE 100 MG TABLET 200 MG PO (07:21)
[2022-05-09] MEDS: BUSPIRONE 10 MG TABLET PO ×2 (07:21→18:48)
[2022-05-09] MEDS: ACETAMINOPHEN 500 MG TABLET 1000 MG PO ×3 (07:21→19:05)
[2022-05-09] MEDS: VENLAFAXINE HCL 150 MG CAP.ER.24H PO (07:21)
[2022-05-09] MEDS: NON-FORMULARY MEDICATION 1 EACH TOPICAL ×2 (07:21→19:05)
[2022-05-09] MEDS: ALPRAZolam 0.5 MG TABLET PO ×3 (07:22→19:05)
[2022-05-09] MEDS: BUSPIRONE 10 MG TABLET 5 MG PO (11:47)
[2022-05-09 17:12] VITALS: TEMP 36.6; O2SAT 94
[2022-05-09 23:00] VITALS: TEMP 37; O2SAT 94
[2022-05-10 07:00] VITALS: TEMP 36.8; O2SAT 92
[2022-05-10] MEDS: LEVOTHYROXINE SODIUM 150 MCG TABLET PO (07:02)
[2022-05-10] MEDS: ACETAMINOPHEN 500 MG TABLET 1000 MG PO ×3 (07:03→20:16)
[2022-05-10] MEDS: NON-FORMULARY MEDICATION 1 EACH TOPICAL ×2 (07:03→20:17)
[2022-05-10] MEDS: BUSPIRONE 10 MG TABLET PO ×2 (07:03→17:35)
[2022-05-10] MEDS: SERTRALINE 100 MG TABLET 200 MG PO (07:03)
[2022-05-10] MEDS: VENLAFAXINE HCL 150 MG CAP.ER.24H PO (07:03)
[2022-05-10] MEDS: ALPRAZolam 0.5 MG TABLET PO ×3 (07:04→20:17)
[2022-05-10] MEDS: BUSPIRONE 10 MG TABLET 5 MG PO (11:05)
--- NOTE | 2022-05-10 11:16 | PC.NURSE ---
Behavior note: When appeals writer went into resident's room to administer noon pills resident stated, I think I'm having chest pain. Do you think I should go to the ER? while resting calmly in recliner. Wire Products Inspector reassured resident to just rest as she had just ambulated back to room from Bingo activity in dining room and that vital signs would be checked. VS: B/P 134/80, P 94, R 16, T 98.4, O2 sat 98% on RA. Wire Products Inspector reassured resident that vital signs are good at this time and to continue to rest until lunch. design teacher updated.
[2022-05-10 15:00] VITALS: TEMP 36.6; O2SAT 94
[2022-05-10 23:00] VITALS: TEMP 36.9; O2SAT 95
--- NOTE | 2022-05-11 01:41 | PC.NURSE ---
WEEKLY CHARTING - WEEK 1: Vital signs reviewed - no concerns. Temporary and comprehensive care plan reviewed - no change. Hx of back and knee pain. Receives acetaminophen 1000mg TID and PRN tramadol which has been utilized x3 in the last month for c/o knee pain. Aspercreme w/ Lidocaine 4% is applied to knees BID. Requires varying levels of assistance with ADLs. Supervision and cues to limited assist with dressing, grooming, and oral cares. Requires limited assist with bathing. Staff apply/remove MILANA stockings daily. Receives a regular diet with regular texture and thin liquids. No chewing/swallowing problems. Eats independently. Appetite is good. Has snacks in room frequently.
[2022-05-11] MEDS: ACETAMINOPHEN 500 MG TABLET 1000 MG PO ×3 (07:02→19:56)
[2022-05-11] MEDS: ALPRAZolam 0.5 MG TABLET PO ×3 (07:02→19:59)
[2022-05-11] MEDS: SERTRALINE 100 MG TABLET 200 MG PO (07:02)
[2022-05-11] MEDS: NON-FORMULARY MEDICATION 1 EACH TOPICAL ×2 (07:02→19:59)
[2022-05-11] MEDS: VENLAFAXINE HCL 150 MG CAP.ER.24H PO (07:02)
[2022-05-11] MEDS: BUSPIRONE 10 MG TABLET PO ×2 (07:02→18:31)
[2022-05-11] MEDS: LEVOTHYROXINE SODIUM 150 MCG TABLET PO (07:02)
--- NOTE | 2022-05-11 08:04 | PC.NURSE ---
Week #1-ADL's: Comprehensive and temporary care plan reviewed. No changes made, nothing added to temporary care plan. Receives varies assistance. Resident can be independent with dressing, grooming, and oral cares. Staff assist and provide cues as needed. Staff to assist with Deshawn stockings. One assist with bathing. Independent with feeding. Is on regular diet. No problems with chewing or swallowing noted/reported. Vital signs reviewed, no concerns. Pain: Has chronic knee and low back pain managed with Tylenol 1000mg TID, Aspercreme w/lidocaine 4% and Ultram 50mg Q6H PRN, & has used occasionally with relief. Is able to tell when in pain.
[2022-05-11 10:12] VITALS: TEMP 37; O2SAT 95
[2022-05-11] MEDS: BUSPIRONE 10 MG TABLET 5 MG PO (11:20)
[2022-05-11 15:12] VITALS: TEMP 36.9; O2SAT 96
--- NOTE | 2022-05-11 16:48 | PC.SOCIAL ---
Phone call to Andreyrajinder at [facility] to follow up on status for resident to move to [facility]. Joe informed that it is possible that resident could move next week if all information is received and face to face is completed. Face to face can be completed via zoom. Joe is in need of a few more paperwork items from resident's family member and also needs a plan from resident's family member to bring furniture into [facility] for resident (Bed, bedding, towels, nightstand, and TV). This worker informed that this worker will follow up with resident's family member to verify that she is obtaining furniture. E-mail to resident's family member, Litasavannah Gomez, to follow up on the status of paperwork and resident's furniture needed to move to [facility]. Social work will follow up as necessary.
[2022-05-11 23:00] VITALS: TEMP 37.1; O2SAT 94
[2022-05-12 07:00] VITALS: TEMP 36.9; O2SAT 94
[2022-05-12] MEDS: ACETAMINOPHEN 500 MG TABLET 1000 MG PO ×3 (07:11→19:12)
[2022-05-12] MEDS: LEVOTHYROXINE SODIUM 150 MCG TABLET PO (07:11)
[2022-05-12] MEDS: VENLAFAXINE HCL 150 MG CAP.ER.24H PO (07:12)
[2022-05-12] MEDS: SERTRALINE 100 MG TABLET 200 MG PO (07:12)
[2022-05-12] MEDS: BUSPIRONE 10 MG TABLET PO ×2 (07:12→17:18)
[2022-05-12] MEDS: NON-FORMULARY MEDICATION 1 EACH TOPICAL ×2 (07:12→19:13)
[2022-05-12] MEDS: ALPRAZolam 0.5 MG TABLET PO ×3 (07:14→19:13)
[2022-05-12] MEDS: BUSPIRONE 10 MG TABLET 5 MG PO (11:25)
[2022-05-12 15:00] VITALS: TEMP 36.3; O2SAT 97
[2022-05-12 23:00] VITALS: TEMP 36.9; O2SAT 96
[2022-05-13] MEDS: LEVOTHYROXINE SODIUM 150 MCG TABLET PO (06:46)
[2022-05-13 07:00] VITALS: TEMP 36.3; O2SAT 93
[2022-05-13] MEDS: NON-FORMULARY MEDICATION 1 EACH TOPICAL ×2 (07:15→19:28)
[2022-05-13] MEDS: BUSPIRONE 10 MG TABLET PO ×2 (07:15→18:09)
[2022-05-13] MEDS: ALPRAZolam 0.5 MG TABLET PO ×3 (07:15→19:28)
[2022-05-13] MEDS: ACETAMINOPHEN 500 MG TABLET 1000 MG PO ×3 (07:15→19:28)
[2022-05-13] MEDS: VENLAFAXINE HCL 150 MG CAP.ER.24H PO (07:16)
[2022-05-13] MEDS: SERTRALINE 100 MG TABLET 200 MG PO (07:16)
[2022-05-13] MEDS: BUSPIRONE 10 MG TABLET 5 MG PO (11:29)
[2022-05-13 17:03] VITALS: TEMP 37.1; O2SAT 94
[2022-05-13 23:00] VITALS: TEMP 36.7; O2SAT 92
[2022-05-14 07:00] VITALS: TEMP 36.8; O2SAT 96
[2022-05-14] MEDS: ALPRAZolam 0.5 MG TABLET PO ×3 (07:14→19:03)
[2022-05-14] MEDS: BUSPIRONE 10 MG TABLET PO ×2 (07:14→17:11)
[2022-05-14] MEDS: LEVOTHYROXINE SODIUM 150 MCG TABLET PO (07:14)
[2022-05-14] MEDS: VENLAFAXINE HCL 150 MG CAP.ER.24H PO (07:14)
[2022-05-14] MEDS: SERTRALINE 100 MG TABLET 200 MG PO (07:14)
[2022-05-14] MEDS: NON-FORMULARY MEDICATION 1 EACH TOPICAL ×2 (07:14→19:03)
[2022-05-14] MEDS: ACETAMINOPHEN 500 MG TABLET 1000 MG PO ×3 (07:14→19:03)
[2022-05-14] MEDS: BUSPIRONE 10 MG TABLET 5 MG PO (11:21)
[2022-05-14 15:00] VITALS: TEMP 36.6; O2SAT 95
[2022-05-14 23:00] VITALS: TEMP 36.7; O2SAT 93
[2022-05-15] MEDS: LEVOTHYROXINE SODIUM 150 MCG TABLET PO (06:40)
[2022-05-15 07:00] VITALS: BP 142/86; PULSE 98; RESP 18; TEMP 36.6; O2SAT 93; BMI 33.3
[2022-05-15] MEDS: ACETAMINOPHEN 500 MG TABLET 1000 MG PO ×3 (07:57→19:25)
[2022-05-15] MEDS: SERTRALINE 100 MG TABLET 200 MG PO (07:57)
[2022-05-15] MEDS: ALPRAZolam 0.5 MG TABLET PO ×3 (07:57→19:27)
[2022-05-15] MEDS: BUSPIRONE 10 MG TABLET PO ×2 (07:57→17:22)
[2022-05-15] MEDS: NON-FORMULARY MEDICATION 1 EACH TOPICAL ×2 (07:57→19:26)
[2022-05-15] MEDS: VENLAFAXINE HCL 150 MG CAP.ER.24H PO (07:57)
[2022-05-15] MEDS: BUSPIRONE 10 MG TABLET 5 MG PO (12:11)
--- NOTE | 2022-05-15 12:35 | PC.NURSE ---
COVID OUTBREAK TESTING Resident gave verbal consent for outbreak COVID testing. Resident is currently asymptomatic.? Resident/family will be notified only if resident is positive.
--- NOTE | 2022-05-15 13:44 | PC.SOCIAL ---
Received an email from resident's family member, Lita Gomez. Lita was asking what furniture resident has at [facility]. Provided a list of the furniture that resident has here. Informed Lita that resident will need a bed, bedding, towels, TV, and recliner. Requested that Lita call this worker if she had any further questions. Social Work will follow up as necessary.
[2022-05-15 14:02] LABS: SARS PCR* Negative SARS-CoV-2 (Negative)
[2022-05-15 23:00] VITALS: TEMP 36.6; O2SAT 93
[2022-05-16 07:00] VITALS: TEMP 37.1; O2SAT 95
[2022-05-16] MEDS: LEVOTHYROXINE SODIUM 150 MCG TABLET PO (07:06)
[2022-05-16] MEDS: ACETAMINOPHEN 500 MG TABLET 1000 MG PO ×3 (07:06→19:48)
[2022-05-16] MEDS: BUSPIRONE 10 MG TABLET PO ×2 (07:07→17:08)
[2022-05-16] MEDS: SERTRALINE 100 MG TABLET 200 MG PO (07:07)
[2022-05-16] MEDS: VENLAFAXINE HCL 150 MG CAP.ER.24H PO (07:07)
[2022-05-16] MEDS: ALPRAZolam 0.5 MG TABLET PO ×3 (07:07→19:48)
[2022-05-16] MEDS: NON-FORMULARY MEDICATION 1 EACH TOPICAL ×2 (07:07→19:48)
[2022-05-16] MEDS: BUSPIRONE 10 MG TABLET 5 MG PO (11:14)
--- NOTE | 2022-05-16 11:45 | PC.SPIRITC ---
provided visit for connection and support.
--- NOTE | 2022-05-16 14:41 | PC.SOCIAL ---
Received a message from lAlison Ely at [facility] requesting that a webex meeting be set for a face to face with resident tomorrow at 1:00 pm. Set webex up and invited Allison for 05-17-22 at 1:00 pm. Provided information to [facility] nursing staff. Received a e-mail from resident's family member Lita Patricia requesting that resident move next week the week of May 22 due to family member, Mini, being out of town this week. Lita informed that she will be ordering furniture today to be delivered. Social work will follow up as necessary.
[2022-05-16 15:00] VITALS: TEMP 37.1; O2SAT 94
[2022-05-16 23:00] VITALS: TEMP 36.6; O2SAT 95
[2022-05-17] MEDS: LEVOTHYROXINE SODIUM 150 MCG TABLET PO (06:32)
[2022-05-17 07:00] VITALS: TEMP 37.1; O2SAT 93
[2022-05-17] MEDS: ALPRAZolam 0.5 MG TABLET PO ×3 (07:31→19:30)
[2022-05-17] MEDS: VENLAFAXINE HCL 150 MG CAP.ER.24H PO (07:31)
[2022-05-17] MEDS: NON-FORMULARY MEDICATION 1 EACH TOPICAL ×2 (07:31→19:30)
[2022-05-17] MEDS: BUSPIRONE 10 MG TABLET PO ×2 (07:31→17:00)
[2022-05-17] MEDS: SERTRALINE 100 MG TABLET 200 MG PO (07:31)
[2022-05-17] MEDS: ACETAMINOPHEN 500 MG TABLET 1000 MG PO ×3 (07:31→19:30)
--- NOTE | 2022-05-17 11:08 | PC.PHA1 ---
VP SITE PHARMACIST'S MEDICATION REVIEW: MEDICATION MONITORING:Sertraline? 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 Patient continues to have anxiety per staff notes she is verbally redirected according to her concern(s). SUGGESTED COURSE OF ACTION TAKEN:No medication recommendations at this time.
[2022-05-17] MEDS: BUSPIRONE 10 MG TABLET 5 MG PO (11:37)
--- NOTE | 2022-05-17 13:45 | PC.SOCIAL ---
Assisted resident in face to face interview with Allison Ely (gag writer, [facility]) via webex on a laptop. Resident completed interview with Allison. Allison requested new MD visit record and therapy notes for mental health therapy. Allison informed that the move in date/time is set for Monday May 23, 2022 at 11:30 am. Faxed records to Allison at [facility] at [phone]. Provided update to gag writer and AYANNA. Social work will follow up as necessary.
[2022-05-17 15:00] VITALS: TEMP 36.8; O2SAT 93
[2022-05-17 23:00] VITALS: TEMP 36.6; O2SAT 94
--- NOTE | 2022-05-18 02:26 | PC.NURSE ---
WEEKLY CHARTING - WEEK 2: Vital signs reviewed - no concerns. Temporary and comprehensive care plan reviewed - no change. Transfers and ambulates independently with 4WW. Staff provide assistance as needed. Independent with bed mobility. Does not use a w/c at this time. Per last fall risk assessment, resident is at high risk for falls. Fall interventions: bed in low position with brakes locked, walker at bedside, gripper socks, keep area free of clutter, call light in reach, and hourly safety checks.
--- NOTE | 2022-05-18 06:25 | PC.NURSE ---
Weekly Charting, Week 2 - Mobility: Comprehensive and temporary care plan reviewed. No changes made. Nothing added to temporary care plan. Resident transfers and ambulates independently using the 4ww. Staff assist as needed. No wheelchair use. Independent with bed/chair mobility. Vital signs reviewed, some elevated BP's. No complain of hypertensive symptoms.Continue weekly monitoring and refer to provider as needed. Fall: No falls the past month. Remains a high fall risk according to assessment done on 04/06/22. Fall interventions: call light within reach, bed in low position locked, encourage to ask for assist as needed, gripper socks, walker at bedside.
[2022-05-18] MEDS: LEVOTHYROXINE SODIUM 150 MCG TABLET PO (07:13)
[2022-05-18] MEDS: VENLAFAXINE HCL 150 MG CAP.ER.24H PO (07:14)
[2022-05-18] MEDS: ACETAMINOPHEN 500 MG TABLET 1000 MG PO ×3 (07:14→19:29)
[2022-05-18] MEDS: NON-FORMULARY MEDICATION 1 EACH TOPICAL ×2 (07:14→20:15)
[2022-05-18] MEDS: BUSPIRONE 10 MG TABLET PO ×2 (07:14→19:29)
[2022-05-18] MEDS: ALPRAZolam 0.5 MG TABLET PO ×3 (07:14→19:29)
[2022-05-18] MEDS: SERTRALINE 100 MG TABLET 200 MG PO (07:14)
[2022-05-18 10:23] VITALS: TEMP 36.8; O2SAT 96
[2022-05-18] MEDS: BUSPIRONE 10 MG TABLET 5 MG PO (12:17)
[2022-05-18 15:00] VITALS: TEMP 37.1; O2SAT 93
--- NOTE | 2022-05-18 16:48 | PC.NURSE ---
Behavior noted: Kelli asked this ghost writer if she could move to another room. Then later she left a large puddle of urine on the floor as she was walking into the bathroom. Put the call light on to say she needed help in the bathroom. JOHN walked into the room unaware she had urinated on the floor and almost fell. Feel this is related to being told about her moving by SS. She is fixating on this situation.
[2022-05-18 23:00] VITALS: TEMP 36.8; O2SAT 93
[2022-05-19 07:00] VITALS: TEMP 36.8; O2SAT 98
[2022-05-19] MEDS: LEVOTHYROXINE SODIUM 150 MCG TABLET PO (07:12)
[2022-05-19] MEDS: ACETAMINOPHEN 500 MG TABLET 1000 MG PO ×3 (07:17→19:21)
[2022-05-19] MEDS: NON-FORMULARY MEDICATION 1 EACH TOPICAL ×2 (07:18→19:21)
[2022-05-19] MEDS: SERTRALINE 100 MG TABLET 200 MG PO (07:18)
[2022-05-19] MEDS: VENLAFAXINE HCL 150 MG CAP.ER.24H PO (07:18)
[2022-05-19] MEDS: BUSPIRONE 10 MG TABLET PO ×2 (07:18→17:17)
[2022-05-19] MEDS: ALPRAZolam 0.5 MG TABLET PO ×3 (07:18→19:21)
[2022-05-19] MEDS: BUSPIRONE 10 MG TABLET 5 MG PO (11:29)
--- NOTE | 2022-05-19 16:16 | PC.SOCIAL ---
Received an email from resident's family member Lita Gomez informing [facility] that resident's furniture will not be delivered until Sunday of next week, which would delay the scheduled move in date. Family member requested that [facility] complete the admission on of next week. Joe from [facility] responded and stated that they would be unable to complete the admission until May 30, May 31, or June 01 and asked the family what would work best. No response was received. This worker sent an email to all parties asking that [facility] be notified of the move in date/time so [facility] can ensure that everything is prepared. Provided update to Nursing staff. Social work will follow up as necessary.
[2022-05-19 17:03] VITALS: TEMP 36.9; O2SAT 95
[2022-05-20 00:06] VITALS: TEMP 36.8; O2SAT 96
[2022-05-20] MEDS: VENLAFAXINE HCL 150 MG CAP.ER.24H PO (07:07)
[2022-05-20] MEDS: ALPRAZolam 0.5 MG TABLET PO ×3 (07:07→19:28)
[2022-05-20] MEDS: BUSPIRONE 10 MG TABLET PO ×2 (07:07→17:06)
[2022-05-20] MEDS: LEVOTHYROXINE SODIUM 150 MCG TABLET PO (07:07)
[2022-05-20] MEDS: ACETAMINOPHEN 500 MG TABLET 1000 MG PO ×3 (07:07→19:28)
[2022-05-20] MEDS: NON-FORMULARY MEDICATION 1 EACH TOPICAL ×2 (07:07→19:28)
[2022-05-20] MEDS: SERTRALINE 100 MG TABLET 200 MG PO (07:07)
[2022-05-20 11:02] VITALS: TEMP 37; O2SAT 95
[2022-05-20] MEDS: BUSPIRONE 10 MG TABLET 5 MG PO (11:21)
[2022-05-20 15:01] VITALS: TEMP 36.9; O2SAT 92
[2022-05-20 23:49] VITALS: TEMP 36.6; O2SAT 93
[2022-05-21] MEDS: ACETAMINOPHEN 500 MG TABLET 1000 MG PO ×3 (07:18→19:43)
[2022-05-21] MEDS: BUSPIRONE 10 MG TABLET PO ×2 (07:18→17:05)
[2022-05-21] MEDS: LEVOTHYROXINE SODIUM 150 MCG TABLET PO (07:18)
[2022-05-21] MEDS: ALPRAZolam 0.5 MG TABLET PO ×3 (07:18→19:43)
[2022-05-21] MEDS: NON-FORMULARY MEDICATION 1 EACH TOPICAL ×2 (07:18→19:43)
[2022-05-21] MEDS: VENLAFAXINE HCL 150 MG CAP.ER.24H PO (07:18)
[2022-05-21] MEDS: SERTRALINE 100 MG TABLET 200 MG PO (07:18)
[2022-05-21 10:37] VITALS: TEMP 37; O2SAT 95
[2022-05-21] MEDS: BUSPIRONE 10 MG TABLET 5 MG PO (11:10)
[2022-05-21 16:55] VITALS: TEMP 37.1; O2SAT 95
[2022-05-21 23:47] VITALS: TEMP 36.6; O2SAT 95
[2022-05-22 07:00] VITALS: BP 174/89; PULSE 77; RESP 18; TEMP 37.2; O2SAT 98; BMI 34.7
[2022-05-22] MEDS: NON-FORMULARY MEDICATION 1 EACH TOPICAL ×2 (07:22→19:01)
[2022-05-22] MEDS: BUSPIRONE 10 MG TABLET PO ×2 (07:29→17:26)
[2022-05-22] MEDS: LEVOTHYROXINE SODIUM 150 MCG TABLET PO (07:29)
[2022-05-22] MEDS: SERTRALINE 100 MG TABLET 200 MG PO (07:29)
[2022-05-22] MEDS: VENLAFAXINE HCL 150 MG CAP.ER.24H PO (07:29)
[2022-05-22] MEDS: ACETAMINOPHEN 500 MG TABLET 1000 MG PO ×3 (07:29→19:01)
[2022-05-22] MEDS: ALPRAZolam 0.5 MG TABLET PO ×3 (07:30→19:01)
[2022-05-22] MEDS: BUSPIRONE 10 MG TABLET 5 MG PO (11:05)
[2022-05-22 13:26] VITALS: BP 134/87
[2022-05-22 14:00] LABS: SARS PCR* Negative SARS-CoV-2 (Negative)
[2022-05-22 15:00] VITALS: TEMP 36.6; O2SAT 94
[2022-05-22 23:00] VITALS: TEMP 36.7; O2SAT 93
[2022-05-23 07:00] VITALS: TEMP 37.2; O2SAT 93
[2022-05-23] MEDS: NON-FORMULARY MEDICATION 1 EACH TOPICAL ×2 (07:05→19:30)
[2022-05-23] MEDS: BUSPIRONE 10 MG TABLET PO ×2 (07:05→19:30)
[2022-05-23] MEDS: ACETAMINOPHEN 500 MG TABLET 1000 MG PO ×3 (07:05→19:30)
[2022-05-23] MEDS: SERTRALINE 100 MG TABLET 200 MG PO (07:05)
[2022-05-23] MEDS: VENLAFAXINE HCL 150 MG CAP.ER.24H PO (07:05)
[2022-05-23] MEDS: LEVOTHYROXINE SODIUM 150 MCG TABLET PO (07:05)
[2022-05-23] MEDS: ALPRAZolam 0.5 MG TABLET PO ×3 (07:05→19:30)
[2022-05-23] MEDS: BUSPIRONE 10 MG TABLET 5 MG PO (11:24)
[2022-05-23 17:02] VITALS: TEMP 36.6; O2SAT 96
[2022-05-23 23:00] VITALS: TEMP 36.4; O2SAT 95
[2022-05-24 07:00] VITALS: TEMP 36.8; O2SAT 96
[2022-05-24] MEDS: ACETAMINOPHEN 500 MG TABLET 1000 MG PO ×3 (07:38→19:22)
[2022-05-24] MEDS: NON-FORMULARY MEDICATION 1 EACH TOPICAL ×2 (07:38→19:22)
[2022-05-24] MEDS: BUSPIRONE 10 MG TABLET PO ×2 (07:38→17:11)
[2022-05-24] MEDS: LEVOTHYROXINE SODIUM 150 MCG TABLET PO (07:38)
[2022-05-24] MEDS: ALPRAZolam 0.5 MG TABLET PO ×3 (07:39→19:22)
[2022-05-24] MEDS: SERTRALINE 100 MG TABLET 200 MG PO (07:39)
[2022-05-24] MEDS: VENLAFAXINE HCL 150 MG CAP.ER.24H PO (07:39)
[2022-05-24] MEDS: BUSPIRONE 10 MG TABLET 5 MG PO (11:17)
--- NOTE | 2022-05-25 03:39 | PC.NURSE ---
WEEKLY CHARTING WEEK 3 Vital signs reviewed. No concern Comprehensive care plan and temporary care plan reviewed. no changes made. Skin: Intermittent redness under breast. PRN Nystatin powder applied. Skin check every bath days and during cares. Toileting: Continent of bowel, incontinent of bladder. Able to use the call light to use the bathroom. Staff 1 assist of toileting using walker to/from bathroom at [facility]. Jackie cares, pad management and clothing manage by staff. Wears XL pull up.
[2022-05-25] MEDS: LEVOTHYROXINE SODIUM 150 MCG TABLET PO (06:45)
[2022-05-25] MEDS: VENLAFAXINE HCL 150 MG CAP.ER.24H PO (07:14)
[2022-05-25] MEDS: ALPRAZolam 0.5 MG TABLET PO ×3 (07:14→19:14)
[2022-05-25] MEDS: SERTRALINE 100 MG TABLET 200 MG PO (07:14)
[2022-05-25] MEDS: ACETAMINOPHEN 500 MG TABLET 1000 MG PO ×3 (07:14→19:14)
[2022-05-25] MEDS: BUSPIRONE 10 MG TABLET PO ×2 (07:14→17:10)
[2022-05-25] MEDS: NON-FORMULARY MEDICATION 1 EACH TOPICAL ×2 (07:14→19:14)
[2022-05-25] MEDS: BUSPIRONE 10 MG TABLET 5 MG PO (12:06)
--- NOTE | 2022-05-25 21:51 | PC.NURSE ---
Weekly Charting- Week #3-toileting and skin: Reviewed vital signs with no concerns. Reviewed temporary and comprehensive care plans with no changes noted. Skin is checked daily with cares and weekly with baths. No concerns noted. Resident is able to toilet self but may need assistance at times due to frequent incontinence of urine. Usually continent of bowel. She will attempt to change her wet pull up and clothing but much of the times she needs assistance from staff.
[2022-05-26] MEDS: ACETAMINOPHEN 500 MG TABLET 1000 MG PO ×3 (07:06→19:04)
[2022-05-26] MEDS: BUSPIRONE 10 MG TABLET PO ×2 (07:06→17:25)
[2022-05-26] MEDS: LEVOTHYROXINE SODIUM 150 MCG TABLET PO (07:06)
[2022-05-26] MEDS: NON-FORMULARY MEDICATION 1 EACH TOPICAL ×2 (07:06→19:04)
[2022-05-26] MEDS: VENLAFAXINE HCL 150 MG CAP.ER.24H PO (07:06)
[2022-05-26] MEDS: SERTRALINE 100 MG TABLET 200 MG PO (07:07)
[2022-05-26] MEDS: ALPRAZolam 0.5 MG TABLET PO ×3 (07:11→19:04)
[2022-05-26] MEDS: BUSPIRONE 10 MG TABLET 5 MG PO (11:12)
[2022-05-26 17:39] VITALS: RESP 18; TEMP 36.8
[2022-05-27] MEDS: ALPRAZolam 0.5 MG TABLET PO ×3 (07:42→19:02)
[2022-05-27] MEDS: LEVOTHYROXINE SODIUM 150 MCG TABLET PO (07:42)
[2022-05-27] MEDS: ACETAMINOPHEN 500 MG TABLET 1000 MG PO ×3 (07:42→19:02)
[2022-05-27] MEDS: NON-FORMULARY MEDICATION 1 EACH TOPICAL ×2 (07:43→19:02)
[2022-05-27] MEDS: BUSPIRONE 10 MG TABLET PO ×2 (07:43→17:08)
[2022-05-27] MEDS: SERTRALINE 100 MG TABLET 200 MG PO (07:43)
[2022-05-27] MEDS: VENLAFAXINE HCL 150 MG CAP.ER.24H PO (07:43)
[2022-05-27] MEDS: BUSPIRONE 10 MG TABLET 5 MG PO (11:33)
[2022-05-28] MEDS: LEVOTHYROXINE SODIUM 150 MCG TABLET PO (07:01)
[2022-05-28] MEDS: BUSPIRONE 10 MG TABLET PO ×2 (07:36→17:28)
[2022-05-28] MEDS: ACETAMINOPHEN 500 MG TABLET 1000 MG PO ×3 (07:36→19:39)
[2022-05-28] MEDS: VENLAFAXINE HCL 150 MG CAP.ER.24H PO (07:36)
[2022-05-28] MEDS: NON-FORMULARY MEDICATION 1 EACH TOPICAL ×2 (07:36→19:40)
[2022-05-28] MEDS: ALPRAZolam 0.5 MG TABLET PO ×3 (07:36→19:39)
[2022-05-28] MEDS: SERTRALINE 100 MG TABLET 200 MG PO (07:36)
[2022-05-28] MEDS: BUSPIRONE 10 MG TABLET 5 MG PO (11:49)
[2022-05-29 07:00] VITALS: BMI 35.1
[2022-05-29] MEDS: NYSTATIN POWDER 1 APPLIC TOPICAL ×2 (07:30→19:30)
[2022-05-29] MEDS: NON-FORMULARY MEDICATION 1 EACH TOPICAL ×2 (07:30→19:23)
[2022-05-29] MEDS: ACETAMINOPHEN 500 MG TABLET 1000 MG PO ×3 (07:44→19:23)
[2022-05-29] MEDS: LEVOTHYROXINE SODIUM 150 MCG TABLET PO (07:44)
[2022-05-29] MEDS: VENLAFAXINE HCL 150 MG CAP.ER.24H PO (07:44)
[2022-05-29] MEDS: BUSPIRONE 10 MG TABLET PO ×2 (07:44→17:04)
[2022-05-29] MEDS: SERTRALINE 100 MG TABLET 200 MG PO (07:45)
[2022-05-29] MEDS: ALPRAZolam 0.5 MG TABLET PO ×3 (07:45→19:23)
[2022-05-29 09:26] VITALS: BP 157/93; PULSE 98; RESP 29; TEMP 37.1; O2SAT 94
[2022-05-29 10:05] VITALS: RESP 29; TEMP 37.1
[2022-05-29] MEDS: BUSPIRONE 10 MG TABLET 5 MG PO (11:16)
[2022-05-30] MEDS: BUSPIRONE 10 MG TABLET PO (07:13)
[2022-05-30] MEDS: LEVOTHYROXINE SODIUM 150 MCG TABLET PO (07:13)
[2022-05-30] MEDS: ACETAMINOPHEN 500 MG TABLET 1000 MG PO (07:13)
[2022-05-30] MEDS: NON-FORMULARY MEDICATION 1 EACH TOPICAL (07:13)
[2022-05-30] MEDS: SERTRALINE 100 MG TABLET 200 MG PO (07:14)
[2022-05-30] MEDS: VENLAFAXINE HCL 150 MG CAP.ER.24H PO (07:14)
[2022-05-30] MEDS: ALPRAZolam 0.5 MG TABLET PO (07:14)
[2022-05-30] MEDS: ALPRAZolam 0.25 MG TABLET 0.5 MG PO (09:51)
--- NOTE | 2022-05-30 11:17 | PC.NURSE ---
Resident discharged to [facility] at 1100 today with family providing transportation. All medications including narcotics were sent with family. Family removing all belongings from room.
--- NOTE | 2022-05-30 11:54 | PC.SPIRITC ---
I provided visit for connection and support.
--- NOTE | 2022-05-30 13:19 | PC.NURSE ---
Recapitulation of Residents Stay: Kelli has been a resident of the [facility] since 07/2017. She was admitted for complications with dementia, anxiety, osteoarthritis, and recurrent falls. In this time, resident has had a mostly uncomplicated stay. Nursing has managed all of residents physical needs, medications, labs, and consultations while admitted. Kelli has an extensive history of anxiety and behaviors exacerbated by cognitive disfunction/dementia that has progressed over time here. Several changes were made to her medications over a span of time, however, they were not effective and her behaviors have continued to increase. was becoming disruptive to other residents in the facility and was making false accusations toward staff and other residents. While here she did speak with a mental health counselor off and on, dependent on if Kelli was willing to meet with her. The IDT determined that Kelli would benefit from being in a locked memory care unit for her wellbeing and safety. This was discussed with her POA Lita, who agreed that it would be in the best interest for Kelli to move forward with finding placement in a memory care unit. was placed at [facility]. Her family assisted in the move today 05/30/22, which went smoothly. Kelli has no outstanding lab results, tests, etc. All of her medications, including controlled substances were given to her POA. Her items were removed from her room by her family. It has been a pleasure caring for Kelli over the past 5 years.
== END | DRG 125 ==
PROVIDERS: Family Medicine; Admitting Provider Family Medicine; Family Provider Nurse Practitioner Gerontology; Visit Provider Family Medicine
DX: H57.89 Other specified disorders of eye and adnexa (principal); M17.0 Bilateral primary osteoarthritis of knee; E89.0 Postprocedural hypothyroidism; F41.1 Generalized anxiety disorder; F41.9 Anxiety disorder, unspecified; M54.50 Low back pain, unspecified; R21 Rash and other nonspecific skin eruption
CPT/HCPCS: 36415; 80048; 81001; 84443; 85025; 87086; 87502; 87635; 90471; 90662; 97110; 97116; 97161; 97165; A9270

== ENCOUNTER 2022-10-03 11:34 | Outpatient (REF) | payer MEDICARE, SELFPAY ==
[2022-10-03 14:49] LABS: Chloride* 107 mmol/L (96-114); Potassium* 3.4 mmol/L (3.6-5.1); Sodium* 141 mmol/L (135-149)
[2022-10-03 14:52] LABS: Anion Gap 11 mEq/L (7-15); Blood Urea Nitrogen* 12 mg/dL (7-30); Carbon Dioxide* 23 mmol/L (20-32); Creatinine* 0.7 mg/dL (0.5-1.5); Estimated Glomerular Filt Rate 92 ml/min
[2022-10-03 14:53] LABS: Calcium* 8.5 mg/dL (8.4-10.6); Glucose* 120 mg/dL (60-115)
[2022-10-03 15:23] LABS: Thyroid Stimulating Hormone* 0.289 uIU/mL (0.270-4.20)
== END 2022-10-03 11:35 | disposition home or self-care (01) ==
LOC: NPINS 11:34
PROVIDERS: Visit Provider Nurse Practitioner Gerontology
DX: E03.9 Hypothyroidism, unspecified (principal)
CPT/HCPCS: 80048; 84443

== ENCOUNTER 2022-11-16 09:43 | Outpatient (CLI) | payer MEDICARE, SELFPAY | END 2022-11-16 09:44 | disposition home or self-care (01) | LOC: AMB 11-17 11:08 | PROVIDERS: PCP Family Medicine; Visit Provider Internal Medicine | DX: R41.82 Altered mental status, unspecified (principal) | CPT/HCPCS: A0425; A0428; A0429 ==

== ENCOUNTER 2022-11-16 09:57 | Emergency (ER) | payer MEDICARE, SELFPAY ==
[2022-11-16] VITALS (7 sets, daily range): BP systolic 128–163; BP diastolic 77–94; PULSE 70–78; RESP 14–24; TEMP 36.2–36.6; O2SAT 93–99; BMI 27.5
--- NOTE | 2022-11-16 10:22 | CRLHL7_ITS ---
For Patients: As a result of the Century Cures Act, medical imaging exams and procedure reports are released immediately into your electronic medical record. You may view this report before your referring provider. If you have questions, please contact your health care provider. INDICATION: Weakness. TECHNIQUE: Chest 1 view. COMPARISON: None. FINDINGS: Heart and mediastinum: Heart size and vasculature are normal in caliber and appearance. Lungs and pleural spaces: Lungs are clear. No sign of infiltrate or mass. No sign of pleural effusion. No pneumothorax. Bones and soft tissues: No significant findings. IMPRESSION: No radiographic findings to explain weakness. Dictated by Adrien Do MD @ 11/16/2022 11:30:24 AM (Electronically Signed)
--- NOTE | 2022-11-16 10:22 | CRLHL7_ITS ---
For Patients: As a result of the Century Cures Act, medical imaging exams and procedure reports are released immediately into your electronic medical record. You may view this report before your referring provider. If you have questions, please contact your health care provider. INDICATION: Weakness, not otherwise described. Altered mental status. TECHNIQUE: CT head without contrast. COMPARISON: 10/22/2019. FINDINGS: Interpretation is limited by patient motion artifact and positioning. Generalized cerebral atrophy. Chronic right parietal infarct. Chronic infarct involving the anterior limb of the right internal capsule. Dilated perivascular spaces at the base of the right basal ganglia. Underpneumatized frontal sinuses. Bilateral frontal, sphenoid, bilateral ethmoid and right maxillary sinus mucosal thickening. IMPRESSION: Limited study as discussed above. No acute infarct, intracranial hemorrhage, mass or hydrocephalus. 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 Please note that all CT scans at this facility use dose modulation, iterative reconstruction, and/or weight-based dosing when appropriate to reduce radiation dose to as low as reasonably achievable. Dictated by Adrien Do MD @ 11/16/2022 11:49:54 AM (Electronically Signed)
--- NOTE | 2022-11-16 10:24 | ED.WEAKNESS ---
HPI - Weakness General Chief complaint: Weakness Stated complaint: shortness of breath Time Seen by Provider: 11/16/22 10:19 History of Present Illness HPI Narrative: Patient is a 72-year-old woman who lives in the memory unit at the [facility] who was felt by staff be weaker than normal today. Is not clear to me what her baseline is. Patient has significant dementia and is not certain where she lives or why she is here. She states she is having no pain. She has no bruising or any recent trauma. He describes no change in her diet or bowels. She has no dysuria no other subjective complaints. Patient apparently has been in her usual state health until this morning at which time she was noted to be weak. Related Data Home Medications Medication Instructions Recorded Confirmed alprazolam 0.5 mg tablet 0.5 mg PO BID PRN 05/30/22 11/16/22 levothyroxine 150 mcg capsule 137 mcg PO DAILY@07 hypothyroidism 11/16/22 11/16/22 nirmatrelvir 300 mg (150 mg See Rx Instructions PO .COMPLEX 11/16/22 11/16/22 x2)-ritonavir 100 mg tablet,dose pack (Paxlovid) Previous Rx's Medication Instructions Recorded acetaminophen 500 mg tablet 1,000 mg (2 x 500 mg) PO TID low 05/26/22 back or knee pain #360 tabs alprazolam 0.5 mg tablet 0.5 mg PO TID@08,13,20 generalized 05/26/22 anxiety #1 tab buspirone 10 mg tablet 10 mg PO BID@08,18 generalized 05/26/22 anxiety #60 tabs buspirone 5 mg tablet 5 mg PO DAILY@12 generalized 05/26/22 anxiety #30 tabs lidocaine HCl 4 % topical cream 1 applic topical BID@,20 knee 05/26/22 (Aspercreme (lidocaine HCl)) pain #1 tube nystatin 100,000 unit/gram topical 1 applic topical BID PRN yeast #30 05/26/22 powder grams pneumococcal 23-adi ps vaccine 25 0.5 ml IM ONCE vaccine #1 dose 05/26/22 mcg/0.5 mL injection solution sertraline 100 mg tablet 200 mg (2 x 100 mg) PO DAILY 05/26/22 generalized anxiety #60 tabs tramadol 50 mg tablet 50 mg PO Q6H PRN pain #1 tab 05/26/22 venlafaxine 150 mg tablet,extended 150 mg PO DAILY generalized 05/26/22 release 24 hr anxiety #30 tabs Allergies Allergy/AdvReac Type Severity Reaction Status Date / Time carbamazepine Allergy Unknown Verified 11/16/22 10:05 celecoxib Allergy Unknown Verified 11/16/22 10:05 codeine Allergy Unknown Verified 11/16/22 10:05 diclofenac Allergy Unknown Verified 11/16/22 10:05 diphenhydramine Allergy Unknown Verified 11/16/22 10:05 etodolac Allergy Unknown Verified 08/03/21 19:30 fexofenadine Allergy Unknown Verified 11/16/22 10:05 fish derived Allergy Unknown Verified 11/16/22 10:05 hydrocodone Allergy Unknown Verified 11/16/22 10:05 levofloxacin Allergy Unknown Verified 11/16/22 10:05 meloxicam Allergy Unknown Verified 11/16/22 10:05 mirtazapine Allergy Unknown Verified 11/16/22 10:05 misoprostol Allergy Unknown Verified 11/16/22 10:05 morphine Allergy Unknown Verified 11/16/22 10:05 Penicillins Allergy Unknown Verified 11/16/22 10:05 piroxicam Allergy Unknown Verified 11/16/22 10:05 NSAIDS (Non-Steroidal AdvReac Unknown Verified 11/16/22 10:05 Anti-Inflamma Review of Systems Status of ROS: Reports: 10 or more systems reviewed and unremarkable except as noted in History and below [facility] Medical History Durable power of city attorney in chart Social History Smoking Status: Former smoker Do you use any of these nicotine containing products: None How often do you have a drink containing alcohol: never How often do you have six or more drinks on one occasion: Less than monthly AUDIT-C Alcohol total score: 1 Non-prescribed substance use: denies use service: No Exam Narrative: Exam Narrative: EXAM GENERAL: Patient appears elderly and demented. EYES: No scleral icterus. LYMPH: No supraclavicular or cervical lymphadenopathy. SKIN: Visible skin seen during exam normal or with benign process only. EXT: No dependent lower extremity pedal edema. HEART: Regular rate and rhythm with no murmurs, rubs, or gallops. LUNGS: Clear to auscultation bilaterally with no crackles or wheezes. ABD: Soft, non tender, non distended. PSYCH: Patient is able have limited conversation. She states she has no major complaints and feels fine. Neurologic cranial nerves 2-12 grossly intact no focal defects. Const: Vital Signs, click to edit/add: Vital Signs - 24 hr 11/16/22 10:05 11/16/22 10:30 11/16/22 11:00 Temperature 97.9 F Pulse Rate [Pulse Oximeter] 78 76 70 Respiratory Rate 24 16 16 Blood Pressure [Ri ght Upper Arm] 163/79 H 151/91 H 158/90 H Pulse Oximetry 95 95 93 Oxygen Delivery Me thod Room Air Room Air Room Air 11/16/22 11:30 11/16/22 12:00 Temperature Pulse Rate [Pulse Oximeter] 75 76 Respiratory Rate 16 16 Blood Pressure [Ri ght Upper Arm] 144/85 H 154/77 H Pulse Oximetry 99 97 Oxygen Delivery Me thod Room Air Room Air Course Course ED Course: At this time will begin evaluation with urinalysis troponin CBC CMP chest x-ray CT of the head. We will determine her baseline functioning and re-evaluate. Vital Signs Vital signs: Initial Vital Signs Temperature 97.9 F 11/16/22 10:05 Temperature Source Temporal Artery Scan 11/16/22 10:05 Pulse Rate 78 11/16/22 10:05 Pulse Rhythm Regular 11/16/22 10:05 Respiratory Rate 24 11/16/22 10:05 Blood Pressure 163/79 H 11/16/22 10:05 Blood Pressure Mean 107 H 11/16/22 10:05 Blood Pressure Position Supine 11/16/22 10:05 Pulse Oximetry 95 11/16/22 10:05 Oxygen Delivery Method Room Air 11/16/22 10:05 Vital Signs Temperature 97.9 F 11/16/22 10:05 Pulse Rate 78 11/16/22 10:05 Respiratory Rate 24 11/16/22 10:05 Blood Pressure 163/79 H 11/16/22 10:05 Pulse Oximetry 95 11/16/22 10:05 Oxygen Delivery Method Room Air 11/16/22 10:05 Temperature 97.9 F 11/16/22 10:05 Pulse Rate 76 11/16/22 12:00 Respiratory Rate 16 11/16/22 12:00 Blood Pressure 154/77 H 11/16/22 12:00 Pulse Oximetry 97 11/16/22 12:00 Oxygen Delivery Method Room Air 11/16/22 12:00 MDM - Weakness MDM Narrative Medical decision making narrative: Patient is a 72-year-old woman who lives in memory care at the [facility] who was felt to be weaker than normal today. Patient is not able to provide any further history. She has significant dementia. Her pulsed indicates that she is a DNR DNI. I a did carefully examine her I do not perceive any significant findings other than her chronic dementia and weakness. Laboratory studies including CBC electrolytes urinalysis troponin are all unremarkable. Chest x-ray head CT are also without acute abnormalities. At this time evaluation is complete and patient can return to her memory unit. I would recommend they continue current care and follow up with their physician on rounds. Differential Diagnosis Differential diagnosis: Likely acute myocardial infarction, anemia, hypoglycemia, hypothyroidism, rhabdomyolysis, sepsis and dehydration Lab Data Labs: Lab Results 11/16/22 11/16/22 Range/Units 10:35 11:50 WBC 7.37 (4.50-11.00) K/uL RBC 5.01 (4.00-5.20) m/uL Hgb 15.0 (12.0-16.0) gm/dL Hct 48.1 (33.0-51.0) % MCV 96 (80-100) fL MCH 30 (26-34) pg MCHC 31 L (32-36) gm/dL RDW Coeff of Kelly 13.0 (11.5-15.5) % Plt Count 184 (140-440) K/uL Neut % (Auto) 59.9 (42.0-72.0) % Lymph % (Auto) 26.7 (20-44) % [place] % (Auto) 9.1 (0.0-11.0) % Eos % (Auto) 4.1 (0.0-7.0) % Baso % (Auto) 0.1 (0.0-3.0) % Neut # (Auto) 4.41 (1.7-7.0) K/uL Lymph # (Auto) 1.97 (0.90-2.90) K/uL [place] # (Auto) 0.70 (0.00-0.90) K/UL Eos # (Auto) 0.30 (0.00-0.50) K/uL Baso # (Auto) 0.01 (0.00-0.30) K/uL Abs Immat Gran (auto) 0.01 (0.00-0.30) K/uL Imm/Tot Granulo (auto) 0.1 % Sodium 141 (135-149) mmol/L Potassium 3.2 L (3.6-5.1) mmol/L Chloride 105 (96-114) mmol/L Carbon Dioxide 26 (20-32) mmol/L Anion Gap 10 (7-15) mEq/L BUN 23 (7-30) mg/dL Creatinine 1.0 (0.5-1.5) mg/dL Estimated Creat Clear 45.76 Estimated GFR 60 ml/min Glucose 99 (60-115) mg/dL Calcium 8.5 (8.4-10.6) mg/dL Troponin I 0.04 (0.01-0.04) ng/mL Urine Color Yellow (Yellow) Urine Appearance Clear (Clear) Urine pH 5.5 (5.0-8.5) Ur Specific [place] 1.020 (1.000-1.030) Urine Protein 1+ A (Negative) Urine Glucose (UA) Negative (Negative) Urine Ketones Trace A (Negative) Urine Blood Negative (Negative) Urine Nitrite Negative (Negative) Urine Bilirubin 1+ A (Negative) Urine Urobilinogen 0.2 (0.2-1.0) Ur Leukocyte Esterase Negative (Negative) Urine RBC 0-2 (0-2) Urine WBC 0-2 (0-5) Ur Squamous Epith Cells Moderate A (None-Few) Urine Bacteria None (None) Fine Granular Casts Many A (None) Coarse Granular Casts Many A (None) Urine Mucus Moderate A (None) Discharge Plan Discharge Clinical Impression: Weakness Patient Disposition: [facility]fer [facility] Discharge Location: [facility] Living Condition: Stable Instructions: Weakness (ED) Additional Instructions: Continue current care Activity Level: Activity as Tolerated Discharge Diet: Regular Prescriptions: No Action Paxlovid 300 mg (150 mg x 2)-100 mg tablets,dose pack See Rx Instructions .ROUTE .COMPLEX Rx Instructions: take TWO 150 mg tablets of nirmatrelvir with ONE 100 mg tablet of ritonavir twice daily for 5 days levothyroxine 150 mcg capsule 137 mcg PO DAILY@07 buspirone 5 mg tablet 5 mg PO DAILY@12 Qty: 30 0RF sertraline 100 mg tablet 200 mg PO DAILY Qty: 60 0RF tramadol 50 mg tablet 50 mg PO Q6H PRN (Reason: pain) Qty: 1 0RF acetaminophen 500 mg tablet 1,000 mg PO TID Qty: 360 0RF alprazolam 0.5 mg tablet 0.5 mg PO TID@,, Qty: 1 0RF buspirone 10 mg tablet 10 mg PO BID@, Qty: 60 0RF nystatin 100,000 unit/gram powder 1 applic topical BID PRN (Reason: yeast) Qty: 30 0RF pneumococcal 23-adi ps vaccine 25 mcg/0.5 mL solution 0.5 ml IM ONCE Qty: 1 0RF Rx Instructions: Due on 12/29/22 venlafaxine 150 mg tablet extended release 24hr 150 mg PO DAILY Qty: 30 0RF lidocaine HCl [Aspercreme (lidocaine HCl)] 4 % cream 1 applic topical BID@ Qty: 1 0RF alprazolam 0.5 mg tablet 0.5 mg PO BID PRN Follow Up/Referrals: Provider,Not a Local [Primary Care Provider] - Stand Alone Forms: [facility] Info Inst[facility]
[2022-11-16 10:48] LABS: Basophils Absolute Auto 0.01 K/uL (0.00-0.30); Basophils Percent Auto 0.1 % (0.0-3.0); Eosinophils Percent Auto 4.1 % (0.0-7.0); Hematocrit 48.1 % (33.0-51.0); Immature Granulocytes Abs Auto 0.01 K/uL (0.00-0.30); Immature Granulocytes Pct Auto 0.1 %; Lymphocytes Absolute Auto 1.97 K/uL (0.90-2.90); Lymphocytes Percent Auto 26.7 % (20-44); Mean Corpuscular HGB Conc 31 gm/dL (32-36); Mean Corpuscular Hemoglobin 30 pg (26-34); Mean Corpuscular Volume 96 fL (80-100); Monocytes Percent Auto 9.1 % (0.0-11.0); Neutrophils Absolute Auto 4.41 K/uL (1.7-7.0); Neutrophils Percent Auto 59.9 % (42.0-72.0); Platelet Count* 184 K/uL (140-440); Red Blood Count 5.01 m/uL (4.00-5.20); White Blood Count* 7.37 K/uL (4.50-11.00)
[2022-11-16 10:52] LABS: Slide Review Reflex No
[2022-11-16 11:04] LABS: Chloride* 105 mmol/L (96-114)
[2022-11-16 11:05] LABS: Potassium* 3.2 mmol/L (3.6-5.1); Sodium* 141 mmol/L (135-149)
[2022-11-16 11:07] LABS: Anion Gap 10 mEq/L (7-15); Carbon Dioxide* 26 mmol/L (20-32); Est. Creatinine Clearance* 45.76; Estimated Glomerular Filt Rate 60 ml/min
[2022-11-16 11:08] LABS: Blood Urea Nitrogen* 23 mg/dL (7-30); Calcium* 8.5 mg/dL (8.4-10.6); Glucose* 99 mg/dL (60-115)
[2022-11-16 11:20] LABS: Troponin I* 0.04 ng/mL (0.01-0.04)
--- NOTE | 2022-11-16 11:52 | ED.NURSE ---
straight cath done and sent to lab. patient had an accident, diarrhea stool in the bed and cleaned up.
[2022-11-16 11:57] LABS: Appearance Urine Clear (Clear); Bilirubin Urine 1+ (Negative); Blood Urine Negative (Negative); Color Urine Yellow (Yellow); Glucose Urine Negative (Negative); Ketones Urine Trace (Negative); Leukocyte Esterase Urine Negative (Negative); Nitrite Urine Negative (Negative); Protein Urine 1+ (Negative); Urobilinogen Urine 0.2 (0.2-1.0); pH Urine 5.5 (5.0-8.5)
[2022-11-16 12:09] LABS: RBC Urine 0-2 (0-2); Squamous Epithelial Cell Urine Moderate (None-Few); WBC Urine 0-2 (0-5)
[2022-11-16 12:10] LABS: Coarse Granular Casts Urine Many; Fine Granular Casts Urine Many; Mucus Urine Moderate
--- NOTE | 2022-11-16 12:24 | ED.NURSE ---
given report to Sue nurse at [facility] and agreed to take the patient back to memory care area.
--- NOTE | 2022-11-16 13:33 | ED.NURSE ---
EMS is here and given report and plan to return back to [facility]. given report to Sue nurse on staff at the facility. paperwork given to EMS with PCS and stretcher form filled out.
== END 2022-11-16 13:42 | disposition other institution (70) ==
LOC: ED 12:27
PROVIDERS: Emergency Provider Internal Medicine; PCP Family Medicine
DX: R53.1 Weakness (principal)
CPT/HCPCS: 36415; 70450; 71045; 80048; 81003; 81015; 84484; 85025; 93005; 99283; 99284; 99285

== ENCOUNTER 2022-11-16 13:25 | Outpatient (CLI) | payer MEDICARE, SELFPAY | END 2022-11-16 13:26 | disposition home or self-care (01) | LOC: AMB 11-17 11:21 | PROVIDERS: PCP Family Medicine; Visit Provider Internal Medicine | DX: R53.1 Weakness (principal); U07.1 COVID-19 | CPT/HCPCS: A0425; A0428 ==

== ENCOUNTER 2022-11-19 05:19 | Outpatient (CLI) | payer MEDICARE, SELFPAY | END 2022-11-19 05:20 | disposition home or self-care (01) | LOC: AMB 11-21 10:02 | PROVIDERS: PCP Family Medicine; Visit Provider Family Medicine | DX: R07.89 Other chest pain (principal); M54.9 Dorsalgia, unspecified | CPT/HCPCS: A0425; A0427; A0428 ==

== ENCOUNTER 2022-11-19 05:43 | Emergency (ER) | payer MEDICARE, SELFPAY ==
--- NOTE | 2022-11-19 05:47 | ED.GENADULT ---
HPI - General Adult General Time Seen by Provider: 05:47 Date Seen: 11/19/22 Chief complaint: Unspecified Complaint, Adult Stated complaint: COVID +, confusion Time Seen by Provider: 11/19/22 05:47 Source: patient, EMS and RN notes reviewed Mode of arrival: EMS Limitations: no limitations History of Present Illness HPI narrative: 72-year-old female with dementia, comes from dementia unit with COVID and complaining chest pain. No further information is available in patient has no complaints now. Related Data Home Medications Medication Instructions Recorded Confirmed alprazolam 0.5 mg tablet 0.5 mg PO BID PRN 05/30/22 11/16/22 levothyroxine 150 mcg capsule 137 mcg PO DAILY@07 hypothyroidism 11/16/22 11/16/22 nirmatrelvir 300 mg (150 mg See Rx Instructions PO .COMPLEX 11/16/22 11/16/22 x2)-ritonavir 100 mg tablet,dose pack (Paxlovid) Previous Rx's Medication Instructions Recorded acetaminophen 500 mg tablet 1,000 mg (2 x 500 mg) PO TID low 05/26/22 back or knee pain #360 tabs alprazolam 0.5 mg tablet 0.5 mg PO TID@08,13,20 generalized 05/26/22 anxiety #1 tab buspirone 10 mg tablet 10 mg PO BID@08,18 generalized 05/26/22 anxiety #60 tabs buspirone 5 mg tablet 5 mg PO DAILY@12 generalized 05/26/22 anxiety #30 tabs lidocaine HCl 4 % topical cream 1 applic topical BID@,20 knee 05/26/22 (Aspercreme (lidocaine HCl)) pain #1 tube nystatin 100,000 unit/gram topical 1 applic topical BID PRN yeast #30 05/26/22 powder grams pneumococcal 23-adi ps vaccine 25 0.5 ml IM ONCE vaccine #1 dose 05/26/22 mcg/0.5 mL injection solution sertraline 100 mg tablet 200 mg (2 x 100 mg) PO DAILY 05/26/22 generalized anxiety #60 tabs tramadol 50 mg tablet 50 mg PO Q6H PRN pain #1 tab 05/26/22 venlafaxine 150 mg tablet,extended 150 mg PO DAILY generalized 05/26/22 release 24 hr anxiety #30 tabs Allergies Allergy/AdvReac Type Severity Reaction Status Date / Time carbamazepine Allergy Unknown Verified 11/16/22 10:05 celecoxib Allergy Unknown Verified 11/16/22 10:05 codeine Allergy Unknown Verified 11/16/22 10:05 diclofenac Allergy Unknown Verified 11/16/22 10:05 diphenhydramine Allergy Unknown Verified 11/16/22 10:05 etodolac Allergy Unknown Verified 08/03/21 19:30 fexofenadine Allergy Unknown Verified 11/16/22 10:05 fish derived Allergy Unknown Verified 11/16/22 10:05 hydrocodone Allergy Unknown Verified 11/16/22 10:05 levofloxacin Allergy Unknown Verified 11/16/22 10:05 meloxicam Allergy Unknown Verified 11/16/22 10:05 mirtazapine Allergy Unknown Verified 11/16/22 10:05 misoprostol Allergy Unknown Verified 11/16/22 10:05 morphine Allergy Unknown Verified 11/16/22 10:05 Penicillins Allergy Unknown Verified 11/16/22 10:05 piroxicam Allergy Unknown Verified 11/16/22 10:05 NSAIDS (Non-Steroidal AdvReac Unknown Verified 11/16/22 10:05 Anti-Inflamma PFSH PFS Medical History Durable power of distance learning coordinator in chart Social History Smoking Status: Former smoker Do you use any of these nicotine containing products: None How often do you have a drink containing alcohol: never How often do you have six or more drinks on one occasion: Less than monthly AUDIT-C Alcohol total score: 1 Non-prescribed substance use: denies use service: No Exam Narrative: Exam Narrative: General: Well-developed and well-nourished, no acute distress Head: Atraumatic and normocephalic Eyes: Pupils are equal reactive, extraocular motions intact, conjunctiva clear ENT: External nose and ears are normal, posterior pharynx without erythema or exudate Neck: No midline cervical tenderness, full spontaneous range of motion the neck, trachea midline, no adenopathy Heart: Regular rate and rhythm no murmurs or thrills Lungs: Clear to auscultation bilaterally without wheezes or crackles Abdomen: Soft, nontender, nondistended with active bowel sounds Musculoskeletal: No tenderness, deformity, or edema Neurologic: Awake, alert, and oriented x1, no gross focal neurologic deficits, cranial nerves intact as tested Psych: Mood and affect are appropriate Skin: No rashes Course Course ED Course: Patient seen examined, prior records reviewed. Patient presents today with unknown complaint. She has severe dementia and is unable to provide any information but she denies any chest pain, abdominal pain, back pain, nausea, vomiting, shortness of breath to me. On exam hypertensive but otherwise vital is stable. Known COVID. Labs ordered along with EKG and plan to discharge if these are reassuring. Reevaluation(s) Time of Reevaluation #1: 06:54 Reevaluation #1: EKG is reassuring. Labs with normal white blood cell count, basic panel reassuring, troponin in normal range. Patient stable for discharge with continued follow-up. Medical Decision Making ECG Data Attestation: I personally reviewed and interpreted this ECG as follows: Prior ECG tracings: not available for review Interpretation: Performed at 6:11 a.m. demonstrates sinus rhythm with PACs, acute ST elevations or depressions, normal axis, QTC 472. No prior for comparison Discharge Plan Discharge Clinical Impression: COVID, Dementia Patient Disposition: Home, Self-Care Condition: Stable Instructions: COVID-19 (Coronavirus Disease 2019) (ED) Activity Level: Activity as Tolerated Discharge Diet: Regular Prescriptions: No Action Paxlovid 300 mg (150 mg x 2)-100 mg tablets,dose pack See Rx Instructions .ROUTE .COMPLEX Rx Instructions: take TWO 150 mg tablets of nirmatrelvir with ONE 100 mg tablet of ritonavir twice daily for 5 days levothyroxine 150 mcg capsule 137 mcg PO DAILY@07 buspirone 5 mg tablet 5 mg PO DAILY@12 Qty: 30 0RF sertraline 100 mg tablet 200 mg PO DAILY Qty: 60 0RF tramadol 50 mg tablet 50 mg PO Q6H PRN (Reason: pain) Qty: 1 0RF acetaminophen 500 mg tablet 1,000 mg PO TID Qty: 360 0RF alprazolam 0.5 mg tablet 0.5 mg PO TID@08,13,20 Qty: 1 0RF buspirone 10 mg tablet 10 mg PO BID@08,18 Qty: 60 0RF nystatin 100,000 unit/gram powder 1 applic topical BID PRN (Reason: yeast) Qty: 30 0RF pneumococcal 23-adi ps vaccine 25 mcg/0.5 mL solution 0.5 ml IM ONCE Qty: 1 0RF Rx Instructions: Due on 12/29/22 venlafaxine 150 mg tablet extended release 24hr 150 mg PO DAILY Qty: 30 0RF lidocaine HCl [Aspercreme (lidocaine HCl)] 4 % cream 1 applic topical BID@08,20 Qty: 1 0RF alprazolam 0.5 mg tablet 0.5 mg PO BID PRN Follow Up/Referrals: Alice Cooper MD [Primary Care Provider] - Stand Alone Forms: [facility] Info Instructions
[2022-11-19 05:52] VITALS: BP 204/99; PULSE 75; RESP 16; TEMP 37.2; O2SAT 96
[2022-11-19 05:53] VITALS: BP 152/87; PULSE 96; RESP 18; O2SAT 96
[2022-11-19 06:37] LABS: Basophils Absolute Auto 0.02 K/uL (0.00-0.30); Basophils Percent Auto 0.3 % (0.0-3.0); Eosinophils Percent Auto 4.2 % (0.0-7.0); Hematocrit 41.5 % (33.0-51.0); Hemoglobin* 13.2 gm/dL (12.0-16.0); Immature Granulocytes Abs Auto 0.05 K/uL (0.00-0.30); Immature Granulocytes Pct Auto 0.7 %; Lymphocytes Absolute Auto 1.74 K/uL (0.90-2.90); Lymphocytes Percent Auto 24.6 % (20-44); Mean Corpuscular HGB Conc 32 gm/dL (32-36); Mean Corpuscular Hemoglobin 30 pg (26-34); Mean Corpuscular Volume 95 fL (80-100); Monocytes Percent Auto 7.6 % (0.0-11.0); Neutrophils Absolute Auto 4.42 K/uL (1.7-7.0); Neutrophils Percent Auto 62.6 % (42.0-72.0); Platelet Count* 211 K/uL (140-440); RDW Coefficient of Variation % 13.1 % (11.5-15.5); Red Blood Count 4.39 m/uL (4.00-5.20); White Blood Count* 7.07 K/uL (4.50-11.00)
[2022-11-19 06:39] LABS: Slide Review Reflex No
[2022-11-19 06:50] LABS: Troponin, Point-of-Care* 0.01 ng/ml (0.01-0.04)
[2022-11-19 06:53] LABS: Chloride* 105 mmol/L (96-114)
[2022-11-19 06:54] LABS: Sodium* 140 mmol/L (135-149)
[2022-11-19 06:56] LABS: Creatinine* 0.5 mg/dL (0.5-1.5); Estimated Glomerular Filt Rate 100 ml/min
[2022-11-19 06:57] LABS: Anion Gap 10 mEq/L (7-15); Blood Urea Nitrogen* 15 mg/dL (7-30); Calcium* 8.4 mg/dL (8.4-10.6); Carbon Dioxide* 25 mmol/L (20-32); Glucose* 95 mg/dL (60-115); Magnesium* 1.8 mg/dL (1.5-2.6)
--- NOTE | 2022-11-19 07:10 | PC.NURSE ---
spoke with Cristy BUTLER at [facility]. went over DC instructions, Cristy has no further questions. sawyer has not futher questions either. dispatch called and transport set up.
--- NOTE | 2022-11-19 07:29 | PC.NURSE ---
report given to EMS.
== END 2022-11-19 07:30 | disposition home or self-care (01) ==
PROVIDERS: Emergency Provider Family Medicine; PCP Family Medicine
DX: U07.1 COVID-19 (principal); F03.90 Unspecified dementia, unspecified severity, without behavioral disturbance, psychotic disturbance, mood disturbance, and anxiety
CPT/HCPCS: 36415; 80048; 83735; 84484; 85025; 93005; 99283; 99284

== ENCOUNTER 2022-11-19 07:36 | Outpatient (CLI) | payer MEDICARE, SELFPAY | END 2022-11-19 07:37 | disposition home or self-care (01) | LOC: AMB 11-21 10:12 | PROVIDERS: PCP Family Medicine; Visit Provider Family Medicine | DX: U07.1 COVID-19 (principal); F03.90 Unspecified dementia, unspecified severity, without behavioral disturbance, psychotic disturbance, mood disturbance, and anxiety | CPT/HCPCS: A0425; A0428 ==

== ENCOUNTER 2022-11-27 08:51 | Outpatient (CLI) | payer MEDICARE, SELFPAY | END 2022-11-27 08:52 | disposition home or self-care (01) | LOC: AMB 12-02 14:31 | PROVIDERS: PCP Family Medicine; Visit Provider Family Medicine | DX: R07.89 Other chest pain (principal) | CPT/HCPCS: A0425; A0427; A0428 ==

== ENCOUNTER 2022-11-27 09:09 | Emergency (ER) | payer MEDICARE, SELFPAY ==
[2022-11-27] VITALS (12 sets, daily range): BP systolic 118–156; BP diastolic 53–75; PULSE 69–85; RESP 12–18; TEMP 36.6; O2SAT 94–98
--- NOTE | 2022-11-27 09:38 | ED_ITS ---
HPI - Chest Pain General Time Seen by Provider: 09:57 Date Seen: 11/27/22 Chief Complaint: Chest Pain Stated Complaint: Chest pain Time Seen by Provider: 11/27/22 09:36 Source: patient, EMS, RN notes reviewed and old records reviewed Mode of arrival: EMS History of Present Illness HPI narrative: This 72-year-old female is brought in from [facility] where she resides. She tells me she lives at [facility], she was recently moved from our [place] [facility] closed and moved to [facility]. She calls 911 from the phone in her room. She tells me her heart hurts, has been since last night. She is mostly complaining that the IV start nursing staff is working on is hurting her. She is unable to provide other history to me. I reviewed her recent records before seeing her. She was in the ED on 11/16 with normal basic labs including UA, no covid test done here at that time. Must have been tested at residence as when she returned with c/o chest pain on 11/19 was on Paxlovid for positive Covid. Potassium was 3.0, EKG reported to be normal, do not see troponin from that visit but was 0.04 for troponin I on 11/16. Reviewed prior charts. She has dementia, generalized anxiety disorder, chronic pain from osteoarthritis. Do not see any history of any cardiac disease. MD complaint: chest pain Related Data On Oral Contraceptives: No Home Medications Medication Instructions Recorded Confirmed alprazolam 0.5 mg tablet 0.5 mg PO BID PRN 05/30/22 11/16/22 levothyroxine 150 mcg capsule 137 mcg PO DAILY@07 hypothyroidism 11/16/22 11/16/22 nirmatrelvir 300 mg (150 mg See Rx Instructions PO .COMPLEX 11/16/22 11/16/22 x2)-ritonavir 100 mg tablet,dose pack (Paxlovid) Previous Rx's Medication Instructions Recorded acetaminophen 500 mg tablet 1,000 mg (2 x 500 mg) PO TID low 05/26/22 back or knee pain #360 tabs alprazolam 0.5 mg tablet 0.5 mg PO TID@08,13,20 generalized 05/26/22 anxiety #1 tab buspirone 10 mg tablet 10 mg PO BID@,18 generalized 05/26/22 anxiety #60 tabs buspirone 5 mg tablet 5 mg PO DAILY@12 generalized 05/26/22 anxiety #30 tabs lidocaine HCl 4 % topical cream 1 applic topical BID@08,20 knee 05/26/22 (Aspercreme (lidocaine HCl)) pain #1 tube nystatin 100,000 unit/gram topical 1 applic topical BID PRN yeast #30 05/26/22 powder grams pneumococcal 23-adi ps vaccine 25 0.5 ml IM ONCE vaccine #1 dose 05/26/22 mcg/0.5 mL injection solution sertraline 100 mg tablet 200 mg (2 x 100 mg) PO DAILY 05/26/22 generalized anxiety #60 tabs tramadol 50 mg tablet 50 mg PO Q6H PRN pain #1 tab 05/26/22 venlafaxine 150 mg tablet,extended 150 mg PO DAILY generalized 05/26/22 release 24 hr anxiety #30 tabs Allergies Allergy/AdvReac Type Severity Reaction Status Date / Time carbamazepine Allergy Unknown Verified 11/16/22 10:05 celecoxib Allergy Unknown Verified 11/16/22 10:05 codeine Allergy Unknown Verified 11/16/22 10:05 diclofenac Allergy Unknown Verified 11/16/22 10:05 diphenhydramine Allergy Unknown Verified 11/16/22 10:05 etodolac Allergy Unknown Verified 08/03/21 19:30 fexofenadine Allergy Unknown Verified 11/16/22 10:05 fish derived Allergy Unknown Verified 11/16/22 10:05 hydrocodone Allergy Unknown Verified 11/16/22 10:05 levofloxacin Allergy Unknown Verified 11/16/22 10:05 meloxicam Allergy Unknown Verified 11/16/22 10:05 mirtazapine Allergy Unknown Verified 11/16/22 10:05 misoprostol Allergy Unknown Verified 11/16/22 10:05 morphine Allergy Unknown Verified 11/16/22 10:05 Penicillins Allergy Unknown Verified 11/16/22 10:05 piroxicam Allergy Unknown Verified 11/16/22 10:05 NSAIDS (Non-Steroidal AdvReac Unknown Verified 11/16/22 10:05 Anti-Inflamma Review of Systems Status of ROS Reports: unobtainable due to medical condition ( Has dementia.) PFSH PFSH 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 Social History Smoking Status: Former smoker Do you use any of these nicotine containing products: None How often do you have a drink containing alcohol: never How often do you have six or more drinks on one occasion: Less than monthly AUDIT-C Alcohol total score: 1 Non-prescribed substance use: denies use service: No Exam Const Vital Signs, click to edit/add: Vital Signs - 24 hr 11/27/22 09:20 11/27/22 09:42 11/27/22 09:46 Temperature 97.9 F Pulse Rate 69 Pulse Rate [Right Pulse Oximeter] 69 Respiratory Rate 18 14 Blood Pressure 147/68 H Blood Pressure [Right Upper Arm] 156/74 H Pulse Oximetry 96 95 98 Oxygen Delivery Method Room Air 11/27/22 10:02 11/27/22 10:32 11/27/22 11:02 Temperature Pulse Rate 74 72 75 Pulse Rate [Right Pulse Oximeter] Respiratory Rate 14 12 14 Blood Pressure 152/75 H 146/61 H 124/56 L Blood Pressure [Right Upper Arm] Pulse Oximetry 95 95 96 Oxygen Delivery Method 11/27/22 11:32 11/27/22 12:02 Temperature Pulse Rate 77 80 Pulse Rate [Right Pulse Oximeter] Respiratory Rate 12 16 Blood Pressure 118/53 L 119/60 Blood Pressure [Right Upper Arm] Pulse Oximetry 95 94 Oxygen Delivery Method Room Air patient is alert, interactive, lying in the bed in exam room 5. Sclera clear, conjugate gaze. Symmetrical facial function, speech is normal. Neck is supple, no jugular venous distension, no cervical adenopathy, no thyromegaly masses or nodules. Lungs are clear, good air entry, no tachypnea, no wheezing or crackles. CV regular rate and rhythm, no murmur, normal S1 and S2, no S3 or S4. Abdomen is soft, no rebound or guarding, no organomegaly, nontender. No lower extremity edema. Skin visualized without any rash. Does complain of some right sternal border chest wall pain when I palpate. Documenting provider has reviewed patient's vital signs: yes Course Course ED Course: Patient is complaining of chest pain, do not know if she has any significant history of any cardiac disease, will try to look back at her records when able. She is currently hemodynamically stable. Initial EKG looks reassuring, will get troponin and other labs. Will get a portable chest x-ray. Given she recently had COVID, will check a D-dimer. Do need to consider confounding problems such as thromboembolic disease complicating COVID. She is not hypoxic, not tachycardic which would go against any clinically significant complication. Reevaluation(s) Time of Reevaluation #1: 13:44 Reevaluation #1: Serial troponins and EKGs unchanged. Will discharge back to [facility]. Time of Reevaluation #2: 13:48 Reevaluation #2: Patient is reporting the requested to discharge, was just completing upper chart, will finish charting and get her discharged back home. Vital Signs Vital signs: Initial Vital Signs Temperature 97.9 F 11/27/22 09:20 Temperature Source Temporal Artery Scan 11/27/22 09:20 Pulse Rate 69 11/27/22 09:20 Respiratory Rate 18 11/27/22 09:20 Blood Pressure 156/74 H 11/27/22 09:20 Blood Pressure Mean 101 11/27/22 09:20 Blood Pressure Position Sitting 11/27/22 09:20 Pulse Oximetry 96 11/27/22 09:20 Oxygen Delivery Method Room Air 11/27/22 09:20 Vital Signs Temperature 97.9 F 11/27/22 09:20 Pulse Rate 69 11/27/22 09:20 Respiratory Rate 18 11/27/22 09:20 Blood Pressure 156/74 H 11/27/22 09:20 Pulse Oximetry 96 11/27/22 09:20 Oxygen Delivery Method Room Air 11/27/22 09:20 Temperature 97.9 F 11/27/22 09:20 Pulse Rate 80 11/27/22 12:02 Respiratory Rate 16 11/27/22 12:02 Blood Pressure 119/60 11/27/22 12:02 Pulse Oximetry 94 11/27/22 12:02 Oxygen Delivery Method Room Air 11/27/22 12:02 MDM - Chest Pain Lab Data Attestation: I reviewed the patient's lab results. Labs: Lab Results 11/27/22 11/27/22 11/27/22 Range/Units 10:00 10:20 13:03 WBC 7.65 (4.50-11.00) K/uL RBC 4.18 (4.00-5.20) m/uL Hgb 12.8 (12.0-16.0) gm/dL Hct 40.7 (33.0-51.0) % MCV 97 (80-100) fL MCH 31 (26-34) pg MCHC 31 L (32-36) gm/dL RDW Coeff of Kelly 13.5 (11.5-15.5) % Plt Count 165 (140-440) K/uL Neut % (Auto) 74.3 H (42.0-72.0) % Lymph % (Auto) 15.7 L (20-44) % [place] % (Auto) 6.7 (0.0-11.0) % Eos % (Auto) 2.9 (0.0-7.0) % Baso % (Auto) 0.3 (0.0-3.0) % Neut # (Auto) 5.70 (1.7-7.0) K/uL Lymph # (Auto) 1.20 (0.90-2.90) K/uL [place] # (Auto) 0.50 (0.00-0.90) K/UL Eos # (Auto) 0.22 (0.00-0.50) K/uL Baso # (Auto) 0.02 (0.00-0.30) K/uL Abs Immat Gran (auto) 0.01 (0.00-0.30) K/uL Imm/Tot Granulo (auto) 0.1 % D-Dimer Quant (PE/DVT) 0.28 (0.00-0.50) ug/ml Sodium 141 (135-149) mmol/L Potassium 3.3 L (3.6-5.1) mmol/L Chloride 109 (96-114) mmol/L Carbon Dioxide 26 (20-32) mmol/L Anion Gap 6 L (7-15) mEq/L BUN 10 (7-30) mg/dL Creatinine 0.6 (0.5-1.5) mg/dL Estimated GFR 95 ml/min Glucose 86 (60-115) mg/dL Calcium 8.4 (8.4-10.6) mg/dL Total Bilirubin 0.4 (0.1-1.5) mg/dL AST 26 (12-35) U/L ALT 13 (4-35) U/L Alkaline Phosphatase 90 (40-150) U/L C-Reactive Protein 1.0 (0.5-1.0) mg/dL Total Protein 6.4 (6.0-8.3) g/dL Albumin 3.7 (3.3-5.0) g/dL POC Troponin I 0.02 0.01 (0.01-0.04) ng/ml Imaging Data Chest x-ray: Attestation: I have reviewed the pertinent imaging results. My impression: No acute pathology on my preliminary review. Radiologist's impression: Patient: JULIET GERMAIN Facility:?[facility] Patient ID:?[id number] Site Patient ID:?[id number]. Site :?[id number] Study:?XRay Chest 1V PORTABLE-11/27/2022 10:32:53 AM Ordering Physician:Starla Alexis Final Report: INDICATION: Chest pain COMPARISON: 11/16/2022. TECHNIQUE: 1 view chest radiograph. FINDINGS: Low lung volumes. No focal consolidations. No pulmonary edema. No pleural effusion. No pneumothorax. No pneumomediastinum. Ectatic thoracic aorta. Heart size accentuated by volumes in technique. Bones: Normal for age. IMPRESSION: Low lung volumes. No acute findings on chest radiograph. Dictated by Kassie Tamez MD @ 11/27/2022 10:38:22 AM (Electronic Signature) ECG Data Attestation: I personally reviewed and interpreted this ECG as follows: ( normal sinus rhythm, 76 beats per minute. QT corrected 452 milliseconds.) ECG interpretation date: 11/27/22 ECG interpretation time: 09:42 Discharge Plan Discharge Clinical Impression: Chest pain Patient Disposition: Home w/ Parent or Adult Condition: Stable Instructions: Chest Pain (ED) Additional Instructions: No evidence of any concern for thromboembolic disease, EKG, portable chest x- ray, troponins in labs without any acute abnormality. As part of patient's comprehensive care plan, do wonder about having a nursing assessment done prior to 911 being called. Recommend being seen by primary provider within the next week or so for re-evaluation, follow-up of the ED visit. Activity Level: Activity as Tolerated Prescriptions: No Action Paxlovid 300 mg (150 mg x 2)-100 mg tablets,dose pack See Rx Instructions .ROUTE .COMPLEX Rx Instructions: take TWO 150 mg tablets of nirmatrelvir with ONE 100 mg tablet of ritonavir twice daily for 5 days levothyroxine 150 mcg capsule 137 mcg PO DAILY@07 buspirone 5 mg tablet 5 mg PO DAILY@12 Qty: 30 0RF sertraline 100 mg tablet 200 mg PO DAILY Qty: 60 0RF tramadol 50 mg tablet 50 mg PO Q6H PRN (Reason: pain) Qty: 1 0RF acetaminophen 500 mg tablet 1,000 mg PO TID Qty: 360 0RF alprazolam 0.5 mg tablet 0.5 mg PO TID@08,,20 Qty: 1 0RF buspirone 10 mg tablet 10 mg PO BID@,18 Qty: 60 0RF nystatin 100,000 unit/gram powder 1 applic topical BID PRN (Reason: yeast) Qty: 30 0RF pneumococcal 23-adi ps vaccine 25 mcg/0.5 mL solution 0.5 ml IM ONCE Qty: 1 0RF Rx Instructions: Due on 12/29/22 venlafaxine 150 mg tablet extended release 24hr 150 mg PO DAILY Qty: 30 0RF lidocaine HCl [Aspercreme (lidocaine HCl)] 4 % cream 1 applic topical BID@ Qty: 1 0RF alprazolam 0.5 mg tablet 0.5 mg PO BID PRN Follow Up/Referrals: Alice Cooper MD [Primary Care Provider] - Stand Alone Forms: [facility] Info Instructions
--- NOTE | 2022-11-27 09:46 | CRLHL7_ITS ---
For Patients: As a result of the Cures Act, medical imaging exams and procedure reports are released immediately into your electronic medical record. You may view this report before your referring provider. If you have questions, please contact your health care provider. INDICATION: Chest pain COMPARISON: 11/16/2022. TECHNIQUE: 1 view chest radiograph. FINDINGS: Low lung volumes. No focal consolidations. No pulmonary edema. No pleural effusion. No pneumothorax. No pneumomediastinum. Ectatic thoracic aorta. Heart size accentuated by volumes in technique. Bones: Normal for age. IMPRESSION: Low lung volumes. No acute findings on chest radiograph. Dictated by Kassie Tamez MD @ 11/27/2022 10:38:22 AM (Electronically Signed)
--- NOTE | 2022-11-27 10:10 | ED.NURSE ---
IV attempt x2, unsuccessful. Able to draw small amount of blood for POC Trop. Per MD, hold on IV and okay to call lab for rest of lab tests.
[2022-11-27 10:30] LABS: Basophils Absolute Auto 0.02 K/uL (0.00-0.30); Basophils Percent Auto 0.3 % (0.0-3.0); Eosinophils Absolute Auto 0.22 K/uL (0.00-0.50); Eosinophils Percent Auto 2.9 % (0.0-7.0); Hematocrit 40.7 % (33.0-51.0); Hemoglobin* 12.8 gm/dL (12.0-16.0); Immature Granulocytes Abs Auto 0.01 K/uL (0.00-0.30); Immature Granulocytes Pct Auto 0.1 %; Lymphocytes Percent Auto 15.7 % (20-44); Mean Corpuscular HGB Conc 31 gm/dL (32-36); Mean Corpuscular Hemoglobin 31 pg (26-34); Mean Corpuscular Volume 97 fL (80-100); Monocytes Percent Auto 6.7 % (0.0-11.0); Neutrophils Percent Auto 74.3 % (42.0-72.0); Platelet Count* 165 K/uL (140-440); RDW Coefficient of Variation % 13.5 % (11.5-15.5); Red Blood Count 4.18 m/uL (4.00-5.20); White Blood Count* 7.65 K/uL (4.50-11.00)
[2022-11-27 10:40] LABS: Slide Review Reflex No
[2022-11-27 10:41] LABS: Albumin* 3.7 g/dL (3.3-5.0); Chloride* 109 mmol/L (96-114); Sodium* 141 mmol/L (135-149)
[2022-11-27 10:42] LABS: Potassium* 3.3 mmol/L (3.6-5.1)
[2022-11-27 10:44] LABS: Alanine Aminotransferase* 13 U/L (4-35); Alkaline Phosphatase* 90 U/L (40-150); Anion Gap 6 mEq/L (7-15); Aspartate Amino Transferase* 26 U/L (12-35); Bilirubin Total* 0.4 mg/dL (0.1-1.5); Blood Urea Nitrogen* 10 mg/dL (7-30); Carbon Dioxide* 26 mmol/L (20-32); Creatinine* 0.6 mg/dL (0.5-1.5); Estimated Glomerular Filt Rate 95 ml/min; Total Protein* 6.4 g/dL (6.0-8.3)
[2022-11-27 10:45] LABS: Calcium* 8.4 mg/dL (8.4-10.6); Glucose* 86 mg/dL (60-115)
[2022-11-27 10:51] LABS: Troponin, Point-of-Care* 0.02 ng/ml (0.01-0.04)
[2022-11-27 10:53] LABS: D Dimer Quantitative* 0.28 ug/ml (0.00-0.50)
[2022-11-27 13:21] LABS: Troponin, Point-of-Care* 0.01 ng/ml (0.01-0.04)
--- NOTE | 2022-11-27 13:49 | ED.NURSE ---
Left voicemail for primary contact Lita to callback regarding ride/discharge.
--- NOTE | 2022-11-27 14:55 | ED.NURSE ---
Pt d/c'ed to SNF. [facility] staff notified of EMS departure.
== END 2022-11-27 14:45 | disposition home or self-care (01) ==
PROVIDERS: Emergency Provider Family Medicine; PCP Family Medicine
DX: R07.9 Chest pain, unspecified (principal)
CPT/HCPCS: 36415; 71045; 80053; 84484; 85025; 85379; 86140; 93005; 94761; 99284

== ENCOUNTER 2022-11-27 14:44 | Outpatient (CLI) | payer MEDICARE, SELFPAY | END 2022-11-27 14:45 | disposition home or self-care (01) | PROVIDERS: PCP Family Medicine; Visit Provider Family Medicine | DX: Z99.3 Dependence on wheelchair (principal) | CPT/HCPCS: A0425; A0428 ==

== ENCOUNTER 2022-12-11 12:55 | Outpatient (CLI) | payer MEDICARE, SELFPAY | END 2022-12-11 12:56 | disposition home or self-care (01) | LOC: AMB 12-13 14:48 | PROVIDERS: PCP Family Medicine; Visit Provider Family Medicine | DX: T17.908A Unspecified foreign body in respiratory tract, part unspecified causing other injury, initial encounter (principal) | CPT/HCPCS: A0425; A0427 ==

== ENCOUNTER 2022-12-11 13:06 | Inpatient (IN) | payer MEDICARE, SELFPAY ==
[2022-12-11] VITALS (42 sets, daily range): BP systolic 102–210; BP diastolic 58–120; PULSE 85–137; RESP 16–32; TEMP 36.2–37.6; O2SAT 77–97; BMI 34.3; BMI 29.7
[2022-12-11] MEDS: 0.9 % SODIUM CHLORIDE 1000 ml 1,000 ML IV (13:15)
[2022-12-11] MEDS: PROPOFOL 10 MG/ML INJ 40 MG IVP (13:16)
--- NOTE | 2022-12-11 13:29 | ED.GENADULT ---
HPI - General Adult General Date Seen: 12/11/22 Chief complaint: Difficulty Swallowing Stated complaint: Airway obstruction Time Seen by Provider: 12/11/22 13:28 History of Present Illness HPI narrative: History limited by patient's critical presentation and by patient dementia. This is a 72-year-old female who is transported to the ER today by EMS from her memory care unit for an episode of possible choking/aspiration. History is limited. Paramedics report that the patient was eating some turkey for lunch. She was choking and seemed to have trouble breathing. Her care providers at the memory care unit tried to do a Heimlich maneuver but she is not any better. EMS arrived. The immediately package her for transport and brought her here. They were close to the hospital (across the street) so did not have time to established an IV, check blood sugar, or perform any interventions. The paramedics to have paperwork indicating the patient is DNR/DNI. The patient is acutely short of breath, altered, has stridulous respirations, hypoxic down to around 70% on room air with sinus tachycardia in the 130s on her monitor. Blood pressure is markedly elevated. She is in acute distress. Related Data Home Medications Medication Instructions Recorded Confirmed alprazolam 0.5 mg tablet 0.5 mg PO BID PRN 05/30/22 12/11/22 levothyroxine 150 mcg capsule 137 mcg PO DAILY@07 hypothyroidism 11/16/22 12/11/22 loperamide 2 mg capsule (Imodium 2 mg PO Q4H PRN 12/11/22 12/11/22 A-D) trolamine salicylate 10 % topical 1 applic topical BID 12/11/22 12/11/22 cream (Analgesic Creme) Previous Rx's Medication Instructions Recorded acetaminophen 500 mg tablet 1,000 mg (2 x 500 mg) PO TID low 05/26/22 back or knee pain #360 tabs alprazolam 0.5 mg tablet 0.5 mg PO TID@08,13,20 generalized 05/26/22 anxiety #1 tab buspirone 10 mg tablet 10 mg PO BID@08,18 generalized 05/26/22 anxiety #60 tabs buspirone 5 mg tablet 5 mg PO DAILY@12 generalized 05/26/22 anxiety #30 tabs nystatin 100,000 unit/gram topical 1 applic topical BID PRN yeast #30 05/26/22 powder grams sertraline 100 mg tablet 200 mg (2 x 100 mg) PO DAILY 05/26/22 generalized anxiety #60 tabs tramadol 50 mg tablet 50 mg PO Q6H PRN pain #1 tab 05/26/22 venlafaxine 150 mg tablet,extended 150 mg PO DAILY generalized 05/26/22 release 24 hr anxiety #30 tabs Allergies Allergy/AdvReac Type Severity Reaction Status Date / Time carbamazepine Allergy Unknown Verified 11/16/22 10:05 celecoxib Allergy Unknown Verified 11/16/22 10:05 codeine Allergy Unknown Verified 11/16/22 10:05 diclofenac Allergy Unknown Verified 11/16/22 10:05 diphenhydramine Allergy Unknown Verified 11/16/22 10:05 etodolac Allergy Unknown Verified 08/03/21 19:30 fexofenadine Allergy Unknown Verified 11/16/22 10:05 fish derived Allergy Unknown Verified 11/16/22 10:05 hydrocodone Allergy Unknown Verified 11/16/22 10:05 levofloxacin Allergy Unknown Verified 11/16/22 10:05 meloxicam Allergy Unknown Verified 11/16/22 10:05 mirtazapine Allergy Unknown Verified 11/16/22 10:05 misoprostol Allergy Unknown Verified 11/16/22 10:05 morphine Allergy Unknown Verified 11/16/22 10:05 Penicillins Allergy Unknown Verified 11/16/22 10:05 piroxicam Allergy Unknown Verified 11/16/22 10:05 NSAIDS (Non-Steroidal AdvReac Unknown Verified 11/16/22 10:05 Anti-Inflamma PFSH PFSH Medical History Edema ?R60.9 - Edema, unspecified (ICD-10) Urge urinary incontinence ?N39.41 - Urge incontinence (ICD-10) 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 (ICD-10) Postprocedural hypothyroidism ?E89.0 - Postprocedural hypothyroidism (ICD-10) Generalized anxiety disorder ?F41.1 - Generalized anxiety disorder (ICD-10) Essential hypertension ?I10 - Essential (primary) hypertension (ICD-10) Hypercholesterolemia ?E78.00 - Pure hypercholesterolemia, unspecified (ICD-10) Osteoarthritis ?M19.90 - Unspecified osteoarthritis, unspecified site (ICD-10) Diabetes mellitus type 2 in nonobese ?E11.9 - Type 2 diabetes mellitus without complications (ICD-10) Durable power of attorney at law in chart Social History What is your current living situation?: unable to answer Problems where you live: unable to answer Problems where you live details: unable to answer In the past 12 months, utilities in danger of being shut off: unable to answer In past 12 months, lack of transportation kept you from medical appts, meetings, work, or getting things needed for daily living: unable to answer In the past 12 mos, have been you worried that your food would run out before you had money to buy more?: unable to answer In the past 12 mos, the food you bought just didn't last and you didn't have money to buy more?: unable to answer Highest level of school completed/degree received: don't know Smoking Status: Former smoker Do you use any of these nicotine containing products: None Second hand tobacco smoke exposure: No How often do you have a drink containing alcohol: never How often do you have six or more drinks on one occasion: Less than monthly AUDIT-C Alcohol total score: 1 Non-prescribed substance use: denies use Caffeine: Yes How often does anyone, including family, friends and others, physically hurt you: unable to answer How often does anyone, including family, friends and others, insult or talk down to you: unable to answer How often does anyone, including family, friends and others, threaten you with harm: unable to answer How often does anyone, including family, friends and others, scream or curse at you: unable to answer service: No Exam Narrative: Exam Narrative: Primary survey: Airway-acute stridor, per report of eating turkey concerned that she may have some food foreign body in her throat obstructing her glottis. Breathing-tachypneic. Not moving much air in either lung field. Hypoxic to the 70s on room air. Placed on nasal cannula and 100% face mask sats came up to the low 90s. With little air movement, she seems to have Very coarse lung sounds in the right lung field concerning for aspiration. Circulation-sinus tachycardia in the 130s. Blood pressure elevated. He has disability-patient is unresponsive, not following commands. Her skin is pale. She is diaphoretic. She is in extremis. She may be rashad arrest After we sedated with propofol and perform video laryngoscopy, we removed a large piece of turkey from her hypopharynx that was intermittently obstructing her airway. With this stridor resolved. Her heart rate came down to about 100-110. Work of breathing improved. Sats came up to the mid 90s on 4 L nasal cannula. Initially after removed the airway her sats improved. She remained drowsy from the propofol. She was monitored and her airway remained patent. Mental status improved markedly. Secondary survey: Constitutional: Appears well-developed and well-nourished. Alert. She follows simple commands appropriately. She does have dementia and is not able to provide any history. HENT: Head: Atraumatic. Nose: Nose normal. Mouth/Throat: Oral mucosa is clear and moist. no trismus. Pharynx normal. Tonsils symmetric. No tonsillar enlargement, erythema, or exudate. Eyes: Conjunctivae normal. EOM normal. Pupils equal, round, and reactive to light. No scleral icterus. Neck: Normal range of motion. Neck supple. No tracheal deviation present. Cardiovascular: Tachycardic-105, regular rhythm. No gallop. No friction rub. No murmur heard. Symmetric radial artery pulses Pulmonary/Chest: Effort normal. No stridor. No respiratory distress. No wheezes. Right basilar rales. No rhonchi . No tenderness. Abdominal: Soft. No distension. No mass. No tenderness. No rebound. No guarding. Musculoskeletal: RUE: Normal range of motion. No tenderness. No deformity LUE: Normal range of motion. No tenderness. No deformity RLE: Normal range of motion. No edema. No tenderness. No deformity LLE: Normal range of motion. No edema. No tenderness. No deformity Lymph: No cervical adenopathy. Neurological: Alert and oriented to person but not place or time.. Normal strength. CN II-VII intact. No sensory deficit. GCS eye subscore is 4. GCS verbal subscore is 5. GCS motor subscore is 6. Normal coordination Skin: Skin is warm and dry. No rash noted. No pallor. Normal capillary refill. Psychiatric: Normal mood. Normal affect. Const: Vital Signs, click to edit/add: Vital Signs - 24 hr 12/11/22 13:09 12/11/22 13:10 12/11/22 13:10 Temperature 97.9 F Pulse Rate 136 H 134 H Pulse Rate [Pulse Oximeter] 137 H Respiratory Rate 32 H Blood Pressure Blood Pressure [Ri ght Upper Arm] 193/115 H Pulse Oximetry 93 94 77 L Oxygen Delivery Me thod OxyMask OxyMask Room Air Oxygen Flow Rate 15 15 12/11/22 13:11 12/11/22 13:15 12/11/22 13:16 Temperature Pulse Rate 135 H 134 H 135 H Pulse Rate [Pulse Oximeter] Respiratory Rate Blood Pressure 193/115 H 210/120 H Blood Pressure [Ri ght Upper Arm] Pulse Oximetry 94 93 93 Oxygen Delivery Me thod OxyMask OxyMask OxyMask Oxygen Flow Rate 15 15 15 12/11/22 13:20 12/11/22 13:21 12/11/22 13:22 Temperature Pulse Rate 127 H 122 H Pulse Rate [Pulse Oximeter] Respiratory Rate Blood Pressure 155/78 H 141/73 H Blood Pressure [Ri ght Upper Arm] Pulse Oximetry 97 95 Oxygen Delivery Me thod OxyMask OxyMask OxyMask Oxygen Flow Rate 15 15 15 12/11/22 13:25 12/11/22 13:26 12/11/22 13:27 Temperature Pulse Rate 114 H 115 H 113 H Pulse Rate [Pulse Oximeter] Respiratory Rate Blood Pressure 123/73 Blood Pressure [Ri ght Upper Arm] Pulse Oximetry 93 92 92 Oxygen Delivery Me thod Nasal Cannula Nasal Cannula Oxygen Flow Rate 3 3 12/11/22 13:30 12/11/22 13:31 12/11/22 13:35 Temperature Pulse Rate 113 H 109 H 105 H Pulse Rate [Pulse Oximeter] Respiratory Rate Blood Pressure 138/78 Blood Pressure [Ri ght Upper Arm] Pulse Oximetry 91 92 93 Oxygen Delivery Me thod Oxygen Flow Rate 12/11/22 13:36 12/11/22 13:40 12/11/22 13:41 Temperature Pulse Rate 108 H 106 H 105 H Pulse Rate [Pulse Oximeter] Respiratory Rate Blood Pressure 146/78 H 131/81 Blood Pressure [Ri ght Upper Arm] Pulse Oximetry 90 92 90 Oxygen Delivery Me thod Oxygen Flow Rate 12/11/22 13:45 12/11/22 13:46 12/11/22 13:50 Temperature Pulse Rate 105 H 103 H 100 Pulse Rate [Pulse Oximeter] Respiratory Rate Blood Pressure 140/77 H Blood Pressure [Ri ght Upper Arm] Pulse Oximetry 91 91 92 Oxygen Delivery Me thod Oxygen Flow Rate 12/11/22 13:51 12/11/22 13:55 12/11/22 13:56 Temperature Pulse Rate 101 H 99 103 H Pulse Rate [Pulse Oximeter] Respiratory Rate Blood Pressure 131/64 133/70 Blood Pressure [Ri ght Upper Arm] Pulse Oximetry 94 94 93 Oxygen Delivery Me thod Oxygen Flow Rate 12/11/22 14:00 12/11/22 14:01 12/11/22 14:05 Temperature Pulse Rate 99 101 H 101 H Pulse Rate [Pulse Oximeter] Respiratory Rate Blood Pressure 131/70 Blood Pressure [Ri ght Upper Arm] Pulse Oximetry 93 90 90 Oxygen Delivery Me thod Oxygen Flow Rate 12/11/22 14:06 12/11/22 14:11 12/11/22 14:12 Temperature Pulse Rate 100 101 H 99 Pulse Rate [Pulse Oximeter] Respiratory Rate Blood Pressure 131/79 118/58 L Blood Pressure [Ri ght Upper Arm] Pulse Oximetry 90 89 88 Oxygen Delivery Me thod Oxygen Flow Rate 12/11/22 14:15 12/11/22 14:16 12/11/22 14:20 Temperature Pulse Rate 98 98 99 Pulse Rate [Pulse Oximeter] Respiratory Rate Blood Pressure 121/61 Blood Pressure [Ri ght Upper Arm] Pulse Oximetry 91 90 88 Oxygen Delivery Me thod Oxygen Flow Rate 12/11/22 14:21 12/11/22 14:21 12/11/22 14:25 Temperature Pulse Rate 95 95 97 Pulse Rate [Pulse Oximeter] Respiratory Rate Blood Pressure 102/63 102/63 Blood Pressure [Ri ght Upper Arm] Pulse Oximetry 88 88 86 L Oxygen Delivery Me thod Oxygen Flow Rate 12/11/22 14:26 12/11/22 14:30 Temperature Pulse Rate 101 H 98 Pulse Rate [Pulse Oximeter] Respiratory Rate Blood Pressure 120/70 115/70 Blood Pressure [Ri ght Upper Arm] Pulse Oximetry 89 92 Oxygen Delivery Me thod OxyMask Oxygen Flow Rate 8 Course Course ED Course: Patient arrived by EMS. CT report was that she had choked on a piece of turkey. Her initial presentation was very concerning. She was acutely ill and dyspneic with stridor. We were concerned about potential upper airway foreign body. Advanced directives indicates that she is DNR/DNI. Discussed with her care team. We felt that it would be appropriate to do procedural sedation and video laryngoscopy to see if there was, indeed, a piece of turkey or something in her throat. If it was present we might be able to remove it with Luis forceps and improved the patient's symptomatic lead her feel better. He was determined that we would not intubate. If she failed to improve after laryngoscopy (or if no foreign body was actually present) the we would treat medically for possible aspiration but not intubated, as per her advance directive. Procedure: Video laryngoscopy and removal of upper airway foreign body Indication-choking spell, suspected aspiration on torquing. Acute respiratory distress We managed to get the patient on wire chief, oxygen supplementation and sats from the 70s up to 90. We established 2 IVs. Blood pressure was elevated. She was tachycardic. We administered 40 mg of propofol IV for procedural sedation. Using glide scope video laryngoscope and a size 3 low-profile blade we did perform video laryngoscopy. I was able to visualize the patient's epiglottis which was normal and vocal cords which were partially obscured by a large whitish mass. This turned out to be a a large piece of turkey. It appeared to be a big chunk of sliced turkey for dinner back on itself. With difficulty and with assistance from anesthesia we were able to remove this turkey using the Luis forceps. After removing the foreign body the patient stridor improved almost immediately. She remained drowsy from the propofol. I performed jaw thrust and we kept the patient on oxygen. Sats remained in the 90s. Patient recovered from the propofol was able to protect her own airway. Within a few minutes her mental status has improved, work of breathing was improved, heart rate came down, blood pressure improved. Coloration improved. Further ER course I contact the patient's power of attorney at law, Lita. She indicates the patient does have a previous diagnosis of some developmental delay and also superimposed on that dementia over the past couple of years. Her dementia has been worsening over the past couple of months. She is clearly declining, less oriented than before. He is more confused. For instance, she gets confused about her dentures and does not want to wear them sometimes. She has had another recent episode of choking that was much more mild so she did not come here to the hospital for that. We discussed my concern that the patient did have an acute upper airway obstruction from [place] that we were able to remove. Despite that she remains hypoxic and I am concerned that she probably also aspirated during her choking event. She does have a right sided rales, hypoxia, leukocytosis, elevated lactic acid. At this point unclear if she truly has an infection from aspiration-i.e. aspiration pneumonia area-or if she just has aspiration pneumonitis. However with elevated lactic, leukocytosis we will treat with antibiotics for aspiration pneumonia. Concern is for possible evolving sepsis or even septic shock given elevated lactic. her power of attorney at law indicates that or the main goal of care would be to keep her comfortable and not to do anything aggressive to prolong her life. To me it makes sense to keep her in the hospital for monitoring and for oxygen supplementation and for comfort as she is doing much better now. Discussed with the patient's [id number] that if this is a severe aspiration pneumonia and she is developing sepsis that this may still be a life-threatening infection. At this point we agree that she will be admitted to the medical floor for monitoring and further care, but we would not necessarily escalate to ICU, bronchoscopy, intubation, vasopressors or other aggressive interventions. Discussed with our hospitalist, Dr. Gary. He graciously came here to the ER to evaluate the patient and will admit to the medical floor. I have ordered 2 L of IV crystalloid to be administered we will check lactic acid after that. Initial lactic quite elevated. Unclear if this is due to profound hypoxia during the choking event or if it is actually due to sepsis. Discussed with pharmacy about antibiotic choice for possible aspiration pneumonia. Given the patient has allergies we decided that imipenem may be most appropriate. First dose ordered here in the ER after blood cultures were drawn. Reevaluation(s) Reevaluation #1: Recheck-mental status doing much better. Work of breathing improved. Still on 3 L nasal cannula. Clinically looks much better. More alert. At this time I do not know her neurologic baseline, but I know she has dementia. Suspect This may be near her recent baseline. Vital Signs Vital signs: Initial Vital Signs Pulse Rate 136 H 12/11/22 13:09 Pulse Oximetry 93 12/11/22 13:09 Oxygen Delivery Method OxyMask 12/11/22 13:09 Oxygen Flow Rate 15 12/11/22 13:09 Vital Signs Pulse Rate 136 H 12/11/22 13:09 Pulse Oximetry 93 12/11/22 13:09 Oxygen Delivery Method OxyMask 12/11/22 13:09 Oxygen Flow Rate 15 12/11/22 13:09 Temperature 97.2 F L 12/11/22 15:23 Pulse Rate 85 12/11/22 15:23 Respiratory Rate 22 12/11/22 15:41 Blood Pressure 123/79 12/11/22 15:23 Pulse Oximetry 92 12/11/22 15:41 Oxygen Delivery Method OxyMask 12/11/22 15:41 Oxygen Flow Rate 3 12/11/22 15:41 Medical Decision Making MDM Narrative Medical decision making narrative: 72-year-old female with dementia, progressively worsening over the past couple of months presents to the ER today with an acute choking event. 1. Airway. Patient presented with extremis, respiratory distress, stridor , profound hypoxia. With sedation and video laryngoscopy we were able to visualize a large piece of turkey that was intermittently obstructing her glottis. This was removed using Luis forceps. No complications noted during the removal procedure. After removing the foreign body her stridor was rolled in sats are improved. 2. Breathing. Concern is for probable aspiration pneumonitis or aspiration pneumonia. She remains hypoxic and requires nasal cannula to keep sats in the mid 90s. Chest x-ray does not show any definite infiltrate at this time. Concern is that she may develop worsening aspiration pneumonitis or pneumonia over the next 12-24 hours. With leukocytosis will start antibiotics for possible aspiration pneumonia. There is no wheezing or bronchospasm. Chest x-ray suggest possible pulmonary edema but with this clinical setting of a choking event, I suspect that this either negative pressure edema from inspiration against her obstructed glottis or possibly a spurious finding. 3. Infectious disease. No definitive pneumonia yet but were concerned about possible aspiration pneumonia. She does have leukocytosis. Will start broad-spectrum antibiotics. She does have a markedly elevated lactic acid at 9.4. Unclear if this is due to under perfusion from sepsis work that simply due to profound hypoxia from the choking event. I have ordered a repeat lactic to be obtained after she completes her 2 L of IV crystalloid. This will be followed by the hospitalist service. 4. Cardiac. Presented with marked sinus tachycardia. Heart rate improved after removal of her airway foreign body. Troponin negative. 5. Renal. Potassium mildly low at 3.4. Kidney function normal. 6. endocrine. She is hyperglycemic. Glucose 266. Bicarb low at 12. Anion gap mildly abnormal. Consider possible DKA, however, unlikely given that this was an abrupt choking spell that precipitated her ER visit.. Labs will be followed by the hospitalist service. 7. Goals of care. I had a long discussion with the patient's [id number]. Main focus would be to keep her comfortable. Power of attorney at law would not want any aggressive interventions the prolonged life. She will be admitted to the hospitalist's service Critical care time: Critical care time spent in initial phases of resuscitation, coordinating care, determining goals of care, interpreting labs, ordering IV fluids and antibiotics, bedside rechecks was 30-40 minutes, exclusive of the pressure of the procedure to remove the airway obstruction. Lab Data Labs: Lab Results 12/11/22 Range/Units 13:15 WBC 15.76 H (4.50-11.00) K/uL RBC 4.39 (4.00-5.20) m/uL Hgb 13.2 (12.0-16.0) gm/dL Hct 44.5 (33.0-51.0) % MCV 101 H (80-100) fL MCH 30 (26-34) pg MCHC 30 L (32-36) gm/dL RDW Coeff of Kelly 14.4 (11.5-15.5) % Plt Count 239 (140-440) K/uL Neut % (Auto) 50.2 (42.0-72.0) % Lymph % (Auto) 40.7 (20-44) % [place] % (Auto) 4.7 (0.0-11.0) % Eos % (Auto) 2.2 (0.0-7.0) % Baso % (Auto) 0.2 (0.0-3.0) % Neut # (Auto) 7.90 H (1.7-7.0) K/uL Lymph # (Auto) 6.40 H (0.90-2.90) K/uL [place] # (Auto) 0.70 (0.00-0.90) K/UL Eos # (Auto) 0.30 (0.00-0.50) K/uL Baso # (Auto) 0.00 (0.00-0.30) K/uL Abs Immat Gran (auto) 0.30 (0.00-0.30) K/uL Imm/Tot Granulo (auto) 2.0 % Diff Slide Review Acceptable Review (Acceptable) Sodium 139 (135-149) mmol/L Potassium 3.4 L (3.6-5.1) mmol/L Chloride 109 (96-114) mmol/L Carbon Dioxide 12 L (20-32) mmol/L Anion Gap 18 H (7-15) mEq/L BUN 7 (7-30) mg/dL Creatinine 0.6 (0.5-1.5) mg/dL Estimated GFR 95 ml/min Glucose 266 H (60-115) mg/dL Lactate 9.4 H* (0.5-1.9) mmol/L Calcium 8.4 (8.4-10.6) mg/dL Troponin I 0.02 (0.01-0.04) ng/mL Imaging Data Chest x-ray: Attestation: I have reviewed the pertinent imaging results. My impression: By my read the chest x-ray is very rotated with a left shoulder forward. Difficult to determine but no obvious infiltrate. Will have her x-ray department repeat x-ray to get a better AP portable chest. Radiologist's impression: Impression: Hyperinflation and chronic interstitial changes with mild to moderate pulmonary vascular congestion consistent with pulmonary edema. ECG Data Attestation: I personally reviewed and interpreted this ECG as follows: Interpretation: Sinus tach. Rate 109. NV 148 QRS axis normal axis. Possible LVH. ST segment/T wave: ST depression in lead 2, lead 3, lead 1. No ST segment elevation. QTc: 484 Compared to recent EKG the ST segment changes are new. Does not meet criteria for STEMI. Discharge Plan Discharge Clinical Impression: Aspiration into airway, Lactic acidemia, Altered mental status, Airway obstruction due to foreign body Patient Disposition: Admitted As Observation
--- NOTE | 2022-12-11 13:30 | CRLHL7_ITS ---
For Patients: As a result of the Century Cures Act, medical imaging exams and procedure reports are released immediately into your electronic medical record. You may view this report before your referring provider. If you have questions, please contact your health care provider. Indication: Aspiration, hypoxia, upper rales Comparison: Single-view chest November 27, 2022 Technique: Single AP view chest Findings: There is hyperinflation and chronic interstitial change. Persistent basilar atelectasis and parenchymal scar. No pneumothorax or pleural effusion. The cardiac silhouette is stably prominent with mild to moderate aortic tortuosity. The bony thorax is grossly intact. Impression: Hyperinflation and chronic interstitial changes with mild to moderate pulmonary vascular congestion consistent with pulmonary edema. Dictated by Kayode Payan MD @ 12/11/2022 2:52:38 PM (Electronically Signed)
[2022-12-11 13:39] LABS: Lactate* 9.4 mmol/L (0.5-1.9)
[2022-12-11 13:40] LABS: Basophils Percent Auto 0.2 % (0.0-3.0); Eosinophils Percent Auto 2.2 % (0.0-7.0); Hematocrit 44.5 % (33.0-51.0); Hemoglobin* 13.2 gm/dL (12.0-16.0); Lymphocytes Percent Auto 40.7 % (20-44); Mean Corpuscular HGB Conc 30 gm/dL (32-36); Mean Corpuscular Hemoglobin 30 pg (26-34); Mean Corpuscular Volume 101 fL (80-100); Monocytes Percent Auto 4.7 % (0.0-11.0); Neutrophils Percent Auto 50.2 % (42.0-72.0); Platelet Count* 239 K/uL (140-440); RDW Coefficient of Variation % 14.4 % (11.5-15.5); Red Blood Count 4.39 m/uL (4.00-5.20); White Blood Count* 15.76 K/uL (4.50-11.00)
[2022-12-11 13:42] LABS: Slide Review Reflex Yes
[2022-12-11 13:43] LABS: Chloride* 109 mmol/L (96-114); Potassium* 3.4 mmol/L (3.6-5.1); Sodium* 139 mmol/L (135-149)
--- NOTE | 2022-12-11 13:43 | RESP.RT ---
Patient arrived via EMS with obstructed airway. Placed on OxyMask flow meter to 15 Lpm, SaO2 92%, breathing shallow 22/minute. Conscious sedation for Look See with [place] Scope and SO#3 blade, [place] Forceps used to remove large amount of turkey wedge in air way. Patient VSS during procedure. Post procedure patient placed on OxyMask 3 Lpm SaO2 93%, breathing regular/easy 18/minute. BBS with coarse rales right lung mar.
[2022-12-11 13:46] LABS: Anion Gap 18 mEq/L (7-15); Blood Urea Nitrogen* 7 mg/dL (7-30); Calcium* 8.4 mg/dL (8.4-10.6); Carbon Dioxide* 12 mmol/L (20-32); Creatinine* 0.6 mg/dL (0.5-1.5); Estimated Glomerular Filt Rate 95 ml/min; Glucose* 266 mg/dL (60-115)
--- NOTE | 2022-12-11 13:51 | ED.NURSE ---
Pt arrived to ER with audible stridor and gasping respirations. Reports to EMS from staff at [facility] is pt was found down in her room choking on her food. EMS was unable to obtain a clear airway using Heimlich. Pt is DNR/DNI per EMS staff. Dr. Estrada in room upon pt arrival. Pt was placed on 15L oxymask for sats in upper 70s. Anesthesia called into room for assistance. Pt sedated after IV established in RIGHT wrist. 40mg Propofol given by anesthesia @ 1316. Glidescope used to visualize airway by Dr. Estrada. Large pieces of meat were removed from the airway by Dr. Estrada and anesthesia. After removal, pt no longer had audible stridor. Sats improved to mid-upper 90's on 15L oxymask. Pt switched to NC per RT. Sats maintaining >90% on 3L via NC. Pt now awake and answering questions. She is a poor historian due to dementia dx. She does not remember being brought here or what happened prior to arrival. This magnetic tape typewriter operator remained 1:1 with patient during recovery from anesthesia. Tachycardia and HTN improved from arrival. See flowsheet for additional information. Will continue to monitor and assess patient.
[2022-12-11 13:58] LABS: Troponin I* 0.02 ng/mL (0.01-0.04)
--- NOTE | 2022-12-11 14:32 | ED.NURSE ---
Patient not tolerating nasal cannula. Dr. Rudolph present in room and recommended oxymask again. Pt switched to oxymask and reports tolerating better. Titrated oxygen to 8L via oxymask for patient comfort/ patient request.
[2022-12-11 14:36] LABS: Slide Review Acceptable Review (Acceptable)
--- NOTE | 2022-12-11 14:54 | ED.NURSE ---
Report given to med/surg nurse. All questions answered. Pt transported in stable condition to room 251.
--- NOTE | 2022-12-11 15:25 | PM.IMHP1 ---
Hospitalist- H&P: HPI History of Present Illness Date Seen: 12/11/22 Chief complaint: Airway obstruction status post aspiration Narrative: Oanh Doll is a 72 year old woman who lives in the [facility] memory care unit aspirated today while eating a turkey sandwich. The staff at the Center attempted Heimlich maneuver without success. The called 911. She was brought to emergency department promptly. She was hypoxic with stridor is a saturating in the mid 70s on arrival. In a relatively short period time they were able to sedate her with propofol and remove some of turkey sandwich that was obstructing her airway. She experience relative hypoxia for 35-40 minutes as efforts were underway to stabilize her condition. After removal of the foreign body the stridor stopped and her oxygen saturations started to improve slightly. In time she became more awake and interactive and responsive. Review of Systems Status of ROS: Reports: 10 or more systems reviewed and unremarkable except as noted in History and below Narrative: Dr. Max Estrada, the physician seeing her in our emergency department, was able to speak with her power of tunnel elastic operator chainstitch via telephone. Her name is Lita Gomez and she concurred with the supportive efforts. She indicates the patient has a DNR DNI resuscitation status. Has not rule out the possibility of hospital intervention if warranted. Her physical and cognitive states have fairly rapidly evolved over the last 2-3 months. Had 1 prior episode of aspiration about a month ago which resolved spontaneously. Able to By the time I examined the patient she is awake and alert to self only not to place, time, or situation. Able to follow simple 1 step commands. 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 (ICD-10) Postprocedural hypothyroidism ?E89.0 - Postprocedural hypothyroidism (ICD-10) Generalized anxiety disorder ?F41.1 - Generalized anxiety disorder (ICD-10) Essential hypertension ?I10 - Essential (primary) hypertension (ICD-10) Hypercholesterolemia ?E78.00 - Pure hypercholesterolemia, unspecified (ICD-10) Osteoarthritis ?M19.90 - Unspecified osteoarthritis, unspecified site (ICD-10) Diabetes mellitus type 2 in nonobese ?E11.9 - Type 2 diabetes mellitus without complications (ICD-10) Durable power of tunnel elastic operator chainstitch in chart Social History Smoking Status: Former smoker Do you use any of these nicotine containing products: None Second hand tobacco smoke exposure: No How often do you have a drink containing alcohol: never How often do you have six or more drinks on one occasion: Less than monthly AUDIT-C Alcohol total score: 1 Non-prescribed substance use: denies use service: No Meds Home Medications and Allergies Home Medications Medication Instructions Recorded Confirmed Type alprazolam 0.5 mg tablet 0.5 mg PO BID PRN 05/30/22 12/11/22 History levothyroxine 150 mcg capsule 137 mcg PO DAILY@07 hypothyroidism 11/16/22 12/11/22 History loperamide 2 mg capsule (Imodium 2 mg PO Q4H PRN 12/11/22 12/11/22 History A-D) trolamine salicylate 10 % topical 1 applic topical BID 12/11/22 12/11/22 History cream (Analgesic Creme) Allergies Allergy/AdvReac Type Severity Reaction Status Date / Time carbamazepine Allergy Unknown Verified 11/16/22 10:05 celecoxib Allergy Unknown Verified 11/16/22 10:05 codeine Allergy Unknown Verified 11/16/22 10:05 diclofenac Allergy Unknown Verified 11/16/22 10:05 diphenhydramine Allergy Unknown Verified 11/16/22 10:05 etodolac Allergy Unknown Verified 08/03/21 19:30 fexofenadine Allergy Unknown Verified 11/16/22 10:05 fish derived Allergy Unknown Verified 11/16/22 10:05 hydrocodone Allergy Unknown Verified 11/16/22 10:05 levofloxacin Allergy Unknown Verified 11/16/22 10:05 meloxicam Allergy Unknown Verified 11/16/22 10:05 mirtazapine Allergy Unknown Verified 11/16/22 10:05 misoprostol Allergy Unknown Verified 11/16/22 10:05 morphine Allergy Unknown Verified 11/16/22 10:05 Penicillins Allergy Unknown Verified 11/16/22 10:05 piroxicam Allergy Unknown Verified 11/16/22 10:05 NSAIDS (Non-Steroidal AdvReac Unknown Verified 11/16/22 10:05 Anti-Inflamma Exam Narrative: Exam Narrative: I 1st examined her on her exam bed in the emergency department. Able to follow simple 1 step commands. Alert and oriented to self only not to place, time, situation. Has amnesia of events Does answer questions. Tympanic membranes normal. Normal nasal mucosa. Buccal mucosa is moist. No icterus, conjunctival injection, skin otherwise intact. Follow simple 1 step commands. Able to sit up with standby assist only. Neck supple. Midline trachea. Lungs with few do scattered on, with rales both this is right greater than left. Heart tones with regular rhythm, normal S1-S2. Abdomen with active bowel sounds, soft, nontender. No focal motor neurologic deficits. Cranial nerves 3-12 grossly intact. No tremor, asterixis, or ataxia. Const: Vital Signs, click to edit/add: Vital Signs - 24 hr 12/11/22 13:09 12/11/22 13:10 12/11/22 13:10 Temperature 97.9 F Pulse Rate 136 H 134 H Pulse Rate [Pulse Oximeter] 137 H Respiratory Rate 32 H Blood Pressure Blood Pressure [Ri ght Upper Arm] 193/115 H Pulse Oximetry 93 94 77 L Oxygen Delivery Me thod OxyMask OxyMask Room Air Oxygen Flow Rate 15 15 12/11/22 13:11 12/11/22 13:15 12/11/22 13:16 Temperature Pulse Rate 135 H 134 H 135 H Pulse Rate [Pulse Oximeter] Respiratory Rate Blood Pressure 193/115 H 210/120 H Blood Pressure [Ri ght Upper Arm] Pulse Oximetry 94 93 93 Oxygen Delivery Me thod OxyMask OxyMask OxyMask Oxygen Flow Rate 15 15 15 12/11/22 13:20 12/11/22 13:21 12/11/22 13:22 Temperature Pulse Rate 127 H 122 H Pulse Rate [Pulse Oximeter] Respiratory Rate Blood Pressure 155/78 H 141/73 H Blood Pressure [Ri ght Upper Arm] Pulse Oximetry 97 95 Oxygen Delivery Me thod OxyMask OxyMask OxyMask Oxygen Flow Rate 15 15 15 12/11/22 13:25 12/11/22 13:26 12/11/22 13:27 Temperature Pulse Rate 114 H 115 H 113 H Pulse Rate [Pulse Oximeter] Respiratory Rate Blood Pressure 123/73 Blood Pressure [Ri ght Upper Arm] Pulse Oximetry 93 92 92 Oxygen Delivery Me thod Nasal Cannula Nasal Cannula Oxygen Flow Rate 3 3 12/11/22 13:30 12/11/22 13:31 12/11/22 13:35 Temperature Pulse Rate 113 H 109 H 105 H Pulse Rate [Pulse Oximeter] Respiratory Rate Blood Pressure 138/78 Blood Pressure [Ri ght Upper Arm] Pulse Oximetry 91 92 93 Oxygen Delivery Me thod Oxygen Flow Rate 12/11/22 13:36 12/11/22 13:40 12/11/22 13:41 Temperature Pulse Rate 108 H 106 H 105 H Pulse Rate [Pulse Oximeter] Respiratory Rate Blood Pressure 146/78 H 131/81 Blood Pressure [Ri ght Upper Arm] Pulse Oximetry 90 92 90 Oxygen Delivery Me thod Oxygen Flow Rate 12/11/22 13:45 12/11/22 13:46 12/11/22 13:50 Temperature Pulse Rate 105 H 103 H 100 Pulse Rate [Pulse Oximeter] Respiratory Rate Blood Pressure 140/77 H Blood Pressure [Ri ght Upper Arm] Pulse Oximetry 91 91 92 Oxygen Delivery Me thod Oxygen Flow Rate 12/11/22 13:51 12/11/22 13:55 12/11/22 13:56 Temperature Pulse Rate 101 H 99 103 H Pulse Rate [Pulse Oximeter] Respiratory Rate Blood Pressure 131/64 133/70 Blood Pressure [Ri ght Upper Arm] Pulse Oximetry 94 94 93 Oxygen Delivery Me thod Oxygen Flow Rate 12/11/22 14:00 12/11/22 14:01 12/11/22 14:05 Temperature Pulse Rate 99 101 H 101 H Pulse Rate [Pulse Oximeter] Respiratory Rate Blood Pressure 131/70 Blood Pressure [Ri ght Upper Arm] Pulse Oximetry 93 90 90 Oxygen Delivery Me thod Oxygen Flow Rate 12/11/22 14:06 12/11/22 14:11 12/11/22 14:12 Temperature Pulse Rate 100 101 H 99 Pulse Rate [Pulse Oximeter] Respiratory Rate Blood Pressure 131/79 118/58 L Blood Pressure [Ri ght Upper Arm] Pulse Oximetry 90 89 88 Oxygen Delivery Me thod Oxygen Flow Rate 12/11/22 14:15 12/11/22 14:16 12/11/22 14:20 Temperature Pulse Rate 98 98 99 Pulse Rate [Pulse Oximeter] Respiratory Rate Blood Pressure 121/61 Blood Pressure [Ri ght Upper Arm] Pulse Oximetry 91 90 88 Oxygen Delivery Me thod Oxygen Flow Rate 12/11/22 14:21 12/11/22 14:21 12/11/22 14:25 Temperature Pulse Rate 95 95 97 Pulse Rate [Pulse Oximeter] Respiratory Rate Blood Pressure 102/63 102/63 Blood Pressure [Ri ght Upper Arm] Pulse Oximetry 88 88 86 L Oxygen Delivery Me thod Oxygen Flow Rate 12/11/22 14:26 12/11/22 14:30 Temperature Pulse Rate 101 H 98 Pulse Rate [Pulse Oximeter] Respiratory Rate Blood Pressure 120/70 115/70 Blood Pressure [Ri ght Upper Arm] Pulse Oximetry 89 92 Oxygen Delivery Me thod OxyMask Oxygen Flow Rate 8 Hospitalist - H&P: Result Labs Labs: Short CBC 12/11/22 Range/Units 13:15 WBC 15.76 H (4.50-11.00) K/uL Hgb 13.2 (12.0-16.0) gm/dL Hct 44.5 (33.0-51.0) % Plt Count 239 (140-440) K/uL BMP 12/11/22 13:15 Sodium 139 Potassium 3.4 L Chloride 109 Carbon Dioxide 12 L BUN 7 Creatinine 0.6 Glucose 266 H Calcium 8.4 Cardiac Enzymes 12/11/22 Range/Units 13:15 Troponin I 0.02 (0.01-0.04) ng/mL Assessment and Plan Assessment and plan (1) Airway obstruction due to foreign body: Status: Acute (2) Aspiration into airway: Problem comment: - Possible aspiration pneumonitis versus aspiration pneumonia. - initiate ertapenem 1 g IV Q 24 hours. Has multiple drug allergies. Status: Acute (3) Lactic acidemia: Status: Acute (4) Altered mental status: Status: Acute Plan 1. Admit patient for observation. 2. Oxygen support. As needed albuterol nebulizer. 3. IV ertapenem 1 g IV Q 24 hours. 4. Respiratory therapy consultation. 5. Will need to continue to work with her family. 6. Continue with other supportive efforts. 7. Patient is agreeable.
[2022-12-11] MEDS: LACTATED RINGERS 1000 ML IV (16:21)
[2022-12-11] MEDS: ONDANSETRON 2 MG/ML inj 4 MG IVP (17:49)
[2022-12-11] MEDS: SODIUM CHLORIDE 0.9 % (FLUSH) 10 ML SYRINGE 5 ML IVF (17:51)
[2022-12-11] MEDS: 0.9 % SODIUM CHLORIDE 1000 ml 1,000 ML 500 ML IV (18:12)
--- NOTE | 2022-12-11 18:54 | PC.NURSE ---
Pt arrived to floor at 1500. Pt alert to self. Pt has dementia. No family present upon admission. Pt had no complaints of non-verbal indications of pain. Pt had two episodes of emesis this evening around 1730 and 1805; See EMAR for intervention. Pt?s 1800 medications held. Pt switched back to nasal cannula and sustained low 90?s on 3 Liters. ?Pt does not use call light appropriately. ?
[2022-12-11] MEDS: 0.9 % SODIUM CHLORIDE 1000 ml 1,000 ML 75 ML IV (20:18)
[2022-12-11] MEDS: POTASSIUM CHLORIDE 10 MEQ/100 ML PIGGYBACK 100 MEQ IVPB ×2 (20:18→23:18)
[2022-12-11] MEDS: BUSPIRONE 10 MG TABLET PO (20:31)
[2022-12-11] MEDS: ALPRAZolam 0.25 MG TABLET 0.5 MG PO (21:23)
[2022-12-11] MEDS: ENOXAPARIN 30 MG/0.3ML INJ SUBCUT (21:24)
[2022-12-11] MEDS: ACETAMINOPHEN 500 MG TABLET 1000 MG PO (21:24)
[2022-12-11] MEDS: ERTAPENEM 1 GM in 0.9 % SODIUM CHLORIDE Mini-bag 100 ML IVPB (22:28)
[2022-12-12] VITALS (9 sets, daily range): BP systolic 126–159; BP diastolic 63–83; PULSE 90–107; RESP 18–20; TEMP 36.5–37.9; O2SAT 90–92
[2022-12-12] MEDS: POTASSIUM CHLORIDE 10 MEQ/100 ML PIGGYBACK 100 MEQ IVPB ×2 (01:09→02:54)
[2022-12-12 05:56] LABS: HCO3 VBG 25 mmol/L (21-28); Lactate* 1.2 mmol/L (0.5-1.9); PCO2 VBG 42 mmHG (40-50); PO2 VBG 22.3 mmHG (25-47); pH VBG 7.393 (7.32-7.43)
[2022-12-12 06:02] LABS: Basophils Percent Auto 0.1 % (0.0-3.0); Eosinophils Percent Auto 0.1 % (0.0-7.0); Immature Granulocytes Pct Auto 0.3 %; Lymphocytes Percent Auto 7.7 % (20-44); Mean Corpuscular HGB Conc 32 gm/dL (32-36); Mean Corpuscular Hemoglobin 31 pg (26-34); Mean Corpuscular Volume 96 fL (80-100); Monocytes Percent Auto 3.5 % (0.0-11.0); Neutrophils Percent Auto 88.3 % (42.0-72.0); Platelet Count* 169 K/uL (140-440); RDW Coefficient of Variation % 14.6 % (11.5-15.5); Red Blood Count 3.94 m/uL (4.00-5.20); White Blood Count* 14.58 K/uL (4.50-11.00)
[2022-12-12 06:06] LABS: Slide Review Reflex No
[2022-12-12] MEDS: LEVOTHYROXINE 112 MCG TABLET PO (06:14)
[2022-12-12] MEDS: LEVOTHYROXINE 25 MCG TABLET PO (06:14)
[2022-12-12 06:16] LABS: Chloride* 111 mmol/L (96-114)
[2022-12-12 06:17] LABS: Potassium* 4.3 mmol/L (3.6-5.1); Sodium* 140 mmol/L (135-149)
[2022-12-12 06:19] LABS: Creatinine* 0.5 mg/dL (0.5-1.5); Est. Creatinine Clearance* 42.07; Estimated Glomerular Filt Rate 100 ml/min
[2022-12-12 06:20] LABS: Anion Gap 5 mEq/L (7-15); Blood Urea Nitrogen* 6 mg/dL (7-30); Carbon Dioxide* 24 mmol/L (20-32); Glucose* 87 mg/dL (60-115); Phosphorus* 2.9 mg/dL (2.5-4.5)
[2022-12-12 06:21] LABS: Calcium* 7.5 mg/dL (8.4-10.6); Magnesium* 1.7 mg/dL (1.5-2.6)
--- NOTE | 2022-12-12 06:22 | PC.NURSE ---
End of shift: Alert to self. Pt refusing to leave O2 on. sats dipping to mid 80s on RA. Pt has been pulling on and successfully ripped out IV once. New IV placed. Pt did not sleep most of night. turn and repo q2h. inc. of urine. Tried to sit pt on side of bed to obtain orthostatic blood pressures and wt. Pt did not tolerate. Kept tying to lay back down and could not sit up on her own.
[2022-12-12 06:27] LABS: NT Pro B Type NatriureticPept* 5960 pg/mL
[2022-12-12 06:33] LABS: Procalcitonin* 0.91 ng/mL (<0.50)
[2022-12-12 06:37] LABS: Troponin I* 0.18 ng/mL (0.01-0.04)
[2022-12-12] MEDS: TRAMADOL HCL 50 MG TABLET PO (08:51)
[2022-12-12] MEDS: VENLAFAXINE ER 75 MG CAPSULE 150 MG PO (08:51)
[2022-12-12] MEDS: BUSPIRONE 10 MG TABLET PO ×2 (08:51→18:30)
[2022-12-12] MEDS: SERTRALINE 100 MG TABLET 200 MG PO (08:51)
[2022-12-12] MEDS: ALPRAZolam 0.25 MG TABLET 0.5 MG PO ×3 (08:51→20:27)
[2022-12-12] MEDS: ACETAMINOPHEN 500 MG TABLET 1000 MG PO ×3 (08:52→20:32)
--- NOTE | 2022-12-12 09:18 | RESP.RT ---
SaO2 92%, Nasal Cannula out of nares, returned to nares, patient removed cannula again. Patient doing well on room air SaO2 90-2%, breathing regular/easy. BBS with coarse rales noted all mar greater on Right Lung mar. Patient unable to do IS or PEP therapy. Unable to follow commands for use.
[2022-12-12 10:24] LABS: Albumin* 3.2 g/dL (3.3-5.0)
[2022-12-12 10:27] LABS: Alanine Aminotransferase* 27 U/L (4-35); Alkaline Phosphatase* 89 U/L (40-150); Aspartate Amino Transferase* 49 U/L (12-35); Bilirubin Total* 0.5 mg/dL (0.1-1.5); Total Protein* 6.2 g/dL (6.0-8.3)
--- NOTE | 2022-12-12 14:03 | PC.SOCIAL ---
Discharge planning- Pt will have a swallow study later today. Per therapy, pt is a standby assist. E-mail to Allison Ely (DON at [facility]) to see how much assistance pt was receiving. Received an e-mail back from Allison informing that pt is a 1 assist with all cares. Allison indicates that if pt is at baseline (1 assist with transfers) she will be able to return to [facility]. Allison would like to be kept updated on discharge plans including if pt will require oxygen and any new medications. Informed Allison that this worker will keep her updated. Provided update to charge nurse. Social work will continue to follow up as needed.
[2022-12-12] MEDS: BUSPIRONE 10 MG TABLET 5 MG PO (14:09)
--- NOTE | 2022-12-12 15:19 | P.IMPN_ITS ---
Progress Note: A&P Assessment and plan (1) Aspiration into airway: Problem details: - Possible aspiration pneumonitis versus aspiration pneumonia. Since she had fever today will continue treatment for aspiration pneumonia - initiate ertapenem 1 g IV Q 24 hours. Has multiple drug allergies. Status: Acute (2) Lactic acidemia: Problem details: Due to prolonged aspiration and airway obstruction event. Status: Acute (3) Altered mental status: Problem details: Due to airway obstruction. Continue to assess recovery from this event. Status: Acute (4) Airway obstruction due to foreign body: Problem details: Removed in the emergency department. Likely at risk for recurrent aspiration in the future. Status: Acute (5) Polypharmacy: Problem details: Patient is on fairly high doses multiple psychoactive medications, especially serotonergic drugs. Venlafaxine 150 mg daily, sertraline 200 mg daily, buspi venu 25 mg daily, tramadol 50 mg q.6 p.r.n.. Also on scheduled and p.r.n. alprazolam. Going to discontinue the tramadol for now. Status: Acute (6) Major neurocognitive disorder due to Alzheimer's disease, without behavioral disturbance: Problem details: Fairly severe dementia which has apparently been relatively rapidly progressive recently. Multiple emergency department visits in November also noted. Uncertain if she is able to manage in her current living environment with the support available Status: Acute (7) Swallowing difficulty: Problem details: Speech therapy recommends minced and moist diet and thin liquids are okay Status: Acute Plan Continue in hospital for treatment of aspiration pneumonia and monitoring of airway. Time Spent With Patient Total time spent: Total time spent today is 40 minutes, 30 minutes in coordination care and discussing with other providers management aspiration, pneumonia, frailty, polypharmacy Subjective Date Seen: 12/12/22 Interval history: Oanh Doll is a 72 year old woman who lives in the [facility] memory care unit aspirated the day of admission while eating a turkey sandwich. The staff at the [place] attempted Heimlich maneuver without success. The called 911. She was brought to emergency department promptly. She was hypoxic with stridor is a saturating in the mid 70s on arrival. In a relatively short period time they were able to sedate her with propofol and remove some of turkey sandwich that was obstructing her airway. She experience relative hypoxia for 35-40 minutes as efforts were underway to stabilize her condition. After removal of the foreign body the stridor stopped and her oxygen saturations started to improve slightly. In time she became more awake and interactive and responsive. Overnight she has not been hypoxic. She did have a fever this morning. She is being treated with ertapenem for aspiration pneumonia. Patient has fairly severe dementia and is apparently had a relatively recent significant decline. She is also on a on a number of medications to manage anxiety. Nursing staff note that she has been calling out some but not par ticularly agitated. Due to dementia patient is unable to tell me anything about recent events. She is not oriented to where she is. Exam Narrative: Exam Narrative: She is alert and appears in no obvious distress no obvious facial asymmetry. She has slight lid leg on the right compared to the left. Slight conjunctival injection noted. No obvious facial asymmetry. Oropharynx with small airway. Neck is supple without mass or adenopathy. No stridor. Respirations with a few bibasilar crackles. Cardiovascular: S1, S2, regular rate and rhythm. Abdomen is soft without tenderness or mass extremities without significant edema. Const: Vital Signs, click to edit/add: Vital Signs - 24 hr 12/11/22 15:23 12/11/22 15:30 12/11/22 15:41 Temperature 97.2 F L Pulse Rate [Pulse Oximeter] 85 Pulse Rate [orthos tatic lying] Respiratory Rate 22 22 22 Blood Pressure [Ri ght Arm] 123/79 Blood Pressure [or thostatic lying] Pulse Oximetry 92 92 92 Oxygen Delivery Me thod OxyMask OxyMask OxyMask Oxygen Flow Rate 3 3 3 12/11/22 19:33 12/11/22 22:14 12/11/22 23:00 Temperature 98.8 F 99.7 F H 99.7 F H Pulse Rate [Pulse Oximeter] 98 101 H Pulse Rate [orthos tatic lying] Respiratory Rate 18 16 Blood Pressure [Ri ght Arm] 148/75 H 130/61 Blood Pressure [or thostatic lying] Pulse Oximetry 94 91 Oxygen Delivery Me thod Nasal Cannula Room Air Oxygen Flow Rate 2 12/11/22 23:00 12/12/22 00:49 12/12/22 03:00 Temperature 99.0 F 99.1 F Pulse Rate [Pulse Oximeter] 97 Pulse Rate [orthos tatic lying] Respiratory Rate 16 18 Blood Pressure [Ri ght Arm] 159/83 H Blood Pressure [or thostatic lying] Pulse Oximetry 91 90 Oxygen Delivery Me thod Room Air Room Air Oxygen Flow Rate 12/12/22 05:00 12/12/22 08:00 12/12/22 08:00 Temperature Pulse Rate [Pulse Oximeter] 107 H Pulse Rate [orthos tatic lying] 97 Respiratory Rate 20 20 Blood Pressure [Ri ght Arm] Blood Pressure [or thostatic lying] 159/83 H Pulse Oximetry 90 Oxygen Delivery Me thod Room Air Oxygen Flow Rate 12/12/22 08:00 12/12/22 09:17 Temperature 100.3 F H Pulse Rate [Pulse Oximeter] 107 H Pulse Rate [orthos tatic lying] Respiratory Rate 20 20 Blood Pressure [Ri ght Arm] 144/75 H Blood Pressure [or thostatic lying] Pulse Oximetry 90 91 Oxygen Delivery Me thod Room Air Room Air Oxygen Flow Rate Documenting provider has reviewed patient's vital signs: yes Labs Labs: Laboratory Results - last 24 hr 12/11/22 12/12/22 20:58 05:21 WBC 14.58 H RBC 3.94 L Hgb 12.0 Hct 38.0 MCV 96 MCH 31 MCHC 32 RDW Coeff of Kelly 14.6 Plt Count 169 Neut % (Auto) 88.3 H Lymph % (Auto) 7.7 L Newberry % (Auto) 3.5 Eos % (Auto) 0.1 Baso % (Auto) 0.1 Neut # (Auto) 12.90 H Lymph # (Auto) 1.10 Newberry # (Auto) 0.50 Eos # (Auto) 0.00 Baso # (Auto) 0.00 Abs Immat Gran (auto) 0.00 Imm/Tot Granulo (auto) 0.3 VBG pH 7.393 VBG pCO2 42 VBG pO2 22.3 L VBG HCO3 25 Sodium 140 Potassium 4.3 Chloride 111 Carbon Dioxide 24 Anion Gap 5 L BUN 6 L Creatinine 0.5 Estimated Creat Clear 42.07 Estimated GFR 100 Glucose 87 Lactate 1.0 1.2 Calcium 7.5 L Phosphorus 2.9 Magnesium 1.7 Total Bilirubin 0.5 AST 49 H ALT 27 Alkaline Phosphatase 89 Troponin I 0.18 H* C-Reactive Protein 7.0 H NT-Pro-B Natriuret Pep 5960 Total Protein 6.2 Albumin 3.2 L Procalcitonin 0.91 H
--- NOTE | 2022-12-12 15:59 | PC.NURSE ---
PATIENT HAD ELEVATED TEMPERATURE THIS AM AND TYLENOL WAS ADMINISTERED. PATIENT TOLERATING THICKENED CLEAR LIQUID DIET WITHOUT DIFFICULTY SWALLOWING NOTED. PATIENT ORIENTED TO SELF ONLY. UP WITH A2, WALKER AND GAIT BELT TO RECLINER. NEEDS FREQUENT REDIRECTION AND INSTRUCTION. INCONTINENT OF URINE.
[2022-12-12] MEDS: NYSTATIN POWDER 1 APPLIC TOPICAL (20:27)
[2022-12-12] MEDS: ERTAPENEM 1 GM in 0.9 % SODIUM CHLORIDE Mini-bag 100 ML IVPB (20:31)
[2022-12-12] MEDS: SODIUM CHLORIDE 0.9 % (FLUSH) 10 ML SYRINGE 5 ML IVF (20:31)
[2022-12-12] MEDS: 0.9 % SODIUM CHLORIDE 250 ml IV (20:31)
[2022-12-12] MEDS: ENOXAPARIN 30 MG/0.3ML INJ SUBCUT (21:16)
--- NOTE | 2022-12-12 22:49 | PC.NURSE ---
End of Shift: Patient pleasant and cooperative. Alert to self. Temp max 99.4. Up to chair and BSC with 2 assist, walker and gait belt. Incontinent x2. Frequent turn and reposition. Tolerating minced and moist diet with no coughing noted.
[2022-12-13] VITALS (8 sets, daily range): BP systolic 110–163; BP diastolic 65–95; PULSE 92–108; RESP 16–18; TEMP 36.6–37.9; O2SAT 90–94; BMI 28.5
[2022-12-13] MEDS: LEVOTHYROXINE 112 MCG TABLET PO (06:04)
[2022-12-13] MEDS: LEVOTHYROXINE 25 MCG TABLET PO (06:04)
--- NOTE | 2022-12-13 06:40 | PC.NURSE ---
SHIFT NOTE -: Pt fatigued, slept well. Reported back pain in the beginning of the shift that improved with repositioning. Pt oxygen saturation was initially 78% on RA, 2L O2 applied with oxygen saturations in the low 90's. Pt turned and repositioned with a 2 assist, incontinent of urine x2, rashad care provided. Afebrile.
[2022-12-13] MEDS: ACETAMINOPHEN 500 MG TABLET 1000 MG PO ×3 (09:22→20:30)
[2022-12-13] MEDS: SERTRALINE 100 MG TABLET 200 MG PO (09:23)
[2022-12-13] MEDS: VENLAFAXINE ER 75 MG CAPSULE 150 MG PO (09:23)
[2022-12-13] MEDS: ALPRAZolam 0.25 MG TABLET 0.5 MG PO ×3 (09:23→20:22)
[2022-12-13] MEDS: SODIUM CHLORIDE 0.9 % (FLUSH) 10 ML SYRINGE 5 ML IVF (09:24)
[2022-12-13] MEDS: BUSPIRONE 10 MG TABLET PO ×2 (09:24→20:22)
--- NOTE | 2022-12-13 10:56 | PM.IMPN1 ---
Progress Note: A&P Assessment and plan (1) Acute respiratory failure with hypoxia: Problem details: -Possible aspiration pneumonitis versus aspiration pneumonia - related to dementia. swallow study reviewed. more related to dementia. -ertapenem q 24hours x 2 doses; transition to oral Vantin 200mg BID on 12/13 -procal downtrending, CRP uptrending. -no new fever -stable pH on 2L NC oxygen Status: Acute (2) Altered mental status: Problem details: 2/2 aspiration event needing removal of FB. continue to support recovery and normalization of lactate and other lab abnormalities Status: Acute (3) Lactic acidemia: Problem details: Resolved; Due to prolonged aspiration and airway obstruction event. Status: Acute (4) Airway obstruction due to foreign body: Problem details: Removed in the emergency department. Likely at risk for recurrent aspiration in the future. Status: Acute (5) Polypharmacy: Problem details: Patient is on fairly high doses multiple psychoactive medications, especially serotonergic drugs. Venlafaxine 150 mg daily, sertraline 200 mg daily, buspirone 25 mg daily, tramadol 50 mg q.6 p.r.n.. Also on scheduled and p.r.n. alprazolam. Going to discontinue the tramadol for now. Status: Acute (6) Major neurocognitive disorder due to Alzheimer's disease, without behavioral disturbance: Problem details: Fairly severe dementia which has apparently been relatively rapidly progressive recently. Multiple emergency department visits in November also noted. -SW to find SNF placement for culminating medical issues Status: Acute (7) Swallowing difficulty: Problem details: Speech therapy recommends minced and moist diet and thin liquids are okay Status: Acute (8) Palliative care encounter: Problem details: Distant relative, Lita, is healthcare power of corporate associate attorney. Discussed current quality of life and significant health problems and goals of care. Considering palliative care and hospice Status: Acute Subjective Date Seen: 12/13/22 Interval history: Daily Progress Note - Hospital Medicine #: 2 CC: dementia, aspiration pneumonia, type 2 NSTEMI OVERNIGHT UPDATES FROM STAFF & MED, LAB, IMAGING UPDATES -barely arousable this morning. most of her breakfast not eaten. -intermittently cooperating. -concerned about her dentures. We've requested them from [facility]. T-max was 100.3? at ADM yesterday, followed by a 99.8 measurement. Afebrile since Mildly hypertensive which seems to be increasing. Systolic 163/95. Pulse 101. Respiratory rate 18. Pulse ox 92% on room air. Weight 78 kilos on admission, today 75 kilos White count yesterday was down trending. 14.5. Gas was normal yesterday, 12/12. A1c 5.5 Lactate had return to normal 1.2 Troponin 0.18, downtrending 12/13 to 0.06 CRP 7.0 yesterday up to 13.6, procalcitonin 0.9 and down today Albumin 3.2 Micro review. MRSA negative. Blood cultures negative to date. Objective: disshelved, tired appearing Vitals: see above Lungs: Clear. Cardiac: S1S2. Disposition/Potential discharge - Likely to return to previous living situation. Today I spent 50minutes seeing the patient, reviewing Expanse and EPIC notes/diagnostics, discussing the care plan with our care time that includes social work, PT/OT, pharmacy, RT, fci and documenting my impressions and plan in the medical record. Exam Const: Vital Signs, click to edit/add: Vital Signs - 24 hr 12/12/22 12:00 12/12/22 15:00 12/12/22 15:00 Temperature 99.8 F H 99.4 F Pulse Rate [Pulse Oximeter] 101 H 98 Respiratory Rate 20 18 Blood Pressure [Ri t Arm] 138/78 126/63 Pulse Oximetry 92 92 92 Oxygen Delivery Me thod Room Air Room Air Room Air Oxygen Flow Rate 12/12/22 15:00 12/12/22 19:00 12/12/22 23:00 Temperature 98.5 F Pulse Rate [Pulse Oximeter] 98 90 90 Respiratory Rate 18 18 18 Blood Pressure [facility] 134/71 Pulse Oximetry 90 Oxygen Delivery Me thod Room Air Oxygen Flow Rate 12/12/22 23:00 12/12/22 23:00 12/13/22 03:00 Temperature 97.7 F Pulse Rate [Pulse Oximeter] 90 Respiratory Rate 18 18 Blood Pressure [facility] 143/71 H Pulse Oximetry 90 90 90 Oxygen Delivery Me thod Nasal Cannula Nasal Cannula Nasal Cannula Oxygen Flow Rate 2 2 12/13/22 05:00 12/13/22 09:00 12/13/22 09:00 Temperature 97.9 F 98.8 F Pulse Rate [Pulse Oximeter] 92 101 H Respiratory Rate 18 18 Blood Pressure [Ri t Arm] 156/73 H 163/95 H Pulse Oximetry 91 92 92 Oxygen Delivery Me thod Nasal Cannula Nasal Cannula Nasal Cannula Oxygen Flow Rate 2 2 2
--- NOTE | 2022-12-13 10:59 | CRLHL7_ITS ---
For Patients: As a result of the Cures Act, medical imaging exams and procedure reports are released immediately into your electronic medical record. You may view this report before your referring provider. If you have questions, please contact your health care provider. INDICATION: Follow up pulmonary edema. COMPARISON: Chest radiograph 12/11/2022. TECHNIQUE: Portable AP view of the chest. FINDINGS: The cardiomediastinal silhouette is grossly unchanged compared to prior examination with patient slightly rotated to the right. There is mild pulmonary vascular congestion. Right lower lung zone airspace opacity with similar-appearing left basilar atelectasis. There may be trace bilateral pleural effusions. No pneumothorax. IMPRESSION: Right lower lung zone airspace opacity, could represent an acute infectious/inflammatory process versus atelectatic lung. Questionable trace bilateral pleural effusions. Dictated by Rehan Sullivan MD @ 12/13/2022 12:26:48 PM (Electronically Signed)
[2022-12-13 11:23] LABS: HCO3 VBG 23 mmol/L (21-28); Ionized Calcium* 1.01 mmol/L (1.11-1.30); PCO2 VBG 35 mmHG (40-50); PO2 VBG 52.8 mmHG (25-47); pH VBG 7.438 (7.32-7.43)
[2022-12-13 11:52] LABS: Hematocrit 36.8 % (33.0-51.0); Hemoglobin* 11.6 gm/dL (12.0-16.0); Mean Corpuscular HGB Conc 32 gm/dL (32-36); Mean Corpuscular Hemoglobin 30 pg (26-34); Mean Corpuscular Volume 97 fL (80-100); Platelet Count* 169 K/uL (140-440); Red Blood Count 3.81 m/uL (4.00-5.20); White Blood Count* 11.53 K/uL (4.50-11.00)
[2022-12-13 12:02] LABS: Magnesium* 1.8 mg/dL (1.5-2.6)
[2022-12-13 12:21] LABS: Procalcitonin* 0.42 ng/mL (<0.50)
[2022-12-13 12:25] LABS: C Reactive Protein* 13.6 mg/dL (0.5-1.0); Troponin I* 0.06 ng/mL (0.01-0.04)
--- NOTE | 2022-12-13 12:34 | PC.SOCIAL ---
Discharge planning- Phone call to pt's cousin and POA (Lita Gomez) to discuss discharge plans. Informed Lita that [facility] is unable to take pt back if she requires more than 1 staff to transfer her. Provided update, per nursing, that pt is requiring a 2 assist to transfer today. Pt's POA discussed pt's decline in health since leaving LT and going to [facility]. Pt's POA is willing to look at [facility] for a long term placement for a higher level of care. This worker will keep pt's POA updated. Phone call to Angela in admissions at [facility] and they do have an opening in [facility]. Secure e-mailed referral to [facility] to be reviewed. Provided update to MD. Social work will continue to follow up as needed.
[2022-12-13 13:40] LABS: Slide Review Reflex No
[2022-12-13] MEDS: BUSPIRONE 10 MG TABLET 5 MG PO (15:54)
[2022-12-13] MEDS: CEFPODOXIME PROXETIL 200 MG TABLET PO ×2 (15:55→20:31)
--- NOTE | 2022-12-13 19:01 | PC.NURSE ---
End of Shift: Patient was alert to self and place @ 1500 assessment, Heavy assist of 2 to the chair this morning with GB and walker. Patient did not want to help.. maybe use EZ stand. No reprots of pain. Patient was continously asking fo rher teeth today, I called [facility].. they came and brought them. Patient needs to be fed with meals or else she will not eat. Even when fed she will say no more only @ about 50% of lunch and ensure was offered for dinner. Patient was repositioned in bed with pillows. On 1 L NC to maintain stats greater than 88%.. tried to ween her off, but not successful.. Use 2 people to turn and reposition her she is very stiff. Incontinent of bladder 1x today and we put her on the commode and she had 1 UM urine occurrence. Bilateral lungs are diminished. Tomorrow the patient is going to memory care ([facility]) at [facility] per Dr Cheek. Call light within reach... Bed alarm on. Charlee STOUT RN.
[2022-12-14 03:00] VITALS: BP 149/77; PULSE 97; RESP 18; TEMP 36.9; O2SAT 90
--- NOTE | 2022-12-14 06:22 | PC.NURSE ---
End of Shift: Pt remained in bed throughout shift, turned and repositioned q2h. O2 sats remained between 87-94% with 1L O2 NC, would drop down to 83% when pt would remove O2 NC while sleeping. Pt recovered quickly once O2 was reapplied. Pt denied pain throughout shift. No BM.
[2022-12-14] MEDS: LEVOTHYROXINE 112 MCG TABLET PO (07:04)
[2022-12-14] MEDS: LEVOTHYROXINE 25 MCG TABLET PO (07:04)
[2022-12-14 09:00] VITALS: BP 148/78; PULSE 96; RESP 16; RESP 18; TEMP 37.4; O2SAT 90
[2022-12-14] MEDS: ALPRAZolam 0.25 MG TABLET 0.5 MG PO ×2 (09:18→12:25)
[2022-12-14] MEDS: SERTRALINE 100 MG TABLET 200 MG PO (09:19)
[2022-12-14] MEDS: CEFPODOXIME PROXETIL 200 MG TABLET PO (09:19)
[2022-12-14] MEDS: ACETAMINOPHEN 500 MG TABLET 1000 MG PO (09:19)
[2022-12-14] MEDS: VENLAFAXINE ER 75 MG CAPSULE 150 MG PO (09:19)
[2022-12-14] MEDS: BUSPIRONE 10 MG TABLET PO (09:19)
[2022-12-14] MEDS: SODIUM CHLORIDE 0.9 % (FLUSH) 10 ML SYRINGE 5 ML IVF (09:20)
--- NOTE | 2022-12-14 11:04 | P.DS_ITS ---
DS: Providers Provider Date Seen: 12/14/22 Date of admission: 12/12/22 09:34 Primary care physician: Alice Cooper MD Admitting Clinician: Kenn Gary MD Consults: 12/11/22 14:56 Consult to Respiratory Therapy [CONS] Routine Comment: Reason(s) for RT Consult:: Consult 12/11/22 15:00 Consult to Nutrition [CONS] Routine Comment: Reason for consult:: Miscellaneous Consult to Speech Therapy [CONS] Routine Comment: Reason(s) for Speech Consult:: Swallowing Difficulty Comment: Aspiration event 12/10/2022 on turkey sandwich 12/11/22 15:45 Consult to Physical Therapy [CONS] Routine Comment: Reason(s) for PT Consult:: ACL Protocols Any Restrictions?:: No Restrictions 12/12/22 11:19 Consult to Radiological Defense Officer [CONS] Routine Comment: Reason for Consult:: Discharge Planning Needs Attending Physician on discharge: DAIJA BOYKIN MD [facility] Date of Discharge: 12/14/22 DS: Diagnosis Discharge Diagnosis (1) Acute respiratory failure with hypoxia: Status: Acute Problem details: -Possible aspiration pneumonitis versus aspiration pneumonia - related to dementia. swallow study reviewed. more related to dementia. -ertapenem q 24hours x 2 doses; transition to oral Vantin 200mg BID on 12/13 (2) Altered mental status: Status: Acute Problem details: Secondary to aspiration event needing removal of FB. continue to support recovery and normalization of lactate and other lab abnormalities (3) Lactic acidemia: Status: Acute Problem details: Resolved; Due to prolonged aspiration and airway obstruction event. (4) Airway obstruction due to foreign body: Status: Acute Problem details: Removed in the emergency department. Likely at risk for recurrent aspiration in the future. (5) Polypharmacy: Status: Acute Problem details: Patient is on fairly high doses multiple psychoactive medications, especially serotonergic drugs. Venlafaxine 150 mg daily, sertraline 200 mg daily, buspirone 25 mg daily, tramadol 50 mg q.6 p.r.n.. Also on scheduled and p.r.n. alprazolam. Decreased alprazolam dosing at discharge. (6) Major neurocognitive disorder due to Alzheimer's disease, without behavioral disturbance: Status: Acute Problem details: Fairly severe dementia which has apparently been relatively rapidly progressive recently. Multiple emergency department visits in November also noted. -SW to find SNF placement for culminating medical issues (7) Swallowing difficulty: Status: Acute Problem details: Speech therapy recommends minced and moist diet and thin liquids are okay (8) Palliative care encounter: Status: Acute Problem details: Distant relative, Lita, is healthcare power of cancer registry manager. Discussed current quality of life and significant health problems and goals of care. Considering palliative care and hospice DS: Summary Hospital Course Hospital Course: FINAL DIAGNOSIS/FOLLOW UP ISSUES: BRIEF HOSPITAL COURSE: Patient was admitted for 4 days. Synopsis of acute inpatient issues are outlined above. Chronic medical conditions with notable findings outlined above. DISCHARGE MEDICATIONS: See Reconciled list - SIGNIFICANT CHANGES: Short-term course of Vantin for aspiration pneumonia Decreased doses of alprazolam Specific instructions to the patient and follow-up are outlined below. REVIEW OF SYSTEMS No new chest pain or dyspnea Pain controlled No voiding difficulties Tolerating diet challenge PHYSICAL EXAM: CONSTITUTIONAL: Moderate dementia. Intermittently conversational. VITAL SIGNS: see record. HEENT: Normocephalic, atraumatic. PERRL, EOMI, conjunctivae pink, no scleral icterus. Ears and nose externally normal. Pharynx normal. NECK: No JVD. No carotid bruit, no thyromegaly, no adenopathy. CHEST: Rhonchi bilaterally. Decreased at the bases. HEART: S1 and S2 normal. Edema ABDOMEN: Soft, nontender. Normal bowel sounds. MUSCULOSKELETAL: No gross joint deformity or swelling. NEURO: Cranial nerves intact. Grossly intact. No asymmetric findings. SKIN: No rashes, petechiae, concerning changes PSYCHIATRIC: Mood euthymic. DISPOSITION: [facility] facility Time spent on discharge 37 minutes. Status at Discharge Functional status at discharge: bed bound Overall status at discharge: patient is not back to baseline Time Spent with Patient Time attestation: Total time spent providing and/or coordinating discharge services: Time spent: Greater than 30 minutes Exam Const: Vital Signs, click to edit/add: Vital Signs - 24 hr 12/13/22 12:15 12/13/22 15:30 12/13/22 16:12 Temperature 98.3 F 100.2 F H Pulse Rate [Pulse Oximeter] 108 H 95 Respiratory Rate 16 16 18 Blood Pressure [Ri ght Arm] 146/94 H 110/67 Pulse Oximetry 93 93 93 Oxygen Delivery Me thod Nasal Cannula Nasal Cannula Nasal Cannula Oxygen Flow Rate 2 1 1 12/13/22 19:00 12/13/22 23:00 12/13/22 23:00 Temperature 98.2 F Pulse Rate [Pulse Oximeter] 101 H 98 Respiratory Rate 18 18 18 Blood Pressure [Ri ght Arm] 149/65 H Pulse Oximetry 94 93 Oxygen Delivery Me thod Nasal Cannula Nasal Cannula Oxygen Flow Rate 1 1 12/13/22 23:00 12/14/22 03:00 12/14/22 09:00 Temperature 98.4 F 98.4 F 99.3 F Pulse Rate [Pulse Oximeter] 98 97 96 Respiratory Rate 18 18 16 Blood Pressure [Ri ght Arm] 149/77 H 148/78 H Pulse Oximetry 93 90 90 Oxygen Delivery Me thod Nasal Cannula Nasal Cannula Room Air Oxygen Flow Rate 1 1 DS: Data Data Completed and Pending Labs on day of discharge: Labs from last 24 hours 12/13/22 11:17 WBC 11.53 H RBC 3.81 L Hgb 11.6 L Hct 36.8 MCV 97 MCH 30 MCHC 32 Plt Count 169 VBG pH 7.438 H VBG pCO2 35 L VBG pO2 52.8 H VBG HCO3 23 Ionized Calcium Leida 1.01 L Magnesium 1.8 Troponin I 0.06 H* C-Reactive Protein 13.6 H Procalcitonin 0.42 Preliminary micro results at discharge 12/11/22 14:08 Blood Culture - Preliminary Blood NO GROWTH AFTER 48 HOURS 12/11/22 13:59 Blood Culture - Preliminary Blood NO GROWTH AFTER 48 HOURS Discharge Plan Discharge Disposition: [facility] Date of Admission: 12/12/22 09:34 Attending Provider on Discharge: Daija Boykin Primary Care Provider: Alice Cooper Discharge Medications: New cefpodoxime 200 mg Tablet 200 mg PO BID Qty: 10 0RF alprazolam 0.25 mg Tablet 0.25 mg PO TID@08,13,20 Qty: 90 0RF levothyroxine 112 mcg Tablet 112 mcg PO DAILY@07 Qty: 30 0RF Continued trolamine salicylate [Analgesic Creme] 10 % cream 1 applic topical BID loperamide [Imodium A-D] 2 mg capsule 2 mg PO Q4H PRN Rx Instructions: administer after each loose stool until symptoms controlled; do not exceed 8 mg per 24 hrs tramadol 50 mg tablet 50 mg PO Q6H PRN (Reason: pain) Qty: 1 0RF buspirone 5 mg tablet 5 mg PO DAILY@12 Qty: 30 0RF sertraline 100 mg tablet 200 mg PO DAILY Qty: 60 0RF acetaminophen 500 mg tablet 1,000 mg PO TID Qty: 360 0RF buspirone 10 mg tablet 10 mg PO BID@08,18 Qty: 60 0RF nystatin 100,000 unit/gram powder 1 applic topical BID PRN (Reason: yeast) Qty: 30 0RF venlafaxine 150 mg tablet extended release 24hr 150 mg PO DAILY Qty: 30 0RF Discontinued levothyroxine 150 mcg capsule 137 mcg PO DAILY@07 alprazolam 0.5 mg tablet 0.5 mg PO TID@08,13,20 Qty: 1 0RF alprazolam 0.5 mg tablet 0.5 mg PO BID PRN Discharge Orders: Discharge Order (Routine); Ordered 12/14/22 Ordered By: Daija Boykin Additional Instructions: 1. Continue oral antibiotic (aspiration pneumonia) until gone, 5 more days. 2. Follow Mince and Moist for dysphagia and slightly thick liquids. Pt has a normal swallowing study but secondary to dementia was having trouble with aspiration. 3. I've reduced the total dose of benzodiazepines, she can have a quarter of a mg (0.25mg) 3 times a day of Xanax. She previously had been on a half of mg 3 times a day with 2 extra p.r.n. doses. Activity Level: Activity as Tolerated Discharge Diet: Regular Dysphagia Food: Level 5- Minced & Moist Dysphagia Liquid: Level 1-Slightly Thick Follow Up Appointments: Alice Cooper MD [Primary Care Provider] - 12/28/22 Forms: [facility] Info Instructions Admit to: SNF Discharge Potential: Poor Length of Stay: >90 days Can use facility standing orders?: Yes Code Status: DNR/DNI TEDs: N/A Rehab Potential: Poor Oxygen: No Urinary Catheter: No Orders are good >30 days: Yes
[2022-12-14] MEDS: BUSPIRONE 10 MG TABLET 5 MG PO (12:25)
--- NOTE | 2022-12-14 12:36 | PC.SOCIAL ---
Discharge planning- Pt was accepted for admission to [facility] to [facility] unit. Phone call to pt's POA (Lita Gomez) and left voicemail to return call to social work to discuss discharge plans. Received a phone call back from Lita and provided update on acceptance to [facility]. Informed that pt would have to private pay $5,000.00 upfront. Pt's POA approved and informed that she agrees that pt needs a higher level of care. Provided pt with [facility]'s admissions coordinators contact information to make payment and complete admissions paperwork. Discussed that pt could transport today via non-emergency ambulance (Pt is still a heavy 2 assist to transfer). Lita informs that would be ok and she will reach out to the [facility] overlock sewing machine operator (Angela) to complete necessary paperwork. E-mail to Angela Haines in admissions at [facility] to provide an update. Pt will transport via EMS between 12:30 pm and 1:00 pm. Completed preadmission screening. Confirmation #[id number]. Secure e-mailed the following documents to Angela in admissions at [facility]. Sent a copy of the PAS, a copy of the swallow evaluation, and a copy of the Nutritional assessment completed in the hospital. Social work will follow up as needed.
--- NOTE | 2022-12-14 13:28 | PC.NURSE ---
Transfer to SNF: The patient upon assessment this AM was Alert to self and place only. I gave nurse to nurse report to [facility] this AM [facility].... they then accepted the patient. The patient is Q2 reposition... Assistance needed to transfer varies... with time and lots of encouragement PT said the patient was able to stand up and transfer with Ax1 with a walker and GB. Although yesterday she was a heavy Ax2 with a RW and GB. PT recommended EZ stand if do not have extra time to take when getting the patient up. She needs someone to feed her and help her drink fluids or else she will not do so. IV was removed from L forearm. Transfer packet was given to EMS upon arrival to the unit and they transferred the patient to [facility] @ 1242. Incontinent of bladder and bowl. Large liquid/ green BM before she departed this afternoon. Report given to EMS prior to departure. Med scripts were sent to [facility] as well. Charlee STOUT RN
== END 2022-12-14 12:42 | DRG 177 ==
LOC: ED 14:28 → MEDSURG 14:54
PROVIDERS: Family Medicine; Nurse Practitioner Gerontology; Admitting Provider Internal Medicine; Emergency Provider Emergency Medicine; PCP Family Medicine; Visit Provider Internal Medicine
DX: J69.0 Pneumonitis due to inhalation of food and vomit (principal); I21.A1 Myocardial infarction type 2; J96.01 Acute respiratory failure with hypoxia; E87.20 Acidosis, unspecified; T17.228A Food in pharynx causing other injury, initial encounter; G30.0 Alzheimer's disease with early onset; F02.C0 Dementia in other diseases classified elsewhere, severe, without behavioral disturbance, psychotic disturbance, mood disturbance, and anxiety; R13.10 Dysphagia, unspecified; E11.9 Type 2 diabetes mellitus without complications; I10 Essential (primary) hypertension; F41.1 Generalized anxiety disorder
CPT/HCPCS: 36415; 71045; 80048; 80053; 81003; 82330; 82803; 83036; 83605; 83735; 83880; 84100; 84145; 84443; 84484; 85025; 85027; 86140; 87040; 87081; 92610; 93005; 94761; 97161; 97530; 99285; 99291; A9270; G0378; J0743; J1335; J1650; J2405; J2704; J3480; J7030; J7050; J7120

== ENCOUNTER 2022-12-14 12:38 | Outpatient (CLI) | payer MEDICARE, SELFPAY | END 2022-12-14 12:39 | disposition home or self-care (01) | LOC: AMB 12-15 12:23 | PROVIDERS: PCP Family Medicine; Visit Provider Student in an Organized Health Care Education/Training Program | DX: J96.01 Acute respiratory failure with hypoxia (principal); R41.82 Altered mental status, unspecified; F03.90 Unspecified dementia, unspecified severity, without behavioral disturbance, psychotic disturbance, mood disturbance, and anxiety | CPT/HCPCS: A0425; A0428 ==

== ENCOUNTER 2022-12-23 14:54 | Outpatient (REF) | payer MEDICARE, SELFPAY ==
[2022-12-23 18:43] LABS: C.Difficile Negative (Negative); CDIFFEPI 027 PRESUMPTIVE NEGATIVE (Negative)
== END 2022-12-23 14:55 | disposition home or self-care (01) ==
LOC: NPINS 14:54
PROVIDERS: PCP Family Medicine; Visit Provider Nurse Practitioner Adult Health
DX: R19.7 Diarrhea, unspecified (principal)
CPT/HCPCS: 87493